=== PATIENT | male | born 1950 | race Caucasian/White ===

== ENCOUNTER 2016-07-20 19:09 | Emergency (ER) | payer MEDICARE, MEDICAID ==
[2016-07-20 19:10] VITALS: BMI 33.5
[2016-07-20 19:32] VITALS: RESP 20
[2016-07-20] MEDS ORDERED: Sodium Chloride 0.9% 1,000 ML IV ONE (19:50)
--- NOTE | 2016-07-20 19:51 | C.PDOC ---
History Of Present Illness Patient presents to the ER with a complaint of sharp, diffuse, worsening abdominal pain since this morning. Patient reports a decrease in PO intake. Denies fever, chill, nausea or vomiting. Time Seen by Provider: 07/20/16 19:49 Chief Complaint (Nursing): Abdominal Pain History Per: Patient History/Exam Limitations: no limitations Onset/Duration Of Symptoms: Hrs (Since AM) Current Symptoms Are (Timing): Still Present Severity: Moderate Pain Scale Rating Of: 6 Location Of Pain/Discomfort: Diffuse Radiation Of Pain To:: None Quality Of Discomfort: Sharp Associated Symptoms: Loss Of Appetite. denies: Fever, Chills, Nausea, Vomiting Exacerbating Factors: None Alleviating Factors: None Recent travel outside of the [place]: No Past Medical History Reviewed: Historical Data, Nursing Documentation, Vital Signs Vital Signs: Last Vital Signs Temp 97.5 F L 07/20/16 19:29 Pulse 51 L 07/20/16 19:29 Resp 20 07/20/16 19:29 BP 143/77 07/20/16 19:29 Pulse Ox 96 07/20/16 20:29 - Medical History PMH: Anxiety, Arthritis (KNEE PAIN), Back Problems, COPD, Diabetes, Gastritis, HTN, Hypercholesterolemia, Pneumonia () Surgical History: Coronary Stent (2 YEARS AGO), Hernia Repair - [facility] Procedures CENTRAL VENOUS CATHETER PLACEMENT WITH GUIDANCE (07/24/12) CONTINUOUS INVASIVE MECHANICAL VENTILATION <96 CONSEC HRS (07/24/12) DRAINAGE OF PERITONEAL CAVITY, OPEN APPROACH (05/13/15) EXCISION OF RIGHT SPERMATIC CORD, OPEN APPROACH (05/01/15) EXTRACTION OF PELVIC SUBCU/FASCIA, OPEN APPROACH (05/13/15) INSERT ENDOTRACHEAL TUBE (07/24/12) OTH LYSIS-PERITONEAL ADHES (03/16/13) OTHER OPEN UMBILICAL HERNIORRHAPHY (03/16/13) SUPPLEMENT R INGUINAL REGION WITH SYNTH SUB, OPEN APPROACH (05/01/15) Family History: States: No Known Family Hx - Social History Hx Tobacco Use: Yes Hx Alcohol Use: No Hx Substance Use: No - Immunization History Hx Tetanus Toxoid Vaccination: No Hx Influenza Vaccination: Yes Hx Pneumococcal Vaccination: No Review Of Systems Constitutional: Negative for: Fever, Chills Gastrointestinal: Positive for: Abdominal Pain (Sharpm, diffuse). Negative for : Nausea, Vomiting Physical Exam - Physical Exam Appears: Non-toxic Skin: Warm, Dry Oral Mucosa: Moist Chest: Symmetrical, No Tenderness Cardiovascular: Rhythm Regular, No Murmur Respiratory: No Rales, No Rhonchi, No Wheezing Gastrointestinal/Abdominal: Soft, No Tenderness, Distention, Hernia (Right periumbilical nonreducible), Other (Inguinal canal intact) Neurological/Psych: Oriented x3 ED Course And Treatment - Laboratory Results Result Diagrams: 07/20/16 20:07 07/20/16 20:07 O2 Sat by Pulse Oximetry: 96 (room air) Pulse Ox Interpretation: Normal Progress Note: CT abd/pel w/ PO & IV contrast, blood work and urinalysis ordered. Pepcid, toradol, morphine, zofran, piperacillin and IV fluids administered. Spoke with pt at length about having to stay in ehospital, but pt states he has"things to do" and will come back in 2 weeks.Understands the risks as I've explained to him, including worsening condition, permanent disability and . Pt is aaox3 and competent and states he wants to go home Against Medical Advice - AMA Patient Left Against Medical Advice: The patient declines admission to the hospital and wishes to leave the Emergency Department. This action is against my medical advice. This decision was made with informed refusal. The patient was told that admission to the hospital is necessary. Explanation of the reasons why were discussed. The risks of leaving were explained to the patient and include, but are not limited to, worsening of known or currently unknown conditions, permanent disability and from undiagnosed or untreated conditions. The patient has the capacity to make this informed decision and understands my explanation of the current medical problem and risks of leaving. The patient voluntarily accepts these risks and signed an AMA form documenting our conversation. The patient was given the opportunity to ask questions and reconsider. The patient was encouraged to return to the Emergency Department at any time for further care. Disposition Counseled Patient/Family Regarding: Studies Performed, Diagnosis, Need For Followup - Disposition Disposition: AGAINST MEDICAL ADVICE Disposition Time: 19:50 Condition: FAIR Instructions: Umbilical Hernia (ED), Abdominal Pain (ED) - Clinical Impression Clinical Impression: Abdominal pain, Umbilical hernia with obstruction - Scribe Statement The provider has reviewed the documentation as recorded by the Scribosiris Rivera All medical record entries made by the Scribe were at my direction and personally dictated by me. I have reviewed the chart and agree that the record accurately reflects my personal performance of the history, physical exam, medical decision making, and the department course for this patient. I have also personally directed, reviewed, and agree with the discharge instructions and disposition.
[2016-07-20] MEDS ORDERED: Piperacillin/Tazobact 3.375 gm 100 ML IVPB STA (19:55)
[2016-07-20] MEDS ORDERED: Iohexol 240 (50 ml) PO ONE (19:57)
[2016-07-20] MEDS ORDERED: Sodium Chloride 0.9% 1,000 ML ONE (20:05)
[2016-07-20] MEDS ORDERED: Iohexol 240 (50 ml) ONE (20:08)
[2016-07-20] MEDS ORDERED: Morphine 4 MG/ML VIAL ONE (20:08)
[2016-07-20] MEDS ORDERED: Piperacillin/Tazobact 3.375 gm 100 ML IVPB ONE (20:09)
[2016-07-20 20:11] LABS: BASO # 0.1 K/uL (0.0-0.2); BASO % 0.6 % (0.0-2.0); EOS # 0.2 K/uL (0.0-0.7); EOS % 2.5 % (0.0-4.0); HEMATOCRIT 48.2 % (35.0-51.0); LYMPH # 3.4 K/uL (1.0-4.3); LYMPH % 35.5 % (20.0-40.0); MEAN CELL VOLUME 88.4 fL (80.0-94.0); MEAN CORPUSCULAR HGB CONC 33.9 g/dL (33.0-37.0); MEAN PLATELET VOLUME 9.8 fL (7.2-11.7); MONO # 0.8 K/uL (0.0-0.8); NRBC % 0.1 % (0.0-2.0); RED CELL DISTRIBUTION WIDTH 14.3 % (11.5-14.5); WHITE BLOOD COUNT 9.6 K/uL (4.8-10.8)
[2016-07-20 20:25] LABS: CHLORIDE 102 mmol/L (98-107); POTASSIUM 4.2 mmol/L (3.6-5.2); SODIUM 137 mmol/L (132-148)
[2016-07-20 20:27] LABS: GFR AFRICAN-AMERICAN > 60
[2016-07-20 20:28] LABS: ALB/GLOB RATIO 1.4 (1.0-2.1); ALKALINE PHOSPHATASE 56 U/L (38-126); ALT/SGPT 22 U/L (21-72); AST/SGOT 19 U/L (17-59); BILIRUBIN,TOTAL 0.6 mg/dL (0.2-1.3); BLOOD UREA NITROGEN 23 mg/dL (9-20); CALCIUM 9.2 mg/dl (8.6-10.4); CARBON DIOXIDE 28 mmol/L (22-30); GLUCOSE,RANDOM 107 mg/dL (75-110); TOTAL PROTEIN 6.7 g/dL (6.3-8.3)
[2016-07-20] MEDS ORDERED: Iohexol 350mg/ml 100 ML ONE (20:54)
[2016-07-20 20:56] LABS: VENOUS BLOOD GAS BASE EXCESS 0.1 mmol/L (0.0-2.0); VENOUS BLOOD GAS PCO2 56 mmHg (40-60)
--- NOTE | 2016-07-20 22:13 | CT ---
EXAM: CT Abdomen and Pelvis With Intravenous Contrast CLINICAL HISTORY: 66 years old, male; Condition or disease; Hernia; Complications not specified; Hernia not specified; Additional info: Incarcerated hernia TECHNIQUE: Axial computed tomography images of the abdomen and pelvis with intravenous contrast. This CT exam was performed using one or more of the following dose reduction techniques: automated exposure control, adjustment of the mA and/or kV according to patient size, and/or use of iterative reconstruction technique. Coronal and sagittal reformatted images were created and reviewed. CONTRAST: 100 mL of omnipaque 350 administered intravenously. COMPARISON: No relevant prior studies available. FINDINGS: Lower thorax: No acute findings. ABDOMEN: Liver: Unremarkable. No mass. Gallbladder and bile ducts: No calcified stones. No ductal dilation. Pancreas: No ductal dilation. No mass. Spleen: No splenomegaly. Adrenals: No mass. Kidneys and ureters: Few renal cysts. Few too small to characterize lesions within kidneys. No hydronephrosis. Stomach and bowel: Small to moderate RIGHT paraumbilical hernia containing fat, fluid, loops of small bowel. Mildly dilated loops of mid small bowel proximal to hernia. Stool formation within few mildly dilated bowel loops. Mild stranding/fluid within associated small bowel mesentery. Nondistended loops of distal small bowel distal to hernia. No definite mural thickening. Appendix: Normal caliber. No inflammation. PELVIS: Bladder: LEFT bladder diverticulum. Reproductive: Mildly enlarged prostate with indentation of inferior bladder wall. ABDOMEN and PELVIS: Intraperitoneal space: Small free fluid within abdomen. Bones/joints: No acute fracture. Soft tissues: Small LEFT paraumbilical horn containing fat. Linear scarring within the RIGHT inguinal region. 2.6 x 1.8 x 2.2 cm fluid collection at level of RIGHT inguinal canal without peripheral enhancement, likely seroma. Vasculature: Mild atherosclerotic disease. Focal infrarenal abdominal aortic aneurysm, up to 3.0 cm. Lymph nodes: No pathologically enlarged lymph nodes. IMPRESSION: 1. RIGHT paraumbilical hernia containing small bowel with resultant obstruction. 2. Incidental/non-acute findings are described above.
[2016-07-20 23:35] VITALS: BP 130/75; PULSE 64; TEMP 98.1; O2SAT 97
[2016-07-21 00:31] LABS: RBC URINE < 1 /hpf (0-3); URINE BILIRUBIN NEGATIVE (NEGATIVE); URINE BLOOD NEGATIVE (NEGATIVE); URINE COLOR Yellow (YELLOW); URINE GLUCOSE (UA) NORMAL (Normal); URINE KETONE NEGATIVE (NEGATIVE); URINE LEUKOCYTE ESTERASE NEG Leu/uL (Negative); URINE PROTEIN NEGATIVE (NEGATIVE); URINE UROBILINOGEN NORMAL mg/dL (0.2-1.0); WBC URINE 1 /hpf (0-5)
== END 2016-07-20 23:25 | disposition left against medical advice (07) ==
LOC: C.ER 19:09
DX: K42.0 Umbilical hernia with obstruction, without gangrene (principal)
CPT/HCPCS: 74177; 80053; 82803; 83690; 85025; 85610; 85730; 96365; 96375; 99285; J1885; J2270; J2405; J2543; J7040; Q9966; Q9967

== ENCOUNTER 2016-07-21 12:43 | Inpatient (IN) | payer MEDICARE, MEDICAID ==
[2016-07-21 12:43] VITALS: BMI 33.5
--- NOTE | 2016-07-21 13:20 | C.PDOC ---
History Of Present Illness 66M c/o abdominal pain and nausea for 2 days. no exac or reliev fx. he says he was here yesterday but left AMA because he says "I felt better." he says pain returned today. Time Seen by Provider: 07/21/16 13:16 Chief Complaint (Nursing): Abdominal Pain Past Medical History Vital Signs: Last Vital Signs Temp 97.6 F 07/21/16 13:03 Pulse 52 L 07/21/16 14:05 Resp 18 07/21/16 14:05 BP 106/70 07/21/16 14:05 Pulse Ox 95 07/21/16 14:05 - Medical History PMH: Anxiety, Arthritis (KNEE PAIN), Back Problems, COPD, Diabetes, Gastritis, HTN, Hypercholesterolemia, Pneumonia () Surgical History: Coronary Stent (2 YEARS AGO), Hernia Repair - [facility] Procedures CENTRAL VENOUS CATHETER PLACEMENT WITH GUIDANCE (07/24/12) CONTINUOUS INVASIVE MECHANICAL VENTILATION <96 CONSEC HRS (07/24/12) DRAINAGE OF PERITONEAL CAVITY, OPEN APPROACH (05/13/15) EXCISION OF RIGHT SPERMATIC CORD, OPEN APPROACH (05/01/15) EXTRACTION OF PELVIC SUBCU/FASCIA, OPEN APPROACH (05/13/15) INSERT ENDOTRACHEAL TUBE (07/24/12) OTH LYSIS-PERITONEAL ADHES (03/16/13) OTHER OPEN UMBILICAL HERNIORRHAPHY (03/16/13) SUPPLEMENT R INGUINAL REGION WITH SYNTH SUB, OPEN APPROACH (05/01/15) Family History: States: Other Other Family History: nc - Social History Hx Tobacco Use: Yes Hx Alcohol Use: No Hx Substance Use: No - Immunization History Hx Tetanus Toxoid Vaccination: No Hx Influenza Vaccination: Yes Hx Pneumococcal Vaccination: No Review Of Systems Except As Marked, All Systems Reviewed And Found Negative. Constitutional: Negative for: Fever, Chills, Weakness, Malaise Cardiovascular: Negative for: Chest Pain Respiratory: Negative for: Cough, Shortness of Breath Gastrointestinal: Positive for: Nausea, Abdominal Pain. Negative for: Vomiting , Diarrhea Neurological: Negative for: Weakness, Numbness Physical Exam - Physical Exam Appears: Non-toxic Skin: Warm, Dry Eye(s): bilateral: PERRL Nose: No Epistaxis Oral Mucosa: Moist Tongue: No Swelling Lips: No Swelling Neck: Normal ROM Cardiovascular: Rhythm Regular Respiratory: No Decreased Breath Sounds, No Accessory Muscle Use, No Rales, No Rhonchi, No Wheezing Gastrointestinal/Abdominal: Bowel Sounds (decreased), Tenderness, Distention, Other (paraumbilical hernia) Extremity: No Swelling Neurological/Psych: Oriented x3, Other (no focal deficits) ED Course And Treatment - Laboratory Results Result Diagrams: 07/21/16 13:38 07/21/16 13:38 O2 Sat by Pulse Oximetry: 95 Medical Decision Making Medical Decision Makinpm disc w Dr Gibbs who will admit. req Dr Pa 215pm Dr Ember arevalo the pt in the ED> will plan on surgery today Disposition - Disposition Disposition: HOSPITALIZED Disposition Time: 13:45 Condition: GUARDED - Clinical Impression Clinical Impression: Incarcerated hernia
[2016-07-21] MEDS ORDERED: Piperacill/Tazo 3.375gm in Dex 3.375 GM/50 ML BAG IVPB STA (13:21)
[2016-07-21 13:47] LABS: BASO % 0.5 % (0.0-2.0); EOS # 0.2 K/uL (0.0-0.7); EOS % 2.4 % (0.0-4.0); HEMATOCRIT 52.3 % (35.0-51.0); LYMPH # 1.4 K/uL (1.0-4.3); MEAN CELL VOLUME 89.4 fL (80.0-94.0); MEAN CORPUSCULAR HEMOGLOBIN 29.8 pg (27.0-31.0); MEAN CORPUSCULAR HGB CONC 33.3 g/dL (33.0-37.0); MEAN PLATELET VOLUME 9.2 fL (7.2-11.7); MONO # 0.5 K/uL (0.0-0.8); MONO % 6.3 % (0.0-10.0); RED CELL DISTRIBUTION WIDTH 14.1 % (11.5-14.5); WHITE BLOOD COUNT 7.3 K/uL (4.8-10.8)
[2016-07-21 13:53] LABS: VENOUS BLOOD GAS BASE EXCESS -3.7 mmol/L (0.0-2.0); VENOUS BLOOD GAS PCO2 45 mmHg (40-60); VENOUS BLOOD PH 7.31 (7.32-7.43)
[2016-07-21 13:55] LABS: POTASSIUM 4.6 mmol/L (3.6-5.2)
[2016-07-21 13:57] LABS: BILIRUBIN,TOTAL 0.7 mg/dL (0.2-1.3)
[2016-07-21 13:58] LABS: ALB/GLOB RATIO 1.2 (1.0-2.1); CALCIUM 8.9 mg/dl (8.6-10.4); MAGNESIUM 1.9 mg/dL (1.6-2.3); PHOSPHOROUS 5.2 mg/dL (2.5-4.5); TOTAL PROTEIN 6.2 g/dL (6.3-8.3)
[2016-07-21] MEDS ORDERED: Vancomycin 1 gm/NS 200 ml 1 GM/200 ML BAG IVPB ONE (14:00)
[2016-07-21] MEDS ORDERED: Piperacillin/Tazobact 3.375 gm 100 ML IVPB ONE (14:01)
[2016-07-21] MEDS: Sodium Chloride 0.9% 1,000 ML IV SCH ×2 (14:04→23:02)
[2016-07-21] MEDS ORDERED: Morphine 4 MG/ML VIAL ONE (14:51)
--- NOTE | 2016-07-21 14:54 | RAD ---
HISTORY: Sepsis Patient COMPARISON: Chest x-ray performed 04/26/15 TECHNIQUE: Chest, one view. FINDINGS: Examination limited by habitus. LUNGS: Mild basilar atelectasis. Please note that chest x-ray has limited sensitivity for the detection of pulmonary masses. PLEURA: No significant pleural effusion identified. No definite pneumothorax . CARDIOVASCULAR: Cardiomegaly. OSSEOUS STRUCTURES: Degenerative changes. VISUALIZED UPPER ABDOMEN: Unremarkable. OTHER FINDINGS: None. IMPRESSION: Cardiomegaly. Mild basilar atelectasis.
[2016-07-21] MEDS ORDERED: Morphine 4 MG/ML VIAL IVP PRN ×3 (14:58→19:12)
--- NOTE | 2016-07-21 15:04 | CP.PCM.CON ---
History of Present Illness - History of Present Illness History of Present Illness: Surgery: Dr. Pa Reason for consult: abdominal pain CC: abdominal pain HPI: Patient is a 66 y/o male w/ pmhx of right inguinal hernia repair 2015 as well as prior umbilical hernia repair in 2013 presents complaining of abdominal pain for the past couple of days. He reports coming to ER yesterday however the abdominal pain improved so patient signed himself out of the hospital; however, he states the pain returned which prompted him to come back to hospital. Patient underwent CT scan yesterday which showed a large paraumbilical hernia, incarcerated, causing obstruction. Patient denies n/v/f/c. He denies CP or SOB. He does report associated nausea. PMH: COPD, HTN, CAD s/p cardiac stent placement in 2011?, most recent stress test showed EF 65% w/ no evidence of ischemia, DM, back pain, gastritis, HLD PSH: right inguinal hernia repair w/ mesh, right inguinal hernia hematoma drainage, umbilical hernia repair, cardiac cath NKDA Review of Systems - Review of Systems All systems: reviewed and no additional remarkable complaints except Review of Systems: unless stated in HPI Past Patient History - Infectious Disease Hx of Infectious Diseases: None - Past Medical History & Family History Past Medical History?: Yes - Past Social History Smoking Status: Light Smoker < 10 Cigarettes Daily - CARDIAC Hx Hypercholesterolemia: Yes Hx Hypertension: Yes - PULMONARY Hx Chronic Obstructive Pulmonary Disease (COPD): Yes Hx Pneumonia: Yes () - NEUROLOGICAL Hx Neurological Disorder: No - HEENT Hx HEENT Problems: Yes (POOR VISION) - RENAL Hx Chronic Kidney Disease: No - ENDOCRINE/METABOLIC Hx Endocrine Disorders: Yes Hx Diabetes Mellitus Type 2: Yes - HEMATOLOGICAL/ONCOLOGICAL Hx Blood Disorders: No - INTEGUMENTARY Hx Dermatological Problems: No - MUSCULOSKELETAL/RHEUMATOLOGICAL Hx Arthritis: Yes (KNEE PAIN) - GASTROINTESTINAL Hx Gastritis: Yes - GENITOURINARY/GYNECOLOGICAL Hx Genitourinary Disorders: Yes Hx Prostate Problems: Yes - PSYCHIATRIC Hx Anxiety: Yes Hx Substance Use: No - SURGICAL HISTORY Hx Coronary Stent: Yes (2 YEARS AGO) - ANESTHESIA Hx Anesthesia: Yes Hx Anesthesia Reactions: No Hx Malignant Hyperthermia: No Meds Allergies/Adverse Reactions: Allergies Allergy/AdvReac Type Severity Reaction Status Date / Time No Known Allergies Allergy Verified 07/21/16 13:06 - Medications Medications: Current Medications Vancomycin/Sodium Chloride (Vancocin) 1 gm in 200 mls @ 133 mls/hr IVPB ONCE ONE Stop: 07/21/16 15:30 Last Admin: 07/21/16 14:42 Dose: 133 mls/hr Sodium Chloride (Sodium Chloride 0.9%) 1,000 mls @ 100 mls/hr IV .Q10H ERIK Last Admin: 07/21/16 14:04 Dose: 100 mls/hr Physical Exam - Constitutional Appears: Non-toxic, No Acute Distress - Head Exam Head Exam: ATRAUMATIC, NORMOCEPHALIC - Eye Exam Eye Exam: EOMI, Normal appearance - ENT Exam ENT Exam: Mucous Membranes Moist - Respiratory Exam Respiratory Exam: NORMAL BREATHING PATTERN. absent: Respiratory Distress - Cardiovascular Exam Cardiovascular Exam: REGULAR RHYTHM. absent: Tachycardia - GI/Abdominal Exam GI & Abdominal Exam: Distended, Hernia (mohamud-umbilical nonreducible hernia ), Soft, Tenderness (mohamud-umbilical ). absent: Guarding - Neurological Exam Neurological exam: Alert - Psychiatric Exam Psychiatric exam: Normal Affect, Normal Mood - Skin Skin Exam: Dry, Intact, Warm Results - Vital Signs Recent Vital Signs: Last Vital Signs Temp 97.6 F 07/21/16 13:03 Pulse 86 07/21/16 14:48 Resp 20 07/21/16 14:48 BP 118/75 07/21/16 14:48 Pulse Ox 97 07/21/16 14:48 - Labs Result Diagrams: 07/21/16 13:38 07/21/16 13:38 Labs: Laboratory Results - last 24 hr 07/21/16 07/21/16 07/21/16 13:38 13:38 13:38 WBC 7.3 RBC 5.85 Hgb 17.4 Hct 52.3 H MCV 89.4 MCH 29.8 MCHC 33.3 RDW 14.1 Plt Count 145 MPV 9.2 Neut % (Auto) 71.8 Lymph % (Auto) 19.0 L [place] % (Auto) 6.3 Eos % (Auto) 2.4 Baso % (Auto) 0.5 Neut # 5.2 Lymph # 1.4 [place] # 0.5 Eos # 0.2 Baso # 0.0 PT 11.5 INR 1.0 APTT 69 H D pO2 VBG pH VBG pCO2 VBG HCO3 VBG Total CO2 VBG O2 Sat (Calc) VBG Base Excess VBG Potassium Glucose Lactate Sodium 137 Potassium 4.6 Chloride 102 Carbon Dioxide 25 Anion Gap 14 BUN 23 H Creatinine 1.5 Est GFR ( Amer) 57 Est GFR (Non-Af Amer) 47 Random Glucose 155 H Calcium 8.9 Phosphorus 5.2 H Magnesium 1.9 Total Bilirubin 0.7 AST 20 ALT 24 Alkaline Phosphatase 54 Total Protein 6.2 L Albumin 3.4 L Globulin 2.8 Albumin/Globulin Ratio 1.2 Venous Blood Potassium 07/21/16 13:49 WBC RBC Hgb Hct MCV MCH MCHC RDW Plt Count MPV Neut % (Auto) Lymph % (Auto) [place] % (Auto) Eos % (Auto) Baso % (Auto) Neut # Lymph # [place] # Eos # Baso # PT INR APTT pO2 42 VBG pH 7.31 L VBG pCO2 45 VBG HCO3 21.4 VBG Total CO2 24.1 VBG O2 Sat (Calc) 82.2 H VBG Base Excess -3.7 L VBG Potassium 4.1 Glucose 144 H Lactate 1.5 Sodium 139.0 Potassium Chloride 108.0 H Carbon Dioxide Anion Gap BUN Creatinine Est GFR ( Amer) Est GFR (Non-Af Amer) Random Glucose Calcium Phosphorus Magnesium Total Bilirubin AST ALT Alkaline Phosphatase Total Protein Albumin Globulin Albumin/Globulin Ratio Venous Blood Potassium 4.1 Assessment & Plan - Assessment and Plan (Free Text) Assessment: 66 y/o male w/ incarcerated para-umbilical hernia Plan: -urgent OR intervention for repair -hold meds -NPO -IV abx -am labs -pain control -nausea control -medical management per primary -seen and examined w/ Dr. Ember Gonzales PGY1
[2016-07-21] MEDS: Piperacillin/Tazobact 3.375 GM in Sodium Chloride 100 ML IVPB SCH ×2 (15:05→21:01)
[2016-07-21 15:29] LABS: RBC URINE < 1 /hpf (0-3); URINE BILIRUBIN NEGATIVE (NEGATIVE); URINE BLOOD NEGATIVE (NEGATIVE); URINE COLOR Yellow (YELLOW); URINE GLUCOSE (UA) NORMAL (Normal); URINE KETONE NEGATIVE (NEGATIVE); URINE LEUKOCYTE ESTERASE NEG Leu/uL (Negative); URINE PROTEIN NEGATIVE (NEGATIVE); URINE UROBILINOGEN NORMAL mg/dL (0.2-1.0); WBC URINE 1 /hpf (0-5)
[2016-07-21] MEDS ORDERED: (Novolin R) Insulin Human Regular 100 units/ml vial SC SCH (16:30)
[2016-07-21] MEDS ORDERED: Propofol 10 mg/ml Inj (20 ML) ONE (16:42)
[2016-07-21] MEDS ORDERED: Midazolam 2 MG/2 ML VIAL ONE ×2 (16:42→17:43)
[2016-07-21 16:43] LABS: VENOUS BLOOD GAS BASE EXCESS -1.9 mmol/L (0.0-2.0); VENOUS BLOOD GAS PCO2 53 mmHg (40-60); VENOUS BLOOD PH 7.29 (7.32-7.43)
[2016-07-21] MEDS ORDERED: Lactated Ringer's 1,000 ML IV ONE ×2 (17:35→18:50)
[2016-07-21] MEDS ORDERED: Sodium Citrate/Citric Acid 15 ml Sol ONE (17:36)
[2016-07-21] MEDS ORDERED: Ketamine 50 mg/ml Inj (10 ml) ONE (17:38)
[2016-07-21] MEDS ORDERED: Succinylcholine Chloride 20 mg/ml Syr (5 ml) IV ONE (17:47)
[2016-07-21] MEDS ORDERED: Bupivacaine HCl 0.5% PF (10 ml) Inj ONE (18:48)
--- NOTE | 2016-07-21 19:09 | PCM.SURG1 ---
Surgeon's Initial Post Op Note - Surgeon's Notes Surgeon: Dr. Pa Chief Unit Forester: Dr. Taylor Type of Anesthesia: General Endo, Local Pre-Operative Diagnosis: incarcerated recurrent para-umbilical hernia Operative Findings: see operative report Post-Operative Diagnosis: same Operation Performed: incarcerated recurrent para-umbilical hernia open repair w / mesh Specimen/Specimens Removed: hernia sac Estimated Blood Loss: EBL {In ML}: 10 Blood Products Given: N/A Drains Used: No Drains Post-Op Condition: Good Date of Surgery/Procedure: 07/21/16 Time of Surgery/Procedure: 19:09
[2016-07-21] MEDS ORDERED: HYDROmorphone 0.5 mg/0.5 ml ISec IVP PRN (19:10)
--- NOTE | 2016-07-21 19:18 | OP ---
PROCEDURE DATE: 07/21/2016 PREOPERATIVE DIAGNOSIS: Incarcerated recurrent incisional hernia. POSTOPERATIVE DIAGNOSIS: Incarcerated recurrent incisional hernia. PROCEDURE CARRIED OUT: Repair of incarcerated recurrent incisional hernia with mesh. SURGEON: Hola Pa Jr., MD RECORDIST: Dr. Taylor. ANESTHESIOLOGIST: . ANESTHESIA: General anesthesia. INDICATIONS: The patient is a 66-year-old man with severe abdominal pain, came to the Emergency Room yesterday, signed out AMA, came back again today with increasing abdominal pain, felt to be slightly septic on admission, controlled with the use of fluids, etc. and hydration. OPERATIVE FINDINGS: There was no incarcerated bowel or compromised bowel. There was a defect. Most of the previous repair had just pulled through and there was a defect of 7 cm in diameter. This was identified. All the adjacent adhesions freed up and then a mesh which measured 14 x 11 was then mendy deo here, a Ventrio mesh, and sutured to the underlying fascia. The patient was somewhat distended a nd even with the increasing distension, the mesh held in place very nicely. We sutured both sides an d then sutured incorporating the mesh into the fascial closure. Skin was then closed with skin clips after subcutaneous closure and Marcaine was injected. Blood loss of the procedure was less than 50 mL. OPERATION CARRIED OUT: Repair of recurrent incarcerated incisional hernia with mesh. Hola Pa Jr., MD cc:Edmar Cabral MD 56 TT: 07/21/2016 19:17:34 curtis
--- NOTE | 2016-07-21 19:53 | CP.PCM.CON ---
History of Present Illness - History of Present Illness History of Present Illness: 66yo M. PMHx right inguinal repair with mesh (2015) c/b by right inguinal hernia hematoma drainage, umbilical hernia repair (2013), COPD, hypertension, CAD with stents (2011), diabetes mellitus type 2, back pain, gastritis, hyperlipidemia. Presented with abdominal pain, taken to the OR (07/21/16) and underwent repair with mesh of incarcerated recurrent paraumbilical hernia. Admit to ICU for postop monitoring. Review of Systems - Review of Systems All systems: reviewed and no additional remarkable complaints except - Gastrointestinal Gastrointestinal: Abdominal Pain (post=op pain) Past Patient History - Infectious Disease Hx of Infectious Diseases: None - Past Medical History & Family History Past Medical History?: Yes - Past Social History Smoking Status: Light Smoker < 10 Cigarettes Daily - CARDIAC Hx Hypercholesterolemia: Yes Hx Hypertension: Yes - PULMONARY Hx Chronic Obstructive Pulmonary Disease (COPD): Yes Hx Pneumonia: Yes () - NEUROLOGICAL Hx Neurological Disorder: No - HEENT Hx HEENT Problems: Yes (POOR VISION) - RENAL Hx Chronic Kidney Disease: No - ENDOCRINE/METABOLIC Hx Endocrine Disorders: Yes Hx Diabetes Mellitus Type 2: Yes - HEMATOLOGICAL/ONCOLOGICAL Hx Blood Disorders: No - INTEGUMENTARY Hx Dermatological Problems: No - MUSCULOSKELETAL/RHEUMATOLOGICAL Hx Arthritis: Yes (KNEE PAIN) - GASTROINTESTINAL Hx Gastritis: Yes - GENITOURINARY/GYNECOLOGICAL Hx Genitourinary Disorders: Yes Hx Prostate Problems: Yes - PSYCHIATRIC Hx Anxiety: Yes Hx Substance Use: No - SURGICAL HISTORY Hx Coronary Stent: Yes (2 YEARS AGO) - ANESTHESIA Hx Anesthesia: Yes Hx Anesthesia Reactions: No Hx Malignant Hyperthermia: No Meds Allergies/Adverse Reactions: Allergies Allergy/AdvReac Type Severity Reaction Status Date / Time No Known Allergies Allergy Verified 07/21/16 13:06 - Medications Medications: Current Medications Allopurinol (Zyloprim) 100 mg PO DAILY ERIK Amlodipine Besylate (Norvasc) 5 mg PO DAILY ERIK Aspirin (Ecotrin) 81 mg PO DAILY ERIK Clopidogrel Bisulfate (Plavix) 75 mg PO DAILY ERIK Colchicine (Colocrys) 0.6 mg PO DAILY ERIK Enalapril Maleate (Vasotec) 5 mg PO DAILY ERIK Ergocalciferol (Drisdol 50,000 Intl Units Cap) 1 cap PO QWK ERIK Famotidine (Pepcid) 20 mg IVP Q12 ERIK Furosemide (Lasix) 20 mg PO DAILY [facility] Hydromorphone HCl (Dilaudid) 0.5 mg IVP Q10M PRN PRN Reason: Pain, moderate (4-7) Sodium Chloride (Sodium Chloride 0.9%) 1,000 mls @ 100 mls/hr IV .Q10H [facility] Last Admin: 07/21/16 14:04 Dose: 100 mls/hr Piperacillin Sod/Tazobactam (Sod 3.375 gm/ Sodium Chloride) 100 mls @ 200 mls/ hr IVPB Q6H [facility] Last Admin: 07/21/16 15:05 Dose: Not Given Insulin Human Regular (Novolin R) 0 unit SC ACHS ERIK PRN Reason: Protocol Metformin HCl (Glucophage) 500 mg PO BIDCC [facility] Morphine Sulfate (Morphine) 4 mg IVP Q4H PRN PRN Reason: Pain, moderate (4-7) Morphine Sulfate (Morphine) 6 mg IVP Q4H PRN PRN Reason: Pain, severe (8-10) Ondansetron HCl (Zofran Inj) 4 mg IVP Q6 PRN PRN Reason: Nausea/Vomiting Potassium Chloride (Klor-Con 10) 10 meq PO DAILY [facility] Pyridoxine HCl (Vitamin B6 50 Mg Tab) 50 mg PO DAILY ERIK Rosuvastatin Calcium (Crestor) 20 mg PO HS ERIK Tamsulosin HCl (Flomax) 0.4 mg PO HS ERIK Zolpidem Tartrate (Ambien) 5 mg PO HS [facility] Physical Exam - Constitutional Appears: Well - Head Exam Head Exam: ATRAUMATIC, NORMAL INSPECTION, NORMOCEPHALIC - Eye Exam Pupil Exam: NORMAL ACCOMODATION, PERRL - ENT Exam ENT Exam: Mucous Membranes Moist, Normal Exam - Respiratory Exam Respiratory Exam: Clear to Auscultation Bilateral, NORMAL BREATHING PATTERN - Cardiovascular Exam Cardiovascular Exam: REGULAR RHYTHM - GI/Abdominal Exam GI & Abdominal Exam: Tenderness Additional comments: abdominal binder - Neurological Exam Neurological exam: Alert, CN II-XII Intact, Normal Gait, Oriented x3, Reflexes Normal - Psychiatric Exam Psychiatric exam: Normal Affect, Normal Mood Results - Vital Signs Recent Vital Signs: Last Vital Signs Temp 97.6 F 07/21/16 13:03 Pulse 46 L 07/21/16 16:23 Resp 18 07/21/16 16:23 BP 120/78 07/21/16 16:23 Pulse Ox 97 07/21/16 16:23 - Labs Result Diagrams: 07/21/16 13:38 07/21/16 13:38 Labs: Laboratory Results - last 24 hr 07/21/16 07/21/16 07/21/16 13:38 13:38 13:38 WBC 7.3 RBC 5.85 Hgb 17.4 Hct 52.3 H MCV 89.4 MCH 29.8 MCHC 33.3 RDW 14.1 Plt Count 145 MPV 9.2 Neut % (Auto) 71.8 Lymph % (Auto) 19.0 L [place] % (Auto) 6.3 Eos % (Auto) 2.4 Baso % (Auto) 0.5 Neut # 5.2 Lymph # 1.4 [place] # 0.5 Eos # 0.2 Baso # 0.0 PT 11.5 INR 1.0 APTT 69 H D pO2 VBG pH VBG pCO2 VBG HCO3 VBG Total CO2 VBG O2 Sat (Calc) VBG Base Excess VBG Potassium Glucose Lactate Sodium 137 Potassium 4.6 Chloride 102 Carbon Dioxide 25 Anion Gap 14 BUN 23 H Creatinine 1.5 Est GFR ( Amer) 57 Est GFR (Non-Af Amer) 47 Random Glucose 155 H Calcium 8.9 Phosphorus 5.2 H Magnesium 1.9 Total Bilirubin 0.7 AST 20 ALT 24 Alkaline Phosphatase 54 Total Protein 6.2 L Albumin 3.4 L Globulin 2.8 Albumin/Globulin Ratio 1.2 Venous Blood Potassium Urine Color Urine Clarity Urine pH Ur Specific [place] Urine Protein Urine Glucose (UA) Urine Ketones Urine Blood Urine Nitrate Urine Bilirubin Urine Urobilinogen Ur Leukocyte Esterase Urine WBC (Auto) Urine RBC (Auto) Ur Squamous Epith Cells 07/21/16 07/21/16 07/21/16 13:49 15:09 16:39 WBC RBC Hgb Hct MCV MCH MCHC RDW Plt Count MPV Neut % (Auto) Lymph % (Auto) [place] % (Auto) Eos % (Auto) Baso % (Auto) Neut # Lymph # [place] # Eos # Baso # PT INR APTT pO2 42 39 VBG pH 7.31 L 7.29 L VBG pCO2 45 53 VBG HCO3 21.4 22.6 VBG Total CO2 24.1 27.1 VBG O2 Sat (Calc) 82.2 H 76.0 H VBG Base Excess -3.7 L -1.9 L VBG Potassium 4.1 4.7 Glucose 144 H 127 H Lactate 1.5 1.1 Sodium 139.0 138.0 Potassium Chloride 108.0 H 111.0 H Carbon Dioxide Anion Gap BUN Creatinine Est GFR ( Amer) Est GFR (Non-Af Amer) Random Glucose Calcium Phosphorus Magnesium Total Bilirubin AST ALT Alkaline Phosphatase Total Protein Albumin Globulin Albumin/Globulin Ratio Venous Blood Potassium 4.1 4.7 Urine Color Yellow Urine Clarity Clear Urine pH 5.0 Ur Specific [place] 1.043 H Urine Protein Negative Urine Glucose (UA) Normal Urine Ketones Negative Urine Blood Negative Urine Nitrate Negative Urine Bilirubin Negative Urine Urobilinogen Normal Ur Leukocyte Esterase Neg Urine WBC (Auto) 1 Urine RBC (Auto) < 1 Ur Squamous Epith Cells < 1 Assessment & Plan (1) Incarcerated hernia Assessment and Plan: 66yo M. PMHx right inguinal repair with mesh (2015) c/b by right inguinal hernia hematoma drainage, umbilical hernia repair (2013), COPD, hypertension, CAD with stents (2011), diabetes mellitus type 2, back pain, gastritis, hyperlipidemia. (07/21/16) s/p repair with mesh of incarcerated recurrent paraumbilical hernia. Neuro: Alert and oriented, following commands. Morphine IV prn for moderate to severe pain. Pulm: No acute issues, breathing spontaneously on nasal cannula oxygen CV: Hemodynamically stable, holding hypertensive meds immediately postop, will restart tomorrow both amlodipine and enalapril. Hem: No acute issues, we'll restart aspirin and Plavix 24 hours postop. Renal: No acute issues, urine output within normal limits, will monitor. Restarting daily oral Lasix dosing tomorrow. Questionable need for Lasix given that echocardiogram shows no evidence of any type of heart failure. Endo: DM type II, short acting insulin sliding scale for coverage, holding oral meds for now, will restart once patient's clinical status is stable and is progressing on oral intake. GI: Nothing by mouth immediately postop. Will advance with input from surgical team. ID: Empiric coverage with Zosyn, will taper back based on patient's clinical progress. DVT proph - Lovenox, to be started 24 hours postop GI proph - Pepcid IV every 12 jeffrey for strict I/O's during acute illness Code status - full code Crtical Care Time spent 35 minutes The documented time is cumulative and includes review of patient data/exams/labs /chart review and examination of the patient on rounds and throughout the day; time is exclusive of any procedures or teaching time. Status: Acute
[2016-07-21] MEDS ORDERED: Sodium Chloride 0.9% 1,000 ML IV ONE (20:10)
[2016-07-21] MEDS ORDERED: (Novolog) Insulin Aspart, Recombinant 100 u/ml 10 ml vial SC SCH (20:15)
[2016-07-22] MEDS: Piperacillin/Tazobact 3.375 GM in Sodium Chloride 100 ML IVPB SCH ×4 (02:47→21:46)
[2016-07-22] MEDS: (Novolog) Insulin Aspart, Recombinant 100 u/ml 10 ml vial SC SCH ×4 (02:49→17:07)
[2016-07-22] MEDS: Sodium Chloride 0.9% 1,000 ML IV SCH ×4 (06:31→21:45)
[2016-07-22 06:52] LABS: BASO % 0.3 % (0.0-2.0); HEMATOCRIT 47.5 % (35.0-51.0); LYMPH # 1.1 K/uL (1.0-4.3); LYMPH % 8.6 % (20.0-40.0); MEAN CORPUSCULAR HGB CONC 33.3 g/dL (33.0-37.0); MEAN PLATELET VOLUME 9.4 fL (7.2-11.7); MONO # 0.2 K/uL (0.0-0.8); MONO % 1.8 % (0.0-10.0); PLATELET COUNT 133 K/uL (130-400); RED CELL DISTRIBUTION WIDTH 14.2 % (11.5-14.5); WHITE BLOOD COUNT 12.8 K/uL (4.8-10.8)
[2016-07-22 06:57] LABS: CHLORIDE 108 mmol/L (98-107); SODIUM 137 mmol/L (132-148)
[2016-07-22 06:58] LABS: POTASSIUM 4.6 mmol/L (3.6-5.2)
[2016-07-22 06:59] LABS: GFR AFRICAN-AMERICAN > 60
[2016-07-22 07:00] LABS: ALB/GLOB RATIO 1.1 (1.0-2.1); ALKALINE PHOSPHATASE 43 U/L (38-126); ALT/SGPT 21 U/L (21-72); AST/SGOT 16 U/L (17-59); BILIRUBIN,TOTAL 0.6 mg/dL (0.2-1.3); BLOOD UREA NITROGEN 17 mg/dL (9-20); CALCIUM 7.8 mg/dl (8.6-10.4); CARBON DIOXIDE 21 mmol/L (22-30); GLUCOSE,RANDOM 155 mg/dL (75-110); MAGNESIUM 1.9 mg/dL (1.6-2.3); PHOSPHOROUS 3.7 mg/dL (2.5-4.5); TOTAL PROTEIN 5.5 g/dL (6.3-8.3)
[2016-07-22] MEDS ORDERED: Oxycodone/Acetaminophen 5/325 mg Tab PO PRN (08:03)
[2016-07-22 08:50] LABS: NEUTROPHIL 84 % (50-75); TOTAL CELLS COUNTED 100
--- NOTE | 2016-07-22 09:34 | RAD ---
Abdomen single frontal view History: NG tube placement. Comparison: None available. Findings: NG tube extending toward the stomach. Distal tip not well visualized. Moderate to severe venous congestion. Right hilar prominence. Cardiomegaly. Patchy left basilar airspace opacity. Suggestion of a small left pleural effusion. Biapical pleural thickening with upper lobe granulomatous changes. Degenerative changes in the spine. Impression: NG tube extending toward the stomach. Distal tip not well visualized.
[2016-07-22] MEDS: Potassium Chloride 10 mEq ER Tab PO SCH (09:40)
[2016-07-22] MEDS ORDERED: Home Med 1 UNIT (Omeprazole [Omeprazole] 20 MG) PO SCH (10:00)
--- NOTE | 2016-07-22 13:52 | CP.CCUPN ---
<Lamonte Tucker - Last Filed: 07/22/16 13:50> CCU Subjective - Physician Review Subjective (Free Text): 07/22/16 13:50 PGY-1 ICU progress note Pt seen and examined at bedside. Awake and has complaint of abdominal pain but is tolerable. He is also hungry. Denies fevers, chills, chest pain, sob, nausea or vomiting. Critical Care Time Spent (in minutes): 35 CCU Objective - Vital Signs / Intake & Output Vital Signs (Last 4 hours): Vital Signs Temp 07/22/16 12:00 98 F Intake and Output (Last 8hrs): Intake & Output 07/21/16 07/22/16 07/22/16 22:59 06:59 14:59 Intake Total 053 100 5309 Output Total 475 800 350 Balance -275 100 710 Weight 240 lb 264 lb 1.82 oz Intake: Intake, IV Amount 200 900 700 Right Hand 200 900 700 Oral 360 Output: Gastric Drainage 25 Urine 450 800 350 Urethral (Diaz) 150 800 350 Other: Voiding Method Indwelling Catheter - Physical Exam Head: Positive for: Atraumatic, Normocephalic Pupils: Positive for: PERRL Mouth: Positive for: Moist Mucous Membranes Respiratory/Chest: Positive for: Clear to Auscultation, Good Air Exchange. Negative for: Respiratory Distress Cardiovascular: Positive for: Regular Rate and Rhythm, Normal S1, S2 Abdomen: Positive for: Tenderness (appropriate), Normal Bowel Sounds. Negative for: Distention Upper Extremity: Positive for: NORMAL PULSES, Neurovascularly Intact Lower Extremity: Positive for: NORMAL PULSES, Neurovascularly Intact Neurological: Positive for: Speech Normal, Motor Func Grossly Intact Skin: Positive for: Warm, Dry Psychiatric: Positive for: Alert, Oriented x 3 - Medications Active Medications: Active Medications Generic Name Dose Route Start Last Admin Trade Name Freq PRN Reason Stop Dose Admin Allopurinol 100 mg 07/22/16 10:00 07/22/16 09:40 Zyloprim PO 100 mg DAILY ERIK Administration Amlodipine Besylate 5 mg 07/22/16 10:00 07/22/16 09:42 Norvasc PO 5 mg DAILY ERIK Administration Aspirin 81 mg 07/22/16 10:00 07/22/16 09:40 Ecotrin PO 81 mg DAILY ERIK Administration Clopidogrel Bisulfate 75 mg 07/22/16 10:00 07/22/16 09:40 Plavix PO 75 mg DAILY [facility] Administration Colchicine 0.6 mg 07/22/16 10:00 07/22/16 09:42 Colocrys PO 0.6 mg DAILY ERIK Administration Enalapril Maleate 5 mg 07/22/16 10:00 07/22/16 09:40 Vasotec PO 5 mg DAILY ERIK Administration Enoxaparin Sodium 40 mg 07/23/16 10:00 Lovenox SC DAILY [facility] Ergocalciferol 1 cap 07/28/16 10:00 Drisdol 50,000 Intl Units Cap PO QWK [facility] Famotidine 20 mg 07/22/16 10:00 07/22/16 09:42 Pepcid IVP 20 mg Q12 ERIK Administration Furosemide 20 mg 07/22/16 10:00 07/22/16 09:40 Lasix PO 20 mg DAILY [facility] Administration Hydromorphone HCl 0.5 mg 07/21/16 19:10 Dilaudid IVP Q10M PRN Pain, moderate (4-7) Sodium Chloride 1,000 mls @ 100 mls/hr 07/21/16 13:45 07/22/16 12:54 Sodium Chloride 0.9% IV Not Given .Q10H ERIK Piperacillin Sod/Tazobactam 100 mls @ 200 mls/hr 07/21/16 15:00 07/22/16 13: 19 Sod 3.375 gm/ Sodium Chloride IVPB 200 mls/hr Q6H ERIK Administration Insulin Aspart 0 unit 07/22/16 00:00 07/22/16 13:19 Novolog SC 1 unit Q6H ERIK Administration Protocol Morphine Sulfate 4 mg 07/22/16 08:05 Morphine IVP Q4H PRN Pain, severe (8-10) Ondansetron HCl 4 mg 07/21/16 14:58 Zofran Inj IVP Q6 PRN Nausea/Vomiting Oxycodone/Acetaminophen 1 tab 07/22/16 08:03 07/22/16 09:41 Percocet 5/325 Mg Tab PO 07/25/16 08:04 1 tab Q4H PRN Administration Pain, moderate (4-7) Oxycodone/Acetaminophen 2 tab 07/22/16 08:03 Percocet 5/325 Mg Tab PO 07/25/16 08:04 Q4H PRN Pain, severe (8-10) Potassium Chloride 10 meq 07/22/16 10:00 07/22/16 09:40 Klor-Con 10 PO 10 meq DAILY ERIK Administration Pyridoxine HCl 50 mg 07/22/16 10:00 07/22/16 09:42 Vitamin B6 50 Mg Tab PO 50 mg DAILY ERIK Administration Rosuvastatin Calcium 20 mg 07/21/16 22:00 07/21/16 21:14 Crestor PO Not Given HS ERIK Tamsulosin HCl 0.4 mg 07/21/16 22:00 07/21/16 21:14 Flomax PO Not Given HS ERIK Zolpidem Tartrate 5 mg 07/21/16 22:00 07/21/16 21:14 Ambien PO Not Given HS ERIK - Patient Studies Lab Studies: Lab Studies 07/22/16 07/22/16 07/22/16 Range/Units 11:25 06:33 06:33 WBC 12.8 H D (4.8-10.8) K/uL RBC 5.28 (4.40-5.90) Mil/uL Hgb 15.8 (12.0-18.0) g/dL Hct 47.5 (35.0-51.0) % MCV 90.0 (80.0-94.0) fL MCH 30.0 (27.0-31.0) pg MCHC 33.3 (33.0-37.0) g/dL RDW 14.2 (11.5-14.5) % Plt Count 133 (130-400) K/uL MPV 9.4 (7.2-11.7) fL Neut % (Auto) 89.3 H (50.0-75.0) % Lymph % (Auto) 8.6 L (20.0-40.0) % [place] % (Auto) 1.8 (0.0-10.0) % Eos % (Auto) 0.0 (0.0-4.0) % Baso % (Auto) 0.3 (0.0-2.0) % Neut # 11.4 H (1.8-7.0) K/uL Lymph # 1.1 (1.0-4.3) K/uL [place] # 0.2 (0.0-0.8) K/uL Eos # 0.0 (0.0-0.7) K/uL Baso # 0.0 (0.0-0.2) K/uL Neutrophils % (Manual) 84 H (50-75) % Band Neutrophils % 2 (0-2) % Lymphocytes % (Manual) 13 L (20-40) % Monocytes % (Manual) 1 (0-10) % Platelet Estimate Normal (NORMAL) RBC Morphology Normal PT (9.7-12.2) SECONDS INR APTT (21-34) SECONDS pO2 (30-55) mm/Hg VBG pH (7.32-7.43) VBG pCO2 (40-60) mmHg VBG HCO3 mmol/L VBG Total CO2 (22-28) mmol/L VBG O2 Sat (Calc) (40-65) % VBG Base Excess (0.0-2.0) mmol/L VBG Potassium (3.6-5.2) mmol/L Glucose (75-110) mg/dl Lactate (0.7-2.1) mmol/L Sodium 137 (132-148) mmol/L Potassium 4.6 (3.6-5.2) mmol/L Chloride 108 H (98-107) mmol/L Carbon Dioxide 21 L (22-30) mmol/L Anion Gap 13 (10-20) BUN 17 (9-20) mg/dL Creatinine 1.3 (0.8-1.5) MG/DL Est GFR ( Amer) > 60 Est GFR (Non-Af Amer) 55 POC Glucose (mg/dL) 169 H (65-110) mg/dL Random Glucose 155 H (75-110) mg/dL Calcium 7.8 L (8.6-10.4) mg/dl Phosphorus 3.7 (2.5-4.5) mg/dL Magnesium 1.9 (1.6-2.3) mg/dL Total Bilirubin 0.6 (0.2-1.3) mg/dL AST 16 L (17-59) U/L ALT 21 (21-72) U/L Alkaline Phosphatase 43 (38-126) U/L Total Protein 5.5 L (6.3-8.3) g/dL Albumin 2.9 L (3.5-5.0) g/dL Globulin 2.6 (2.2-3.9) gm/dL Albumin/Globulin Ratio 1.1 (1.0-2.1) Venous Blood Potassium (3.6-5.2) mmol/L Urine Color (YELLOW) Urine Clarity (Clear) Urine pH (5.0-8.0) Ur Specific [place] (1.003-1.030) Urine Protein (NEGATIVE) mg/dL Urine Glucose (UA) (Normal) mg/dL Urine Ketones (NEGATIVE) mg/dL Urine Blood (NEGATIVE) Urine Nitrate (NEGATIVE) Urine Bilirubin (NEGATIVE) Urine Urobilinogen (0.2-1.0) mg/dL Ur Leukocyte Esterase (Negative) Jostin/uL Urine WBC (Auto) (0-5) /hpf Urine RBC (Auto) (0-3) /hpf Ur Squamous Epith Cells (0-5) /hpf 07/22/16 07/22/16 07/21/16 Range/Units 06:13 01:51 16:39 WBC (4.8-10.8) K/uL RBC (4.40-5.90) Mil/uL Hgb (12.0-18.0) g/dL Hct (35.0-51.0) % MCV (80.0-94.0) fL MCH (27.0-31.0) pg MCHC (33.0-37.0) g/dL RDW (11.5-14.5) % Plt Count (130-400) K/uL MPV (7.2-11.7) fL Neut % (Auto) (50.0-75.0) % Lymph % (Auto) (20.0-40.0) % [place] % (Auto) (0.0-10.0) % Eos % (Auto) (0.0-4.0) % Baso % (Auto) (0.0-2.0) % Neut # (1.8-7.0) K/uL Lymph # (1.0-4.3) K/uL [place] # (0.0-0.8) K/uL Eos # (0.0-0.7) K/uL Baso # (0.0-0.2) K/uL Neutrophils % (Manual) (50-75) % Band Neutrophils % (0-2) % Lymphocytes % (Manual) (20-40) % Monocytes % (Manual) (0-10) % Platelet Estimate (NORMAL) RBC Morphology PT (9.7-12.2) SECONDS INR APTT (21-34) SECONDS pO2 39 (30-55) mm/Hg VBG pH 7.29 L (7.32-7.43) VBG pCO2 53 (40-60) mmHg VBG HCO3 22.6 mmol/L VBG Total CO2 27.1 (22-28) mmol/L VBG O2 Sat (Calc) 76.0 H (40-65) % VBG Base Excess -1.9 L (0.0-2.0) mmol/L VBG Potassium 4.7 (3.6-5.2) mmol/L Glucose 127 H (75-110) mg/dl Lactate 1.1 (0.7-2.1) mmol/L Sodium 138.0 (132-148) mmol/L Potassium (3.6-5.2) mmol/L Chloride 111.0 H (98-107) mmol/L Carbon Dioxide (22-30) mmol/L Anion Gap (10-20) BUN (9-20) mg/dL Creatinine (0.8-1.5) MG/DL Est GFR ( Amer) Est GFR (Non-Af Amer) POC Glucose (mg/dL) 169 H 173 H (65-110) mg/dL Random Glucose (75-110) mg/dL Calcium (8.6-10.4) mg/dl Phosphorus (2.5-4.5) mg/dL Magnesium (1.6-2.3) mg/dL Total Bilirubin (0.2-1.3) mg/dL AST (17-59) U/L ALT (21-72) U/L Alkaline Phosphatase (38-126) U/L Total Protein (6.3-8.3) g/dL Albumin (3.5-5.0) g/dL Globulin (2.2-3.9) gm/dL Albumin/Globulin Ratio (1.0-2.1) Venous Blood Potassium 4.7 (3.6-5.2) mmol/L Urine Color (YELLOW) Urine Clarity (Clear) Urine pH (5.0-8.0) Ur Specific [place] (1.003-1.030) Urine Protein (NEGATIVE) mg/dL Urine Glucose (UA) (Normal) mg/dL Urine Ketones (NEGATIVE) mg/dL Urine Blood (NEGATIVE) Urine Nitrate (NEGATIVE) Urine Bilirubin (NEGATIVE) Urine Urobilinogen (0.2-1.0) mg/dL Ur Leukocyte Esterase (Negative) Jostin/uL Urine WBC (Auto) (0-5) /hpf Urine RBC (Auto) (0-3) /hpf Ur Squamous Epith Cells (0-5) /hpf 07/21/16 07/21/16 07/21/16 Range/Units 15:09 13:49 13:38 WBC (4.8-10.8) K/uL RBC (4.40-5.90) Mil/uL Hgb (12.0-18.0) g/dL Hct (35.0-51.0) % MCV (80.0-94.0) fL MCH (27.0-31.0) pg MCHC (33.0-37.0) g/dL RDW (11.5-14.5) % Plt Count (130-400) K/uL MPV (7.2-11.7) fL Neut % (Auto) (50.0-75.0) % Lymph % (Auto) (20.0-40.0) % [place] % (Auto) (0.0-10.0) % Eos % (Auto) (0.0-4.0) % Baso % (Auto) (0.0-2.0) % Neut # (1.8-7.0) K/uL Lymph # (1.0-4.3) K/uL [place] # (0.0-0.8) K/uL Eos # (0.0-0.7) K/uL Baso # (0.0-0.2) K/uL Neutrophils % (Manual) (50-75) % Band Neutrophils % (0-2) % Lymphocytes % (Manual) (20-40) % Monocytes % (Manual) (0-10) % Platelet Estimate (NORMAL) RBC Morphology PT (9.7-12.2) SECONDS INR APTT (21-34) SECONDS pO2 42 (30-55) mm/Hg VBG pH 7.31 L (7.32-7.43) VBG pCO2 45 (40-60) mmHg VBG HCO3 21.4 mmol/L VBG Total CO2 24.1 (22-28) mmol/L VBG O2 Sat (Calc) 82.2 H (40-65) % VBG Base Excess -3.7 L (0.0-2.0) mmol/L VBG Potassium 4.1 (3.6-5.2) mmol/L Glucose 144 H (75-110) mg/dl Lactate 1.5 (0.7-2.1) mmol/L Sodium 139.0 137 (132-148) mmol/L Potassium 4.6 (3.6-5.2) mmol/L Chloride 108.0 H 102 (98-107) mmol/L Carbon Dioxide 25 (22-30) mmol/L Anion Gap 14 (10-20) BUN 23 H (9-20) mg/dL Creatinine 1.5 (0.8-1.5) MG/DL Est GFR ( Amer) 57 Est GFR (Non-Af Amer) 47 POC Glucose (mg/dL) (65-110) mg/dL Random Glucose 155 H (75-110) mg/dL Calcium 8.9 (8.6-10.4) mg/dl Phosphorus 5.2 H (2.5-4.5) mg/dL Magnesium 1.9 (1.6-2.3) mg/dL Total Bilirubin 0.7 (0.2-1.3) mg/dL AST 20 (17-59) U/L ALT 24 (21-72) U/L Alkaline Phosphatase 54 (38-126) U/L Total Protein 6.2 L (6.3-8.3) g/dL Albumin 3.4 L (3.5-5.0) g/dL Globulin 2.8 (2.2-3.9) gm/dL Albumin/Globulin Ratio 1.2 (1.0-2.1) Venous Blood Potassium 4.1 (3.6-5.2) mmol/L Urine Color Yellow (YELLOW) Urine Clarity Clear (Clear) Urine pH 5.0 (5.0-8.0) Ur Specific [place] 1.043 H (1.003-1.030) Urine Protein Negative (NEGATIVE) mg/dL Urine Glucose (UA) Normal (Normal) mg/dL Urine Ketones Negative (NEGATIVE) mg/dL Urine Blood Negative (NEGATIVE) Urine Nitrate Negative (NEGATIVE) Urine Bilirubin Negative (NEGATIVE) Urine Urobilinogen Normal (0.2-1.0) mg/dL Ur Leukocyte Esterase Neg (Negative) Jostin/uL Urine WBC (Auto) 1 (0-5) /hpf Urine RBC (Auto) < 1 (0-3) /hpf Ur Squamous Epith Cells < 1 (0-5) /hpf 07/21/16 07/21/16 Range/Units 13:38 13:38 WBC 7.3 (4.8-10.8) K/uL RBC 5.85 (4.40-5.90) Mil/uL Hgb 17.4 (12.0-18.0) g/dL Hct 52.3 H (35.0-51.0) % MCV 89.4 (80.0-94.0) fL MCH 29.8 (27.0-31.0) pg MCHC 33.3 (33.0-37.0) g/dL RDW 14.1 (11.5-14.5) % Plt Count 145 (130-400) K/uL MPV 9.2 (7.2-11.7) fL Neut % (Auto) 71.8 (50.0-75.0) % Lymph % (Auto) 19.0 L (20.0-40.0) % [place] % (Auto) 6.3 (0.0-10.0) % Eos % (Auto) 2.4 (0.0-4.0) % Baso % (Auto) 0.5 (0.0-2.0) % Neut # 5.2 (1.8-7.0) K/uL Lymph # 1.4 (1.0-4.3) K/uL [place] # 0.5 (0.0-0.8) K/uL Eos # 0.2 (0.0-0.7) K/uL Baso # 0.0 (0.0-0.2) K/uL Neutrophils % (Manual) (50-75) % Band Neutrophils % (0-2) % Lymphocytes % (Manual) (20-40) % Monocytes % (Manual) (0-10) % Platelet Estimate (NORMAL) RBC Morphology PT 11.5 (9.7-12.2) SECONDS INR 1.0 APTT 69 H D (21-34) SECONDS pO2 (30-55) mm/Hg VBG pH (7.32-7.43) VBG pCO2 (40-60) mmHg VBG HCO3 mmol/L VBG Total CO2 (22-28) mmol/L VBG O2 Sat (Calc) (40-65) % VBG Base Excess (0.0-2.0) mmol/L VBG Potassium (3.6-5.2) mmol/L Glucose (75-110) mg/dl Lactate (0.7-2.1) mmol/L Sodium (132-148) mmol/L Potassium (3.6-5.2) mmol/L Chloride (98-107) mmol/L Carbon Dioxide (22-30) mmol/L Anion Gap (10-20) BUN (9-20) mg/dL Creatinine (0.8-1.5) MG/DL Est GFR ( Amer) Est GFR (Non-Af Amer) POC Glucose (mg/dL) (65-110) mg/dL Random Glucose (75-110) mg/dL Calcium (8.6-10.4) mg/dl Phosphorus (2.5-4.5) mg/dL Magnesium (1.6-2.3) mg/dL Total Bilirubin (0.2-1.3) mg/dL AST (17-59) U/L ALT (21-72) U/L Alkaline Phosphatase (38-126) U/L Total Protein (6.3-8.3) g/dL Albumin (3.5-5.0) g/dL Globulin (2.2-3.9) gm/dL Albumin/Globulin Ratio (1.0-2.1) Venous Blood Potassium (3.6-5.2) mmol/L Urine Color (YELLOW) Urine Clarity (Clear) Urine pH (5.0-8.0) Ur Specific [place] (1.003-1.030) Urine Protein (NEGATIVE) mg/dL Urine Glucose (UA) (Normal) mg/dL Urine Ketones (NEGATIVE) mg/dL Urine Blood (NEGATIVE) Urine Nitrate (NEGATIVE) Urine Bilirubin (NEGATIVE) Urine Urobilinogen (0.2-1.0) mg/dL Ur Leukocyte Esterase (Negative) Jostin/uL Urine WBC (Auto) (0-5) /hpf Urine RBC (Auto) (0-3) /hpf Ur Squamous Epith Cells (0-5) /hpf Laboratory Results - last 24 hr 07/21/16 07/21/16 07/21/16 13:38 13:38 13:38 WBC 7.3 RBC 5.85 Hgb 17.4 Hct 52.3 H MCV 89.4 MCH 29.8 MCHC 33.3 RDW 14.1 Plt Count 145 MPV 9.2 Neut % (Auto) 71.8 Lymph % (Auto) 19.0 L [place] % (Auto) 6.3 Eos % (Auto) 2.4 Baso % (Auto) 0.5 Neut # 5.2 Lymph # 1.4 [place] # 0.5 Eos # 0.2 Baso # 0.0 Neutrophils % (Manual) Band Neutrophils % Lymphocytes % (Manual) Monocytes % (Manual) Platelet Estimate RBC Morphology PT 11.5 INR 1.0 APTT 69 H D pO2 VBG pH VBG pCO2 VBG HCO3 VBG Total CO2 VBG O2 Sat (Calc) VBG Base Excess VBG Potassium Glucose Lactate Sodium 137 Potassium 4.6 Chloride 102 Carbon Dioxide 25 Anion Gap 14 BUN 23 H Creatinine 1.5 Est GFR ( Amer) 57 Est GFR (Non-Af Amer) 47 POC Glucose (mg/dL) Random Glucose 155 H Calcium 8.9 Phosphorus 5.2 H Magnesium 1.9 Total Bilirubin 0.7 AST 20 ALT 24 Alkaline Phosphatase 54 Total Protein 6.2 L Albumin 3.4 L Globulin 2.8 Albumin/Globulin Ratio 1.2 Venous Blood Potassium Urine Color Urine Clarity Urine pH Ur Specific [place] Urine Protein Urine Glucose (UA) Urine Ketones Urine Blood Urine Nitrate Urine Bilirubin Urine Urobilinogen Ur Leukocyte Esterase Urine WBC (Auto) Urine RBC (Auto) Ur Squamous Epith Cells 07/21/16 07/21/16 07/21/16 13:49 15:09 16:39 WBC RBC Hgb Hct MCV MCH MCHC RDW Plt Count MPV Neut % (Auto) Lymph % (Auto) [place] % (Auto) Eos % (Auto) Baso % (Auto) Neut # Lymph # [place] # Eos # Baso # Neutrophils % (Manual) Band Neutrophils % Lymphocytes % (Manual) Monocytes % (Manual) Platelet Estimate RBC Morphology PT INR APTT pO2 42 39 VBG pH 7.31 L 7.29 L VBG pCO2 45 53 VBG HCO3 21.4 22.6 VBG Total CO2 24.1 27.1 VBG O2 Sat (Calc) 82.2 H 76.0 H VBG Base Excess -3.7 L -1.9 L VBG Potassium 4.1 4.7 Glucose 144 H 127 H Lactate 1.5 1.1 Sodium 139.0 138.0 Potassium Chloride 108.0 H 111.0 H Carbon Dioxide Anion Gap BUN Creatinine Est GFR ( Amer) Est GFR (Non-Af Amer) POC Glucose (mg/dL) Random Glucose Calcium Phosphorus Magnesium Total Bilirubin AST ALT Alkaline Phosphatase Total Protein Albumin Globulin Albumin/Globulin Ratio Venous Blood Potassium 4.1 4.7 Urine Color Yellow Urine Clarity Clear Urine pH 5.0 Ur Specific [place] 1.043 H Urine Protein Negative Urine Glucose (UA) Normal Urine Ketones Negative Urine Blood Negative Urine Nitrate Negative Urine Bilirubin Negative Urine Urobilinogen Normal Ur Leukocyte Esterase Neg Urine WBC (Auto) 1 Urine RBC (Auto) < 1 Ur Squamous Epith Cells < 1 07/22/16 07/22/16 07/22/16 01:51 06:13 06:33 WBC 12.8 H D RBC 5.28 Hgb 15.8 Hct 47.5 MCV 90.0 MCH 30.0 MCHC 33.3 RDW 14.2 Plt Count 133 MPV 9.4 Neut % (Auto) 89.3 H Lymph % (Auto) 8.6 L [place] % (Auto) 1.8 Eos % (Auto) 0.0 Baso % (Auto) 0.3 Neut # 11.4 H Lymph # 1.1 [place] # 0.2 Eos # 0.0 Baso # 0.0 Neutrophils % (Manual) 84 H Band Neutrophils % 2 Lymphocytes % (Manual) 13 L Monocytes % (Manual) 1 Platelet Estimate Normal RBC Morphology Normal PT INR APTT pO2 VBG pH VBG pCO2 VBG HCO3 VBG Total CO2 VBG O2 Sat (Calc) VBG Base Excess VBG Potassium Glucose Lactate Sodium Potassium Chloride Carbon Dioxide Anion Gap BUN Creatinine Est GFR ( Amer) Est GFR (Non-Af Amer) POC Glucose (mg/dL) 173 H 169 H Random Glucose Calcium Phosphorus Magnesium Total Bilirubin AST ALT Alkaline Phosphatase Total Protein Albumin Globulin Albumin/Globulin Ratio Venous Blood Potassium Urine Color Urine Clarity Urine pH Ur Specific [place] Urine Protein Urine Glucose (UA) Urine Ketones Urine Blood Urine Nitrate Urine Bilirubin Urine Urobilinogen Ur Leukocyte Esterase Urine WBC (Auto) Urine RBC (Auto) Ur Squamous Epith Cells 07/22/16 07/22/16 06:33 11:25 WBC RBC Hgb Hct MCV MCH MCHC RDW Plt Count MPV Neut % (Auto) Lymph % (Auto) [place] % (Auto) Eos % (Auto) Baso % (Auto) Neut # Lymph # [place] # Eos # Baso # Neutrophils % (Manual) Band Neutrophils % Lymphocytes % (Manual) Monocytes % (Manual) Platelet Estimate RBC Morphology PT INR APTT pO2 VBG pH VBG pCO2 VBG HCO3 VBG Total CO2 VBG O2 Sat (Calc) VBG Base Excess VBG Potassium Glucose Lactate Sodium 137 Potassium 4.6 Chloride 108 H Carbon Dioxide 21 L Anion Gap 13 BUN 17 Creatinine 1.3 Est GFR ( Amer) > 60 Est GFR (Non-Af Amer) 55 POC Glucose (mg/dL) 169 H Random Glucose 155 H Calcium 7.8 L Phosphorus 3.7 Magnesium 1.9 Total Bilirubin 0.6 AST 16 L ALT 21 Alkaline Phosphatase 43 Total Protein 5.5 L Albumin 2.9 L Globulin 2.6 Albumin/Globulin Ratio 1.1 Venous Blood Potassium Urine Color Urine Clarity Urine pH Ur Specific [place] Urine Protein Urine Glucose (UA) Urine Ketones Urine Blood Urine Nitrate Urine Bilirubin Urine Urobilinogen Ur Leukocyte Esterase Urine WBC (Auto) Urine RBC (Auto) Ur Squamous Epith Cells EKG/Cardiology Studies: Cardiology / EKG Studies 07/21/16 22:32 EKG [ELECTROCARDIOGRAM] Stat Comment: Mode Of Transportation: PORTABLE Reason For Exam: bradycardia, arrythmia post-op PERFORMING PHYSICIAN/PROVIDER:: Jaime Hadley Review of Systems - Review of Systems All systems: reviewed and no additional remarkable complaints except (where noted in HPI) Critical Care Progress Note - Nutrition Nutrition: Nutrition Category Date Time Status Liquid Diet [DIET] Diets 07/22/16 Breakfast Active Assessment/Plan - Assessment and Plan (Free Text) Assessment: 66 yo M s/p repair of incarcerated, recurrent periumbilical abdominal hernia POD #1. Plan: Neuro: AAOx3, monitor No issues Cardiovascular: Hemodynamically stable Cont current med regimen No acute issues Pulmonary: Saturating well No respiratory distress Gastrointestinal: Liquid diet started No BM yet Advance as tolerated Hematology: Hgb stable No issues Endocrine: No issues Sliding scale coverage Renal: Labs/electrolytes wnl Good urine output Infectious Disease: No leukocytosis, afebrile Zosyn GI Prophylaxis: Pepcid DVT Prophylaxis: Lovenox Dispo - To be transferred to med/surg <Huy Hannon S - Last Filed: 07/22/16 17:36> CCU Subjective - Physician Review Critical Care Time Spent (in minutes): 0 CCU Objective - Vital Signs / Intake & Output Vital Signs (Last 4 hours): Vital Signs Temp Pulse Resp Pulse Ox 07/22/16 16:00 97.7 F 07/22/16 14:37 76 14 94 L Intake and Output (Last 8hrs): Intake & Output 07/22/16 07/22/16 07/22/16 06:59 14:59 22:59 Intake Total 900 1160 200 Output Total 800 350 300 Balance 100 810 -100 Weight 264 lb 1.82 oz Intake: Intake, IV Amount 900 800 200 Right Hand 900 800 200 Oral 360 Output: Urine 800 350 300 Urethral (Diaz) 800 350 300 - Medications Active Medications: Active Medications Generic Name Dose Route Start Last Admin Trade Name Freq PRN Reason Stop Dose Admin Allopurinol 100 mg 07/22/16 10:00 07/22/16 09:40 Zyloprim PO 100 mg DAILY ERIK Administration Amlodipine Besylate 5 mg 07/22/16 10:00 07/22/16 09:42 Norvasc PO 5 mg DAILY ERIK Administration Aspirin 81 mg 07/22/16 10:00 07/22/16 09:40 Ecotrin PO 81 mg DAILY ERIK Administration Clopidogrel Bisulfate 75 mg 07/22/16 10:00 07/22/16 09:40 Plavix PO 75 mg DAILY ERIK Administration Colchicine 0.6 mg 07/22/16 10:00 07/22/16 09:42 Colocrys PO 0.6 mg DAILY ERIK Administration Enalapril Maleate 5 mg 07/22/16 10:00 07/22/16 09:40 Vasotec PO 5 mg DAILY ERIK Administration Enoxaparin Sodium 40 mg 07/23/16 10:00 Lovenox SC DAILY ERIK Ergocalciferol 1 cap 07/28/16 10:00 Drisdol 50,000 Intl Units Cap PO QWK ERIK Famotidine 20 mg 07/22/16 10:00 07/22/16 09:42 Pepcid IVP 20 mg Q12 ERIK Administration Furosemide 20 mg 07/22/16 10:00 07/22/16 09:40 Lasix PO 20 mg DAILY ERIK Administration Hydromorphone HCl 0.5 mg 07/21/16 19:10 Dilaudid IVP Q10M PRN Pain, moderate (4-7) Sodium Chloride 1,000 mls @ 100 mls/hr 07/21/16 13:45 07/22/16 12:54 Sodium Chloride 0.9% IV Not Given .Q10H ERIK Piperacillin Sod/Tazobactam 100 mls @ 200 mls/hr 07/21/16 15:00 07/22/16 15: 02 Sod 3.375 gm/ Sodium Chloride IVPB 200 mls/hr Q6H ERIK Administration Insulin Aspart 0 unit 07/22/16 00:00 07/22/16 17:07 Novolog SC Not Given Q6H [facility] Protocol Morphine Sulfate 4 mg 07/22/16 08:05 Morphine IVP Q4H PRN Pain, severe (8-10) Ondansetron HCl 4 mg 07/21/16 14:58 Zofran Inj IVP Q6 PRN Nausea/Vomiting Oxycodone/Acetaminophen 1 tab 07/22/16 08:03 07/22/16 09:41 Percocet 5/325 Mg Tab PO 07/25/16 08:04 1 tab Q4H PRN Administration Pain, moderate (4-7) Oxycodone/Acetaminophen 2 tab 07/22/16 08:03 07/22/16 14:48 Percocet 5/325 Mg Tab PO 07/25/16 08:04 2 tab Q4H PRN Administration Pain, severe (8-10) Potassium Chloride 10 meq 07/22/16 10:00 07/22/16 09:40 Klor-Con 10 PO 10 meq DAILY ERIK Administration Pyridoxine HCl 50 mg 07/22/16 10:00 07/22/16 09:42 Vitamin B6 50 Mg Tab PO 50 mg DAILY ERIK Administration Rosuvastatin Calcium 20 mg 07/21/16 22:00 07/21/16 21:14 Crestor PO Not Given HS ERIK Tamsulosin HCl 0.4 mg 07/21/16 22:00 07/21/16 21:14 Flomax PO Not Given HS ERIK Zolpidem Tartrate 5 mg 07/21/16 22:00 07/21/16 21:14 Ambien PO Not Given HS ERIK - Patient Studies Lab Studies: Lab Studies 07/22/16 07/22/16 07/22/16 Range/Units 17:06 11:25 06:33 WBC (4.8-10.8) K/uL RBC (4.40-5.90) Mil/uL Hgb (12.0-18.0) g/dL Hct (35.0-51.0) % MCV (80.0-94.0) fL MCH (27.0-31.0) pg MCHC (33.0-37.0) g/dL RDW (11.5-14.5) % Plt Count (130-400) K/uL MPV (7.2-11.7) fL Neut % (Auto) (50.0-75.0) % Lymph % (Auto) (20.0-40.0) % [place] % (Auto) (0.0-10.0) % Eos % (Auto) (0.0-4.0) % Baso % (Auto) (0.0-2.0) % Neut # (1.8-7.0) K/uL Lymph # (1.0-4.3) K/uL [place] # (0.0-0.8) K/uL Eos # (0.0-0.7) K/uL Baso # (0.0-0.2) K/uL Neutrophils % (Manual) (50-75) % Band Neutrophils % (0-2) % Lymphocytes % (Manual) (20-40) % Monocytes % (Manual) (0-10) % Platelet Estimate (NORMAL) RBC Morphology Sodium 137 (132-148) mmol/L Potassium 4.6 (3.6-5.2) mmol/L Chloride 108 H (98-107) mmol/L Carbon Dioxide 21 L (22-30) mmol/L Anion Gap 13 (10-20) BUN 17 (9-20) mg/dL Creatinine 1.3 (0.8-1.5) MG/DL Est GFR ( Amer) > 60 Est GFR (Non-Af Amer) 55 POC Glucose (mg/dL) 137 H 169 H (65-110) mg/dL Random Glucose 155 H (75-110) mg/dL Calcium 7.8 L (8.6-10.4) mg/dl Phosphorus 3.7 (2.5-4.5) mg/dL Magnesium 1.9 (1.6-2.3) mg/dL Total Bilirubin 0.6 (0.2-1.3) mg/dL AST 16 L (17-59) U/L ALT 21 (21-72) U/L Alkaline Phosphatase 43 (38-126) U/L Total Protein 5.5 L (6.3-8.3) g/dL Albumin 2.9 L (3.5-5.0) g/dL Globulin 2.6 (2.2-3.9) gm/dL Albumin/Globulin Ratio 1.1 (1.0-2.1) 07/22/16 07/22/16 07/22/16 Range/Units 06:33 06:13 01:51 WBC 12.8 H D (4.8-10.8) K/uL RBC 5.28 (4.40-5.90) Mil/uL Hgb 15.8 (12.0-18.0) g/dL Hct 47.5 (35.0-51.0) % MCV 90.0 (80.0-94.0) fL MCH 30.0 (27.0-31.0) pg MCHC 33.3 (33.0-37.0) g/dL RDW 14.2 (11.5-14.5) % Plt Count 133 (130-400) K/uL MPV 9.4 (7.2-11.7) fL Neut % (Auto) 89.3 H (50.0-75.0) % Lymph % (Auto) 8.6 L (20.0-40.0) % [place] % (Auto) 1.8 (0.0-10.0) % Eos % (Auto) 0.0 (0.0-4.0) % Baso % (Auto) 0.3 (0.0-2.0) % Neut # 11.4 H (1.8-7.0) K/uL Lymph # 1.1 (1.0-4.3) K/uL [place] # 0.2 (0.0-0.8) K/uL Eos # 0.0 (0.0-0.7) K/uL Baso # 0.0 (0.0-0.2) K/uL Neutrophils % (Manual) 84 H (50-75) % Band Neutrophils % 2 (0-2) % Lymphocytes % (Manual) 13 L (20-40) % Monocytes % (Manual) 1 (0-10) % Platelet Estimate Normal (NORMAL) RBC Morphology Normal Sodium (132-148) mmol/L Potassium (3.6-5.2) mmol/L Chloride (98-107) mmol/L Carbon Dioxide (22-30) mmol/L Anion Gap (10-20) BUN (9-20) mg/dL Creatinine (0.8-1.5) MG/DL Est GFR ( Amer) Est GFR (Non-Af Amer) POC Glucose (mg/dL) 169 H 173 H (65-110) mg/dL Random Glucose (75-110) mg/dL Calcium (8.6-10.4) mg/dl Phosphorus (2.5-4.5) mg/dL Magnesium (1.6-2.3) mg/dL Total Bilirubin (0.2-1.3) mg/dL AST (17-59) U/L ALT (21-72) U/L Alkaline Phosphatase (38-126) U/L Total Protein (6.3-8.3) g/dL Albumin (3.5-5.0) g/dL Globulin (2.2-3.9) gm/dL Albumin/Globulin Ratio (1.0-2.1) Laboratory Results - last 24 hr 07/22/16 07/22/16 07/22/16 01:51 06:13 06:33 WBC 12.8 H D RBC 5.28 Hgb 15.8 Hct 47.5 MCV 90.0 MCH 30.0 MCHC 33.3 RDW 14.2 Plt Count 133 MPV 9.4 Neut % (Auto) 89.3 H Lymph % (Auto) 8.6 L [place] % (Auto) 1.8 Eos % (Auto) 0.0 Baso % (Auto) 0.3 Neut # 11.4 H Lymph # 1.1 [place] # 0.2 Eos # 0.0 Baso # 0.0 Neutrophils % (Manual) 84 H Band Neutrophils % 2 Lymphocytes % (Manual) 13 L Monocytes % (Manual) 1 Platelet Estimate Normal RBC Morphology Normal Sodium Potassium Chloride Carbon Dioxide Anion Gap BUN Creatinine Est GFR ( Amer) Est GFR (Non-Af Amer) POC Glucose (mg/dL) 173 H 169 H Random Glucose Calcium Phosphorus Magnesium Total Bilirubin AST ALT Alkaline Phosphatase Total Protein Albumin Globulin Albumin/Globulin Ratio 07/22/16 07/22/16 07/22/16 06:33 11:25 17:06 WBC RBC Hgb Hct MCV MCH MCHC RDW Plt Count MPV Neut % (Auto) Lymph % (Auto) [place] % (Auto) Eos % (Auto) Baso % (Auto) Neut # Lymph # [place] # Eos # Baso # Neutrophils % (Manual) Band Neutrophils % Lymphocytes % (Manual) Monocytes % (Manual) Platelet Estimate RBC Morphology Sodium 137 Potassium 4.6 Chloride 108 H Carbon Dioxide 21 L Anion Gap 13 BUN 17 Creatinine 1.3 Est GFR ( Amer) > 60 Est GFR (Non-Af Amer) 55 POC Glucose (mg/dL) 169 H 137 H Random Glucose 155 H Calcium 7.8 L Phosphorus 3.7 Magnesium 1.9 Total Bilirubin 0.6 AST 16 L ALT 21 Alkaline Phosphatase 43 Total Protein 5.5 L Albumin 2.9 L Globulin 2.6 Albumin/Globulin Ratio 1.1 EKG/Cardiology Studies: Cardiology / EKG Studies 07/21/16 22:32 EKG [ELECTROCARDIOGRAM] Stat Comment: Mode Of Transportation: PORTABLE Reason For Exam: bradycardia, arrythmia post-op PERFORMING PHYSICIAN/PROVIDER:: Jaime [facility] Progress Note - Nutrition Nutrition: Nutrition Category Date Time Status Liquid Diet [DIET] Diets 07/22/16 Breakfast Active Attending/Attestation - Attestation I have personally seen and examined this patient.: Yes I have fully participated in the care of the patient.: Yes I have reviewed all pertinent clinical information: Yes Notes (Text): 07/22/16 17:36 Patient seen and examined in the intensive care unit. Case discussed with house staff in the morning rounds. Stable for transfer to floor
--- NOTE | 2016-07-22 14:32 | CP.PCM.PN ---
Subjective - Date & Time of Evaluation Date of Evaluation: 07/22/16 Time of Evaluation: 14:29 - Subjective Subjective: Surgery: Dr. Pa Patient doing well this morning. Requesting to eat. Pain controlled. Per nursing no acute events overnight. Patient voided 1100cc/24hrs and NGT put out 0cc. Objective - Vital Signs/Intake and Output Vital Signs (last 24 hours): Temp Pulse Resp BP Pulse Ox 98 F 54 L 26 H 123/79 97 07/22/16 12:00 07/22/16 06:39 07/22/16 06:39 07/22/16 09:40 07/22/16 06:39 Intake and Output: 07/22/16 07/22/16 06:59 18:59 Intake Total 1100 1060 Output Total 1075 350 Balance 25 710 - Medications Medications: Current Medications Allopurinol (Zyloprim) 100 mg PO DAILY [facility] Last Admin: 07/22/16 09:40 Dose: 100 mg Amlodipine Besylate (Norvasc) 5 mg PO DAILY [facility] Last Admin: 07/22/16 09:42 Dose: 5 mg Aspirin (Ecotrin) 81 mg PO DAILY [facility] Last Admin: 07/22/16 09:40 Dose: 81 mg Clopidogrel Bisulfate (Plavix) 75 mg PO DAILY [facility] Last Admin: 07/22/16 09:40 Dose: 75 mg Colchicine (Colocrys) 0.6 mg PO DAILY [facility] Last Admin: 07/22/16 09:42 Dose: 0.6 mg Enalapril Maleate (Vasotec) 5 mg PO DAILY [facility] Last Admin: 07/22/16 09:40 Dose: 5 mg Enoxaparin Sodium (Lovenox) 40 mg SC DAILY [facility] Ergocalciferol (Drisdol 50,000 Intl Units Cap) 1 cap PO QWK [facility] Famotidine (Pepcid) 20 mg IVP Q12 [facility] Last Admin: 07/22/16 09:42 Dose: 20 mg Furosemide (Lasix) 20 mg PO DAILY [facility] Last Admin: 07/22/16 09:40 Dose: 20 mg Hydromorphone HCl (Dilaudid) 0.5 mg IVP Q10M PRN PRN Reason: Pain, moderate (4-7) Sodium Chloride (Sodium Chloride 0.9%) 1,000 mls @ 100 mls/hr IV .Q10H [facility] Last Admin: 07/22/16 12:54 Dose: Not Given Piperacillin Sod/Tazobactam (Sod 3.375 gm/ Sodium Chloride) 100 mls @ 200 mls/ hr IVPB Q6H [facility] Last Admin: 07/22/16 13:19 Dose: 200 mls/hr Insulin Aspart (Novolog) 0 unit SC Q6H ERIK PRN Reason: Protocol Last Admin: 07/22/16 13:19 Dose: 1 unit Morphine Sulfate (Morphine) 4 mg IVP Q4H PRN PRN Reason: Pain, severe (8-10) Ondansetron HCl (Zofran Inj) 4 mg IVP Q6 PRN PRN Reason: Nausea/Vomiting Oxycodone/Acetaminophen (Percocet 5/325 Mg Tab) 1 tab PO Q4H PRN PRN Reason: Pain, moderate (4-7) Stop: 07/25/16 08:04 Last Admin: 07/22/16 09:41 Dose: 1 tab Oxycodone/Acetaminophen (Percocet 5/325 Mg Tab) 2 tab PO Q4H PRN PRN Reason: Pain, severe (8-10) Stop: 07/25/16 08:04 Potassium Chloride (Klor-Con 10) 10 meq PO DAILY [facility] Last Admin: 07/22/16 09:40 Dose: 10 meq Pyridoxine HCl (Vitamin B6 50 Mg Tab) 50 mg PO DAILY [facility] Last Admin: 07/22/16 09:42 Dose: 50 mg Rosuvastatin Calcium (Crestor) [address] [facility] Last Admin: 07/21/16 21:14 Dose: Not Given Tamsulosin HCl (Flomax) 0.[address] [facility] Last Admin: 07/21/16 21:14 Dose: Not Given Zolpidem Tartrate (Ambien) [address] [facility] Last Admin: 07/21/16 21:14 Dose: Not Given - Labs Labs: 07/22/16 06:33 07/22/16 06:33 PT 11.5 SECONDS (9.7-12.2) 07/21/16 13:38 INR 1.0 07/21/16 13:38 APTT 69 SECONDS (21-34) H D 07/21/16 13:38 - Constitutional Appears: Non-toxic, No Acute Distress - Head Exam Head Exam: ATRAUMATIC, NORMOCEPHALIC - Eye Exam Eye Exam: EOMI, Normal appearance - ENT Exam ENT Exam: Mucous Membranes Moist - Respiratory Exam Respiratory Exam: NORMAL BREATHING PATTERN. absent: Respiratory Distress - Cardiovascular Exam Cardiovascular Exam: REGULAR RHYTHM. absent: Tachycardia - GI/Abdominal Exam GI & Abdominal Exam: Soft, Tenderness (mohamud-incisional ). absent: Distended, Guarding, Rebound Additional comments: dressing CDI - Extremities Exam Extremities Exam: absent: Calf Tenderness - Neurological Exam Neurological Exam: Alert, Awake - Skin Skin Exam: Dry, Normal Color, Warm Assessment and Plan - Assessment and Plan (Free Text) Assessment: 66 y/o male s/p incarcerated para-umbilical hernia repair POD1 Plan: -d/c NGT -d/c jeffrey -ok for CLD, may advance to fulls -monitor for bowel function -encourage OOB and ambulation -wear binder if ambulating -encourage IS use -ok for plavix and DVT prophylaxis -further recs per Dr. Ember Gonzales PGY1
[2016-07-22] MEDS: Oxycodone/Acetaminophen 5/325 mg Tab PO PRN (14:48)
[2016-07-22] MEDS: Morphine 4 MG/ML VIAL IVP PRN (20:06)
[2016-07-23] MEDS: (Novolog) Insulin Aspart, Recombinant 100 u/ml 10 ml vial SC SCH ×4 (00:31→18:00)
[2016-07-23] MEDS: Morphine 4 MG/ML VIAL IVP PRN ×2 (02:50→20:09)
[2016-07-23] MEDS: Piperacillin/Tazobact 3.375 GM in Sodium Chloride 100 ML IVPB SCH ×4 (02:54→21:30)
--- NOTE | 2016-07-23 07:34 | HP ---
The patient is a 66-year-old male admitted to the hospital with chief complaint of abdominal pain. T he patient ____ an incarcerated abdominal hernia. The patient advised admission to the hospital. PAST MEDICAL HISTORY: Inguinal hernia repair, arthritis, ____. SOCIAL HISTORY: The patient is a nonsmoker, nondrinker. PHYSICAL EXAMINATION: GENERAL: The patient is awake, alert, obese. VITAL SIGNS: Temperature 98, pulse 90. HEENT: Within normal limits. NECK: Supple. CHEST: Symmetrical. HEART: Regular. ABDOMEN: Distended. EXTREMITIES: No edema. The patient suffers from incarcerated abdominal hernia. The patient will have emergent surgery by Dr Autumn Pa, supportive care. Edmar Cabral MD cc: [phone] TT: 07/22/2016 11:11:19 ok
--- NOTE | 2016-07-23 09:20 | CP.PCM.PN ---
Subjective - Date & Time of Evaluation Date of Evaluation: 07/23/16 Time of Evaluation: 09:20 - Subjective Subjective: Gen Sx: Dr Pa Pt S&E. NAEO. Resting comfortably. Pain well controlled. Passing flatus. Tolerating CLD. No BM yet. Has been OOB and ambulating. Using incentive spirometer. Objective - Vital Signs/Intake and Output Vital Signs (last 24 hours): Temp Pulse Resp BP Pulse Ox 98 F 87 20 151/83 H 97 07/23/16 07:37 07/23/16 07:37 07/23/16 07:37 07/23/16 07:37 07/23/16 07:37 Intake and Output: 07/23/16 07/23/16 06:59 18:59 Intake Total 1200 Output Total 500 Balance 700 - Medications Medications: Current Medications Allopurinol (Zyloprim) 100 mg PO DAILY [facility] Last Admin: 07/22/16 09:40 Dose: 100 mg Amlodipine Besylate (Norvasc) 5 mg PO DAILY [facility] Last Admin: 07/22/16 09:42 Dose: 5 mg Aspirin (Ecotrin) 81 mg PO DAILY [facility] Last Admin: 07/22/16 09:40 Dose: 81 mg Clopidogrel Bisulfate (Plavix) 75 mg PO DAILY [facility] Last Admin: 07/22/16 09:40 Dose: 75 mg Colchicine (Colocrys) 0.6 mg PO DAILY [facility] Last Admin: 07/22/16 09:42 Dose: 0.6 mg Enalapril Maleate (Vasotec) 5 mg PO DAILY [facility] Last Admin: 07/22/16 09:40 Dose: 5 mg Enoxaparin Sodium (Lovenox) 40 mg SC DAILY [facility] Ergocalciferol (Drisdol 50,000 Intl Units Cap) 1 cap PO QWK [facility] Famotidine (Pepcid) 20 mg IVP Q12 [facility] Last Admin: 07/22/16 21:46 Dose: 20 mg Furosemide (Lasix) 20 mg PO DAILY [facility] Last Admin: 07/22/16 09:40 Dose: 20 mg Hydromorphone HCl (Dilaudid) 0.5 mg IVP Q10M PRN PRN Reason: Pain, moderate (4-7) Sodium Chloride (Sodium Chloride 0.9%) 1,000 mls @ 100 mls/hr IV .Q10H [facility] Last Admin: 07/22/16 21:45 Dose: 100 mls/hr Piperacillin Sod/Tazobactam (Sod 3.375 gm/ Sodium Chloride) 100 mls @ 200 mls/ hr IVPB Q6H [facility] Last Admin: 07/23/16 02:54 Dose: 200 mls/hr Insulin Aspart (Novolog) 0 unit SC Q6H ERIK PRN Reason: Protocol Last Admin: 07/23/16 00:31 Dose: Not Given Morphine Sulfate (Morphine) 4 mg IVP Q4H PRN PRN Reason: Pain, severe (8-10) Last Admin: 07/23/16 02:50 Dose: 4 mg Ondansetron HCl (Zofran Inj) 4 mg IVP Q6 PRN PRN Reason: Nausea/Vomiting Last Admin: 07/22/16 20:17 Dose: 4 mg Oxycodone/Acetaminophen (Percocet 5/325 Mg Tab) 1 tab PO Q4H PRN PRN Reason: Pain, moderate (4-7) Stop: 07/25/16 08:04 Last Admin: 07/22/16 09:41 Dose: 1 tab Oxycodone/Acetaminophen (Percocet 5/325 Mg Tab) 2 tab PO Q4H PRN PRN Reason: Pain, severe (8-10) Stop: 07/25/16 08:04 Last Admin: 07/22/16 14:48 Dose: 2 tab Potassium Chloride (Klor-Con 10) 10 meq PO DAILY [facility] Last Admin: 07/22/16 09:40 Dose: 10 meq Pyridoxine HCl (Vitamin B6 50 Mg Tab) 50 mg PO DAILY [facility] Last Admin: 07/22/16 09:42 Dose: 50 mg Rosuvastatin Calcium (Crestor) 20 mg PO HS [facility] Last Admin: 07/22/16 21:45 Dose: 20 mg Tamsulosin HCl (Flomax) 0.4 mg PO HS [facility] Last Admin: 07/22/16 21:45 Dose: 0.4 mg Zolpidem Tartrate (Ambien) 5 mg PO [facility] Last Admin: 07/22/16 22:00 Dose: 5 mg - Labs Labs: 07/22/16 06:33 07/22/16 06:33 PT 11.5 SECONDS (9.7-12.2) 07/21/16 13:38 INR 1.0 07/21/16 13:38 APTT 69 SECONDS (21-34) H D 07/21/16 13:38 - Constitutional Appears: Non-toxic, No Acute Distress - Head Exam Head Exam: NORMOCEPHALIC - Respiratory Exam Respiratory Exam: absent: Accessory Muscle Use, Respiratory Distress - Cardiovascular Exam Cardiovascular Exam: REGULAR RHYTHM - GI/Abdominal Exam GI & Abdominal Exam: Soft, Tenderness (post-op and appropriate). absent: Distended, Rigid Additional comments: dressing c/d/i - Neurological Exam Neurological Exam: Alert, Awake, Oriented x3 - Psychiatric Exam Psychiatric exam: Normal Affect, Normal Mood Assessment and Plan - Assessment and Plan (Free Text) Assessment: 66M POD#2 s/p incarcerated umbilical hernia repair Plan: cont encourage ambulation and IS use adv to FLD adv to regular when has BM d/w Dr Ember Carver, DO, PGY2
[2016-07-23] MEDS: Potassium Chloride 10 mEq ER Tab PO SCH (09:35)
--- NOTE | 2016-07-23 09:48 | CP.PCM.PN ---
Subjective - Date & Time of Evaluation Date of Evaluation: 07/23/16 Time of Evaluation: 09:00 - Subjective Subjective: PGY2 on medicine Dr. Gibbs service: Pt seen and examined at bedside with attending. Pt reports no acute events overnight and complains mild discomfort over his abdomen where the incision is. Tolerating liquid diet. Objective - Vital Signs/Intake and Output Vital Signs (last 24 hours): Temp Pulse Resp BP Pulse Ox 98 F 87 20 140/80 97 07/23/16 07:37 07/23/16 07:37 07/23/16 07:37 07/23/16 09:34 07/23/16 07:37 Intake and Output: 07/23/16 07/23/16 06:59 18:59 Intake Total 1200 Output Total 500 Balance 700 - Medications Medications: Current Medications Allopurinol (Zyloprim) 100 mg PO DAILY [facility] Last Admin: 07/23/16 09:35 Dose: 100 mg Amlodipine Besylate (Norvasc) 5 mg PO DAILY [facility] Last Admin: 07/22/16 09:42 Dose: 5 mg Aspirin (Ecotrin) 81 mg PO DAILY [facility] Last Admin: 07/23/16 09:34 Dose: 81 mg Clopidogrel Bisulfate (Plavix) 75 mg PO DAILY [facility] Last Admin: 07/23/16 09:34 Dose: 75 mg Colchicine (Colocrys) 0.6 mg PO DAILY [facility] Last Admin: 07/23/16 09:35 Dose: 0.6 mg Enalapril Maleate (Vasotec) 5 mg PO DAILY [facility] Last Admin: 07/23/16 09:34 Dose: 5 mg Enoxaparin Sodium (Lovenox) 40 mg SC DAILY [facility] Last Admin: 07/23/16 09:31 Dose: 40 mg Ergocalciferol (Drisdol 50,000 Intl Units Cap) 1 cap PO QWK [facility] Famotidine (Pepcid) 20 mg IVP Q12 [facility] Last Admin: 07/23/16 09:34 Dose: 20 mg Furosemide (Lasix) 20 mg PO DAILY [facility] Last Admin: 07/23/16 09:34 Dose: 20 mg Hydromorphone HCl (Dilaudid) 0.5 mg IVP Q10M PRN PRN Reason: Pain, moderate (4-7) Sodium Chloride (Sodium Chloride 0.9%) 1,000 mls @ 100 mls/hr IV .Q10H [facility] Last Admin: 07/22/16 21:45 Dose: 100 mls/hr Piperacillin Sod/Tazobactam (Sod 3.375 gm/ Sodium Chloride) 100 mls @ 200 mls/ hr IVPB Q6H [facility] Last Admin: 07/23/16 02:54 Dose: 200 mls/hr Insulin Aspart (Novolog) 0 unit SC Q6H ERIK PRN Reason: Protocol Last Admin: 07/23/16 00:31 Dose: Not Given Morphine Sulfate (Morphine) 4 mg IVP Q4H PRN PRN Reason: Pain, severe (8-10) Last Admin: 07/23/16 02:50 Dose: 4 mg Ondansetron HCl (Zofran Inj) 4 mg IVP Q6 PRN PRN Reason: Nausea/Vomiting Last Admin: 07/22/16 20:17 Dose: 4 mg Oxycodone/Acetaminophen (Percocet 5/325 Mg Tab) 1 tab PO Q4H PRN PRN Reason: Pain, moderate (4-7) Stop: 07/25/16 08:04 Last Admin: 07/22/16 09:41 Dose: 1 tab Oxycodone/Acetaminophen (Percocet 5/325 Mg Tab) 2 tab PO Q4H PRN PRN Reason: Pain, severe (8-10) Stop: 07/25/16 08:04 Last Admin: 07/22/16 14:48 Dose: 2 tab Potassium Chloride (Klor-Con 10) 10 meq PO DAILY [facility] Last Admin: 07/23/16 09:35 Dose: 10 meq Pyridoxine HCl (Vitamin B6 50 Mg Tab) 50 mg PO DAILY [facility] Last Admin: 07/23/16 09:35 Dose: 50 mg Rosuvastatin Calcium (Crestor) 20 mg PO HS [facility] Last Admin: 07/22/16 21:45 Dose: 20 mg Tamsulosin HCl (Flomax) 0.4 mg PO [facility] Last Admin: 07/22/16 21:45 Dose: 0.4 mg Zolpidem Tartrate (Ambien) 5 mg PO [facility] Last Admin: 07/22/16 22:00 Dose: 5 mg - Labs Labs: 07/22/16 06:33 07/22/16 06:33 PT 11.5 SECONDS (9.7-12.2) 07/21/16 13:38 INR 1.0 07/21/16 13:38 APTT 69 SECONDS (21-34) H D 07/21/16 13:38 - Constitutional Appears: Non-toxic, No Acute Distress - Head Exam Head Exam: NORMAL INSPECTION, NORMOCEPHALIC - Eye Exam Eye Exam: Normal appearance - ENT Exam ENT Exam: Mucous Membranes Moist - Respiratory Exam Respiratory Exam: Clear to Ausculation Bilateral, NORMAL BREATHING PATTERN. absent: Rhonchi, Wheezes - Cardiovascular Exam Cardiovascular Exam: REGULAR RHYTHM, +S1, +S2. absent: Gallop, Rubs - GI/Abdominal Exam GI & Abdominal Exam: Soft, Normal Bowel Sounds. absent: Hyperactive Bowel Sounds Additional comments: abdominal binding in place, abdominal dressing c/d/i - Neurological Exam Neurological Exam: Alert, Awake, Oriented x3 - Psychiatric Exam Psychiatric exam: Normal Mood - Skin Skin Exam: Intact Assessment and Plan - Assessment and Plan (Free Text) Assessment: Incarcerated periumbilical hernia S/P surgical repair POD#2. Surgery Dr. Pa consulted, help appreciated. S/P repair POD#2. Advance diet and further management as per surgical team. Dilaudid, Percocet and morphine PRN. Zosyn q6. HTN Continue Norvasc and Vasotec. Hx of CAD Continue ASA, Plavix, Lasix, Crestor. Hx of gout Continue home med Allopurinal. DM RISS, Accucheck. Prophylactic measure Pepcid, Lovenox Management per Dr. Gibbs
[2016-07-23] MEDS ORDERED: Enoxaparin 40 mg Syringe SC SCH (10:00)
[2016-07-23] MEDS: Sodium Chloride 0.9% 1,000 ML IV SCH (10:30)
[2016-07-23 11:35] LABS: EOS # 0.4 K/uL (0.0-0.7); MONO # 0.8 K/uL (0.0-0.8)
[2016-07-23 11:40] LABS: BASO % 0.2 % (0.0-2.0); EOS % 4.5 % (0.0-4.0); HEMATOCRIT 46.9 % (35.0-51.0); LYMPH # 1.4 K/uL (1.0-4.3); LYMPH % 16.1 % (20.0-40.0); MEAN CELL VOLUME 90.3 fL (80.0-94.0); MEAN CORPUSCULAR HEMOGLOBIN 29.5 pg (27.0-31.0); MEAN CORPUSCULAR HGB CONC 32.6 g/dL (33.0-37.0); MEAN PLATELET VOLUME 9.6 fL (7.2-11.7); MONO % 9.4 % (0.0-10.0); NRBC % 0.1 % (0.0-2.0); RED CELL DISTRIBUTION WIDTH 14.4 % (11.5-14.5); WHITE BLOOD COUNT 8.5 K/uL (4.8-10.8)
[2016-07-23 11:47] LABS: ALB/GLOB RATIO 1.2 (1.0-2.1); BILIRUBIN,TOTAL 0.5 mg/dL (0.2-1.3)
[2016-07-24] MEDS: Piperacillin/Tazobact 3.375 GM in Sodium Chloride 100 ML IVPB SCH ×4 (03:35→20:36)
[2016-07-24] MEDS: (Novolog) Insulin Aspart, Recombinant 100 u/ml 10 ml vial SC SCH ×4 (06:00→18:35)
--- NOTE | 2016-07-24 07:53 | CP.PCM.PN ---
Subjective - Date & Time of Evaluation Date of Evaluation: 07/24/16 Time of Evaluation: 07:50 - Subjective Subjective: Surgery: Dr. Pa Pt seen and examined. Pt was ambulating w. out difficulty yesterday. This AM pt states that his pain is controlled and is improved compared to yesterday. Pt denies N/V. He did have BM. Pt is complaining of new onset SOB. Objective - Vital Signs/Intake and Output Vital Signs (last 24 hours): Temp Pulse Resp BP Pulse Ox 98.7 F 80 20 113/72 96 07/24/16 00:06 07/24/16 00:06 07/24/16 00:06 07/24/16 00:06 07/24/16 00:06 Intake and Output: 07/24/16 07/24/16 06:59 18:59 Intake Total 400 Balance 400 - Medications Medications: Current Medications Allopurinol (Zyloprim) 100 mg PO DAILY [facility] Last Admin: 07/23/16 09:35 Dose: 100 mg Amlodipine Besylate (Norvasc) 5 mg PO DAILY [facility] Last Admin: 07/23/16 12:44 Dose: 5 mg Aspirin (Ecotrin) 81 mg PO DAILY [facility] Last Admin: 07/23/16 09:34 Dose: 81 mg Clopidogrel Bisulfate (Plavix) 75 mg PO DAILY [facility] Last Admin: 07/23/16 09:34 Dose: 75 mg Colchicine (Colocrys) 0.6 mg PO DAILY [facility] Last Admin: 07/23/16 09:35 Dose: 0.6 mg Enalapril Maleate (Vasotec) 5 mg PO DAILY [facility] Last Admin: 07/23/16 09:34 Dose: 5 mg Ergocalciferol (Drisdol 50,000 Intl Units Cap) 1 cap PO QWK [facility] Famotidine (Pepcid) 20 mg IVP Q12 [facility] Last Admin: 07/23/16 21:58 Dose: 20 mg Furosemide (Lasix) 20 mg PO DAILY [facility] Last Admin: 07/23/16 09:34 Dose: 20 mg Hydromorphone HCl (Dilaudid) 0.5 mg IVP Q10M PRN PRN Reason: Pain, moderate (4-7) Piperacillin Sod/Tazobactam (Sod 3.375 gm/ Sodium Chloride) 100 mls @ 200 mls/ hr IVPB Q6H [facility] Last Admin: 07/24/16 03:35 Dose: 200 mls/hr Insulin Aspart (Novolog) 0 unit SC Q6H ERIK PRN Reason: Protocol Last Admin: 07/23/16 18:00 Dose: 1 unit Levalbuterol HCl (Xopenex) 0.31 mg INH STAT ONE Stop: 07/24/16 07:47 Morphine Sulfate (Morphine) 4 mg IVP Q4H PRN PRN Reason: Pain, severe (8-10) Last Admin: 07/23/16 20:09 Dose: 4 mg Ondansetron HCl (Zofran Inj) 4 mg IVP Q6 PRN PRN Reason: Nausea/Vomiting Last Admin: 07/22/16 20:17 Dose: 4 mg Oxycodone/Acetaminophen (Percocet 5/325 Mg Tab) 1 tab PO Q4H PRN PRN Reason: Pain, moderate (4-7) Stop: 07/25/16 08:04 Last Admin: 07/22/16 09:41 Dose: 1 tab Oxycodone/Acetaminophen (Percocet 5/325 Mg Tab) 2 tab PO Q4H PRN PRN Reason: Pain, severe (8-10) Stop: 07/25/16 08:04 Last Admin: 07/22/16 14:48 Dose: 2 tab Potassium Chloride (Klor-Con 10) 10 meq PO DAILY [facility] Last Admin: 07/23/16 09:35 Dose: 10 meq Pyridoxine HCl (Vitamin B6 50 Mg Tab) 50 mg PO DAILY [facility] Last Admin: 07/23/16 09:35 Dose: 50 mg Rosuvastatin Calcium (Crestor) 20 mg PO [facility] Last Admin: 07/23/16 21:57 Dose: 20 mg Tamsulosin HCl (Flomax) 0.4 mg PO HS [facility] Last Admin: 07/23/16 21:57 Dose: 0.4 mg Zolpidem Tartrate (Ambien) 5 mg PO HS [facility] Last Admin: 07/23/16 21:57 Dose: 5 mg - Labs Labs: 07/23/16 11:28 07/23/16 11:28 PT 11.5 SECONDS (9.7-12.2) 07/21/16 13:38 INR 1.0 07/21/16 13:38 APTT 69 SECONDS (21-34) H D 07/21/16 13:38 - Constitutional Appears: Non-toxic, No Acute Distress - Head Exam Head Exam: ATRAUMATIC, NORMOCEPHALIC - Eye Exam Eye Exam: EOMI - ENT Exam ENT Exam: Mucous Membranes Moist - Neck Exam Neck Exam: Full ROM - Respiratory Exam Respiratory Exam: Wheezes, NORMAL BREATHING PATTERN. absent: Accessory Muscle Use - GI/Abdominal Exam GI & Abdominal Exam: Soft, Tenderness (mild mohamud-incisional ). absent: Firm, Guarding, Rigid Additional comments: abd binder in place, dressing C/D/I - Neurological Exam Neurological Exam: Alert, Awake, Oriented x3 Assessment and Plan - Assessment and Plan (Free Text) Assessment: 66M w. incarcerated paraumbilical hernia, s/p open repair w. mesh, POD#3 -SOB: CXR and xopenex ordered -F/U AM labs -will advance diet to regular -c/w pain meds -encourage ambulation and IS use once SOB resolves -start herparin for DVT prophylaxis -d/w attending [facility]em[facility] PGY2
[2016-07-24 08:13] LABS: BASO % 0.3 % (0.0-2.0); EOS # 0.5 K/uL (0.0-0.7); LYMPH # 2.5 K/uL (1.0-4.3); LYMPH % 32.2 % (20.0-40.0); MEAN CORPUSCULAR HEMOGLOBIN 29.5 pg (27.0-31.0); MEAN CORPUSCULAR HGB CONC 33.2 g/dL (33.0-37.0); MEAN PLATELET VOLUME 9.4 fL (7.2-11.7); MONO # 0.9 K/uL (0.0-0.8); WHITE BLOOD COUNT 7.7 K/uL (4.8-10.8)
[2016-07-24 08:30] LABS: CHLORIDE 104 mmol/L (98-107)
[2016-07-24 08:31] LABS: POTASSIUM 3.8 mmol/L (3.6-5.2); SODIUM 138 mmol/L (132-148)
[2016-07-24 08:33] LABS: ALKALINE PHOSPHATASE 38 U/L (38-126); AST/SGOT 17 U/L (17-59); BILIRUBIN,TOTAL 0.7 mg/dL (0.2-1.3); BLOOD UREA NITROGEN 12 mg/dL (9-20); CARBON DIOXIDE 28 mmol/L (22-30); GFR AFRICAN-AMERICAN > 60; GLUCOSE,RANDOM 99 mg/dL (75-110); TOTAL PROTEIN 5.5 g/dL (6.3-8.3)
[2016-07-24 08:34] LABS: ALT/SGPT 20 U/L (21-72); CALCIUM 8.2 mg/dl (8.6-10.4)
[2016-07-24 08:35] LABS: ALB/GLOB RATIO 1.2 (1.0-2.1)
[2016-07-24] MEDS ORDERED: Albuterol 0.042% Inhal Sol (1.25 mg/3 mL) UD INH STA (09:11)
[2016-07-24] MEDS: Potassium Chloride 10 mEq ER Tab PO SCH (09:56)
[2016-07-24] MEDS: Oxycodone/Acetaminophen 5/325 mg Tab PO PRN ×2 (10:04→18:08)
--- NOTE | 2016-07-24 10:39 | CP.PCM.PN ---
Subjective - Date & Time of Evaluation Date of Evaluation: 07/24/16 Time of Evaluation: 09:00 - Subjective Subjective: PGY2 on medicine Dr. Gibbs service: Pt seen and examined at bedside this morning. Pt said he was having SOB but improved with treatment. Pain controlled with medication. Pt had BM and diet was advanced as per surgery. Objective - Vital Signs/Intake and Output Vital Signs (last 24 hours): Temp Pulse Resp BP Pulse Ox 98.1 F 70 20 119/71 97 07/24/16 09:17 07/24/16 09:17 07/24/16 09:17 07/24/16 09:53 07/24/16 09:17 Intake and Output: 07/24/16 07/24/16 06:59 18:59 Intake Total 400 Balance 400 - Medications Medications: Current Medications Allopurinol (Zyloprim) 100 mg PO DAILY [facility] Last Admin: 07/24/16 09:52 Dose: 100 mg Amlodipine Besylate (Norvasc) 5 mg PO DAILY [facility] Last Admin: 07/24/16 10:06 Dose: 5 mg Aspirin (Ecotrin) 81 mg PO DAILY [facility] Last Admin: 07/24/16 09:52 Dose: 81 mg Clopidogrel Bisulfate (Plavix) 75 mg PO DAILY [facility] Last Admin: 07/24/16 09:52 Dose: 75 mg Colchicine (Colocrys) 0.6 mg PO DAILY [facility] Last Admin: 07/23/16 09:35 Dose: 0.6 mg Enalapril Maleate (Vasotec) 5 mg PO DAILY [facility] Last Admin: 07/24/16 09:53 Dose: 5 mg Ergocalciferol (Drisdol 50,000 Intl Units Cap) 1 cap PO QWK [facility] Famotidine (Pepcid) 20 mg IVP Q12 [facility] Last Admin: 07/24/16 09:52 Dose: 20 mg Furosemide (Lasix) 20 mg PO DAILY [facility] Last Admin: 07/24/16 09:53 Dose: 20 mg Heparin Sodium (Porcine) (Heparin) 5,000 units SC Q8 [facility] Hydromorphone HCl (Dilaudid) 0.5 mg IVP Q10M PRN PRN Reason: Pain, moderate (4-7) Piperacillin Sod/Tazobactam (Sod 3.375 gm/ Sodium Chloride) 100 mls @ 200 mls/ hr IVPB Q6H [facility] Last Admin: 07/24/16 03:35 Dose: 200 mls/hr Insulin Aspart (Novolog) 0 unit SC Q6H [facility] PRN Reason: Protocol Last Admin: 07/24/16 06:00 Dose: Not Given Ondansetron HCl (Zofran Inj) 4 mg IVP Q6 PRN PRN Reason: Nausea/Vomiting Last Admin: 07/22/16 20:17 Dose: 4 mg Oxycodone/Acetaminophen (Percocet 5/325 Mg Tab) 1 tab PO Q4H PRN PRN Reason: Pain, moderate (4-7) Stop: 07/25/16 08:04 Last Admin: 07/22/16 09:41 Dose: 1 tab Oxycodone/Acetaminophen (Percocet 5/325 Mg Tab) 2 tab PO Q4H PRN PRN Reason: Pain, severe (8-10) Stop: 07/25/16 08:04 Last Admin: 07/24/16 10:04 Dose: 2 tab Potassium Chloride (Klor-Con 10) 10 meq PO DAILY [facility] Last Admin: 07/24/16 09:56 Dose: 10 meq Pyridoxine HCl (Vitamin B6 50 Mg Tab) 50 mg PO DAILY [facility] Last Admin: 07/23/16 09:35 Dose: 50 mg Rosuvastatin Calcium (Crestor) 20 mg PO [facility] Last Admin: 07/23/16 21:57 Dose: 20 mg Tamsulosin HCl (Flomax) 0.4 mg PO [facility] Last Admin: 07/23/16 21:57 Dose: 0.4 mg Zolpidem Tartrate (Ambien) 5 mg PO [facility] Last Admin: 07/23/16 21:57 Dose: 5 mg - Labs Labs: 07/24/16 07:58 07/24/16 07:58 PT 11.5 SECONDS (9.7-12.2) 07/21/16 13:38 INR 1.0 07/21/16 13:38 APTT 69 SECONDS (21-34) H D 07/21/16 13:38 - Constitutional Appears: Non-toxic, No Acute Distress - Head Exam Head Exam: NORMOCEPHALIC - Eye Exam Eye Exam: Normal appearance - ENT Exam ENT Exam: Mucous Membranes Moist - Respiratory Exam Respiratory Exam: Clear to Ausculation Bilateral, NORMAL BREATHING PATTERN. absent: Wheezes - Cardiovascular Exam Cardiovascular Exam: REGULAR RHYTHM, +S1, +S2. absent: Gallop - GI/Abdominal Exam GI & Abdominal Exam: Soft, Tenderness (at incision sites), Normal Bowel Sounds Additional comments: abdominal dressing C/D/I - Neurological Exam Neurological Exam: Alert, Awake, Oriented x3 - Psychiatric Exam Psychiatric exam: Normal Mood - Skin Skin Exam: Intact Assessment and Plan - Assessment and Plan (Free Text) Assessment: Incarcerated periumbilical hernia S/P surgical repair POD#3. Surgery Dr. Pa consulted, help appreciated. Diet was advanced as per surgical team. Further management as per surgical team. Dilaudid, Percocet and morphine PRN. Zosyn q6. HTN Continue Norvasc and Vasotec. Hx of CAD Continue ASA, Plavix, Lasix, Crestor. Hx of gout Continue home med Allopurinal. DM RISS, Accucheck. Prophylactic measure Pepcid, Lovenox DC planning Management per Dr. Gibbs
--- NOTE | 2016-07-24 13:28 | RAD ---
HISTORY: spitting out blood COMPARISON: Chest x-ray performed 07/21/16 TECHNIQUE: Chest PA and lateral FINDINGS: LUNGS: Biapical pleural thickening . Right hilar prominence. Right basilar atelectasis or infiltrate. Probable trace bilateral pleural effusions. Left costophrenic angle is incompletely imaged. No definite pneumothorax. Please note that chest x-ray has limited sensitivity for the detection of pulmonary masses. CARDIOVASCULAR: Cardiomegaly. Prominent ectatic aorta. OSSEOUS STRUCTURES: Degenerative changes. VISUALIZED UPPER ABDOMEN: Unremarkable. OTHER FINDINGS: None. IMPRESSION: Biapical pleural thickening . Right hilar prominence. Right basilar atelectasis or infiltrate. Probable trace bilateral pleural effusions. Left costophrenic angle is incompletely imaged. Cardiomegaly. Prominent ectatic aorta. CT of the chest with IV contrast suggested for further evaluation in the proper clinical setting.
--- NOTE | 2016-07-24 13:33 | RAD ---
HISTORY: SOB COMPARISON: No prior. FINDINGS: LUNGS: Mild peripheral interstitial changes. PLEURA: No significant pleural effusion identified, no pneumothorax apparent. CARDIOVASCULAR: Normal. OSSEOUS STRUCTURES: No significant abnormalities. VISUALIZED UPPER ABDOMEN: Normal. OTHER FINDINGS: None. IMPRESSION: Mild peripheral interstitial changes.
[2016-07-25] MEDS: Piperacillin/Tazobact 3.375 GM in Sodium Chloride 100 ML IVPB SCH ×4 (03:30→20:06)
[2016-07-25] MEDS: (Novolog) Insulin Aspart, Recombinant 100 u/ml 10 ml vial SC SCH ×4 (06:00→18:27)
[2016-07-25] MEDS ORDERED: Oxycodone/Acetaminophen 5/325 mg Tab PO PRN (08:20)
[2016-07-25 08:39] LABS: BASO % 0.4 % (0.0-2.0); EOS # 0.4 K/uL (0.0-0.7); EOS % 4.3 % (0.0-4.0); HEMATOCRIT 46.9 % (35.0-51.0); LYMPH # 2.2 K/uL (1.0-4.3); LYMPH % 22.5 % (20.0-40.0); MEAN CELL VOLUME 88.4 fL (80.0-94.0); MEAN CORPUSCULAR HEMOGLOBIN 29.7 pg (27.0-31.0); MEAN CORPUSCULAR HGB CONC 33.6 g/dL (33.0-37.0); MEAN PLATELET VOLUME 9.3 fL (7.2-11.7); MONO # 0.8 K/uL (0.0-0.8); NRBC % 0.1 % (0.0-2.0); RED CELL DISTRIBUTION WIDTH 14.2 % (11.5-14.5); WHITE BLOOD COUNT 9.9 K/uL (4.8-10.8)
[2016-07-25 08:50] LABS: CHLORIDE 100 mmol/L (98-107); SODIUM 138 mmol/L (132-148)
[2016-07-25 08:52] LABS: ALB/GLOB RATIO 1.2 (1.0-2.1); AST/SGOT 20 U/L (17-59); BILIRUBIN,TOTAL 0.8 mg/dL (0.2-1.3); CARBON DIOXIDE 27 mmol/L (22-30); GFR AFRICAN-AMERICAN > 60; TOTAL PROTEIN 6.7 g/dL (6.3-8.3)
[2016-07-25 08:53] LABS: ALKALINE PHOSPHATASE 48 U/L (38-126); ALT/SGPT 24 U/L (21-72); BLOOD UREA NITROGEN 13 mg/dL (9-20); CALCIUM 8.9 mg/dl (8.6-10.4); GLUCOSE,RANDOM 125 mg/dL (75-110)
[2016-07-25] MEDS: Potassium Chloride 10 mEq ER Tab PO SCH (14:22)
[2016-07-26] MEDS: (Novolog) Insulin Aspart, Recombinant 100 u/ml 10 ml vial SC SCH ×4 (00:58→17:56)
[2016-07-26] MEDS: Piperacillin/Tazobact 3.375 GM in Sodium Chloride 100 ML IVPB SCH ×3 (03:26→15:02)
[2016-07-26 08:08] LABS: BASO % 0.5 % (0.0-2.0); EOS # 0.4 K/uL (0.0-0.7); EOS % 4.7 % (0.0-4.0); HEMATOCRIT 45.3 % (35.0-51.0); LYMPH # 2.7 K/uL (1.0-4.3); LYMPH % 28.7 % (20.0-40.0); MEAN CELL VOLUME 87.9 fL (80.0-94.0); MEAN CORPUSCULAR HEMOGLOBIN 29.9 pg (27.0-31.0); MEAN PLATELET VOLUME 9.4 fL (7.2-11.7); MONO # 0.9 K/uL (0.0-0.8); MONO % 9.4 % (0.0-10.0); NRBC % 0.1 % (0.0-2.0); RED CELL DISTRIBUTION WIDTH 13.9 % (11.5-14.5); WHITE BLOOD COUNT 9.5 K/uL (4.8-10.8)
[2016-07-26 08:21] LABS: POTASSIUM 3.7 mmol/L (3.6-5.2)
[2016-07-26 08:23] LABS: BILIRUBIN,TOTAL 0.7 mg/dL (0.2-1.3)
[2016-07-26 08:24] LABS: ALB/GLOB RATIO 1.2 (1.0-2.1); CALCIUM 8.7 mg/dl (8.6-10.4); TOTAL PROTEIN 6.3 g/dL (6.3-8.3)
[2016-07-26] MEDS: Potassium Chloride 10 mEq ER Tab PO SCH (09:26)
[2016-07-26 16:39] VITALS: RESP 20
--- NOTE | 2016-07-26 21:15 | CARD ---
APPROVED REPORT EKG Measurement Heart [id number] <Conclusion> Sinus bradycardia Otherwise normal ECG
--- NOTE | 2016-07-26 21:39 | CARD ---
APPROVED REPORT EKG Measurement Heart [id number] <Conclusion> Sinus bradycardia Low voltage QRS Borderline ECG
[2016-07-27] MEDS: (Novolog) Insulin Aspart, Recombinant 100 u/ml 10 ml vial SC SCH ×3 (00:34→17:14)
[2016-07-27 08:31] VITALS: BP 121/82; PULSE 70; TEMP 98.2; O2SAT 96
--- NOTE | 2016-07-27 08:44 | CP.PCM.PN ---
Subjective - Date & Time of Evaluation Date of Evaluation: 07/27/16 Time of Evaluation: 08:00 - Subjective Subjective: Dr. Gibbs note: Patient seen in room with nurse present, he is complaining of some abdominal pain. But denies fever, chills, nausea, vomiting, or diarrhea. Objective - Vital Signs/Intake and Output Vital Signs (last 24 hours): Temp Pulse Resp BP Pulse Ox 98.2 F 70 20 121/82 96 07/27/16 08:30 07/27/16 08:30 07/27/16 08:30 07/27/16 08:30 07/27/16 08:30 Intake and Output: 07/27/16 07/27/16 06:59 18:59 Intake Total 700 Balance 700 - Medications Medications: Current Medications Allopurinol (Zyloprim) 100 mg PO DAILY [facility] Last Admin: 07/26/16 09:24 Dose: 100 mg Amlodipine Besylate (Norvasc) 5 mg PO DAILY [facility] Last Admin: 07/26/16 09:22 Dose: 5 mg Aspirin (Ecotrin) 81 mg PO DAILY [facility] Last Admin: 07/26/16 09:24 Dose: 81 mg Clopidogrel Bisulfate (Plavix) 75 mg PO DAILY [facility] Last Admin: 07/26/16 09:23 Dose: 75 mg Colchicine (Colocrys) 0.6 mg PO DAILY [facility] Last Admin: 07/23/16 09:35 Dose: 0.6 mg Enalapril Maleate (Vasotec) 5 mg PO DAILY [facility] Last Admin: 07/26/16 09:22 Dose: 5 mg Ergocalciferol (Drisdol 50,000 Intl Units Cap) 1 cap PO QWK [facility] Famotidine (Pepcid) 20 mg IVP Q12 [facility] Last Admin: 07/26/16 21:14 Dose: Not Given Furosemide (Lasix) 20 mg PO DAILY [facility] Last Admin: 07/26/16 09:23 Dose: 20 mg Heparin Sodium (Porcine) (Heparin) 5,000 units SC Q8 [facility] Last Admin: 07/27/16 05:42 Dose: 5,000 units Insulin Aspart (Novolog) 0 unit SC Q6H [facility] PRN Reason: Protocol Last Admin: 07/27/16 06:14 Dose: Not Given Lactulose (Enulose) 20 gm PO DAILY PRN PRN Reason: Constipation Last Admin: 07/24/16 19:56 Dose: 20 gm Ondansetron HCl (Zofran Inj) 4 mg IVP Q6 PRN PRN Reason: Nausea/Vomiting Last Admin: 07/22/16 20:17 Dose: 4 mg Oxycodone/Acetaminophen (Percocet 5/325 Mg Tab) 1 tab PO Q6H PRN PRN Reason: Pain, severe (8-10) Stop: 07/28/16 08:21 Last Admin: 07/25/16 09:13 Dose: 1 tab Potassium Chloride (Klor-Con 10) 10 meq PO DAILY [facility] Last Admin: 07/26/16 09:26 Dose: 10 meq Pyridoxine HCl (Vitamin B6 50 Mg Tab) 50 mg PO DAILY [facility] Last Admin: 07/26/16 09:24 Dose: 50 mg Rosuvastatin Calcium (Crestor) 20 mg PO HS [facility] Last Admin: 07/26/16 21:14 Dose: 20 mg Tamsulosin HCl (Flomax) 0.4 mg PO [facility] Last Admin: 07/26/16 21:14 Dose: 0.4 mg Zolpidem Tartrate (Ambien) 5 mg PO [facility] Last Admin: 07/26/16 21:14 Dose: 5 mg - Labs Labs: 07/26/16 07:56 07/26/16 07:56 PT 11.5 SECONDS (9.7-12.2) 07/21/16 13:38 INR 1.0 07/21/16 13:38 APTT 69 SECONDS (21-34) H D 07/21/16 13:38 - Constitutional Appears: Non-toxic, No Acute Distress - Head Exam Head Exam: NORMAL INSPECTION - Eye Exam Eye Exam: Normal appearance Pupil Exam: NORMAL ACCOMODATION - Respiratory Exam Respiratory Exam: Clear to Ausculation Bilateral. absent: Rhonchi, Wheezes - Cardiovascular Exam Cardiovascular Exam: REGULAR RHYTHM, RRR. absent: Gallop, Rubs - GI/Abdominal Exam Additional comments: there is a dressing over the epigastric area with no drainage or signs of infection. - Extremities Exam Extremities Exam: Normal Inspection - Back Exam Back Exam: NORMAL INSPECTION - Neurological Exam Neurological Exam: Oriented x3 - Skin Skin Exam: Normal Color Assessment and Plan - Assessment and Plan (Free Text) Assessment: Patient discharged home, will follow up with Dr. Martinez as an outpatient.
[2016-07-27 08:56] LABS: BASO # 0.1 K/uL (0.0-0.2); BASO % 0.6 % (0.0-2.0); EOS # 0.5 K/uL (0.0-0.7); EOS % 4.2 % (0.0-4.0); LYMPH % 36.5 % (20.0-40.0); MEAN CELL VOLUME 88.6 fL (80.0-94.0); MEAN CORPUSCULAR HEMOGLOBIN 29.7 pg (27.0-31.0); MEAN CORPUSCULAR HGB CONC 33.5 g/dL (33.0-37.0); MEAN PLATELET VOLUME 9.2 fL (7.2-11.7); MONO % 8.8 % (0.0-10.0); RED CELL DISTRIBUTION WIDTH 14.6 % (11.5-14.5)
[2016-07-27 09:08] LABS: CHLORIDE 101 mmol/L (98-107); SODIUM 139 mmol/L (132-148)
[2016-07-27 09:11] LABS: ALB/GLOB RATIO 1.3 (1.0-2.1); ALKALINE PHOSPHATASE 50 U/L (38-126); ALT/SGPT 45 U/L (21-72); AST/SGOT 35 U/L (17-59); BILIRUBIN,TOTAL 0.7 mg/dL (0.2-1.3); BLOOD UREA NITROGEN 19 mg/dL (9-20); CARBON DIOXIDE 25 mmol/L (22-30); GFR AFRICAN-AMERICAN > 60; GLUCOSE,RANDOM 148 mg/dL (75-110)
[2016-07-27] MEDS: Potassium Chloride 10 mEq ER Tab PO SCH (12:41)
[2016-07-28] MEDS ORDERED: Ergocalciferol 50,000 Intl Units Cap PO SCH (10:00)
--- NOTE | 2016-07-29 08:13 | PN ---
DATE: 07/25/2016 Patient chief complaints weakness, fatigue, abdominal pain ____. Edmar Cabral MD cc: [id number] TT: 07/25/2016 10:04:45 Confirmation # [id number] Dictation # [id number] 07/29/2016 07:12:58
--- NOTE | 2016-07-29 08:28 | DS ---
The patient was admitted to the hospital with chief complaint of ____ abdominal hernia. The patient underwent hernia repair. Postop pain and nausea. The patient showed gradual improvement. Discharge d today. Edmar Cabral MD cc: [id number] TT: 07/27/2016 18:59:14 mn
== END 2016-07-27 12:28 | disposition home or self-care (01) | DRG 355 ==
LOC: C.ER 12:43 → C.9E 13:37 → C.6T 14:33 → C.9I 19:57 → C.3T 07-22 17:42
PROVIDERS: ADMIT Internal Medicine Pulmonary Disease; ATTEND Internal Medicine Pulmonary Disease
PROC: 0WUF0JZ Supplement Abdominal Wall with Synthetic Substitute, Open Approach (ICD-10-PCS; principal; 2016-07-21 14:00)
DX: K43.0 Incisional hernia with obstruction, without gangrene (principal); J44.9 Chronic obstructive pulmonary disease, unspecified; I10 Essential (primary) hypertension; E11.9 Type 2 diabetes mellitus without complications; E78.00 Pure hypercholesterolemia, unspecified; Z95.5 Presence of coronary angioplasty implant and graft; F41.9 Anxiety disorder, unspecified; F17.210 Nicotine dependence, cigarettes, uncomplicated; I25.10 Atherosclerotic heart disease of native coronary artery without angina pectoris; M17.9 Osteoarthritis of knee, unspecified

== ENCOUNTER 2016-10-28 15:46 | Emergency (ER) | payer MEDICARE, OTHER ==
[2016-10-28 15:50] VITALS: BMI 34.8
[2016-10-28 15:51] VITALS: RESP 18
[2016-10-28] MEDS ORDERED: Iohexol 240 (50 ml) PO STA (16:22)
[2016-10-28] MEDS ORDERED: Sodium Chloride 0.9% 500 ML IV ONE (16:22)
[2016-10-28] MEDS ORDERED: Iohexol 240 (50 ml) ONE (16:28)
[2016-10-28] MEDS ORDERED: Sodium Chloride 0.9% 1,000 ML ONE (16:29)
[2016-10-28 16:46] LABS: BASO # 0.1 K/uL (0.0-0.2); BASO % 1.1 % (0.0-2.0); EOS # 0.3 K/uL (0.0-0.7); EOS % 3.6 % (0.0-4.0); HEMATOCRIT 44.6 % (35.0-51.0); LYMPH % 52.1 % (20.0-40.0); MEAN CELL VOLUME 89.8 fL (80.0-94.0); MEAN CORPUSCULAR HEMOGLOBIN 30.3 pg (27.0-31.0); MEAN CORPUSCULAR HGB CONC 33.7 g/dL (33.0-37.0); MEAN PLATELET VOLUME 9.2 fL (7.2-11.7); MONO # 0.6 K/uL (0.0-0.8); MONO % 8.5 % (0.0-10.0); NRBC % 0.1 % (0.0-2.0); RED CELL DISTRIBUTION WIDTH 14.9 % (11.5-14.5); WHITE BLOOD COUNT 7.6 K/uL (4.8-10.8)
[2016-10-28 16:53] LABS: CHLORIDE 108 mmol/L (98-107); SODIUM 141 mmol/L (132-148)
[2016-10-28 16:54] LABS: INR 1.1
--- NOTE | 2016-10-28 16:54 | C.PDOC ---
History Of Present Illness 66 y/o male presents to the ED complaining of abdominal pain and distension, worsening over the past 3 months. Patient is s/p two different hernia repairs, the first on 05/13/[address] French, and the second on 07/21/[address] Olmstead (incarcerated hernia). He denies diarrhea, constipation, fever, dysuria, nausea, and vomiting. PMD: Edmar Gibbs Time Seen by Provider: 10/28/16 16:04 Chief Complaint (Nursing): Abdominal Pain History Per: Patient History/Exam Limitations: no limitations Onset/Duration Of Symptoms: Days (x 3 months) Current Symptoms Are (Timing): Still Present Severity: Mild Radiation Of Pain To:: None Quality Of Discomfort: "Pain" Associated Symptoms: denies: Fever, Chills, Nausea, Vomiting, Diarrhea Past Medical History Reviewed: Historical Data, Nursing Documentation, Vital Signs Vital Signs: Last Vital Signs Temp 97.3 F L 10/28/16 18:53 Pulse 46 L 10/28/16 18:53 Resp 18 10/28/16 18:53 BP 131/81 10/28/16 18:53 Pulse Ox 99 10/28/16 18:53 - Medical History PMH: Anxiety, Arthritis, Back Problems, COPD, Diabetes, Gastritis, HTN, Hypercholesterolemia, Pneumonia () Surgical History: Coronary Stent (2 YEARS AGO), Hernia Repair - [facility] Procedures CENTRAL VENOUS CATHETER PLACEMENT WITH GUIDANCE (07/24/12) CONTINUOUS INVASIVE MECHANICAL VENTILATION <96 CONSEC HRS (07/24/12) DRAINAGE OF PERITONEAL CAVITY, OPEN APPROACH (05/13/15) EXCISION OF RIGHT SPERMATIC CORD, OPEN APPROACH (05/01/15) EXTRACTION OF PELVIC SUBCU/FASCIA, OPEN APPROACH (05/13/15) INSERT ENDOTRACHEAL TUBE (07/24/12) OTH LYSIS-PERITONEAL ADHES (03/16/13) OTHER OPEN UMBILICAL HERNIORRHAPHY (03/16/13) SUPPLEMENT ABDOMINAL WALL WITH SYNTH SUB, OPEN APPROACH (07/21/16) SUPPLEMENT R INGUINAL REGION WITH SYNTH SUB, OPEN APPROACH (05/01/15) Family History: States: No Known Family Hx - Social History Hx Tobacco Use: Yes Hx Alcohol Use: No Hx Substance Use: No - Immunization History Hx Tetanus Toxoid Vaccination: No Hx Influenza Vaccination: Yes Hx Pneumococcal Vaccination: No Review Of Systems Except As Marked, All Systems Reviewed And Found Negative. Constitutional: Negative for: Fever Cardiovascular: Negative for: Chest Pain Respiratory: Negative for: Shortness of Breath Gastrointestinal: Positive for: Abdominal Pain (and distension). Negative for: Nausea, Vomiting, Diarrhea, Constipation Genitourinary: Negative for: Dysuria, Hematuria Physical Exam - Physical Exam Appears: Non-toxic, No Acute Distress Skin: Normal Color, Warm, Dry Head: Atraumatic, Normacephalic Eye(s): bilateral: Normal Inspection Oral Mucosa: Moist Neck: Normal, Supple Chest: Symmetrical Cardiovascular: Rhythm Regular (Bradycardic ) Respiratory: Normal Breath Sounds, No Rales, No Rhonchi, No Wheezing Gastrointestinal/Abdominal: No Normal Exam, Bowel Sounds, Soft, Tenderness ( mild diffuse TTP greatest right above the umbilicus at site of previous surgery scar.), Distention (mild), No Guarding, No Rebound, No Hernia (on palpation), Other (Obese) Back: No CVA Tenderness Extremity: Normal ROM, No Deformity Neurological/Psych: Oriented x3 Gait: Steady ED Course And Treatment - Laboratory Results Result Diagrams: 10/28/16 16:39 10/28/16 16:39 O2 Sat by Pulse Oximetry: 96 (RA) Pulse Ox Interpretation: Normal - CT Scan/US CT Abdomen/Pelvis Other Rad Studies (CT/US): Read By Radiologist (at 18:09) CT/US Interpretation: FINDINGS: LOWER THORAX: No visible consolidation, pleural effusion, or pneumothorax. LIVER: Unremarkable. GALLBLADDER AND BILE DUCTS: Contracted gallbladder appears otherwise unremarkable. PANCREAS: Unremarkable. SPLEEN: Unremarkable. ADRENALS: Unremarkable. KIDNEYS AND URETERS: The kidneys enhance symmetrically. No hydronephrosis or obstructing renal calculus. 4.0 x 3.4 cm low-density with right renal lesion measures approximately 4 HU consistent with a cyst. Additional too small to characterize right and left renal hypodensities; statistically likely reflects cysts. BLADDER: Diverticulum arising from the superior left aspect of the urinary bladder. REPRODUCTIVE: The prostate gland measures approximately 3.7 x 5.3 cm in appears heterogeneous. APPENDIX: The appendix appears within normal limits of caliber. No secondary signs of acute appendicitis. BOWEL: The stomach is nondistended. The bowel loops appear within normal limits of caliber without evidence of intestinal obstruction. Moderate constipation. PERITONEUM: No significant free fluid. No definite free air. LYMPH NODES: No bulky lymphadenopathy identified. VASCULATURE: Focal infrarenal abdominal aortic aneurysm measures approximately 3.3 cm (AP dimension) by 3.0 cm ( transverse dimension) grossly stable to minimally increased in size as compared to prior study. BONES: Multilevel degenerative changes. Mild scoliosis. OTHER FINDINGS: Fat and fluid within the right inguinal hernia. Fat containing left inguinal hernia. IMPRESSION: 4.0 x 3.4 cm low-density with right renal lesion measures approximately 4 HU consistent with a cyst. Additional too small to characterize right and left renal hypodensities; statistically likely reflects cysts. Fat and fluid within the right inguinal hernia. Fat containing left inguinal hernia. Enlarged heterogeneous prostate gland. Recommend correlation with PSA. Focal infrarenal abdominal aortic aneurysm measures approximately 3.3 cm (AP dimension) by 3.0 cm (transverse dimension) grossly stable to minimally increased in size as compared to prior study. Left superior urinary bladder diverticulum. Additional findings as above. Progress Note: Time: 16:22. Plan: Blood work, UA, CT Abdomen/Pelvis with PO & IV contrast ordered and reviewed. Patient given IV toradol, IV NS bolus. Reevaluation Time: 18:50 Reassessment Condition: Improved (On reassessment, patient is resting comfortably, in no current pain/distress. On exam, abdomen is soft and nontender. CT scan shows inguinal hernia without bowel involvement, and unchanged AAA. Patient instructed to follow up with his surgeon Dr. Olmstead within 1 week for evaluation of both, and he understands he should return to ED if symptoms worsen.) Disposition Counseled Patient/Family Regarding: Studies Performed, Diagnosis, Need For Followup - Disposition Referrals: Hola Olmstead Jr., MD [Staff Provider] - Edmar Gibbs MD [Staff Provider] - Disposition: HOME/ ROUTINE Disposition Time: 18:50 Condition: STABLE Additional Instructions: FOLLOW UP WITH DR OLMSTEAD WITHIN 1 WEEK RETURN TO EMERGENCY ROOM IF SYMPTOMS WORSEN Instructions: Abdominal Aortic Aneurysm (DC), Inguinal Hernia (ED) Forms: [employer] (Maltese) Print Language: MONTSERRATIAN - Clinical Impression Clinical Impression: Inguinal hernia, right, AAA (abdominal aortic aneurysm) - Scribe Statement The provider has reviewed the documentation as recorded by the Scribosiris Hawkins All medical record entries made by the Scribe were at my direction and personally dictated by me. I have reviewed the chart and agree that the record accurately reflects my personal performance of the history, physical exam, medical decision making, and the department course for this patient. I have also personally directed, reviewed, and agree with the discharge instructions and disposition.
[2016-10-28 16:55] LABS: ALB/GLOB RATIO 1.5 (1.0-2.1); ALKALINE PHOSPHATASE 38 U/L (38-126); AST/SGOT 15 U/L (17-59); BILIRUBIN,TOTAL 0.5 mg/dL (0.2-1.3); BLOOD UREA NITROGEN 28 mg/dL (9-20); CARBON DIOXIDE 23 mmol/L (22-30); GFR AFRICAN-AMERICAN > 60; TOTAL PROTEIN 6.3 g/dL (6.3-8.3)
[2016-10-28 16:56] LABS: ALT/SGPT 32 U/L (21-72); CALCIUM 8.9 mg/dl (8.6-10.4); GLUCOSE,RANDOM 127 mg/dL (75-110)
[2016-10-28] MEDS ORDERED: Iohexol 300 100 ML IJ ONE (17:15)
--- NOTE | 2016-10-28 18:13 | CT ---
PROCEDURE: CT Abdomen and Pelvis with oral and IV contrast. HISTORY: diffuse abd pain, h/o recurrent incarcerated hernias COMPARISON: CT abdomen and pelvis performed 07/20/16 TECHNIQUE: Contiguous axial images of the abdomen and pelvis. Oral and IV contrast was administered. Coronal and Sagittal reformats generated and reviewed. Contrast dose: 100 cc Omnipaque 300 Radiation dose: Total exam DLP = 1178.12 mGy-cm. This CT exam was performed using one or more of the following dose reduction techniques: Automated exposure control, adjustment of the mA and/or kV according to patient size, and/or use of iterative reconstruction technique. FINDINGS: LOWER THORAX: No visible consolidation, pleural effusion, or pneumothorax. LIVER: Unremarkable. GALLBLADDER AND BILE DUCTS: Contracted gallbladder appears otherwise unremarkable. PANCREAS: Unremarkable. SPLEEN: Unremarkable. ADRENALS: Unremarkable. KIDNEYS AND URETERS: The kidneys enhance symmetrically. No hydronephrosis or obstructing renal calculus. 4.0 x 3.4 cm low-density with right renal lesion measures approximately 4 HU consistent with a cyst. Additional too small to characterize right and left renal hypodensities; statistically likely reflects cysts. BLADDER: Diverticulum arising from the superior left aspect of the urinary bladder. REPRODUCTIVE: The prostate gland measures approximately 3.7 x 5.3 cm in appears heterogeneous. APPENDIX: The appendix appears within normal limits of caliber. No secondary signs of acute appendicitis. BOWEL: The stomach is nondistended. The bowel loops appear within normal limits of caliber without evidence of intestinal obstruction. Moderate constipation. PERITONEUM: No significant free fluid. No definite free air. LYMPH NODES: No bulky lymphadenopathy identified. VASCULATURE: Focal infrarenal abdominal aortic aneurysm measures approximately 3.3 cm (AP dimension) by 3.0 cm (transverse dimension) grossly stable to minimally increased in size as compared to prior study. BONES: Multilevel degenerative changes. Mild scoliosis. OTHER FINDINGS: Fat and fluid within the right inguinal hernia. Fat containing left inguinal hernia. IMPRESSION: 4.0 x 3.4 cm low-density with right renal lesion measures approximately 4 HU consistent with a cyst. Additional too small to characterize right and left renal hypodensities; statistically likely reflects cysts. Fat and fluid within the right inguinal hernia. Fat containing left inguinal hernia. Enlarged heterogeneous prostate gland. Recommend correlation with PSA. Focal infrarenal abdominal aortic aneurysm measures approximately 3.3 cm (AP dimension) by 3.0 cm (transverse dimension) grossly stable to minimally increased in size as compared to prior study. Left superior urinary bladder diverticulum. Additional findings as above.
[2016-10-28 18:54] VITALS: BP 131/81; PULSE 46; TEMP 97.3
[2016-10-28 18:55] LABS: RBC URINE < 1 /hpf (0-3); URINE BILIRUBIN NEGATIVE (NEGATIVE); URINE BLOOD NEGATIVE (NEGATIVE); URINE COLOR Straw (YELLOW); URINE GLUCOSE (UA) NORMAL (Normal); URINE KETONE NEGATIVE (NEGATIVE); URINE LEUKOCYTE ESTERASE NEG Leu/uL (Negative); URINE PROTEIN NEGATIVE (NEGATIVE); URINE UROBILINOGEN NORMAL mg/dL (0.2-1.0); WBC URINE < 1 /hpf (0-5)
[2016-11-02 10:43] VITALS: O2SAT 96
== END 2016-10-28 19:00 | disposition home or self-care (01) ==
LOC: C.ER 15:46
DX: K40.91 Unilateral inguinal hernia, without obstruction or gangrene, recurrent (principal); I71.4 Abdominal aortic aneurysm, without rupture
CPT/HCPCS: 74177; 80053; 81001; 85025; 85610; 85730; 96374; 99285; J1885; J7040; Q9966; Q9967

== ENCOUNTER 2017-01-03 12:48 | Emergency (ER) | payer MEDICARE ==
[2017-01-03 12:49] VITALS: BMI 34.8
[2017-01-03 13:08] VITALS: RESP 20; TEMP 97.7
--- NOTE | 2017-01-03 13:58 | C.PDOC ---
History Of Present Illness 66 y/o male with a hx of COPD, HTN, CAD with cardiac stents placed 2011, Diabetes, chronic back pain, and inguinal henia repair in 2013; Admitted June of this year for recurrent hernia repair by Dr. Martinez. Patient c/o left knee pain for months. Last year patient had a steroid injection to the bilateral knees for arthritis. Patient now reports severe pain for 3 days, 10/10, cannot sleep or walk due to pain yesterday. Patient took no meds for pain except for his usual meds. Pain is at the popliteal fossa and radiates to the entire knee. Patient was pushing a planter with his knee in his yard yesterday, which made the pain worse. Patient denies headache, fever, chills, nausea, vomiting, or abdominal pain (Difficult moving due to obesity). Chronically SOB, uses home O2 for COPD. No weakness or numbness. Time Seen by Provider: 01/03/17 13:16 Chief Complaint (Nursing): Lower Extremity Problem/Injury History Per: Patient History/Exam Limitations: no limitations Onset/Duration Of Symptoms: Days (Months), Persistent Current Symptoms Are (Timing): Still Present Severity: Severe Pain Scale Rating Of: 10 Recent travel outside of the [place]: No Additional History Per: Patient Past Medical History Reviewed: Historical Data, Nursing Documentation, Vital Signs Vital Signs: Last Vital Signs Temp 97.7 F 01/03/17 13:07 Pulse 54 L 01/03/17 13:07 Resp 20 01/03/17 13:07 BP 114/73 01/03/17 13:07 Pulse Ox 98 01/03/17 14:09 - Medical History PMH: Anxiety, Arthritis, Back Problems, COPD, Diabetes, Gastritis, HTN, Hypercholesterolemia, Pneumonia () Denies: Chronic Kidney Disease Surgical History: Coronary Stent (2 YEARS AGO), Hernia Repair - [facility] Procedures CENTRAL VENOUS CATHETER PLACEMENT WITH GUIDANCE (07/24/12) CONTINUOUS INVASIVE MECHANICAL VENTILATION <96 CONSEC HRS (07/24/12) DRAINAGE OF PERITONEAL CAVITY, OPEN APPROACH (05/13/15) EXCISION OF RIGHT SPERMATIC CORD, OPEN APPROACH (05/01/15) EXTRACTION OF PELVIC SUBCU/FASCIA, OPEN APPROACH (05/13/15) INSERT ENDOTRACHEAL TUBE (07/24/12) OTH LYSIS-PERITONEAL ADHES (03/16/13) OTHER OPEN UMBILICAL HERNIORRHAPHY (03/16/13) SUPPLEMENT ABDOMINAL WALL WITH SYNTH SUB, OPEN APPROACH (07/21/16) SUPPLEMENT R INGUINAL REGION WITH SYNTH SUB, OPEN APPROACH (05/01/15) Family History: States: Unknown Family Hx - Social History Hx Tobacco Use: Yes Hx Alcohol Use: No Hx Substance Use: No - Immunization History Hx Tetanus Toxoid Vaccination: No Hx Influenza Vaccination: Yes (2016) Hx Pneumococcal Vaccination: No Review Of Systems Except As Marked, All Systems Reviewed And Found Negative. Constitutional: Negative for: Fever, Chills Respiratory: Positive for: Shortness of Breath (Chronically. Uses home O2 for COPD) Gastrointestinal: Negative for: Nausea, Vomiting, Abdominal Pain (Difficult moving due to obesity) Musculoskeletal: Positive for: Leg Pain (Bilateral knee pain) Neurological: Negative for: Weakness, Numbness, Headache Physical Exam - Physical Exam Appears: Non-toxic, No Acute Distress, Chronically Ill Skin: Warm, Dry Head: Atraumatic, Normacephalic Cardiovascular: Rhythm Regular, No Murmur Respiratory: Rhonchi (scattered throughout), No Wheezing Gastrointestinal/Abdominal: Soft, No Tenderness, Other (Obese abdomen) Extremity: Tenderness (Posterior fossa on the left knee. No erythema. ), Pedal Edema (Bilateral +2 edema to both extremities), No Deformity, No Swelling, Other (Ary stasis changes to the left foot. Distal pedal pulses heard with Doppler) Neurological/Psych: Oriented x3, Normal Motor, Normal Sensation ED Course And Treatment O2 Sat by Pulse Oximetry: 98 (RA) Pulse Ox Interpretation: Normal Medical Decision Making Medical Decision Making: Plans: * XRAY bilateral knees * Tylenol * Motrin DDx: DVT vs arthirits vs Bakers cyst Disposition Discussed With : Edmar Gibbs Doctor Will See Patient In The: Office Counseled Patient/Family Regarding: Diagnosis, Need For Followup, Rx Given - Disposition Referrals: Edmar Gibbs MD [Staff Provider] - Disposition: HOME/ ROUTINE Disposition Time: 15:12 Condition: STABLE Prescriptions: Ibuprofen [Motrin] 600 mg PO TID #15 tab traMADol/Acetaminophen [Ultracet 37.5/325 mg] 1 tab PO TID PRN #12 tab PRN Reason: pain Instructions: RICE Therapy (ED) Forms: [employer] (Somali) - POA Present On Arrival: None - Clinical Impression Clinical Impression: Joint pain, Arthritis - Scribe Statement The provider has reviewed the documentation as recorded by the Scribe Jamshid villafuerte All medical record entries made by the Scribe were at my direction and personally dictated by me. I have reviewed the chart and agree that the record accurately reflects my personal performance of the history, physical exam, medical decision making, and the department course for this patient. I have also personally directed, reviewed, and agree with the discharge instructions and disposition. Addendum Addendum: 01/03/17 15:[address] Gibbs, wants to see the patient in his office tomorrow.
--- NOTE | 2017-01-03 14:05 | RAD ---
PROCEDURE: Bilateral Knee Radiographs. HISTORY: pain more to left side COMPARISON: None. FINDINGS: BONES: Bone alignment and mineralization are normal. There is no acute displaced fracture or bone destruction. There is a subarticular lucency with surrounding sclerosis in the medial condyle of the right knee. JOINTS: There is mild tricompartmental degenerative osteoarthrosis with mild reduced joint spaces, marginal spurring and tibial spiking. SOFT TISSUES: Right Knee: Normal. Left Knee: Normal. JOINT EFFUSION: There are small suprapatellar joint effusions OTHER FINDINGS: None. IMPRESSION: Mild tricompartmental degenerative osteoarthrosis, worse in the medial compartments. Small suprapatellar joint effusions. Suspect osteochondral lesion in the medial condyle of the right knee.
[2017-01-03 15:23] VITALS: BP 144/90; PULSE 65; O2SAT 96
== END 2017-01-03 15:24 | disposition home or self-care (01) ==
LOC: C.ER 12:48
DX: M25.562 Pain in left knee (principal); M13.862 Other specified arthritis, left knee; M13.861 Other specified arthritis, right knee

== ENCOUNTER 2017-03-02 15:09 | Emergency (ER) | payer OTHER, MEDICAID ==
[2017-03-02 15:09] VITALS: BMI 34.8
[2017-03-02 16:30] VITALS: TEMP 98.4
--- NOTE | 2017-03-02 17:44 | C.PDOC ---
History Of Present Illness 67 year old male, with PMHx of COPD, HTN, CAD with cardiac stents placed 2011, Diabetes, chronic back pain, and inguinal henia repair in 2013, is referred to ED to rule out DVT. Pt complaints of left leg swelling for the past 3 months. Denies trauma, chest pain, shortness of breath, or dizziness. REFERRED FOR RO DVT. L LEG SWELLING X 3 MONTHS. NO TRAUMA, CP, SOB, DIZZY. 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 ADVISED TO RETURN @ 0800 FOR DOPPLER. WILL DOSE [employer], DC Time Seen by Provider: 03/02/17 17:40 Chief Complaint (Nursing): Lower Extremity Problem/Injury History Per: Patient History/Exam Limitations: no limitations Onset/Duration Of Symptoms: Days Current Symptoms Are (Timing): Still Present Recent travel outside of the [place]: No Additional History Per: Patient Past Medical History Reviewed: Historical Data, Nursing Documentation, Vital Signs Vital Signs: Last Vital Signs Temp 98.4 F 03/02/17 16:24 Pulse 56 L 03/02/17 16:24 Resp 17 03/02/17 16:24 BP 131/83 03/02/17 16:24 Pulse Ox 97 03/02/17 18:30 - Medical History PMH: Anxiety, Arthritis, Back Problems, COPD, Diabetes, Gastritis, HTN, Hypercholesterolemia, Pneumonia () Denies: Chronic Kidney Disease Surgical History: Coronary Stent (2 YEARS AGO), Hernia Repair - [facility] Procedures CENTRAL VENOUS CATHETER PLACEMENT WITH GUIDANCE (07/24/12) CONTINUOUS INVASIVE MECHANICAL VENTILATION <96 CONSEC HRS (07/24/12) DRAINAGE OF PERITONEAL CAVITY, OPEN APPROACH (05/13/15) EXCISION OF RIGHT SPERMATIC CORD, OPEN APPROACH (05/01/15) EXTRACTION OF PELVIC SUBCU/FASCIA, OPEN APPROACH (05/13/15) INSERT ENDOTRACHEAL TUBE (07/24/12) OTH LYSIS-PERITONEAL ADHES (03/16/13) OTHER OPEN UMBILICAL HERNIORRHAPHY (03/16/13) SUPPLEMENT ABDOMINAL WALL WITH SYNTH SUB, OPEN APPROACH (07/21/16) SUPPLEMENT R INGUINAL REGION WITH SYNTH SUB, OPEN APPROACH (05/01/15) Family History: States: Unknown Family Hx - Social History Hx Tobacco Use: Yes Hx Alcohol Use: No Hx Substance Use: No - Immunization History Hx Tetanus Toxoid Vaccination: No Hx Influenza Vaccination: Yes (2017) Hx Pneumococcal Vaccination: No Review Of Systems Except As Marked, All Systems Reviewed And Found Negative. Constitutional: Negative for: Fever, Chills Cardiovascular: Positive for: Edema (left leg swelling). Negative for: Chest Pain, Palpitations Respiratory: Negative for: Cough, Shortness of Breath Gastrointestinal: Negative for: Nausea, Vomiting, Abdominal Pain Skin: Negative for: Rash, Bruising Neurological: Negative for: Weakness, Numbness, Headache, Dizziness Physical Exam - Physical Exam Appears: Non-toxic, No Acute Distress Skin: Normal Color, Warm, Dry Head: Atraumatic, Normacephalic Eye(s): bilateral: Normal Inspection Oral Mucosa: Moist Neck: Supple Cardiovascular: Rhythm Regular, No Murmur Respiratory: Normal Breath Sounds, No Accessory Muscle Use, No Rales, No Rhonchi , No Wheezing Gastrointestinal/Abdominal: Soft, No Tenderness Extremity: Normal ROM (FROM of left leg), No Tenderness, No Calf Tenderness (no palpable cord), Capillary Refill (less than 2 seconds), No Deformity, Swelling ( left calf) Extremity: Bilateral: Atraumatic, Normal Color And Temperature, Normal ROM Pulses: Left Dorsalis Pedis: Normal, Right Dorsalis Pedis: Normal Neurological/Psych: Oriented x3, Normal Speech ED Course And Treatment O2 Sat by Pulse Oximetry: 97 (RA) Pulse Ox Interpretation: Normal Medical Decision Making Medical Decision Making: No administrative tech available at this hospital. Pt was advised to return at 0800 for doppler. Will dose Lovenox and discharge. Disposition Counseled Patient/Family Regarding: Diagnosis, Need For Followup - Disposition Referrals: [facility] [Provider Group] Disposition: HOME/ ROUTINE Disposition Time: 17:57 Condition: IMPROVED Additional Instructions: RETURN TOMORROW @ 0800 FOR DOPPLER TEST OF YOUR LEG FOR POSSIBLE DVT Instructions: Leg Edema (ED) Forms: [facility] (Chinese) - Clinical Impression Clinical Impression: Leg swelling - Scribe Statement The provider has reviewed the documentation as recorded by the Scribe Gil Alexis All medical record entries made by the Scribe were at my direction and personally dictated by me. I have reviewed the chart and agree that the record accurately reflects my personal performance of the history, physical exam, medical decision making, and the department course for this patient. I have also personally directed, reviewed, and agree with the discharge instructions and disposition.
[2017-03-02] MEDS ORDERED: Enoxaparin 40 mg Syringe SC STA (17:58)
[2017-03-02] MEDS ORDERED: Enoxaparin 100 mg Syringe ONE (18:37)
[2017-03-02 18:38] VITALS: BP 131/88; PULSE 60; RESP 19; O2SAT 99
== END 2017-03-02 18:37 | disposition home or self-care (01) ==
LOC: C.ER 15:09
DX: M79.89 Other specified soft tissue disorders (principal)
CPT/HCPCS: 96372; 99283; J1650

== ENCOUNTER 2017-03-05 10:41 | Emergency (ER) | payer OTHER, MEDICAID ==
[2017-03-05 10:42] VITALS: BMI 34.8
--- NOTE | 2017-03-05 11:05 | C.PDOC ---
History Of Present Illness 67 y/o male with a hx of COPD, HTN, CAD with cardiac stents 2011, Diabetes, c/o left leg pain and swelling for 3 months. Pt has a h/o b/l knee arthritis and varicose veins which he wears compression stockings for. Denies trauma. Pain with ambulation. Pt was evaluated at [facility] on 03/02/17 and was instructed to return the following day for doppler, pt notes he was unable to return till today secondary to "emergency". Denies trauma, chest pain, shortness of breath, or dizziness. Time Seen by Provider: 03/05/17 11:04 Chief Complaint (Nursing): Lower Extremity Problem/Injury History Per: Patient History/Exam Limitations: no limitations Current Symptoms Are (Timing): Still Present Past Medical History Vital Signs: Last Vital Signs Temp 98.4 F 03/05/17 12:53 Pulse 62 03/05/17 12:53 Resp 18 03/05/17 12:53 BP 116/77 03/05/17 12:53 Pulse Ox 98 03/05/17 12:53 - Medical History PMH: Anxiety, Arthritis, Back Problems, COPD, Diabetes, Gastritis, HTN, Hypercholesterolemia, Pneumonia () Denies: Chronic Kidney Disease Surgical History: Coronary Stent (2 YEARS AGO), Hernia Repair - [facility] Procedures CENTRAL VENOUS CATHETER PLACEMENT WITH GUIDANCE (07/24/12) CONTINUOUS INVASIVE MECHANICAL VENTILATION <96 CONSEC HRS (07/24/12) DRAINAGE OF PERITONEAL CAVITY, OPEN APPROACH (05/13/15) EXCISION OF RIGHT SPERMATIC CORD, OPEN APPROACH (05/01/15) EXTRACTION OF PELVIC SUBCU/FASCIA, OPEN APPROACH (05/13/15) INSERT ENDOTRACHEAL TUBE (07/24/12) OTH LYSIS-PERITONEAL ADHES (03/16/13) OTHER OPEN UMBILICAL HERNIORRHAPHY (03/16/13) SUPPLEMENT ABDOMINAL WALL WITH SYNTH SUB, OPEN APPROACH (07/21/16) SUPPLEMENT R INGUINAL REGION WITH SYNTH SUB, OPEN APPROACH (05/01/15) Family History: States: Unknown Family Hx - Social History Hx Tobacco Use: Yes Hx Alcohol Use: No Hx Substance Use: No - Immunization History Hx Tetanus Toxoid Vaccination: No Hx Influenza Vaccination: Yes (2017) Hx Pneumococcal Vaccination: No Review Of Systems Except As Marked, All Systems Reviewed And Found Negative. Physical Exam - Physical Exam Appears: Well, Non-toxic, No Acute Distress Skin: Normal Color, Warm, Dry Head: Atraumatic, Normacephalic Eye(s): bilateral: Normal Inspection, EOMI Nose: Normal Oral Mucosa: Moist Neck: Normal, Normal ROM, Supple Chest: Symmetrical Cardiovascular: Rhythm Regular Respiratory: Normal Breath Sounds Gastrointestinal/Abdominal: Normal Exam Back: Normal Inspection Extremity: Normal ROM, Swelling (Left leg swelling, non pitting) ED Course And Treatment O2 Sat by Pulse Oximetry: 96 Progress Note: B/l vascular doppler negative. Dr Shah was called, no call back. Pt was instructed to follow up with PMD in 1-2 days or return to ER if symtpoms persist or worsen. Disposition - Disposition Disposition: HOME/ ROUTINE Disposition Time: 12:30 Condition: STABLE Additional Instructions: Follow up with your PMD in 1-2 days. Return to eR if symptoms persist or worsen. Instructions: Leg Edema (ED) Forms: [facility] (Malay) - Clinical Impression Clinical Impression: Left leg swelling
[2017-03-05 12:54] VITALS: BP 116/77; PULSE 62; RESP 18; TEMP 98.4
[2017-03-05 14:31] VITALS: O2SAT 96
--- NOTE | 2017-03-08 09:41 | VASCLAB ---
PROCEDURE: Lower Extremity Venous Duplex Exam. HISTORY: Pain, swelling , r/o dvt PRIORS: None. TECHNIQUE: Bilateral common femoral, femoral, popliteal and posterior tibial, peroneal and great saphenous veins were evaluated. Flow was assessed with color Doppler, compressibility, assessment of phasic flow and augmentation response. Report prepared by Ej Mosher, STEFFEN, RVT FINDINGS: RIGHT: 1. Common Femoral Vein: 1.1. Compressibility - Fully compressible: Thrombus - None : Flow - Phasic: Augmentation -Normal: Reflux - None. 2. Femoral Vein: 2.1. Compressibility - Fully compressible: Thrombus - None : Flow - Phasic: Augmentation -Normal: Reflux - None. 3. Popliteal Vein: 3.1. Compressibility - Fully compressible: Thrombus - None : Flow - Phasic: Augmentation -Normal: Reflux - Severe. 4. Posterior Tibial Vein: 4.1. Compressibility - Fully compressible: Thrombus - None: Flow - Phasic: Augmentation -Normal: Reflux - None. 5. Peroneal Vein: 5.1. Compressibility - Fully compressible: Thrombus - None: Flow - Phasic: Augmentation -Normal: Reflux - None. 6. Great Saphenous Vein: 6.1. Compressibility - Fully compressible: Thrombus - None: Flow - Phasic: Augmentation - Normal: Reflux - None. LEFT: 1. Common Femoral Vein: 1.1. Compressibility - Fully compressible: Thrombus - None: Flow - Phasic: Augmentation -Normal: Reflux - None. 2. Femoral Vein: 2.1. Compressibility - Fully compressible: Thrombus - None: Flow - Phasic: Augmentation -Normal: Reflux - None. 3. Popliteal Vein: 3.1. Compressibility - Fully compressible: Thrombus - None : Flow - Phasic: Augmentation -Normal: Reflux - Severe. 4. Posterior Tibial Vein: 4.1. Compressibility - Fully compressible: Thrombus - None: Flow - Phasic: Augmentation -Normal: Reflux - Severe. 5. Peroneal Vein: 5.1. Compressibility - Fully compressible: Thrombus - None: Flow - Phasic: Augmentation -Normal: Reflux - Severe. 6. Great Saphenous Vein: 6.1. Compressibility - Fully compressible: Thrombus - None: Flow - Phasic: Augmentation - Normal: Reflux - None. OTHER FINDINGS: Right: None significant. Left: None significant. IMPRESSION: Right: No evidence of deep or superficial vein thrombosis of the right lower extremity. Severe valvular incompetence of the right popliteal vein. Left: No evidence of deep or superficial vein thrombosis of the left lower extremity. Severe valvular incompetence of the left popliteal, posterior tibial and peroneal veins.
== END 2017-03-05 13:20 | disposition home or self-care (01) ==
LOC: C.ER 10:41
DX: M79.89 Other specified soft tissue disorders (principal); E11.9 Type 2 diabetes mellitus without complications; E78.00 Pure hypercholesterolemia, unspecified; I10 Essential (primary) hypertension; I25.10 Atherosclerotic heart disease of native coronary artery without angina pectoris; J44.9 Chronic obstructive pulmonary disease, unspecified; Z87.891 Personal history of nicotine dependence

== ENCOUNTER 2017-09-15 11:29 | Day surgery (SDC) | payer MEDICARE, MEDICAID ==
[2017-09-15] MEDS ORDERED: Midazolam 2 MG/2 ML VIAL ONE (13:44)
[2017-09-15] MEDS ORDERED: Propofol 10 mg/ml Inj (20 ML) ONE ×2 (13:44→14:16)
[2017-09-15] MEDS ORDERED: Lidocaine 2% Jelly (Uro-Jet) ONE (13:49)
[2017-09-15] MEDS ORDERED: Ciprofloxacin 400mg/200ml D5W 400 MG/200 ML BAG IVPB ONE (13:49)
[2017-09-15] MEDS ORDERED: Iohexol 240 200 ML ONE (13:57)
[2017-09-15] MEDS ORDERED: HYDROmorphone 0.5 mg/0.5 ml ISec IVP PRN (14:40)
[2017-09-15] MEDS ORDERED: Lactated Ringer's 1,000 ML IV SCH (14:45)
[2017-09-15 16:05] VITALS: BP 139/86; PULSE 79; RESP 18; TEMP 98; O2SAT 100
--- NOTE | 2017-09-16 09:10 | OP ---
PROCEDURE DATE: 09/15/2017 PREOPERATIVE DIAGNOSES: Dysuria, microscopic hematuria, history of bladder stone - prostatic hypertrophy. POSTOPERATIVE DIAGNOSES: Dysuria, microscopic hematuria, history of bladder stone - prostatic hypertrophy. SURGEON: Pamela Meza MD DESCRIPTION OF PROCEDURE: While the patient in lithotomy position, genitalia were prepped and draped in sterile fashion. General anesthesia was given because of the patient has several respiratory problem. Using 22-cystoscope inserted under direct vision which revealed the urethra normal. The prostate is moderately large causing partial obstruction of the prostatic urethra. Bladder trabeculated. There is abnormal area in the posterior wall close to large diverticula. This area is suspicious for abnormal mucosa. The rest of the mucosa except for trabeculation was normal. Biopsy is taken from the bladder posterior wall, and fulguration of the multiple areas was done. After that, the scope was inserted into the large diverticula where a lot of stones and necrotic material was irrigated out. Stone is soft and was removed by fragmenting into pieces. This was taken and sent to Pathology. The patient has no bleeding. Inspecting again, the bladder revealed no residual tissue except for the large prostate and medium lobe which protruding into the bladder itself. No other abnormality. The bladder emptied. The scope was removed. The patient tolerated the procedure well. The patient will continue to be on antibiotic and Flomax. The patient was given Pyridium and Cipro and would follow him as an outpatient. The patient was transferred to the recovery room in stable condition. Pamela Meza MD
== END 2017-09-15 16:07 | disposition home or self-care (01) ==
LOC: C.SDS 11:29
PROVIDERS: ATTEND Specialist
DX: N21.0 Calculus in bladder (principal); N40.1 Benign prostatic hyperplasia with lower urinary tract symptoms; R30.0 Dysuria; R31.29 Other microscopic hematuria
CPT/HCPCS: 52204; 82365; 82948; 88300; 88305; J0744

== ENCOUNTER 2017-09-22 19:22 | Inpatient (IN) | payer MEDICARE, MEDICAID ==
[2017-09-22 19:22] VITALS: BMI 34.8
[2017-09-22] MEDS ORDERED: Albuterol-Ipratrop 3 mg / 0.5 (3 ml) UD ONE ×2 (19:45→20:24)
[2017-09-22] MEDS ORDERED: Alum-Mag Hydrox-Simethicone Susp (30 mL) PO STA (20:11)
[2017-09-22] MEDS: Albuterol-Ipratrop 3 mg / 0.5 (3 ml) UD IH SCH ×3 (20:15→20:37)
[2017-09-22 20:29] LABS: BASO # 0.1 K/uL (0.0-0.2); BASO % 0.7 % (0.0-2.0); EOS # 0.2 K/uL (0.0-0.7); EOS % 2.1 % (0.0-4.0); HEMOGLOBIN 14.2 g/dL (12.0-18.0); LYMPH # 2.7 K/uL (1.0-4.3); LYMPH % 30.4 % (20.0-40.0); MEAN CELL VOLUME 91.1 fL (80.0-94.0); MEAN CORPUSCULAR HEMOGLOBIN 30.4 pg (27.0-31.0); MEAN CORPUSCULAR HGB CONC 33.4 g/dL (33.0-37.0); MEAN PLATELET VOLUME 8.5 fL (7.2-11.7); MONO # 0.7 K/uL (0.0-0.8); NEUT # 5.3 K/uL (1.8-7.0); NEUT % 58.8 % (50.0-75.0); RBC 4.67 Mil/uL (4.40-5.90); RED CELL DISTRIBUTION WIDTH 14.7 % (11.5-14.5)
[2017-09-22] MEDS ORDERED: Alum-Mag Hydrox-Simethicone Susp (30 mL) ONE (20:29)
[2017-09-22 20:58] LABS: TROPONIN I 0.015 ng/mL (0.00-0.120)
[2017-09-22 20:59] LABS: ALB/GLOB RATIO 1.5 (1.0-2.1); ALBUMIN 3.4 g/dL (3.5-5.0); CALCIUM 9.1 mg/dl (8.6-10.4)
[2017-09-22 21:32] LABS: SQUAMOUS EPITHIAL < 1 /hpf (0-5); URINE BILIRUBIN NEGATIVE (NEGATIVE); URINE BLOOD NEGATIVE (NEGATIVE); URINE CLARITY Clear (Clear); URINE COLOR Amber (YELLOW); URINE GLUCOSE (UA) NORMAL (Normal); URINE LEUKOCYTE ESTERASE NEG Leu/uL (Negative); URINE PROTEIN NEGATIVE (NEGATIVE); URINE UROBILINOGEN NORMAL mg/dL (0.2-1.0)
--- NOTE | 2017-09-22 22:21 | C.PDOC ---
Time Seen by Provider: 09/22/17 19:41 Chief Complaint (Nursing): Shortness Of Breath History Per: Patient Onset/Duration Of Symptoms: Days (few) Current Symptoms Are (Timing): Worse Quality: Burning, Tightness Current Respiratory Medications: See Home Med List Severity: Moderate Additional History Per: Prior Records Past Medical History Reviewed: Historical Data, Nursing Documentation, Vital Signs Vital Signs: Last Vital Signs Temp 98.2 F 09/22/17 19:39 Pulse 76 09/22/17 20:41 Resp 16 09/22/17 20:41 BP 121/75 09/22/17 20:41 Pulse Ox 98 09/22/17 20:41 - Medical History PMH: Anxiety, Arthritis, Back Problems, COPD, Diabetes, Gastritis, HTN, Hypercholesterolemia, Pneumonia (), Chronic Kidney Disease Surgical History: Coronary Stent, Hernia Repair - [facility] Procedures CENTRAL VENOUS CATHETER PLACEMENT WITH GUIDANCE (07/24/12) CONTINUOUS INVASIVE MECHANICAL VENTILATION <96 CONSEC HRS (07/24/12) DRAINAGE OF PERITONEAL CAVITY, OPEN APPROACH (05/13/15) EXCISION OF RIGHT SPERMATIC CORD, OPEN APPROACH (05/01/15) EXTRACTION OF PELVIC SUBCU/FASCIA, OPEN APPROACH (05/13/15) INSERT ENDOTRACHEAL TUBE (07/24/12) OTH LYSIS-PERITONEAL ADHES (03/16/13) OTHER OPEN UMBILICAL HERNIORRHAPHY (03/16/13) SUPPLEMENT ABDOMINAL WALL WITH SYNTH SUB, OPEN APPROACH (07/21/16) SUPPLEMENT R INGUINAL REGION WITH SYNTH SUB, OPEN APPROACH (05/01/15) Family History: States: Unknown Family Hx - Social History Hx Tobacco Use: Yes Hx Alcohol Use: No Hx Substance Use: No - Immunization History Hx Tetanus Toxoid Vaccination: No Hx Influenza Vaccination: Yes (2016) Hx Pneumococcal Vaccination: No Review Of Systems Except As Marked, All Systems Reviewed And Found Negative. Constitutional: Negative for: Fever, Weakness ENT: Positive for: Nose Congestion. Negative for: Throat Pain Respiratory: Positive for: Cough (mild), Shortness of Breath, Wheezing. Negative for: Hemoptysis Gastrointestinal: Positive for: Nausea. Negative for: Vomiting Genitourinary: Positive for: Dysuria (?) Musculoskeletal: Negative for: Neck Pain, Back Pain Skin: Negative for: Rash Neurological: Negative for: Weakness, Numbness Physical Exam - Physical Exam Appears: Non-toxic, No Acute Distress Skin: Normal Color, Warm, Dry Head: Atraumatic, Normacephalic Eye(s): bilateral: PERRL, EOMI Neck: Normal ROM, Supple Cardiovascular: Rhythm Regular Respiratory: No Accessory Muscle Use, Wheezing Gastrointestinal/Abdominal: Soft, No Tenderness Back: No CVA Tenderness Extremity: Normal ROM, No Pedal Edema, No Calf Tenderness Neurological/Psych: Oriented x3, Normal Motor, Normal Sensation ED Course And Treatment - Laboratory Results Result Diagrams: 09/22/17 20:22 09/22/17 20:22 ECG: Interpreted By Me, Viewed By Me ECG Rhythm: Sinus Rhythm, Nonspecific Changes ECG Interpretation: No Acute Changes Rate From EC O2 Sat by Pulse Oximetry: 95 Pulse Ox Interpretation: Normal - Radiology CXR: Interpreted by Me, Viewed By Me CXR Interpretation: Yes: No Acute Disease - Physician Consult Information Physician Contacted: Edmar Gibbs Outcome Of Conversation: He wants pt to be admitted on hospitalist service as he is going on vacation. Progress - Interventions Interventions:: Observation, Oxygen - Medications Administered Inhaled nebulized: Anticholinergic, Beta-2 agonist Intravenous: Corticosteroid - Data Reviewed Data Reviewed: Lab, Diagnostic imaging, EKG, Old records - Patient Status Patient status: Partially improved - Continuity of Care Discussed patient case with:: Patient, ED Nurse, PMD, Covering for PMD Disposition Discussed With : David Vizcarra Comment: He accepted pt on hospitalist service. Doctor Will See Patient In The: Hospital Counseled Patient/Family Regarding: Studies Performed, Diagnosis, Smoking Cessation - Disposition Disposition: HOSPITALIZED Disposition Time: 22:22 Condition: FAIR - Clinical Impression Clinical Impression: COPD exacerbation
--- NOTE | 2017-09-22 23:42 | CP.PCM.HP ---
<Dianne Moulton E - Last Filed: 09/23/17 00:21> History of Present Illness - History of Present Illness History of Present Illness: For Dr. Gibbs's service ( Hospitalist's service is covering) [employer] Customer Specialist: Sosa ([id number]) HPI: (Patient is a poor historian) Patient is a 67 year old male with past medical history of COPD, DM, HTN, CAD s/ p cardiac stents, gastritis, and lipid disorder, who presents to the ED with complaint of increasing shortness of breath at rest and with exertion for the past 5-6 days. Patient states that he has been using his Ventolin and nebulizer treatment as prescribed, however, it has not provided much relief in the past 2- 3 days. Patient states that his shortness of breath is worse on ambulation. Patient admits to productive cough with white-clear phlegm, acid reflux, nausea , abdominal discomfort but denies fever, chills, chest pain, palpitations, recent sickness or travel. Patient states with his increasing shortness of breath, he did not stop his tobacco use. PMD: Dr. Gibbs PMHx: COPD, DM, HTN, CAD s/p cardiac stents, gastritis, and lipid disorder PSHx: Right direct inguinal hernia repair with excision of large cord lipoma and repair of spermatic cord vessel (05/01/15), hematoma of the right groin (S/p right hernia inguinal repair, 05/13/15) incarcerated recurrent para-umbilical hernia open repair w/ mesh (07/21/16), and recent cystoscopy FHx: Unknown Medications Allergies: NKDA Social Hx: Lives with brother. > 30 years of tobacco use ( 1.5PPD), Denies Alcohol and illicit drug use Present on Admission - Present on Admission Any Indicators Present on Admission: No Review of Systems - Constitutional Constitutional: absent: Chills, Fever, Headache, Weakness - EENT Eyes: absent: Blurred Vision, Change in Vision Ears: absent: Dizziness Nose/Mouth/Throat: absent: Nasal Congestion, Nasal Discharge - Cardiovascular Cardiovascular: Dyspnea, Dyspnea on Exertion. absent: Chest Pain, Chest Pain at Rest, Chest Pain with Activity, Diaphoresis, Lightheadedness, Orthopnea, Palpitations, Pedal Edema - Respiratory Respiratory: Cough, Dyspnea, Dyspnea on Exertion, Excessive Mucous Production. absent: Hemoptysis, Wheezing, Snoring, Stridor, Pain on Inspiration, Pain with Coughing - Gastrointestinal Gastrointestinal: Heartburn, Nausea. absent: Belching, Bloating, Cramping, Vomiting - Musculoskeletal Musculoskeletal: absent: Numbness, Tingling - Neurological Neurological: absent: Dizziness, Tingling, Weakness - Endocrine Endocrine: absent: Fatigue, Palpitations Past Patient History - Infectious Disease Hx of Infectious Diseases: None - Past Medical History & Family History Past Medical History?: Yes - Past Social History Smoking Status: Heavy Smoker > 10 Cigarettes Daily - CARDIAC Hx Hypercholesterolemia: Yes Hx Hypertension: Yes - PULMONARY Hx Chronic Obstructive Pulmonary Disease (COPD): Yes Hx Pneumonia: Yes () - NEUROLOGICAL Hx Neurological Disorder: No - HEENT Hx HEENT Problems: Yes (POOR VISION) - RENAL Hx Chronic Kidney Disease: Yes - ENDOCRINE/METABOLIC Hx Endocrine Disorders: Yes Hx Diabetes Mellitus Type 2: Yes - HEMATOLOGICAL/ONCOLOGICAL Hx Blood Disorders: No - INTEGUMENTARY Hx Dermatological Problems: No - MUSCULOSKELETAL/RHEUMATOLOGICAL Hx Arthritis: Yes - GASTROINTESTINAL Hx Gastritis: Yes - GENITOURINARY/GYNECOLOGICAL Hx Genitourinary Disorders: Yes Hx Prostate Problems: Yes Other/Comment: HX: DYSURIA - PSYCHIATRIC Hx Anxiety: Yes Hx Substance Use: No - SURGICAL HISTORY Hx Coronary Stent: Yes - ANESTHESIA Hx Anesthesia: Yes Hx Anesthesia Reactions: No Hx Malignant Hyperthermia: No Meds Allergies/Adverse Reactions: Allergies Allergy/AdvReac Type Severity Reaction Status Date / Time No Known Allergies Allergy Verified 03/05/17 10:56 Physical Exam - Constitutional Appears: No Acute Distress - Head Exam Head Exam: ATRAUMATIC, NORMAL INSPECTION - Eye Exam Eye Exam: EOMI - ENT Exam ENT Exam: Mucous Membranes Dry - Respiratory Exam Respiratory Exam: Clear to Auscultation Bilateral, NORMAL BREATHING PATTERN. absent: Chest Wall Tenderness, Decreased Breath Sounds, Prolonged Expiratory Phase, Rhonchi, Wheezes, Respiratory Distress Additional comments: On 2l NC - Cardiovascular Exam Cardiovascular Exam: REGULAR RHYTHM, +S1, +S2. absent: Tachycardia, Systolic Murmur - GI/Abdominal Exam GI & Abdominal Exam: Normal Bowel Sounds, Soft. absent: Distended, Firm, Guarding, Tenderness - Extremities Exam Extremities exam: Positive for: normal inspection. Negative for: calf tenderness, pedal edema, tenderness - Back Exam Back exam: NORMAL INSPECTION. absent: CVA tenderness (L), CVA tenderness (R) - Neurological Exam Neurological exam: Alert, Oriented x3 - Psychiatric Exam Psychiatric exam: Normal Affect - Skin Skin Exam: Normal Color Results - Vital Signs Recent Vital Signs: Last Vital Signs Temp 97.9 F 09/22/17 23:00 Pulse 75 09/22/17 23:00 Resp 16 09/22/17 23:00 BP 124/81 09/22/17 23:00 Pulse Ox 96 09/22/17 23:00 - Labs Result Diagrams: 09/22/17 20:22 09/22/17 20:22 Labs: Laboratory Results - last 24 hr 09/22/17 09/22/17 09/22/17 20:22 20:22 20:54 WBC 9.0 RBC 4.67 Hgb 14.2 Hct 42.5 MCV 91.1 MCH 30.4 MCHC 33.4 RDW 14.7 H Plt Count 129 L D MPV 8.5 Neut % (Auto) 58.8 Lymph % (Auto) 30.4 [place] % (Auto) 8.0 Eos % (Auto) 2.1 Baso % (Auto) 0.7 Neut # (Auto) 5.3 Lymph # (Auto) 2.7 [place] # (Auto) 0.7 Eos # (Auto) 0.2 Baso # (Auto) 0.1 Differential Comment Sodium 141 Potassium 4.0 Chloride 106 Carbon Dioxide 26 Anion Gap 13 BUN 27 H Creatinine 1.6 H Est GFR ( Amer) 53 Est GFR (Non-Af Amer) 43 Random Glucose 188 H Calcium 9.1 Total Bilirubin 0.5 AST 19 ALT 30 Alkaline Phosphatase 39 Troponin I 0.0150 NT-Pro-B Natriuret Pep 280 Total Protein 5.8 L Albumin 3.4 L Globulin 2.3 Albumin/Globulin Ratio 1.5 Lipase 70 Urine Color Roya Urine Clarity Clear Urine pH 6.0 Ur Specific [place] 1.006 Urine Protein Negative Urine Glucose (UA) Normal Urine Ketones Negative Urine Blood Negative Urine Nitrate Negative Urine Bilirubin Negative Urine Urobilinogen Normal Ur Leukocyte Esterase Neg Urine WBC (Auto) 1 Urine RBC (Auto) < 1 Ur Squamous Epith Cells < 1 Assessment & Plan (1) COPD exacerbation Assessment and Plan: 96% on 2L NC Imaging: Chest x-RAY: No active disease, Mild pulmonary congestion. F/u official report Lab: F/u ABG Medication: * Duonesb 3ml INH RQ6H PRN * Spiriva 18mcg INH RQ24 * Pulmicort 0.5mg INH RQ12H * 2L NC as needed Status: Acute (2) Acid reflux disease Assessment and Plan: Pepcid 20mg PO BID Status: Acute (3) SERGEI (acute kidney injury) Assessment and Plan: On admission: * BUN/Cr: 27/1.6 * Home medication: Vasotec and lasix held; BP currently stable * Monitor with am labs Status: Acute (4) Hypertension Assessment and Plan: BP currently stable Home medications: * Norvasc 5mg PO QD * Vasotec 5mg PO QD ( Held due to SERGEI) * Lasix 40mg PO QD (Held due to SERGEI) Status: Chronic (5) Diabetes mellitus Assessment and Plan: Accuchecks F/u HbgA1C ISS- Medium dose Home medication: Metformin 500mg PO BID ( Held due to SERGEI) Status: Chronic (6) HLD (hyperlipidemia) Assessment and Plan: F/u lipid panel Crestor 20mg PO HS Status: Acute (7) CAD (coronary artery disease) Assessment and Plan: Hx of cardiac stent * ASA 81mg PO QD * Crestor 20mg PO HS * Plavix 75mg PO QD Status: Acute (8) Prophylactic measure Assessment and Plan: GI: Pepcid 20mg PO BID DVT: SCDs, Heparin 5,000 units SC Q12H Heart healthy diet All plans and management discussed with Dr. Vizcarra Status: Acute <David Vizcarra - Last Filed: 09/23/17 06:01> Results - Vital Signs Recent Vital Signs: Last Vital Signs Temp 97.4 F L 09/23/17 00:00 Pulse 70 09/23/17 00:00 Resp 20 09/23/17 00:00 BP 131/93 H 09/23/17 00:00 Pulse Ox 96 09/23/17 00:00 - Labs Result Diagrams: 09/22/17 20:22 09/22/17 20:22 Labs: Laboratory Results - last 24 hr 09/22/17 09/22/17 09/22/17 20:22 20:22 20:54 WBC 9.0 RBC 4.67 Hgb 14.2 Hct 42.5 MCV 91.1 MCH 30.4 MCHC 33.4 RDW 14.7 H Plt Count 129 L D MPV 8.5 Neut % (Auto) 58.8 Lymph % (Auto) 30.4 [place] % (Auto) 8.0 Eos % (Auto) 2.1 Baso % (Auto) 0.7 Neut # (Auto) 5.3 Lymph # (Auto) 2.7 [place] # (Auto) 0.7 Eos # (Auto) 0.2 Baso # (Auto) 0.1 Differential Comment APTT Puncture Site pCO2 pO2 HCO3 ABG pH ABG Total CO2 ABG O2 Saturation ABG Base Excess ABG Hemoglobin ABG Carboxyhemoglobin POC ABG HHb (Measured) ABG Methemoglobin Tavo Test Hgb O2 Saturation Liter Flow Sodium 141 Potassium 4.0 Chloride 106 Carbon Dioxide 26 Anion Gap 13 BUN 27 H Creatinine 1.6 H Est GFR ( Amer) 53 Est GFR (Non-Af Amer) 43 Random Glucose 188 H Calcium 9.1 Total Bilirubin 0.5 AST 19 ALT 30 Alkaline Phosphatase 39 Total Creatine Kinase CK-MB (Mass) Troponin I 0.0150 NT-Pro-B Natriuret Pep 280 Total Protein 5.8 L Albumin 3.4 L Globulin 2.3 Albumin/Globulin Ratio 1.5 Lipase 70 Urine Color Roya Urine Clarity Clear Urine pH 6.0 Ur Specific [place] 1.006 Urine Protein Negative Urine Glucose (UA) Normal Urine Ketones Negative Urine Blood Negative Urine Nitrate Negative Urine Bilirubin Negative Urine Urobilinogen Normal Ur Leukocyte Esterase Neg Urine WBC (Auto) 1 Urine RBC (Auto) < 1 Ur Squamous Epith Cells < 1 09/23/17 09/23/17 09/23/17 00:31 02:00 02:23 WBC RBC Hgb Hct MCV MCH MCHC RDW Plt Count MPV Neut % (Auto) Lymph % (Auto) [place] % (Auto) Eos % (Auto) Baso % (Auto) Neut # (Auto) Lymph # (Auto) [place] # (Auto) Eos # (Auto) Baso # (Auto) Differential Comment APTT 33 Puncture Site R bra pCO2 35 pO2 94 HCO3 22.0 ABG pH 7.38 ABG Total CO2 21.8 L ABG O2 Saturation 96.7 ABG Base Excess -3.7 L ABG Hemoglobin 14.6 ABG Carboxyhemoglobin 0.5 POC ABG HHb (Measured) 3.3 ABG Methemoglobin 0.9 Tavo Test Na Hgb O2 Saturation 95.3 Liter Flow 5.0 Sodium Potassium Chloride Carbon Dioxide Anion Gap BUN Creatinine Est GFR ( Amer) Est GFR (Non-Af Amer) Random Glucose Calcium Total Bilirubin AST ALT Alkaline Phosphatase Total Creatine Kinase 39 L CK-MB (Mass) 1.33 Troponin I 0.0130 NT-Pro-B Natriuret Pep Total Protein Albumin Globulin Albumin/Globulin Ratio Lipase Urine Color Urine Clarity Urine pH Ur Specific [place] Urine Protein Urine Glucose (UA) Urine Ketones Urine Blood Urine Nitrate Urine Bilirubin Urine Urobilinogen Ur Leukocyte Esterase Urine WBC (Auto) Urine RBC (Auto) Ur Squamous Epith Cells Assessment & Plan - Date & Time Date: 09/23/17 (I have seen and examined the patient. I agree with the findings and plan of care as documented by Dr. Moulton. Patient with COPD exacerbation. Continue home meds. Nebs and oxygen as needed. Lung clear currently. Also with acute kidney injury. Encourage fluid intake. May need additional IVF if no improvement. Monitor for acute changes.) Time: 06:00 Attending/Attestation - Attestation I have personally seen and examined this patient.: Yes I have fully participated in the care of the patient.: Yes I have reviewed all pertinent clinical information: Yes
[2017-09-22] MEDS ORDERED: Dextrose 50% SYRINGE Inj (50 ml) IV PRN (23:44)
[2017-09-22] MEDS ORDERED: Glucagon Recombinant 1 mg Inj IM PRN (23:44)
[2017-09-23 00:56] LABS: ARTERIAL BLOOD GAS HEMOGLOBIN 14.6 g/dL (11.7-17.4); ARTERIAL BLOOD GAS O2 SAT 96.7 % (95-98); ARTERIAL BLOOD GAS PCO2 35 mm/Hg (35-45); ARTERIAL BLOOD GAS PH 7.38 (7.35-7.45); ARTERIAL BLOOD GAS PO2 94 mm/Hg (80-100); ARTERIAL BLOOD GAS TCO2 21.8 mmol/L (22-28)
[2017-09-23] MEDS: Albuterol-Ipratrop 3 mg / 0.5 (3 ml) UD INH PRN ×2 (01:30→07:20)
[2017-09-23] MEDS ORDERED: Albuterol-Ipratrop 3 mg / 0.5 (3 ml) UD INH SCH (02:00)
[2017-09-23 03:39] LABS: CK-MB 1.33 ng/mL (0.0-3.38); TROPONIN I 0.013 ng/mL (0.00-0.120)
[2017-09-23 06:46] LABS: BASO % 0.4 % (0.0-2.0); EOS % 0.1 % (0.0-4.0); HEMOGLOBIN 14.7 g/dL (12.0-18.0); LYMPH # 0.6 K/uL (1.0-4.3); LYMPH % 6.7 % (20.0-40.0); MEAN CELL VOLUME 91.1 fL (80.0-94.0); MEAN CORPUSCULAR HEMOGLOBIN 30.7 pg (27.0-31.0); MEAN CORPUSCULAR HGB CONC 33.7 g/dL (33.0-37.0); MEAN PLATELET VOLUME 8.8 fL (7.2-11.7); MONO # 0.2 K/uL (0.0-0.8); MONO % 1.9 % (0.0-10.0); NEUT # 7.6 K/uL (1.8-7.0); NEUT % 90.9 % (50.0-75.0); PLATELET COUNT 130 K/uL (130-400); RED CELL DISTRIBUTION WIDTH 14.6 % (11.5-14.5); WHITE BLOOD COUNT 8.4 K/uL (4.8-10.8)
[2017-09-23 06:56] LABS: ALB/GLOB RATIO 1.5 (1.0-2.1); ALBUMIN 3.8 g/dL (3.5-5.0); CALCIUM 9.4 mg/dl (8.6-10.4)
[2017-09-23] MEDS: Budesonide 0.5 mg/2 ml Inhal Susp UD INH SCH ×2 (07:20→19:36)
[2017-09-23] MEDS ORDERED: (Novolog) Insulin Aspart, Recombinant 100 u/ml 10 ml vial SC SCH (07:30)
[2017-09-23] MEDS: Tiotropium 18 mcg Cap For Inhalation INH SCH (07:37)
[2017-09-23] MEDS: (Novolog) Insulin Aspart, Recombinant 100 u/ml 10 ml vial SC SCH ×4 (08:21→21:42)
--- NOTE | 2017-09-23 08:37 | RAD ---
Date of service: 09/22/2017 PROCEDURE: CHEST RADIOGRAPH, 1 VIEW HISTORY: Shortness of breath COMPARISON: 09/09/2017. FINDINGS: LUNGS: The lungs are well inflated and clear. PLEURA: No pneumothorax or pleural fluid seen. CARDIOVASCULAR: Normal. OSSEOUS STRUCTURES: No significant abnormalities. VISUALIZED UPPER ABDOMEN: Normal. OTHER FINDINGS: None. IMPRESSION: No active pulmonary disease.
[2017-09-23 09:00] LABS: EOSINOPHIL 1 % (0-4); LYMPHOCYTE 10 % (20-40); MYELOCYTE 1 % (0-0); NEUTROPHIL 88 % (50-75); TOTAL CELLS COUNTED 100
[2017-09-23 09:01] LABS: PLATELET ESTIMATE NORMAL (NORMAL)
[2017-09-23 10:28] LABS: CK-MB 1.56 ng/mL (0.0-3.38); TROPONIN I 0.014 ng/mL (0.00-0.120)
[2017-09-23] MEDS ORDERED: Albuterol-Ipratrop 3 mg / 0.5 (3 ml) UD INH STA (11:11)
[2017-09-23] MEDS: Albuterol-Ipratrop 3 mg / 0.5 (3 ml) UD INH SCH ×4 (11:50→19:36)
[2017-09-23] MEDS ORDERED: Albuterol-Ipratrop 3 mg / 0.5 (3 ml) UD INH PRN (12:00)
--- NOTE | 2017-09-23 13:47 | CP.PCM.PN ---
Subjective - Date & Time of Evaluation Date of Evaluation: 09/23/17 Time of Evaluation: 08:00 - Subjective Subjective: PGY2- Progress Note for Dr. Koch Patient seen and examined at bedside. Biologics Specialist [place] # [phone] used for [place]. Patient says he still feels very short of breath and like he cannot catch his breath. Patient denies any chest pain, abdominal pain, vomiting, constipation, or diarrhea. Objective - Vital Signs/Intake and Output Vital Signs (last 24 hours): Temp Pulse Resp BP Pulse Ox 98.0 F 91 H 19 127/85 95 09/23/17 08:05 09/23/17 08:05 09/23/17 08:05 09/23/17 08:05 09/23/17 08:05 - Medications Medications: Current Medications Albuterol/Ipratropium (Duoneb 3 Mg/0.5 Mg (3 Ml) Ud) 3 ml INH RQ4 [facility] Last Admin: 09/23/17 11:50 Dose: Not Given Allopurinol (Zyloprim) 100 mg PO DAILY [facility] Last Admin: 09/23/17 10:02 Dose: 100 mg Amlodipine Besylate (Norvasc) 5 mg PO DAILY [facility] Last Admin: 09/23/17 10:01 Dose: 5 mg Aspirin (Ecotrin) 81 mg PO DAILY [facility] Last Admin: 09/23/17 10:01 Dose: 81 mg Budesonide (Pulmicort Respules) 0.5 mg INH RQ12 [facility] Last Admin: 09/23/17 07:20 Dose: 0.5 mg Clopidogrel Bisulfate (Plavix) 75 mg PO DAILY [facility] Last Admin: 09/23/17 10:02 Dose: Not Given Dextrose (Dextrose 50% Inj) 0 ml IV STAT PRN; Protocol PRN Reason: Hypoglycemia Protocol Dextrose (Glutose 15) 0 gm PO ONCE PRN; Protocol PRN Reason: Hypoglycemia Protocol Enalapril Maleate (Vasotec) 5 mg PO DAILY [facility] Famotidine (Pepcid) 20 mg PO BID [facility] Last Admin: 09/23/17 10:01 Dose: 20 mg Glucagon (Glucagen Diagnostic Kit) 0 mg IM STAT PRN; Protocol PRN Reason: Hypoglycemia Protocol Heparin Sodium (Porcine) (Heparin) 5,000 units SC Q12H [facility] Last Admin: 09/23/17 12:47 Dose: 5,000 units Dextrose (Dextrose 5% In Water 1000 Ml) 1,000 mls @ 0 mls/hr IV .Q0M PRN; Protocol; Per Protocol PRN Reason: Hypoglycemia Protocol Insulin Aspart (Novolog) 0 unit SC ACHS [facility] PRN Reason: Protocol Last Admin: 09/23/17 12:20 Dose: Not Given Methylprednisolone (Solu-Medrol) 40 mg IVP DAILY [facility] Rosuvastatin Calcium (Crestor) 20 mg PO HS [facility] Tiotropium [place] (Spiriva) 18 mcg INH RQ24 [facility] Last Admin: 09/23/17 07:37 Dose: 18 mcg Zolpidem Tartrate (Ambien) 5 mg PO HS [facility] Last Admin: 09/23/17 00:06 Dose: 5 mg - Labs Labs: 09/23/17 06:34 09/23/17 06:34 APTT 33 SECONDS (21-34) 09/23/17 02:00 - Constitutional Appears: Non-toxic, No Acute Distress - Head Exam Head Exam: ATRAUMATIC, NORMAL INSPECTION, NORMOCEPHALIC - Eye Exam Eye Exam: EOMI, Normal appearance - ENT Exam ENT Exam: Mucous Membranes Moist - Respiratory Exam Respiratory Exam: Wheezes. absent: NORMAL BREATHING PATTERN - Cardiovascular Exam Cardiovascular Exam: REGULAR RHYTHM, RRR, +S1, +S2 - GI/Abdominal Exam GI & Abdominal Exam: Soft, Normal Bowel Sounds. absent: Tenderness - Extremities Exam Extremities Exam: Full ROM, Normal Inspection. absent: Pedal Edema, Tenderness - Back Exam Back Exam: NORMAL INSPECTION - Neurological Exam Neurological Exam: Alert, Awake, Oriented x3 - Psychiatric Exam Psychiatric exam: Normal Affect, Normal Mood - Skin Skin Exam: Intact, Normal Color, Warm Assessment and Plan - Assessment and Plan (Free Text) Assessment: (1) COPD exacerbation Assessment and Plan: 96% on 2L NC Imaging: Chest x-RAY: No active disease Troponin I neg x 3 Medication: * Duonesb 3ml INH q4h scheduled * Spiriva 18mcg INH RQ24 * Pulmicort 0.5mg INH RQ12H * Solumedrol 40mg ivp daily * 2L NC as needed Status: Acute (2) Acid reflux disease Assessment and Plan: Pepcid 20mg PO BID Status: Acute (3) SERGEI (acute kidney injury) Assessment and Plan: On admission: * BUN/Cr: 27/1.6, decreased to 24/1.5 on 09/23/17 * Home medication: Vasotec and lasix held; BP currently stable * Monitor with am labs Status: Acute (4) Hypertension Assessment and Plan: BP currently stable Home medications: * Norvasc 5mg PO QD * Vasotec 5mg PO QD ( Held due to SERGEI) * Lasix 40mg PO QD (Held due to SERGEI) Status: Chronic (5) Diabetes mellitus Assessment and Plan: Accuchecks HbgA1C: 6.2 ISS- Medium dose Home medication: Metformin 500mg PO BID ( Held due to SERGEI) Status: Chronic (6) HLD (hyperlipidemia) Assessment and Plan: lipid panel: Triglycerides 77, Cholesterol 119, LDL 61 HDL 42 Crestor 20mg PO HS Status: Acute (7) CAD (coronary artery disease) Assessment and Plan: Hx of cardiac stent * ASA 81mg PO QD * Crestor 20mg PO HS * Plavix 75mg PO QD Status: Acute (8) Prophylactic measure Assessment and Plan: GI: Pepcid 20mg PO BID DVT: SCDs, Heparin 5,000 units SC Q12H Heart healthy diet Discussed with Dr. Koch
[2017-09-23] MEDS: MethylPREDNISolone 40 mg Vial IVP SCH (14:29)
[2017-09-23] MEDS ORDERED: guaiFENesin DM 200 mg-20 mg/10 ml UD PO PRN (23:39)
[2017-09-24] MEDS: Albuterol-Ipratrop 3 mg / 0.5 (3 ml) UD INH SCH ×6 (00:28→19:34)
[2017-09-24] MEDS: Tiotropium 18 mcg Cap For Inhalation INH SCH (07:22)
[2017-09-24] MEDS: Budesonide 0.5 mg/2 ml Inhal Susp UD INH SCH ×2 (07:22→19:34)
[2017-09-24] MEDS: (Novolog) Insulin Aspart, Recombinant 100 u/ml 10 ml vial SC SCH ×4 (07:29→21:14)
[2017-09-24 07:56] LABS: BASO % 0.3 % (0.0-2.0); EOS % 0.1 % (0.0-4.0); HEMOGLOBIN 14.5 g/dL (12.0-18.0); LYMPH # 2.1 K/uL (1.0-4.3); LYMPH % 14.6 % (20.0-40.0); MEAN CELL VOLUME 91.2 fL (80.0-94.0); MEAN CORPUSCULAR HEMOGLOBIN 30.7 pg (27.0-31.0); MEAN CORPUSCULAR HGB CONC 33.7 g/dL (33.0-37.0); MEAN PLATELET VOLUME 9.1 fL (7.2-11.7); MONO # 1.1 K/uL (0.0-0.8); MONO % 7.5 % (0.0-10.0); NEUT # 11.3 K/uL (1.8-7.0); NEUT % 77.5 % (50.0-75.0); NRBC % 0.1 % (0.0-2.0); RBC 4.71 Mil/uL (4.40-5.90); RED CELL DISTRIBUTION WIDTH 14.8 % (11.5-14.5); WHITE BLOOD COUNT 14.6 K/uL (4.8-10.8)
[2017-09-24 08:07] LABS: ALB/GLOB RATIO 1.5 (1.0-2.1); ALBUMIN 3.5 g/dL (3.5-5.0); CALCIUM 9.3 mg/dl (8.6-10.4)
[2017-09-24] MEDS: MethylPREDNISolone 40 mg Vial IVP SCH ×3 (09:05→23:50)
--- NOTE | 2017-09-24 11:09 | CP.PCM.PN ---
Subjective - Date & Time of Evaluation Date of Evaluation: 09/24/17 Time of Evaluation: 07:00 - Subjective Subjective: PGY2- Progress Note for Dr. Koch Patient seen and examined walking from bathroom to bed. Patient was very short of breath and it took over 5 min for patient to catch his breath. Patient says he feels slightly better than yesterday. Patient says in the past he has had to take a break after walking 1 block, but his shortness of breath would be less than it is now. Patient says he had some nausea and a headache last night which has since resolved. Patient denies any chest pain, abdominal pain, nausea, vomiting, constipation, or diarrhea. Objective - Vital Signs/Intake and Output Vital Signs (last 24 hours): Temp Pulse Resp BP Pulse Ox 97.5 F L 66 21 134/83 98 09/24/17 07:38 09/24/17 07:38 09/24/17 07:38 09/24/17 07:38 09/24/17 07:38 Intake and Output: 09/24/17 09/24/17 06:59 18:59 Intake Total 340 Balance 340 - Medications Medications: Current Medications Albuterol/Ipratropium (Duoneb 3 Mg/0.5 Mg (3 Ml) Ud) 3 ml INH RQ4 [facility] Last Admin: 09/24/17 07:21 Dose: 3 ml Allopurinol (Zyloprim) 100 mg PO DAILY [facility] Last Admin: 09/24/17 09:05 Dose: 100 mg Amlodipine Besylate (Norvasc) 5 mg PO DAILY [facility] Last Admin: 09/24/17 09:05 Dose: 5 mg Aspirin (Ecotrin) 81 mg PO DAILY [facility] Last Admin: 09/24/17 09:07 Dose: 81 mg Budesonide (Pulmicort Respules) 0.5 mg INH RQ12 [facility] Last Admin: 09/24/17 07:22 Dose: 0.5 mg Clopidogrel Bisulfate (Plavix) 75 mg PO DAILY [facility] Last Admin: 09/24/17 09:05 Dose: 75 mg Dextrose (Dextrose 50% Inj) 0 ml IV STAT PRN; Protocol PRN Reason: Hypoglycemia Protocol Dextrose (Glutose 15) 0 gm PO ONCE PRN; Protocol PRN Reason: Hypoglycemia Protocol Enalapril Maleate (Vasotec) 5 mg PO DAILY [facility] Famotidine (Pepcid) 20 mg PO BID [facility] Last Admin: 09/24/17 09:05 Dose: 20 mg Glucagon (Glucagen Diagnostic Kit) 0 mg IM STAT PRN; Protocol PRN Reason: Hypoglycemia Protocol Guaifenesin/Dextromethorphan (Robitussin Dm) 10 ml PO Q4H PRN PRN Reason: Cough and congestion Last Admin: 09/23/17 23:52 Dose: 10 ml Heparin Sodium (Porcine) (Heparin) 5,000 units SC Q12H [facility]PLACED [facility] Last Admin: 09/23/17 23:52 Dose: 5,000 units Dextrose (Dextrose 5% In Water 1000 Ml) 1,000 mls @ 0 mls/hr IV .Q0M PRN; Protocol; Per Protocol PRN Reason: Hypoglycemia Protocol Insulin Aspart (Novolog) 0 unit SC ACHS [facility]PL[facility] PRN Reason: Protocol Last Admin: 09/24/17 07:29 Dose: Not Given Methylprednisolone (Solu-Medrol) 40 mg IVP Q12 [facility]PLAC[facility] BY [facility] Rosuvastatin Calcium (Crestor) 20 mg PO HS [facility]PL[facility] BY [facility] Last Admin: 09/23/17 21:41 Dose: 20 mg Tiotropium [place] (Spiriva) 18 mcg INH RQ24 [facility]PL[facility] Last Admin: 09/24/17 07:22 Dose: 18 mcg Zolpidem Tartrate (Ambien) 5 mg PO HS [facility]PL[facility] Last Admin: 09/23/17 21:39 Dose: 5 mg - Labs Labs: 09/24/17 07:43 09/24/17 07:43 APTT 33 SECONDS (21-34) 09/23/17 02:00 - Constitutional Appears: Non-toxic, No Acute Distress - Head Exam Head Exam: ATRAUMATIC, NORMAL INSPECTION, NORMOCEPHALIC - Eye Exam Eye Exam: EOMI, Normal appearance - ENT Exam ENT Exam: Mucous Membranes Moist - Respiratory Exam Respiratory Exam: Accessory Muscle Use. absent: Rales, Rhonchi, Wheezes, NORMAL BREATHING PATTERN - Cardiovascular Exam Cardiovascular Exam: REGULAR RHYTHM, RRR, +S1, +S2 - GI/Abdominal Exam GI & Abdominal Exam: Soft, Normal Bowel Sounds. absent: Tenderness - Extremities Exam Extremities Exam: Full ROM, Normal Inspection. absent: Pedal Edema, Tenderness - Back Exam Back Exam: NORMAL INSPECTION - Neurological Exam Neurological Exam: Alert, Awake, Oriented x3 - Psychiatric Exam Psychiatric exam: Normal Affect, Normal Mood - Skin Skin Exam: Intact, Normal Color, Warm Assessment and Plan - Assessment and Plan (Free Text) Assessment: COPD exacerbation Assessment and Plan: 96% on 2L NC Imaging: Chest x-RAY: No active disease Troponin I neg x 3 patient uses CPAP at night at home, ordered Medication: * Duonesb 3ml INH q4h scheduled * Spiriva 18mcg INH RQ24 * Pulmicort 0.5mg INH RQ12H * Solumedrol 40mg ivp BID (changed from daily on 09/23/17) * 2L NC as needed Status: Acute Elevated D-Dimer Assessment and Plan: D dimer: 1992 f/u CTA Status: Acute SERGEI (acute kidney injury) Assessment and Plan: * start NS @40cc hr * BUN/Cr: 28/1.5 * Home medication: Vasotec and lasix held; BP currently stable * Monitor with am labs Status: Acute Hypertension Assessment and Plan: BP currently stable Home medications: * Norvasc 5mg PO QD * Vasotec 5mg PO QD ( Held due to SERGEI) * Lasix 40mg PO QD (Held due to SERGEI) Status: Chronic Diabetes mellitus Assessment and Plan: Accuchecks HbgA1C: 6.2 ISS- Medium dose Home medication: Metformin 500mg PO BID ( Held due to SERGEI) Status: Chronic HLD (hyperlipidemia) Assessment and Plan: lipid panel: Triglycerides 77, Cholesterol 119, LDL 61 HDL 42 Crestor 20mg PO HS Status: Acute CAD (coronary artery disease) Assessment and Plan: ECHO 05/17/17: LVEF 60-65%, transmitral doppler flow pattern is grade II pseudonormal filling dynamics. mild aortic regurg. mitral regurg is mild. Hx of cardiac stent * ASA 81mg PO QD * Crestor 20mg PO HS * Plavix 75mg PO QD Status: Acute GERD Assessment and Plan: Pepcid 20mg PO BID Status: Acute Prophylactic measure Assessment and Plan: GI: Pepcid 20mg PO BID DVT: SCDs, Heparin 5,000 units SC Q12H Heart healthy diet Discussed with Dr. Koch
--- NOTE | 2017-09-24 12:22 | CP.PCM.CON ---
History of Present Illness - History of Present Illness History of Present Illness: reason for consultation: shortness of breath and cough 67-year-old male with COPD, coronary artery disease status post stent placement , hypertension, diabetes who presented to emergency room with increasing shortness of shantanu and cough productive of clear phlegm. Also complaining of pain in the left lower part of the chest wall which is mostly on coughing. PMHx: COPD, DM, HTN, CAD s/p cardiac stents, gastritis, and lipid disorder PSHx: Right direct inguinal hernia repair with excision of large cord lipoma and repair of spermatic cord vessel (05/01/15), hematoma of the right groin (S/p right hernia inguinal repair, 05/13/15) incarcerated recurrent para-umbilical hernia open repair w/ mesh (07/21/16), and recent cystoscopy FHx: Unknown Allergies: NKDA Review of Systems - Review of Systems All systems: reviewed and no additional remarkable complaints except (shortness of breath and cough) Past Patient History - Infectious Disease Hx of Infectious Diseases: None - Past Medical History & Family History Past Medical History?: Yes - Past Social History Smoking Status: Heavy Smoker > 10 Cigarettes Daily - CARDIAC Hx Hypercholesterolemia: Yes Hx Hypertension: Yes - PULMONARY Hx Chronic Obstructive Pulmonary Disease (COPD): Yes Hx Pneumonia: Yes () - NEUROLOGICAL Hx Neurological Disorder: No - HEENT Hx HEENT Problems: Yes (POOR VISION) - RENAL Hx Chronic Kidney Disease: Yes - ENDOCRINE/METABOLIC Hx Endocrine Disorders: Yes Hx Diabetes Mellitus Type 2: Yes - HEMATOLOGICAL/ONCOLOGICAL Hx Blood Disorders: No - INTEGUMENTARY Hx Dermatological Problems: No - MUSCULOSKELETAL/RHEUMATOLOGICAL Hx Arthritis: Yes - GASTROINTESTINAL Hx Gastritis: Yes - GENITOURINARY/GYNECOLOGICAL Hx Genitourinary Disorders: Yes Hx Prostate Problems: Yes Other/Comment: HX: DYSURIA - PSYCHIATRIC Hx Anxiety: Yes Hx Substance Use: No - SURGICAL HISTORY Hx Coronary Stent: Yes - ANESTHESIA Hx Anesthesia: Yes Hx Anesthesia Reactions: No Hx Malignant Hyperthermia: No Meds Allergies/Adverse Reactions: Allergies Allergy/AdvReac Type Severity Reaction Status Date / Time No Known Allergies Allergy Verified 03/05/17 10:56 - Medications Medications: Current Medications Albuterol/Ipratropium (Duoneb 3 Mg/0.5 Mg (3 Ml) Ud) 3 ml INH RQ4 [facility] Last Admin: 09/24/17 11:17 Dose: 3 ml Allopurinol (Zyloprim) 100 mg PO DAILY [facility] Last Admin: 09/24/17 09:05 Dose: 100 mg Amlodipine Besylate (Norvasc) 5 mg PO DAILY [facility] Last Admin: 09/24/17 09:05 Dose: 5 mg Aspirin (Ecotrin) 81 mg PO DAILY [facility] Last Admin: 09/24/17 09:07 Dose: 81 mg Budesonide (Pulmicort Respules) 0.5 mg INH RQ12 [facility] Last Admin: 09/24/17 07:22 Dose: 0.5 mg Clopidogrel Bisulfate (Plavix) 75 mg PO DAILY [facility] Last Admin: 09/24/17 09:05 Dose: 75 mg Dextrose (Dextrose 50% Inj) 0 ml IV STAT PRN; Protocol PRN Reason: Hypoglycemia Protocol Dextrose (Glutose 15) 0 gm PO ONCE PRN; Protocol PRN Reason: Hypoglycemia Protocol Enalapril Maleate (Vasotec) 5 mg PO DAILY [facility] Famotidine (Pepcid) 20 mg PO BID [facility] Last Admin: 09/24/17 09:05 Dose: 20 mg Glucagon (Glucagen Diagnostic Kit) 0 mg IM STAT PRN; Protocol PRN Reason: Hypoglycemia Protocol Guaifenesin/Dextromethorphan (Robitussin Dm) 10 ml PO Q4H PRN PRN Reason: Cough and congestion Last Admin: 09/23/17 23:52 Dose: 10 ml Heparin Sodium (Porcine) (Heparin) 5,000 units SC Q12H [facility] Last Admin: 09/23/17 23:52 Dose: 5,000 units Dextrose (Dextrose 5% In Water 1000 Ml) 1,000 mls @ 0 mls/hr IV .Q0M PRN; Protocol; Per Protocol PRN Reason: Hypoglycemia Protocol Azithromycin 500 mg/ Sodium (Chloride) 250 mls @ 250 mls/hr IVPB DAILY [facility] PRN Reason: Protocol Insulin Aspart (Novolog) 0 unit SC ACHS [facility] PRN Reason: Protocol Last Admin: 09/24/17 07:29 Dose: Not Given Methylprednisolone (Solu-Medrol) 40 mg IVP Q6 [facility] Rosuvastatin Calcium (Crestor) 20 mg PO HS [facility] Last Admin: 09/23/17 21:41 Dose: 20 mg Tiotropium [place] (Spiriva) 18 mcg INH RQ24 [facility] Last Admin: 09/24/17 07:22 Dose: 18 mcg Zolpidem Tartrate (Ambien) 5 mg PO HS [facility] Last Admin: 09/23/17 21:39 Dose: 5 mg Physical Exam - Head Exam Head Exam: ATRAUMATIC, NORMOCEPHALIC - ENT Exam ENT Exam: Mucous Membranes Moist - Neck Exam Neck exam: Positive for: Normal Inspection - Respiratory Exam Respiratory Exam: Rhonchi - Cardiovascular Exam Cardiovascular Exam: REGULAR RHYTHM - GI/Abdominal Exam GI & Abdominal Exam: Normal Bowel Sounds, Soft Results - Vital Signs Recent Vital Signs: Last Vital Signs Temp 97.5 F L 09/24/17 07:38 Pulse 66 09/24/17 07:38 Resp 21 09/24/17 07:38 BP 134/83 09/24/17 07:38 Pulse Ox 98 09/24/17 07:38 - Labs Result Diagrams: 09/25/17 12:56 09/24/17 07:43 Labs: Laboratory Results - last 24 hr 09/23/17 09/23/17 09/23/17 12:35 16:37 21:30 WBC RBC Hgb Hct MCV MCH MCHC RDW Plt Count MPV Neut % (Auto) Lymph % (Auto) [place] % (Auto) Eos % (Auto) Baso % (Auto) Neut # (Auto) Lymph # (Auto) [place] # (Auto) Eos # (Auto) Baso # (Auto) Sodium Potassium Chloride Carbon Dioxide Anion Gap BUN Creatinine Est GFR ( Amer) Est GFR (Non-Af Amer) POC Glucose (mg/dL) 107 169 H 202 H Random Glucose Calcium Phosphorus Magnesium Total Bilirubin AST ALT Alkaline Phosphatase Total Protein Albumin Globulin Albumin/Globulin Ratio 09/24/17 09/24/17 09/24/17 06:15 07:43 07:43 WBC 14.6 H D RBC 4.71 Hgb 14.5 Hct 42.9 MCV 91.2 MCH 30.7 MCHC 33.7 RDW 14.8 H Plt Count 147 MPV 9.1 Neut % (Auto) 77.5 H Lymph % (Auto) 14.6 L [place] % (Auto) 7.5 Eos % (Auto) 0.1 Baso % (Auto) 0.3 Neut # (Auto) 11.3 H Lymph # (Auto) 2.1 [place] # (Auto) 1.1 H Eos # (Auto) 0.0 Baso # (Auto) 0.0 Sodium 141 Potassium 4.8 Chloride 109 H Carbon Dioxide 24 Anion Gap 13 BUN 28 H Creatinine 1.5 Est GFR ( Amer) 57 Est GFR (Non-Af Amer) 47 POC Glucose (mg/dL) 126 H Random Glucose 123 H Calcium 9.3 Phosphorus 3.5 Magnesium 2.2 Total Bilirubin 0.3 AST 15 L ALT 27 Alkaline Phosphatase 38 Total Protein 5.8 L Albumin 3.5 Globulin 2.3 Albumin/Globulin Ratio 1.5 09/24/17 11:14 WBC RBC Hgb Hct MCV MCH MCHC RDW Plt Count MPV Neut % (Auto) Lymph % (Auto) [place] % (Auto) Eos % (Auto) Baso % (Auto) Neut # (Auto) Lymph # (Auto) [place] # (Auto) Eos # (Auto) Baso # (Auto) Sodium Potassium Chloride Carbon Dioxide Anion Gap BUN Creatinine Est GFR ( Amer) Est GFR (Non-Af Amer) POC Glucose (mg/dL) 169 H Random Glucose Calcium Phosphorus Magnesium Total Bilirubin AST ALT Alkaline Phosphatase Total Protein Albumin Globulin Albumin/Globulin Ratio Assessment & Plan (1) COPD exacerbation Status: Acute Comment: Solu-Medrol, nebulizer treatment. Azithromycin. Antitussive. Followup chest x-ray. Patient advised to quit smoking. elevated d-dimer/ CT angio to rule out pulmonary embolism (2) Acid reflux disease Status: Acute
[2017-09-24] MEDS ORDERED: Iodixanol 320 MG/ML 100 ML BOTTLE IV ONE (14:19)
--- NOTE | 2017-09-24 15:16 | CT ---
Date of service: 09/24/2017 PROCEDURE: CT Chest with contrast (Pulmonary Angiogram) HISTORY: elevated d dimer, shortness of breath COMPARISON: None available. TECHNIQUE: Axial computed tomography images were obtained of the chest in the pulmonary arterial phase of enhancement. Coronal and sagittal reformatted images were created and reviewed. Intravenous contrast dose: 100 mL Visipaque Radiation dose: Total exam DLP = 565.39 mGy-cm. This CT exam was performed using one or more of the following dose reduction techniques: Automated exposure control, adjustment of the mA and/or kV according to patient size, and/or use of iterative reconstruction technique. FINDINGS: PULMONARY ARTERIES: There are central filling defects in the distal right pulmonary artery and upper, middle and lower lobe segmental arteries. There are also central filling defects in the distal left main pulmonary artery and upper lobe segmental arteries. No evidence of right ventricular strain. AORTA: There is aneurysm of the ascending aorta measuring 4.3 x 4.3 cm. LUNGS: The lungs are well inflated. There are peripheral triangular ground-glass opacities in the right upper lobe. No nodule, mass or pulmonary consolidation. PLEURAL SPACES: No effusion or pneumothorax. HEART: Atherosclerotic calcifications in the left anterior descending coronary artery. Mild cardiomegaly. No significant pericardial effusion. LYMPH NODES: No lymphadenopathy. BONES, CHEST WALL: There is diffuse bone demineralization and multilevel degenerative changes in the spine. No fracture or destructive lesion OTHER FINDINGS: Asymmetric enlargement of the right thyroid lobe with low-attenuation nodules. Mild bilateral gynecomastia. IMPRESSION: 1. Bilateral pulmonary embolism, worse on the right. No evidence for right ventricular strain. 2. Aneurysm of the ascending aorta. 3. Patchy ground-glass attenuation in the right upper lobe could be related to developing pulmonary infarctions or nonspecific infection/inflammation. 4. Asymmetric enlargement of the right thyroid lobe with indeterminate nodules. A dedicated thyroid ultrasound is recommended for further evaluation. Critical findings were discussed with nurse Miley Michael on the floor on 09/24/2017 at 3:05 p.m.
[2017-09-24] MEDS ORDERED: Heparin25000 units/250ml 1/2NS 25,000 UNITS/250 ML BAG IV PRN (16:00)
[2017-09-24] MEDS ORDERED: Azithromycin 500 MG in Sodium Chloride 0.9% 250 ML IVPB SCH (17:00)
--- NOTE | 2017-09-24 17:23 | CP.PCM.CON ---
History of Present Illness - History of Present Illness History of Present Illness: 67 y/o M presents to the ED for COPD exacerbation. Following continued difficulty breathing pt was found to have an elevated D Dimer which prompted CT imaging to be conducted. Bilateral PEs were found in addition to a thoracic aortic aneurism measuring 4.3 by 4.3cm, at which point surgery was consulted. Pt commented that he was not in any acute distress and made note that he was aware of the previous aneurysm and that he believed it was approximately 3.5cm in diameter. Pt denies chest pain, sputum production, and diarrhea. Pt mentions that he is experiencing fever, weakness, dizziness, dyspnea, tachycardia (prior to going to the ED), dyspnea, wheezing, nausea, vomiting, and dark stools. PMH: Gout, Thoracic aortic aneurysm, COPD, HTN, CAD s/p cardiac stents, gastritis, and lipid disorder PSH: Right direct inguinal hernia repair with excision of large cord lipoma and repair of spermatic cord vessel, hematoma of right groin, incarcerated recurrent paraumbilical hernia open repair w/ mesh, and recent cystoscopy. Allergies NKDA Review of Systems - Hematologic/Lymphatic Additional comments: 12 point ROS was conducted and results were nominal with the exception of those mentioned in the HPI. Past Patient History - Infectious Disease Hx of Infectious Diseases: None - Past Medical History & Family History Past Medical History?: Yes - Past Social History Smoking Status: Heavy Smoker > 10 Cigarettes Daily - CARDIAC Hx Cardiac Disorders: Yes (CAD S/P CARDIAC STENTS) Hx Hypercholesterolemia: Yes Hx Hypertension: Yes - PULMONARY Hx Chronic Obstructive Pulmonary Disease (COPD): Yes - NEUROLOGICAL Hx Neurological Disorder: No - HEENT Hx HEENT Problems: Yes (POOR VISION) - RENAL Hx Chronic Kidney Disease: Yes - ENDOCRINE/METABOLIC Hx Diabetes Mellitus Type 2: Yes - HEMATOLOGICAL/ONCOLOGICAL Hx Blood Disorders: No - INTEGUMENTARY Hx Dermatological Problems: No - MUSCULOSKELETAL/RHEUMATOLOGICAL Hx Arthritis: Yes - GASTROINTESTINAL Hx Gastritis: Yes - GENITOURINARY/GYNECOLOGICAL Hx Genitourinary Disorders: Yes Hx Prostate Problems: Yes Other/Comment: HX: DYSURIA - PSYCHIATRIC Hx Anxiety: Yes Hx Substance Use: No - SURGICAL HISTORY Hx Coronary Stent: Yes - ANESTHESIA Hx Anesthesia: Yes Hx Anesthesia Reactions: No Hx Malignant Hyperthermia: No Meds Allergies/Adverse Reactions: Allergies Allergy/AdvReac Type Severity Reaction Status Date / Time No Known Allergies Allergy Verified 03/05/17 10:56 - Medications Medications: Current Medications Albuterol/Ipratropium (Duoneb 3 Mg/0.5 Mg (3 Ml) Ud) 3 ml INH RQ4 [facility] Last Admin: 09/24/17 16:15 Dose: 3 ml Allopurinol (Zyloprim) 100 mg PO DAILY [facility] Last Admin: 09/24/17 09:05 Dose: 100 mg Amlodipine Besylate (Norvasc) 5 mg PO DAILY [facility] Last Admin: 09/24/17 09:05 Dose: 5 mg Aspirin (Ecotrin) 81 mg PO DAILY [facility] Last Admin: 09/24/17 09:07 Dose: 81 mg Budesonide (Pulmicort Respules) 0.5 mg INH RQ12 [facility] Last Admin: 09/24/17 07:22 Dose: 0.5 mg Clopidogrel Bisulfate (Plavix) 75 mg PO DAILY [facility] Last Admin: 09/24/17 09:05 Dose: 75 mg Dextrose (Dextrose 50% Inj) 0 ml IV STAT PRN; Protocol PRN Reason: Hypoglycemia Protocol Dextrose (Glutose 15) 0 gm PO ONCE PRN; Protocol PRN Reason: Hypoglycemia Protocol Enalapril Maleate (Vasotec) 5 mg PO DAILY [facility] Famotidine (Pepcid) 20 mg PO BID [facility] Last Admin: 09/24/17 09:05 Dose: 20 mg Glucagon (Glucagen Diagnostic Kit) 0 mg IM STAT PRN; Protocol PRN Reason: Hypoglycemia Protocol Guaifenesin/Dextromethorphan (Robitussin Dm) 10 ml PO Q4H PRN PRN Reason: Cough and congestion Last Admin: 09/23/17 23:52 Dose: 10 ml Dextrose (Dextrose 5% In Water 1000 Ml) 1,000 mls @ 0 mls/hr IV .Q0M PRN; Protocol; Per Protocol PRN Reason: Hypoglycemia Protocol Azithromycin 500 mg/ Sodium (Chloride) 250 mls @ 250 mls/hr IVPB Q24H [facility] PRN Reason: Protocol Heparin Sodium/Sodium Chloride (Heparin 04805 Units/250ml 1/2 Normal Saline) 25 ,000 units in 250 mls @ 19.432 mls/hr IV .[id number] PRN; Protocol; 18 UNITS/KG/HR PRN Reason: PROTOCOL Last Admin: 09/24/17 16:49 Dose: 18 units/kg/hr, 19.432 mls/hr Insulin Aspart (Novolog) 0 unit SC ACHS [facility] PRN Reason: Protocol Last Admin: 09/24/17 12:30 Dose: 2 units Methylprednisolone (Solu-Medrol) 40 mg IVP Q6 [facility] Rosuvastatin Calcium (Crestor) 20 mg PO [facility] Last Admin: 09/23/17 21:41 Dose: 20 mg Tiotropium [place] (Spiriva) 18 mcg INH RQ24 [facility] Last Admin: 09/24/17 07:22 Dose: 18 mcg Zolpidem Tartrate (Ambien) 5 mg PO [facility] Last Admin: 09/23/17 21:39 Dose: 5 mg Physical Exam - Constitutional Appears: No Acute Distress, Chronically Ill - Head Exam Head Exam: ATRAUMATIC, NORMOCEPHALIC - Eye Exam Eye Exam: Normal appearance - ENT Exam ENT Exam: Mucous Membranes Moist - Respiratory Exam Respiratory Exam: Decreased Breath Sounds, Wheezes - Cardiovascular Exam Cardiovascular Exam: +S1, +S2 - GI/Abdominal Exam GI & Abdominal Exam: Normal Bowel Sounds - Extremities Exam Extremities exam: Positive for: tenderness Additional comments: Popliteal pulses felt bl - Neurological Exam Neurological exam: Alert, Oriented x3 - Psychiatric Exam Psychiatric exam: Normal Mood Results - Vital Signs Recent Vital Signs: Last Vital Signs Temp 98.1 F 09/24/17 16:00 Pulse 70 09/24/17 16:00 Resp 20 09/24/17 16:00 BP 138/82 09/24/17 16:00 Pulse Ox 95 09/24/17 16:00 - Labs Result Diagrams: 09/24/17 07:43 09/24/17 07:43 Labs: Laboratory Results - last 24 hr 09/23/17 09/24/17 09/24/17 21:30 06:15 07:43 WBC 14.6 H D RBC 4.71 Hgb 14.5 Hct 42.9 MCV 91.2 MCH 30.7 MCHC 33.7 RDW 14.8 H Plt Count 147 MPV 9.1 Neut % (Auto) 77.5 H Lymph % (Auto) 14.6 L [place] % (Auto) 7.5 Eos % (Auto) 0.1 Baso % (Auto) 0.3 Neut # (Auto) 11.3 H Lymph # (Auto) 2.1 [place] # (Auto) 1.1 H Eos # (Auto) 0.0 Baso # (Auto) 0.0 D-Dimer, Quantitative Sodium Potassium Chloride Carbon Dioxide Anion Gap BUN Creatinine Est GFR ( Amer) Est GFR (Non-Af Amer) POC Glucose (mg/dL) 202 H 126 H Random Glucose Calcium Phosphorus Magnesium Total Bilirubin AST ALT Alkaline Phosphatase Total Protein Albumin Globulin Albumin/Globulin Ratio 09/24/17 09/24/17 09/24/17 07:43 11:14 12:04 WBC RBC Hgb Hct MCV MCH MCHC RDW Plt Count MPV Neut % (Auto) Lymph % (Auto) [place] % (Auto) Eos % (Auto) Baso % (Auto) Neut # (Auto) Lymph # (Auto) [place] # (Auto) Eos # (Auto) Baso # (Auto) D-Dimer, Quantitative 1993 H Sodium 141 Potassium 4.8 Chloride 109 H Carbon Dioxide 24 Anion Gap 13 BUN 28 H Creatinine 1.5 Est GFR ( Amer) 57 Est GFR (Non-Af Amer) 47 POC Glucose (mg/dL) 169 H Random Glucose 123 H Calcium 9.3 Phosphorus 3.5 Magnesium 2.2 Total Bilirubin 0.3 AST 15 L ALT 27 Alkaline Phosphatase 38 Total Protein 5.8 L Albumin 3.5 Globulin 2.3 Albumin/Globulin Ratio 1.5 09/24/17 16:18 WBC RBC Hgb Hct MCV MCH MCHC RDW Plt Count MPV Neut % (Auto) Lymph % (Auto) [place] % (Auto) Eos % (Auto) Baso % (Auto) Neut # (Auto) Lymph # (Auto) [place] # (Auto) Eos # (Auto) Baso # (Auto) D-Dimer, Quantitative Sodium Potassium Chloride Carbon Dioxide Anion Gap BUN Creatinine Est GFR ( Amer) Est GFR (Non-Af Amer) POC Glucose (mg/dL) 212 H Random Glucose Calcium Phosphorus Magnesium Total Bilirubin AST ALT Alkaline Phosphatase Total Protein Albumin Globulin Albumin/Globulin Ratio Assessment & Plan - Assessment and Plan (Free Text) Assessment: 67 y/o M with an ascending aortic aneurism. Plan: Appropriate hypertension management Initiate anticoagulation therapy F/U venous duplex F/U Echo Monitor vital signs Follow up AM labs D/w Dr. Ember Banerjee PGY3
[2017-09-24] MEDS ORDERED: MethylPREDNISolone 40 mg Vial IVP SCH (18:00)
--- NOTE | 2017-09-24 18:33 | CP.PCM.CON ---
History of Present Illness - History of Present Illness History of Present Illness: I was asked to evaluate patient by medical team. Patient is a 67 year old male with PMH HTN, hypercholesterolemia who presets with dyspnea. Symptoms began one week ago and have been progressive. the patient states he developed symptoms after walking one block. CT scan was notable for bilateral PE. There was an incidental finding of aortic aneurysm ( 4.3 cm). Patient is currently on a heparin drip. Review of Systems - Constitutional Constitutional: absent: As Per HPI, Anorexia, Chills, Daytime Sleepiness, Excessive Sweating, Fatigue, Fever, Frequent Falls, Headache, Increased Appetite , Lethargy, Malaise, Night Sweats, Snoring, Sleep Apnea, Weight Gain, Weight Loss, Weakness, Other - EENT Eyes: absent: As Per HPI, Blind Spots, Blurred Vision, Change in Vision, Decreased Night Vision, Diplopia, Discharge, Dry Eye, Exophthalmos, Floaters, Irritation, Itchy Eyes, Loss of Peripheral Vision, Pain, Photophobia, Requires Corrective Lenses, Sees Flashes, Spots in Vision, Tunnel Vision, Other Visual Disturbances, Loss of Vision, Other Ears: absent: As Per HPI, Decreased Hearing, Ear Discharge, Ear Pain, Tinnitus, Abnormal Hearing, Disequilibrium, Dizziness, Other Nose/Mouth/Throat: absent: As Per HPI, Epistaxis, Nasal Congestion, Nasal Discharge, Nasal Obstruction, Nasal Trauma, Nose Pain, Post Nasal Drip, Sinus Pain, Sinus Pressure, Bleeding Gums, Change in Voice, Dental Pain, Dry Mouth, Dysphagia, Halitosis, Hoarsness, Lip Swelling, Mouth Lesions, Mouth Pain, Odynophagia, Sore Throat, Throat Swelling, Tongue Swelling, Facial Pain, Neck Pain, Neck Mass, Other - Cardiovascular Cardiovascular: Dyspnea - Respiratory Respiratory: Dyspnea - Gastrointestinal Gastrointestinal: absent: As Per HPI, Abdominal Pain, Belching, Bloating, Change in Bowel Habits, Change in Stool Character, Coffee Ground Emesis, Constipation, Cramping, Diarrhea, Dyspepsia, Dysphagia, Early Satiety, Excessive Flatus, Fecal Incontinence, Heartburn, Hematemesis, Hematochezia, Loose Stools, Melena, Nausea, Odynophagia, Temesmus, Vomiting, Other - Genitourinary Genitourinary: absent: As Per HPI, Change in Urinary Stream, Difficulty Urinating, Dysuria, Flank Pain, Hematuria, Pyuria, Nocturia, Urinary Incontinence, Urinary Frequency, Urinary Hesitance, Urinary Urgency, Voiding Freq/Small Amts, Freq UTI, Hx Renal/Bladder Calculi, Hx /Renal Surgery, Bladder Distension, Other - Musculoskeletal Musculoskeletal: absent: As Per HPI, Abnormal Gait, Arthralgias, Atrophy, Back Pain, Deformity, Joint Swelling, Limited Range of Motion, Loss of Height, Muscle Cramps, Muscle Weakness, Myalgias, Neck Pain, Numbness, Radiating Pain into Limb, Stiffness, Tingling, Other - Integumentary Integumentary: absent: As Per HPI, Acne, Alopecia, Bleeding Lesions, Change in Hair, Change in Nails, Change in Pigmentation, Changing Lesions, Dry Skin, Erythema, Furuncle, Hirsutism, Lesions, New Lesions, Non-Healing Lesions, Photosensitivity, Pruritus, Rash, Skin Pain, Skin Ulcer, Sores, Striae, Swelling , Unusual Bruising, Wounds, Jaundice, Other - Neurological Neurological: absent: As Per HPI, Abnormal Gait, Abnormal Hearing, Abnormal Movements, Abnormal Speech, Behavioral Changes, Burning Sensations, Confusion, Convulsions, Disequilibrium, Dizziness, Numbness, Focal Weakness, Frequent Falls , Headaches, Lack of Coordination, Loss of Vision, Memory Loss, Paresthesias, Radicular Pain, Restless Legs, Sensory Deficit, Syncope, Tingling, Tremor, Vertigo, Weakness, Other Visual Disturbances, Other - Psychiatric Psychiatric: absent: As Per HPI, Abnormal Sleep Pattern, Anhedonia, Anxiety, Auditory Hallucinations, Behavioral Changes, Change in Appetite, Change in Libido, Confusion, Depression, Difficulty Concentrating, Hallucinations, Homicidal Ideation, Hopelessness, Irritability, Memory Loss, Mood Swings, Panic Attacks, Paranoia, Suicidal Ideation, Visual Hallucinations, Tactile Hallucinations, Other - Endocrine Endocrine: absent: As Per HPI, Change in Body Appearance, Change in Libido, Cold Intolorance, Deepening of Voice, Excessive Sweating, Fatigue, Flushing, Heat Intolorance, Increase in Ring/Shoe/Hat Size, Palpitations, Polydipsia, Polyphagia, Polyuria, Other - Hematologic/Lymphatic Hematologic: absent: As Per HPI, Easy Bleeding, Easy Bruising, Lymphadenopathy, Other Past Patient History - Infectious Disease Hx of Infectious Diseases: None - Past Medical History & Family History Past Medical History?: Yes - Past Social History Smoking Status: Heavy Smoker > 10 Cigarettes Daily - CARDIAC Hx Cardiac Disorders: Yes (CAD S/P CARDIAC STENTS) Hx Hypercholesterolemia: Yes Hx Hypertension: Yes - PULMONARY Hx Chronic Obstructive Pulmonary Disease (COPD): Yes - NEUROLOGICAL Hx Neurological Disorder: No - HEENT Hx HEENT Problems: Yes (POOR VISION) - RENAL Hx Chronic Kidney Disease: Yes - ENDOCRINE/METABOLIC Hx Diabetes Mellitus Type 2: Yes - HEMATOLOGICAL/ONCOLOGICAL Hx Blood Disorders: No - INTEGUMENTARY Hx Dermatological Problems: No - MUSCULOSKELETAL/RHEUMATOLOGICAL Hx Arthritis: Yes - GASTROINTESTINAL Hx Gastritis: Yes - GENITOURINARY/GYNECOLOGICAL Hx Genitourinary Disorders: Yes Hx Prostate Problems: Yes Other/Comment: HX: DYSURIA - PSYCHIATRIC Hx Anxiety: Yes Hx Substance Use: No - SURGICAL HISTORY Hx Coronary Stent: Yes - ANESTHESIA Hx Anesthesia: Yes Hx Anesthesia Reactions: No Hx Malignant Hyperthermia: No Meds Allergies/Adverse Reactions: Allergies Allergy/AdvReac Type Severity Reaction Status Date / Time No Known Allergies Allergy Verified 03/05/17 10:56 - Medications Medications: Current Medications Albuterol/Ipratropium (Duoneb 3 Mg/0.5 Mg (3 Ml) Ud) 3 ml INH RQ4 [facility] Last Admin: 09/24/17 16:15 Dose: 3 ml Allopurinol (Zyloprim) 100 mg PO DAILY [facility] Last Admin: 09/24/17 09:05 Dose: 100 mg Amlodipine Besylate (Norvasc) 5 mg PO DAILY [facility] Last Admin: 09/24/17 09:05 Dose: 5 mg Aspirin (Ecotrin) 81 mg PO DAILY [facility] Last Admin: 09/24/17 09:07 Dose: 81 mg Budesonide (Pulmicort Respules) 0.5 mg INH RQ12 [facility] Last Admin: 09/24/17 07:22 Dose: 0.5 mg Clopidogrel Bisulfate (Plavix) 75 mg PO DAILY [facility] Last Admin: 09/24/17 09:05 Dose: 75 mg Dextrose (Dextrose 50% Inj) 0 ml IV STAT PRN; Protocol PRN Reason: Hypoglycemia Protocol Dextrose (Glutose 15) 0 gm PO ONCE PRN; Protocol PRN Reason: Hypoglycemia Protocol Enalapril Maleate (Vasotec) 5 mg PO DAILY [facility] Famotidine (Pepcid) 20 mg PO BID [facility] Last Admin: 09/24/17 17:48 Dose: 20 mg Glucagon (Glucagen Diagnostic Kit) 0 mg IM STAT PRN; Protocol PRN Reason: Hypoglycemia Protocol Guaifenesin/Dextromethorphan (Robitussin Dm) 10 ml PO Q4H PRN PRN Reason: Cough and congestion Last Admin: 09/23/17 23:52 Dose: 10 ml Dextrose (Dextrose 5% In Water 1000 Ml) 1,000 mls @ 0 mls/hr IV .Q0M PRN; Protocol; Per Protocol PRN Reason: Hypoglycemia Protocol Azithromycin 500 mg/ Sodium (Chloride) 250 mls @ 250 mls/hr IVPB Q24H ERIK PRN Reason: Protocol Last Admin: 09/24/17 17:46 Dose: 250 mls/hr Heparin Sodium/Sodium Chloride (Heparin 99926 Units/250ml 1/2 Normal Saline) 25 ,000 units in 250 mls @ 19.432 mls/hr IV .[id number] PRN; Protocol; 18 UNITS/KG/HR PRN Reason: PROTOCOL Last Admin: 09/24/17 16:49 Dose: 18 units/kg/hr, 19.432 mls/hr Insulin Aspart (Novolog) 0 unit SC ACHS [facility] PRN Reason: Protocol Last Admin: 09/24/17 17:25 Dose: 3 units Methylprednisolone (Solu-Medrol) 40 mg IVP Q6 [facility] Last Admin: 09/24/17 17:49 Dose: 40 mg Rosuvastatin Calcium (Crestor) 20 mg PO [facility] Last Admin: 09/23/17 21:41 Dose: 20 mg Tiotropium [place] (Spiriva) 18 mcg INH RQ24 [facility] Last Admin: 09/24/17 07:22 Dose: 18 mcg Zolpidem Tartrate (Ambien) 5 mg PO [facility] Last Admin: 09/23/17 21:39 Dose: 5 mg Physical Exam - Constitutional Appears: Non-toxic - Head Exam Head Exam: NORMAL INSPECTION - Eye Exam Eye Exam: Normal appearance - ENT Exam ENT Exam: Mucous Membranes Moist - Neck Exam Neck exam: Positive for: Full Rom - Respiratory Exam Respiratory Exam: NORMAL BREATHING PATTERN - Cardiovascular Exam Cardiovascular Exam: REGULAR RHYTHM - GI/Abdominal Exam GI & Abdominal Exam: Normal Bowel Sounds - Rectal Exam Rectal Exam: Deferred - Extremities Exam Extremities exam: Negative for: pedal edema - Back Exam Back exam: NORMAL INSPECTION - Neurological Exam Neurological exam: Alert, Oriented x3 - Psychiatric Exam Psychiatric exam: Normal Affect - Skin Skin Exam: Normal Color Results - Vital Signs Recent Vital Signs: Last Vital Signs Temp 98.1 F 09/24/17 16:00 Pulse 70 09/24/17 16:00 Resp 20 09/24/17 16:00 BP 138/82 09/24/17 16:00 Pulse Ox 95 09/24/17 16:00 - Labs Result Diagrams: 09/24/17 07:43 09/24/17 07:43 Labs: Laboratory Results - last 24 hr 09/23/17 09/24/17 09/24/17 21:30 06:15 07:43 WBC 14.6 H D RBC 4.71 Hgb 14.5 Hct 42.9 MCV 91.2 MCH 30.7 MCHC 33.7 RDW 14.8 H Plt Count 147 MPV 9.1 Neut % (Auto) 77.5 H Lymph % (Auto) 14.6 L Will % (Auto) 7.5 Eos % (Auto) 0.1 Baso % (Auto) 0.3 Neut # (Auto) 11.3 H Lymph # (Auto) 2.1 Will # (Auto) 1.1 H Eos # (Auto) 0.0 Baso # (Auto) 0.0 D-Dimer, Quantitative Sodium Potassium Chloride Carbon Dioxide Anion Gap BUN Creatinine Est GFR ( Amer) Est GFR (Non-Af Amer) POC Glucose (mg/dL) 202 H 126 H Random Glucose Calcium Phosphorus Magnesium Total Bilirubin AST ALT Alkaline Phosphatase Total Protein Albumin Globulin Albumin/Globulin Ratio 09/24/17 09/24/17 09/24/17 07:43 11:14 12:04 WBC RBC Hgb Hct MCV MCH MCHC RDW Plt Count MPV Neut % (Auto) Lymph % (Auto) Will % (Auto) Eos % (Auto) Baso % (Auto) Neut # (Auto) Lymph # (Auto) Will # (Auto) Eos # (Auto) Baso # (Auto) D-Dimer, Quantitative 1993 H Sodium 141 Potassium 4.8 Chloride 109 H Carbon Dioxide 24 Anion Gap 13 BUN 28 H Creatinine 1.5 Est GFR ( Amer) 57 Est GFR (Non-Af Amer) 47 POC Glucose (mg/dL) 169 H Random Glucose 123 H Calcium 9.3 Phosphorus 3.5 Magnesium 2.2 Total Bilirubin 0.3 AST 15 L ALT 27 Alkaline Phosphatase 38 Total Protein 5.8 L Albumin 3.5 Globulin 2.3 Albumin/Globulin Ratio 1.5 09/24/17 16:18 WBC RBC Hgb Hct MCV MCH MCHC RDW Plt Count MPV Neut % (Auto) Lymph % (Auto) Will % (Auto) Eos % (Auto) Baso % (Auto) Neut # (Auto) Lymph # (Auto) Will # (Auto) Eos # (Auto) Baso # (Auto) D-Dimer, Quantitative Sodium Potassium Chloride Carbon Dioxide Anion Gap BUN Creatinine Est GFR ( Amer) Est GFR (Non-Af Amer) POC Glucose (mg/dL) 212 H Random Glucose Calcium Phosphorus Magnesium Total Bilirubin AST ALT Alkaline Phosphatase Total Protein Albumin Globulin Albumin/Globulin Ratio - EKG Data EKG Interpreted by: Myself EKG shows normal: Sinus rhythm Assessment & Plan (1) Aortic aneurysm Assessment and Plan: no immediate surgical indication. blood pressure control Status: Acute (2) Pulmonary embolism Assessment and Plan: on heparin therapy. hypercoagulable work up Status: Acute (3) Hypertension Assessment and Plan: blood pressure control Status: Chronic
--- NOTE | 2017-09-24 21:00 | CARD ---
APPROVED REPORT Date of service: 09/23/2017 EKG Measurement Heart [id number] <Conclusion> Sinus rhythm with occasional premature ventricular complexes Otherwise normal ECG
[2017-09-25] MEDS: Heparin25000 units/250ml 1/2NS 25,000 UNITS/250 ML BAG IV PRN ×2 (00:38→07:41)
[2017-09-25] MEDS: Albuterol-Ipratrop 3 mg / 0.5 (3 ml) UD INH SCH ×6 (01:38→20:32)
[2017-09-25] MEDS: MethylPREDNISolone 40 mg Vial IVP SCH ×2 (05:07→13:30)
[2017-09-25] MEDS: (Novolog) Insulin Aspart, Recombinant 100 u/ml 10 ml vial SC SCH ×4 (08:46→22:49)
--- NOTE | 2017-09-25 08:50 | CP.PCM.PN ---
Subjective - Date & Time of Evaluation Date of Evaluation: 09/25/17 Time of Evaluation: 07:50 - Subjective Subjective: Vascular Surgery consult for Dr. Pa Patient seen and examined this morning at bedside. No acute events overnight per nursing. His BP has been well controlled and he denies chest pain and SOB at rest. he additionally denies f/c/n/v. he is tolerating his diet well. Patient was ambulating in the room well today. Objective - Vital Signs/Intake and Output Vital Signs (last 24 hours): Temp Pulse Resp BP Pulse Ox 98.0 F 69 20 150/82 95 09/25/17 07:00 09/25/17 07:00 09/25/17 07:00 09/25/17 07:00 09/25/17 07:00 Intake and Output: 09/25/17 09/25/17 06:59 18:59 Intake Total 250 Balance 250 - Medications Medications: Current Medications Albuterol/Ipratropium (Duoneb 3 Mg/0.5 Mg (3 Ml) Ud) 3 ml INH RQ4 [facility] Last Admin: 09/25/17 05:00 Dose: Not Given Allopurinol (Zyloprim) 100 mg PO DAILY [facility] [place] Last Admin: 09/24/17 09:05 Dose: 100 mg Amlodipine Besylate (Norvasc) 5 mg PO DAILY [facility] [place] Last Admin: 09/24/17 09:05 Dose: 5 mg Aspirin (Ecotrin) 81 mg PO DAILY [facility] [place] Last Admin: 09/24/17 09:07 Dose: 81 mg Budesonide (Pulmicort Respules) 0.5 mg INH RQ12 [facility] [place] Last Admin: 09/24/17 19:34 Dose: 0.5 mg Clopidogrel Bisulfate (Plavix) 75 mg PO DAILY [facility] [place] Last Admin: 09/24/17 09:05 Dose: 75 mg Dextrose (Dextrose 50% Inj) 0 ml IV STAT PRN; Protocol PRN Reason: Hypoglycemia Protocol Dextrose (Glutose 15) 0 gm PO ONCE PRN; Protocol PRN Reason: Hypoglycemia Protocol Enalapril Maleate (Vasotec) 5 mg PO DAILY [facility] Famotidine (Pepcid) 20 mg PO BID [facility] Last Admin: 09/24/17 17:48 Dose: 20 mg Glucagon (Glucagen Diagnostic Kit) 0 mg IM STAT PRN; Protocol PRN Reason: Hypoglycemia Protocol Guaifenesin/Dextromethorphan (Robitussin Dm) 10 ml PO Q4H PRN PRN Reason: Cough and congestion Last Admin: 09/23/17 23:52 Dose: 10 ml Dextrose (Dextrose 5% In Water 1000 Ml) 1,000 mls @ 0 mls/hr IV .Q0M PRN; Protocol; Per Protocol PRN Reason: Hypoglycemia Protocol Azithromycin 500 mg/ Sodium (Chloride) 250 mls @ 250 mls/hr IVPB Q24H ERIK PRN Reason: Protocol Last Admin: 09/24/17 17:46 Dose: 250 mls/hr Heparin Sodium/Sodium Chloride (Heparin 44636 Units/250ml 1/2 Normal Saline) 25 ,000 units in 250 mls @ 16.193 mls/hr IV .[id number] PRN; Protocol; 15 UNITS/KG/HR PRN Reason: PROTOCOL Last Admin: 09/25/17 07:41 Dose: 15 units/kg/hr, 16.193 mls/hr Insulin Aspart (Novolog) 0 unit SC ACHS [facility] PRN Reason: Protocol Last Admin: 09/25/17 08:46 Dose: 3 units Methylprednisolone (Solu-Medrol) 40 mg IVP Q6 [facility] Last Admin: 09/25/17 05:07 Dose: 40 mg Rosuvastatin Calcium (Crestor) 20 mg PO [facility] Last Admin: 09/24/17 22:26 Dose: 20 mg Tiotropium [place] (Spiriva) 18 mcg INH RQ24 [facility] [place] Last Admin: 09/24/17 07:22 Dose: 18 mcg Zolpidem Tartrate (Ambien) 5 mg PO HS [facility] Last Admin: 09/24/17 22:26 Dose: 5 mg - Labs Labs: 09/24/17 07:43 09/24/17 07:43 APTT 88 SECONDS (21-34) H D 09/25/17 05:07 - Constitutional Appears: Well, Non-toxic, No Acute Distress, Chronically Ill - Head Exam Head Exam: ATRAUMATIC, NORMOCEPHALIC - ENT Exam ENT Exam: Mucous Membranes Moist - Respiratory Exam Respiratory Exam: NORMAL BREATHING PATTERN - Cardiovascular Exam Cardiovascular Exam: +S1, +S2 - GI/Abdominal Exam GI & Abdominal Exam: Soft. absent: Tenderness - Neurological Exam Neurological Exam: Alert, Awake, Oriented x3 - Psychiatric Exam Psychiatric exam: Normal Affect, Normal Mood - Skin Skin Exam: Dry, Intact, Normal Color, Warm Assessment and Plan - Assessment and Plan (Free Text) Assessment: 67 yr old male presenting with COPD exacerbation/ PE and ascending aortic aneurysm Plan: continue appropriate hypertension management continue anticoagulation therapy F/U venous duplex Monitor vital signs WBC count increase likely due to inflammatory response, pt is afebrile VSS with no increase in theleft shift from yesterday Will discuss with Dr. Pa all further recs per him Mayra Coreas PGY!
[2017-09-25] MEDS: Budesonide 0.5 mg/2 ml Inhal Susp UD INH SCH ×2 (08:55→20:32)
[2017-09-25] MEDS: Tiotropium 18 mcg Cap For Inhalation INH SCH (09:02)
[2017-09-25 13:09] LABS: BASO % 0.1 % (0.0-2.0); HEMOGLOBIN 14.8 g/dL (12.0-18.0); LYMPH # 0.8 K/uL (1.0-4.3); LYMPH % 5.2 % (20.0-40.0); MEAN CELL VOLUME 91.5 fL (80.0-94.0); MEAN CORPUSCULAR HEMOGLOBIN 30.6 pg (27.0-31.0); MEAN CORPUSCULAR HGB CONC 33.5 g/dL (33.0-37.0); MEAN PLATELET VOLUME 9.1 fL (7.2-11.7); MONO # 0.5 K/uL (0.0-0.8); MONO % 3.3 % (0.0-10.0); NEUT # 13.6 K/uL (1.8-7.0); NEUT % 91.4 % (50.0-75.0); PLATELET COUNT 170 K/uL (130-400); RBC 4.82 Mil/uL (4.40-5.90); WHITE BLOOD COUNT 14.9 K/uL (4.8-10.8)
--- NOTE | 2017-09-25 13:10 | CP.PCM.PN ---
<Chloe Mazariegos - Last Filed: 09/25/17 19:58> Subjective - Date & Time of Evaluation Date of Evaluation: 09/25/17 Time of Evaluation: 07:00 - Subjective Subjective: PGY2- Progress Note for Dr. Aelxis Patient seen and examined sitting up in chair at bedside breathing comfortably on room air. Patient says he is feeling slightly better. Patient denies any chest pain, abdominal pain, nausea, vomiting, constipation, or diarrhea today. Patient has no leg pain. Objective - Vital Signs/Intake and Output Vital Signs (last 24 hours): Temp Pulse Resp BP Pulse Ox 98.0 F 69 20 150/82 95 09/25/17 07:00 09/25/17 07:00 09/25/17 07:00 09/25/17 07:00 09/25/17 10:45 Intake and Output: 09/25/17 09/25/17 06:59 18:59 Intake Total 250 Balance 250 - Medications Medications: Current Medications Albuterol/Ipratropium (Duoneb 3 Mg/0.5 Mg (3 Ml) Ud) 3 ml INH RQ4 [facility] Last Admin: 09/25/17 08:55 Dose: 3 ml Allopurinol (Zyloprim) 100 mg PO DAILY [facility] Last Admin: 09/25/17 09:45 Dose: 100 mg Amlodipine Besylate (Norvasc) 5 mg PO DAILY [facility] Last Admin: 09/25/17 09:45 Dose: 5 mg Aspirin (Ecotrin) 81 mg PO DAILY [facility] Last Admin: 09/25/17 09:45 Dose: 81 mg Budesonide (Pulmicort Respules) 0.5 mg INH RQ12 [facility] Last Admin: 09/25/17 08:55 Dose: 0.5 mg Clopidogrel Bisulfate (Plavix) 75 mg PO DAILY [facility] Last Admin: 09/25/17 09:45 Dose: 75 mg Dextrose (Dextrose 50% Inj) 0 ml IV STAT PRN; Protocol PRN Reason: Hypoglycemia Protocol Dextrose (Glutose 15) 0 gm PO ONCE PRN; Protocol PRN Reason: Hypoglycemia Protocol Enalapril Maleate (Vasotec) 5 mg PO DAILY [facility] Famotidine (Pepcid) 20 mg PO BID [facility] Last Admin: 09/25/17 09:45 Dose: 20 mg Glucagon (Glucagen Diagnostic Kit) 0 mg IM STAT PRN; Protocol PRN Reason: Hypoglycemia Protocol Guaifenesin/Dextromethorphan (Robitussin Dm) 10 ml PO Q4H PRN PRN Reason: Cough and congestion Last Admin: 09/23/17 23:52 Dose: 10 ml Dextrose (Dextrose 5% In Water 1000 Ml) 1,000 mls @ 0 mls/hr IV .Q0M PRN; Protocol; Per Protocol PRN Reason: Hypoglycemia Protocol Azithromycin 500 mg/ Sodium (Chloride) 250 mls @ 250 mls/hr IVPB Q24H [facility] PRN Reason: Protocol Last Admin: 09/24/17 17:46 Dose: 250 mls/hr Heparin Sodium/Sodium Chloride (Heparin 71419 Units/250ml 1/2 Normal Saline) 25 ,000 units in 250 mls @ 16.193 mls/hr IV .[id number] PRN; Protocol; 15 UNITS/KG/HR PRN Reason: PROTOCOL Last Admin: 09/25/17 07:41 Dose: 15 units/kg/hr, 16.193 mls/hr Insulin Aspart (Novolog) 0 unit SC ACHS [facility] PRN Reason: Protocol Last Admin: 09/25/17 08:46 Dose: 3 units Methylprednisolone (Solu-Medrol) 40 mg IVP Q6 [facility] Last Admin: 09/25/17 05:07 Dose: 40 mg Rosuvastatin Calcium (Crestor) 20 mg PO [facility] Last Admin: 09/24/17 22:26 Dose: 20 mg Tiotropium [place] (Spiriva) 18 mcg INH RQ24 [facility] Last Admin: 09/25/17 09:02 Dose: 18 mcg Zolpidem Tartrate (Ambien) 5 mg PO [facility] Last Admin: 09/24/17 22:26 Dose: 5 mg - Labs Labs: 09/24/17 07:43 09/24/17 07:43 APTT 88 SECONDS (21-34) H D 09/25/17 05:07 - Additional Findings Additional findings: - Constitutional Appears: Non-toxic, No Acute Distress - Head Exam Head Exam: ATRAUMATIC, NORMAL INSPECTION, NORMOCEPHALIC - Eye Exam Eye Exam: EOMI, Normal appearance - ENT Exam ENT Exam: Mucous Membranes Moist - Respiratory Exam Respiratory Exam: Accessory Muscle Use. absent: Rales, Rhonchi, Wheezes, NORMAL BREATHING PATTERN - Cardiovascular Exam Cardiovascular Exam: REGULAR RHYTHM, RRR, +S1, +S2 - GI/Abdominal Exam GI & Abdominal Exam: Soft, Normal Bowel Sounds. absent: Tenderness - Extremities Exam Extremities Exam: Full ROM, Normal Inspection. absent: Pedal Edema, Tenderness - Back Exam Back Exam: NORMAL INSPECTION - Neurological Exam Neurological Exam: Alert, Awake, Oriented x3 - Psychiatric Exam Psychiatric exam: Normal Affect, Normal Mood - Skin Skin Exam: Intact, Normal Color, Warm Assessment and Plan - Assessment and Plan (Free Text) Assessment: Bilateral PEs Assessment and Plan: D Dimer 1993 CTA: b/l PEs, worse on right. no evidence for right ventricular strain aneurysm of the ascending aorta patchy ground-glass attenuation in the right upper lobe could be related to developing pulmonary infarctions or nonspecific infection/ inflammation asymmetric enlargement of the right thyroid lobe with indeterminate nodules. A dedicated thyroid u/s recommended coag studies ordered: antiphospholipid, antithrombin III, Factor V Leiden, Lupus anticoagulant, Protein C, Protein S, prothrombin Heparin drip started, as per Dr. Hannon, heparin to be stopped on 09/26 and eliquis started 10mg po BID for 7 days Echo ordered to r/o right heart strain Venous dopplers: positive for DVT, awaiting official read Aortic Aneurysm Assessment and Plan: 4.3 x 4.3 cm Cardio, Dr. Burrows consulted, help appreciated Vascular, Dr. Pa consulted, help appreciated no immediate surgical intervention blood pressure control Dark Stool Assessment and Plan: negative occult blood COPD Assessment and Plan: 96% on 2L NC Imaging: Chest x-RAY: No active disease Troponin I neg x 3 patient uses CPAP at night at home, ordered Medication: * Duonesb 3ml INH q4h scheduled * Spiriva 18mcg INH RQ24 * Pulmicort 0.5mg INH RQ12H * Prednisone taper * 2L NC as needed Status: Acute SERGEI (acute kidney injury) Assessment and Plan: * BUN/Cr: 28/1.5 * Home medication: Vasotec and lasix held; BP currently stable * Monitor with am labs Status: Acute Hypertension Assessment and Plan: BP currently stable Home medications: * Norvasc 5mg PO QD * Vasotec 5mg PO QD ( Held due to SERGEI) * Lasix 40mg PO QD (Held due to SERGEI) Status: Chronic Diabetes mellitus Assessment and Plan: Accuchecks HbgA1C: 6.2 ISS- Medium dose Home medication: Metformin 500mg PO BID ( Held due to SERGEI) Status: Chronic HLD (hyperlipidemia) Assessment and Plan: lipid panel: Triglycerides 77, Cholesterol 119, LDL 61 HDL 42 Crestor 20mg PO HS Status: Acute CAD (coronary artery disease) Assessment and Plan: ECHO 05/17/17: LVEF 60-65%, transmitral doppler flow pattern is grade II pseudonormal filling dynamics. mild aortic regurg. mitral regurg is mild. Hx of cardiac stent * ASA 81mg PO QD * Crestor 20mg PO HS * Plavix 75mg PO QD Status: Acute GERD Assessment and Plan: Pepcid 20mg PO BID Status: Acute Prophylactic measure Assessment and Plan: GI: Pepcid 20mg PO BID DVT: SCDs, Heparin 5,000 units SC Q12H Heart healthy diet Discussed with Dr. Alexis <Niall Alexis - Last Filed: 09/25/17 22:30> Objective - Vital Signs/Intake and Output Vital Signs (last 24 hours): Temp Pulse Resp BP Pulse Ox 98.0 F 70 20 143/88 99 09/25/17 15:00 09/25/17 15:00 09/25/17 15:00 09/25/17 15:00 09/25/17 15:00 Intake and Output: 09/25/17 09/26/17 18:59 06:59 Intake Total 250 Output Total 0 Balance 250 0 - Medications Medications: Current Medications Albuterol/Ipratropium (Duoneb 3 Mg/0.5 Mg (3 Ml) Ud) 3 ml INH RQ4 [facility] Last Admin: 09/25/17 20:32 Dose: 3 ml Allopurinol (Zyloprim) 100 mg PO DAILY [facility] Last Admin: 09/25/17 09:45 Dose: 100 mg Amlodipine Besylate (Norvasc) 5 mg PO DAILY [facility] Last Admin: 09/25/17 09:45 Dose: 5 mg Apixaban (Eliquis) 10 mg PO BID [facility] Stop: 10/02/17 18:00 Aspirin (Ecotrin) 81 mg PO DAILY [facility] Last Admin: 09/25/17 09:45 Dose: 81 mg Budesonide (Pulmicort Respules) 0.5 mg INH RQ12 [facility] Last Admin: 09/25/17 20:32 Dose: 0.5 mg Dextrose (Dextrose 50% Inj) 0 ml IV STAT PRN; Protocol PRN Reason: Hypoglycemia Protocol Dextrose (Glutose 15) 0 gm PO ONCE PRN; Protocol PRN Reason: Hypoglycemia Protocol Enalapril Maleate (Vasotec) 5 mg PO DAILY [facility] Famotidine (Pepcid) 20 mg PO BID [facility] Last Admin: 09/25/17 18:10 Dose: 20 mg Glucagon (Glucagen Diagnostic Kit) 0 mg IM STAT PRN; Protocol PRN Reason: Hypoglycemia Protocol Guaifenesin/Dextromethorphan (Robitussin Dm) 10 ml PO Q4H PRN PRN Reason: Cough and congestion Last Admin: 09/23/17 23:52 Dose: 10 ml Dextrose (Dextrose 5% In Water 1000 Ml) 1,000 mls @ 0 mls/hr IV .Q0M PRN; Protocol; Per Protocol PRN Reason: Hypoglycemia Protocol Heparin Sodium/Sodium Chloride (Heparin 96707 Units/250ml 1/2 Normal Saline) 25 ,000 units in 250 mls @ 16.193 mls/hr IV .[id number] PRN; Protocol; 15 UNITS/KG/HR PRN Reason: PROTOCOL Stop: 09/26/17 10:00 Last Admin: 09/25/17 07:41 Dose: 15 units/kg/hr, 16.193 mls/hr Insulin Aspart (Novolog) 0 unit SC ACHS [facility] PRN Reason: Protocol Last Admin: 09/25/17 18:10 Dose: 2 units Prednisone (Prednisone Tab) 50 mg PO ONCE ONE Stop: 09/26/17 10:01 Prednisone (Prednisone Tab) 40 mg PO ONCE ONE Stop: 09/27/17 10:01 Prednisone (Prednisone Tab) 30 mg PO ONCE ONE Stop: 09/28/17 10:01 Prednisone (Prednisone Tab) 20 mg PO ONCE ONE Stop: 09/29/17 10:01 Prednisone (Prednisone Tab) 10 mg PO ONCE ONE Stop: 09/30/17 10:01 Rosuvastatin Calcium (Crestor) 20 mg PO HS [facility] Last Admin: 09/25/17 21:43 Dose: 20 mg Tiotropium [place] (Spiriva) 18 mcg INH RQ24 [facility] Last Admin: 09/25/17 09:02 Dose: 18 mcg Zolpidem Tartrate (Ambien) 5 mg PO HS [facility] Last Admin: 09/25/17 21:43 Dose: 5 mg - Labs Labs: 09/25/17 12:56 09/25/17 12:56 APTT 72 SECONDS (21-34) H D 09/25/17 12:56 Attending/Attestation - Attestation I have personally seen and examined this patient.: Yes I have fully participated in the care of the patient.: Yes I have reviewed all pertinent clinical information, including history, physical exam and plan: Yes Notes (Text): 09/25/17 22:05 Patient was seen and examined at 2:45 PM 09/25/17 556 B. Also on ROS: SOB is much better Moving his bowels normally NO chest pain/palpitations NO cough/wheezing Also on Exam: Respiratory: CTA B/L, NO R/R/W GI: Central Obesity and therefore liver and spleen could not be adequately palpated Ext: bilateral chronic venous insufficiency light brown discoloration of ankles Plan: I do not believe his presenting symptoms were secondary to COPD Exacerbation and were likely secondary to the Bilateral Pulmonary Emboli. Therefore IV Solumedrol was discontinued and orders written for Prednisone Taper [id number] to start 09/26/17. He will need to continue the Pulmicort and Spriva. Azithromycin was discontinued as it is not needed. Bilateral Pulmonary Emboli and Left Popliteal/Posterior Tibial DVT: Heparin Drip to be discontinued morning 09/26/17 and Eliquis 10 mg PO 2x/day (10 AM and 6 PM) to start for 7 days and then starting on 8th day 10/03/17 Eliquis should be 5 mg PO 2x/day Hypercoagulable workup has been ordered and will need to be follow up: Protein C , Protein S, Factor V Leiden, Prothrombin Gene Mutation, Lupus Anticoagulant, Anticardiolipin Ab, Antithrombin III. F/U further recommendations concerning hypercoagulable workup from Supervisor Chlorine Liquefaction Dr. Greco F/U 2D Echocardiogram which will not be done till 09/27/17 to see if there is any heart strain from the Bilateral Pulmonary Emboli Hx of CAD: Patient stated that he had cardiac catheterization with stent in 2011. He therefore does not need to be on Plavix and this was discontinued as it will increase risk of bleeding considering he will need to be on Eliquis. Continue the Aspirin and Crestor. Noted that patient is NOT on a Beta Anshul and he has been started on low dose Coreg at 3.125 mg PO 2x/day with holding parameters. Restart the Enalapril once the the renal function remains stable. Right Thyroid Nodules: As seen on CT Chest Angio He will need to have outpaitent Thyroid U/S F/U TSH and T4 morning 09/26/17 Hx Aortic Aneurysm: Also on seen on CT Chest Angio F/U further recommendations by Vascular Dr. Pa: repeat CT Angio Chest in 6 to 12 months to ensure stability? Leukocytosis Likely secondary to the steroid NO fever and blood pressure is stable F/U CBC Monitor the BUN/Cr due to SERGEI Blood Glucose relatively under control: Metformin is being held secondary to the SERGEI. Currently on Aspart RISS Blood Pressure are relatively under control: Currently on Norvasc. Coreg has been added as explained above because of the Hx CAD. Enalapril should be added back on once the renal function remains stable. Hx Gout: he is on Allopurinol Hx GERD: he is on Pepcid Niall Alexis D.O.
[2017-09-25 13:39] LABS: ALB/GLOB RATIO 1.6 (1.0-2.1); ALT/SGPT 23 U/L (21-72); AST/SGOT 16 U/L (17-59); BLOOD UREA NITROGEN 32 mg/dL (9-20); CALCIUM 9.6 mg/dl (8.6-10.4); GFR AFRICAN-AMERICAN > 60; GFR NON-AFRICAN AMERICAN 55
[2017-09-25 13:52] LABS: ANISOCYTOSIS SLIGHT; BANDS 2 % (0-2); LYMPHOCYTE 3 % (20-40); MONOCYTE 2 % (0-10); NEUTROPHIL 93 % (50-75); PLATELET ESTIMATE NORMAL (NORMAL); TOTAL CELLS COUNTED 100
[2017-09-25 13:53] LABS: BURR CELLS SLIGHT; POIKILOCYTOSIS SLIGHT
--- NOTE | 2017-09-25 14:51 | CP.PCM.PN ---
Subjective - Date & Time of Evaluation Date of Evaluation: 09/25/17 Time of Evaluation: 14:00 - Subjective Subjective: the patient seen and examined Started on heparin drip for pulmonary embolism Breathing better DVT left leg Afebrile Last chest pain Objective - Vital Signs/Intake and Output Vital Signs (last 24 hours): Temp Pulse Resp BP Pulse Ox 98.0 F 69 20 150/82 95 09/25/17 07:00 09/25/17 07:00 09/25/17 07:00 09/25/17 07:00 09/25/17 10:45 Intake and Output: 09/25/17 09/25/17 06:59 18:59 Intake Total 250 Balance 250 - Medications Medications: Current Medications Albuterol/Ipratropium (Duoneb 3 Mg/0.5 Mg (3 Ml) Ud) 3 ml INH RQ4 [facility] Last Admin: 09/25/17 12:59 Dose: 3 ml Allopurinol (Zyloprim) 100 mg PO DAILY [facility] Last Admin: 09/25/17 09:45 Dose: 100 mg Amlodipine Besylate (Norvasc) 5 mg PO DAILY [facility] Last Admin: 09/25/17 09:45 Dose: 5 mg Aspirin (Ecotrin) 81 mg PO DAILY [facility] Last Admin: 09/25/17 09:45 Dose: 81 mg Budesonide (Pulmicort Respules) 0.5 mg INH RQ12 [facility] Last Admin: 09/25/17 08:55 Dose: 0.5 mg Clopidogrel Bisulfate (Plavix) 75 mg PO DAILY [facility] Last Admin: 09/25/17 09:45 Dose: 75 mg Dextrose (Dextrose 50% Inj) 0 ml IV STAT PRN; Protocol PRN Reason: Hypoglycemia Protocol Dextrose (Glutose 15) 0 gm PO ONCE PRN; Protocol PRN Reason: Hypoglycemia Protocol Enalapril Maleate (Vasotec) 5 mg PO DAILY [facility] Famotidine (Pepcid) 20 mg PO BID [facility] Last Admin: 09/25/17 09:45 Dose: 20 mg Glucagon (Glucagen Diagnostic Kit) 0 mg IM STAT PRN; Protocol PRN Reason: Hypoglycemia Protocol Guaifenesin/Dextromethorphan (Robitussin Dm) 10 ml PO Q4H PRN PRN Reason: Cough and congestion Last Admin: 09/23/17 23:52 Dose: 10 ml Dextrose (Dextrose 5% In Water 1000 Ml) 1,000 mls @ 0 mls/hr IV .Q0M PRN; Protocol; Per Protocol PRN Reason: Hypoglycemia Protocol Heparin Sodium/Sodium Chloride (Heparin 43930 Units/250ml 1/2 Normal Saline) 25 ,000 units in 250 mls @ 16.193 mls/hr IV .[id number] PRN; Protocol; 15 UNITS/KG/HR PRN Reason: PROTOCOL Last Admin: 09/25/17 07:41 Dose: 15 units/kg/hr, 16.193 mls/hr Insulin Aspart (Novolog) 0 unit SC ACHS [facility] PRN Reason: Protocol Last Admin: 09/25/17 13:31 Dose: 3 units Prednisone (Prednisone Tab) 50 mg PO ONCE ONE Stop: 09/26/17 10:01 Prednisone (Prednisone Tab) 40 mg PO ONCE ONE Stop: 09/27/17 10:01 Prednisone (Prednisone Tab) 30 mg PO ONCE ONE Stop: 09/28/17 10:01 Prednisone (Prednisone Tab) 20 mg PO ONCE ONE Stop: 09/29/17 10:01 Prednisone (Prednisone Tab) 10 mg PO ONCE ONE Stop: 09/30/17 10:01 Rosuvastatin Calcium (Crestor) 20 mg PO HS [facility] Last Admin: 09/24/17 22:26 Dose: 20 mg Tiotropium [place] (Spiriva) 18 mcg INH RQ24 [facility] Last Admin: 09/25/17 09:02 Dose: 18 mcg Zolpidem Tartrate (Ambien) 5 mg PO HS [facility] Last Admin: 09/24/17 22:26 Dose: 5 mg - Labs Labs: 09/25/17 12:56 09/25/17 12:56 APTT 72 SECONDS (21-34) H D 09/25/17 12:56 - Head Exam Head Exam: ATRAUMATIC, NORMOCEPHALIC - ENT Exam ENT Exam: Mucous Membranes Moist - Neck Exam Neck Exam: Full ROM, Normal Inspection - Respiratory Exam Respiratory Exam: Decreased Breath Sounds - Cardiovascular Exam Cardiovascular Exam: REGULAR RHYTHM - GI/Abdominal Exam GI & Abdominal Exam: Soft, Normal Bowel Sounds Assessment and Plan (1) Pulmonary embolism Assessment & Plan: Bilateral pulmonary embolism Continue heparin drip and switch to eliquis DVT left leg Tapering dose of prednisone Nebulizer treatment Echocardiogram/ patient hemodynamically stable Status: Acute (2) COPD exacerbation Status: Acute (3) Acid reflux disease Status: Acute
[2017-09-26] MEDS: Albuterol-Ipratrop 3 mg / 0.5 (3 ml) UD INH SCH ×6 (00:21→19:55)
--- NOTE | 2017-09-26 01:33 | CP.PCM.PN ---
<Kathrine Farley - Last Filed: 09/26/17 07:04> Subjective - Date & Time of Evaluation Date of Evaluation: 09/26/17 Time of Evaluation: 01:08 - Subjective Subjective: Pt seen and examined at bedside. Nurse had reported pt was unable to sleep and requested additional medication. Pt reports he is slowly feeling better. He reports some difficulty sleeping, some SOB, and has continued left sided chest/ back pain with deep inspiration. Denies palpitations, abd pain, nausea, vomiting, diarrhea, constipation Objective - Vital Signs/Intake and Output Vital Signs (last 24 hours): Temp Pulse Resp BP Pulse Ox 97.9 F 76 20 123/73 95 09/25/17 23:36 09/25/17 23:36 09/25/17 23:36 09/25/17 23:36 09/25/17 23:36 Intake and Output: 09/25/17 09/26/17 18:59 06:59 Intake Total 250 Balance 250 - Medications Medications: Current Medications Albuterol/Ipratropium (Duoneb 3 Mg/0.5 Mg (3 Ml) Ud) 3 ml INH RQ4 [facility] Last Admin: 09/26/17 00:21 Dose: 3 ml Allopurinol (Zyloprim) 100 mg PO DAILY [facility] Last Admin: 09/25/17 09:45 Dose: 100 mg Amlodipine Besylate (Norvasc) 5 mg PO DAILY [facility] Last Admin: 09/25/17 09:45 Dose: 5 mg Apixaban (Eliquis) 10 mg PO BID [facility] Stop: 10/02/17 18:00 Aspirin (Ecotrin) 81 mg PO DAILY [facility] Last Admin: 09/25/17 09:45 Dose: 81 mg Budesonide (Pulmicort Respules) 0.5 mg INH RQ12 [facility] Last Admin: 09/25/17 20:32 Dose: 0.5 mg Carvedilol (Coreg) 3.125 mg PO BID REPLACED BY [facility] Dextrose (Dextrose 50% Inj) 0 ml IV STAT PRN; Protocol PRN Reason: Hypoglycemia Protocol Dextrose (Glutose 15) 0 gm PO ONCE PRN; Protocol PRN Reason: Hypoglycemia Protocol Enalapril Maleate (Vasotec) 5 mg PO DAILY REPLACED BY [facility] Famotidine (Pepcid) 20 mg PO BID REPLACED BY [facility] Last Admin: 09/25/17 18:10 Dose: 20 mg Glucagon (Glucagen Diagnostic Kit) 0 mg IM STAT PRN; Protocol PRN Reason: Hypoglycemia Protocol Guaifenesin/Dextromethorphan (Robitussin Dm) 10 ml PO Q4H PRN PRN Reason: Cough and congestion Last Admin: 09/23/17 23:52 Dose: 10 ml Dextrose (Dextrose 5% In Water 1000 Ml) 1,000 mls @ 0 mls/hr IV .Q0M PRN; Protocol; Per Protocol PRN Reason: Hypoglycemia Protocol Heparin Sodium/Sodium Chloride (Heparin 46577 Units/250ml 1/2 Normal Saline) 25 ,000 units in 250 mls @ 16.193 mls/hr IV .[id number] PRN; Protocol; 15 UNITS/KG/HR PRN Reason: PROTOCOL Stop: 09/26/17 10:00 Last Admin: 09/25/17 07:41 Dose: 15 units/kg/hr, 16.193 mls/hr Insulin Aspart (Novolog) 0 unit SC ACHS [facility] PRN Reason: Protocol Last Admin: 09/25/17 22:49 Dose: Not Given Prednisone (Prednisone Tab) 50 mg PO ONCE ONE Stop: 09/26/17 10:01 Prednisone (Prednisone Tab) 40 mg PO ONCE ONE Stop: 09/27/17 10:01 Prednisone (Prednisone Tab) 30 mg PO ONCE ONE Stop: 09/28/17 10:01 Prednisone (Prednisone Tab) 20 mg PO ONCE ONE Stop: 09/29/17 10:01 Prednisone (Prednisone Tab) 10 mg PO ONCE ONE Stop: 09/30/17 10:01 Rosuvastatin Calcium (Crestor) 20 mg PO HS REPLACED BY [facility] Last Admin: 09/25/17 21:43 Dose: 20 mg Tiotropium [place] (Spiriva) 18 mcg INH RQ24 [facility] Last Admin: 09/25/17 09:02 Dose: 18 mcg Zolpidem Tartrate (Ambien) 5 mg PO HS [facility] Last Admin: 09/25/17 21:43 Dose: 5 mg Zolpidem Tartrate (Ambien) 5 mg PO HS PRN PRN Reason: Insomnia - Labs Labs: 09/25/17 12:56 09/25/17 12:56 APTT 72 SECONDS (21-34) H D 09/25/17 12:56 - Constitutional Appears: Well, Non-toxic - Head Exam Head Exam: ATRAUMATIC, NORMAL INSPECTION, NORMOCEPHALIC - Eye Exam Eye Exam: EOMI, Normal appearance - ENT Exam ENT Exam: Mucous Membranes Moist, Normal Exam - Respiratory Exam Respiratory Exam: Accessory Muscle Use, Clear to Ausculation Bilateral. absent : Chest Wall Tenderness, Rhonchi, Wheezes - Cardiovascular Exam Cardiovascular Exam: REGULAR RHYTHM, +S1, +S2. absent: Tachycardia - GI/Abdominal Exam GI & Abdominal Exam: Soft, Normal Bowel Sounds. absent: Distended, Tenderness - Extremities Exam Extremities Exam: Normal Capillary Refill, Normal Inspection, Pedal Edema ( ankles through feel B/L, L>R). absent: Calf Tenderness - Neurological Exam Neurological Exam: Alert, Awake, Oriented x3 - Psychiatric Exam Psychiatric exam: Anxious - Skin Skin Exam: absent: Normal Color (susy appearance to face, dry dark discolored distal LE) Assessment and Plan - Assessment and Plan (Free Text) Assessment: 67 yo M w/ PMHx of COPD, CAD, HTN, DM2 admitted w/ SOB 2/2 to B/L Pulmonary Emboli, found to have LLE DVT. 1. B/L PE/LLE DVT -pt currently on heparin drip -heparin drip to be d/c today to transition pt to oral AC -oral AC includes Eliquis 10mg BID for 7 days, then Eliquis 5mg 2x/wk -f/u hypercoaguable workup -f/u echo to r/o heart strain -heme/onc consult Dr. Greco 2. COPD -duonebs q4 -spiriva 18mcg -pulmicort .5mg q12 -prednisone taper(09/26) -pulmonology consult Dr. Hannon 3. Aortic Aneurysm -4.3x4.3 -cardio consult Dr. Burrows 4. CAD, s/p stent(2011) -ASA 81mg -crestor 20mg -coreg 3.125 BID -HH diet 5. HTN -Norvasc 5mg -vasotec 5mg/lasix 40mg held / SERGEI 6. DM2-chronic -a1c 6.2 -Medium dose ISS Ppx -pepcid 20mg BID -heparin drip Dispo: Pt to be transitioned to oral AC today. <Gomez Mora - Last Filed: 09/26/17 10:46> Objective - Vital Signs/Intake and Output Vital Signs (last 24 hours): Temp Pulse Resp BP Pulse Ox 98.0 F 67 20 131/90 98 09/26/17 08:14 09/26/17 08:14 09/26/17 08:14 09/26/17 08:14 09/26/17 08:14 - Medications Medications: Current Medications Albuterol/Ipratropium (Duoneb 3 Mg/0.5 Mg (3 Ml) Ud) 3 ml INH RQ4 REPLACED BY [facility] Last Admin: 09/26/17 07:25 Dose: 3 ml Allopurinol (Zyloprim) 100 mg PO DAILY REPLACED BY [facility] Last Admin: 09/26/17 09:10 Dose: 100 mg Amlodipine Besylate (Norvasc) 5 mg PO DAILY REPLACED BY [facility] Last Admin: 09/26/17 09:10 Dose: 5 mg Apixaban (Eliquis) 10 mg PO BID REPLACED BY [facility] Stop: 10/02/17 18:00 Last Admin: 09/26/17 09:10 Dose: 10 mg Aspirin (Ecotrin) 81 mg PO DAILY REPLACED BY [facility] Last Admin: 09/26/17 09:10 Dose: 81 mg Budesonide (Pulmicort Respules) 0.5 mg INH RQ12 REPLACED BY [facility] Last Admin: 09/26/17 07:25 Dose: 0.5 mg Carvedilol (Coreg) 3.125 mg PO BID REPLACED BY [facility] Last Admin: 09/26/17 09:10 Dose: 3.125 mg Dextrose (Dextrose 50% Inj) 0 ml IV STAT PRN; Protocol PRN Reason: Hypoglycemia Protocol Dextrose (Glutose 15) 0 gm PO ONCE PRN; Protocol PRN Reason: Hypoglycemia Protocol Enalapril Maleate (Vasotec) 5 mg PO DAILY REPLACED BY [facility] Famotidine (Pepcid) 20 mg PO BID REPLACED BY [facility] Last Admin: 09/26/17 09:10 Dose: 20 mg Glucagon (Glucagen Diagnostic Kit) 0 mg IM STAT PRN; Protocol PRN Reason: Hypoglycemia Protocol Guaifenesin/Dextromethorphan (Robitussin Dm) 10 ml PO Q4H PRN PRN Reason: Cough and congestion Last Admin: 09/23/17 23:52 Dose: 10 ml Dextrose (Dextrose 5% In Water 1000 Ml) 1,000 mls @ 0 mls/hr IV .Q0M PRN; Protocol; Per Protocol PRN Reason: Hypoglycemia Protocol Insulin Aspart (Novolog) 0 unit SC ACHS REPLACED BY [facility] PRN Reason: Protocol Last Admin: 09/26/17 08:08 Dose: Not Given Prednisone (Prednisone Tab) 40 mg PO ONCE ONE Stop: 09/27/17 10:01 Prednisone (Prednisone Tab) 30 mg PO ONCE ONE Stop: 09/28/17 10:01 Prednisone (Prednisone Tab) 20 mg PO ONCE ONE Stop: 09/29/17 10:01 Prednisone (Prednisone Tab) 10 mg PO ONCE ONE Stop: 09/30/17 10:01 Rosuvastatin Calcium (Crestor) 20 mg PO HS [facility] Last Admin: 09/25/17 21:43 Dose: 20 mg Tiotropium [place] (Spiriva) 18 mcg INH RQ24 [facility] Last Admin: 09/26/17 07:25 Dose: 18 mcg Zolpidem Tartrate (Ambien) 5 mg PO HS [facility] Last Admin: 09/25/17 21:43 Dose: 5 mg Zolpidem Tartrate (Ambien) 5 mg PO HS PRN PRN Reason: Insomnia Last Admin: 09/26/17 01:17 Dose: 5 mg - Labs Labs: 09/26/17 08:07 09/26/17 08:07 APTT 26 SECONDS (21-34) D 09/26/17 08:07 Attending/Attestation - Attestation I have personally seen and examined this patient.: Yes I have fully participated in the care of the patient.: Yes I have reviewed all pertinent clinical information, including history, physical exam and plan: Yes Notes (Text): 09/26/17 10:40 Medical attending, covering for Dr Gibbs until he returns on September 23: Patient was seen and examined by me. Agree with the above note by the resident There was a translation service used to help us explain to the patient that he had a pulmonary embolism. To help the patient understand what was happening I ginger out on a paper a heart and lungs to help explain to him is very simple language what a PE was and why he need to be on anticoagulation. I think the drawing helped him understand a lot more as he appears to have been confused as to what has been happening. Also today we discontinued the heparin ggt and changed over to a PO Eliquis. Per review of telemetry he is NSR in the 70s. He denied chest pain and was not short of breath at rest. He was also able to stand and walk around in the room without assistance thank you Gomez Mora
[2017-09-26] MEDS: Tiotropium 18 mcg Cap For Inhalation INH SCH (07:25)
[2017-09-26] MEDS: Budesonide 0.5 mg/2 ml Inhal Susp UD INH SCH ×2 (07:25→19:55)
[2017-09-26] MEDS: (Novolog) Insulin Aspart, Recombinant 100 u/ml 10 ml vial SC SCH ×4 (08:08→23:01)
[2017-09-26 08:28] LABS: BASO % 0.2 % (0.0-2.0); EOS % 0.1 % (0.0-4.0); HEMOGLOBIN 14.7 g/dL (12.0-18.0); LYMPH # 2.4 K/uL (1.0-4.3); LYMPH % 14.4 % (20.0-40.0); MEAN CELL VOLUME 91.2 fL (80.0-94.0); MEAN CORPUSCULAR HEMOGLOBIN 30.6 pg (27.0-31.0); MEAN CORPUSCULAR HGB CONC 33.6 g/dL (33.0-37.0); MEAN PLATELET VOLUME 9.2 fL (7.2-11.7); MONO # 1.1 K/uL (0.0-0.8); MONO % 6.6 % (0.0-10.0); NEUT % 78.7 % (50.0-75.0); RBC 4.8 Mil/uL (4.40-5.90); WHITE BLOOD COUNT 16.6 K/uL (4.8-10.8)
[2017-09-26 08:41] LABS: ALB/GLOB RATIO 1.5 (1.0-2.1); ALBUMIN 3.4 g/dL (3.5-5.0); ALT/SGPT 22 U/L (21-72); AST/SGOT 26 U/L (17-59); BLOOD UREA NITROGEN 37 mg/dL (9-20); CALCIUM 9.4 mg/dl (8.6-10.4); GFR AFRICAN-AMERICAN > 60; GFR NON-AFRICAN AMERICAN 51
--- NOTE | 2017-09-26 14:17 | CP.PCM.PN ---
Subjective - Date & Time of Evaluation Date of Evaluation: 09/26/17 Time of Evaluation: 12:40 - Subjective Subjective: patient seen and examined Complaining of vertigo Denies dizziness No chest pain Being treated for pulmonary embolism Normotensive on eliquis and off heparin drip Prednisone tapering dose Nebulizer treatment Objective - Vital Signs/Intake and Output Vital Signs (last 24 hours): Temp Pulse Resp BP Pulse Ox 98.0 F 67 20 131/90 98 09/26/17 08:14 09/26/17 08:14 09/26/17 08:14 09/26/17 08:14 09/26/17 08:14 - Medications Medications: Current Medications Albuterol/Ipratropium (Duoneb 3 Mg/0.5 Mg (3 Ml) Ud) 3 ml INH RQ4 [facility] Last Admin: 09/26/17 11:25 Dose: 3 ml Allopurinol (Zyloprim) 100 mg PO DAILY [facility] Last Admin: 09/26/17 09:10 Dose: 100 mg Amlodipine Besylate (Norvasc) 5 mg PO DAILY [facility] Last Admin: 09/26/17 09:10 Dose: 5 mg Apixaban (Eliquis) 10 mg PO BID [facility] Stop: 10/02/17 18:00 Last Admin: 09/26/17 09:10 Dose: 10 mg Aspirin (Ecotrin) 81 mg PO DAILY [facility] Last Admin: 09/26/17 09:10 Dose: 81 mg Budesonide (Pulmicort Respules) 0.5 mg INH RQ12 [facility] Last Admin: 09/26/17 07:25 Dose: 0.5 mg Carvedilol (Coreg) 3.125 mg PO BID [facility] Last Admin: 09/26/17 09:10 Dose: 3.125 mg Dextrose (Dextrose 50% Inj) 0 ml IV STAT PRN; Protocol PRN Reason: Hypoglycemia Protocol Dextrose (Glutose 15) 0 gm PO ONCE PRN; Protocol PRN Reason: Hypoglycemia Protocol Enalapril Maleate (Vasotec) 5 mg PO DAILY [facility] Famotidine (Pepcid) 20 mg PO BID [facility] Last Admin: 09/26/17 09:10 Dose: 20 mg Glucagon (Glucagen Diagnostic Kit) 0 mg IM STAT PRN; Protocol PRN Reason: Hypoglycemia Protocol Guaifenesin/Dextromethorphan (Robitussin Dm) 10 ml PO Q4H PRN PRN Reason: Cough and congestion Last Admin: 09/23/17 23:52 Dose: 10 ml Dextrose (Dextrose 5% In Water 1000 Ml) 1,000 mls @ 0 mls/hr IV .Q0M PRN; Protocol; Per Protocol PRN Reason: Hypoglycemia Protocol Insulin Aspart (Novolog) 0 unit SC ACHS [facility] PRN Reason: Protocol Last Admin: 09/26/17 13:30 Dose: 2 units Prednisone (Prednisone Tab) 40 mg PO ONCE ONE Stop: 09/27/17 10:01 Prednisone (Prednisone Tab) 30 mg PO ONCE ONE Stop: 09/28/17 10:01 Prednisone (Prednisone Tab) 20 mg PO ONCE ONE Stop: 09/29/17 10:01 Prednisone (Prednisone Tab) 10 mg PO ONCE ONE Stop: 09/30/17 10:01 Rosuvastatin Calcium (Crestor) 20 mg PO HS [facility] Last Admin: 09/25/17 21:43 Dose: 20 mg Tiotropium [place] (Spiriva) 18 mcg INH RQ24 [facility] Last Admin: 09/26/17 07:25 Dose: 18 mcg Zolpidem Tartrate (Ambien) 5 mg PO HS [facility] Last Admin: 09/25/17 21:43 Dose: 5 mg Zolpidem Tartrate (Ambien) 5 mg PO HS PRN PRN Reason: Insomnia Last Admin: 09/26/17 01:17 Dose: 5 mg - Labs Labs: 09/26/17 08:07 09/26/17 08:07 APTT 26 SECONDS (21-34) D 09/26/17 08:07 Assessment and Plan (1) Pulmonary embolism Status: Acute (2) COPD exacerbation Status: Acute (3) Acid reflux disease Status: Acute
[2017-09-27] MEDS: Albuterol-Ipratrop 3 mg / 0.5 (3 ml) UD INH SCH ×4 (00:45→11:05)
[2017-09-27] MEDS: (Novolog) Insulin Aspart, Recombinant 100 u/ml 10 ml vial SC SCH ×4 (07:01→22:22)
[2017-09-27 07:15] LABS: BASO % 0.2 % (0.0-2.0); EOS # 0.1 K/uL (0.0-0.7); EOS % 0.3 % (0.0-4.0); HEMOGLOBIN 14.9 g/dL (12.0-18.0); LYMPH # 3.2 K/uL (1.0-4.3); LYMPH % 19.9 % (20.0-40.0); MEAN CELL VOLUME 92.3 fL (80.0-94.0); MEAN CORPUSCULAR HEMOGLOBIN 30.5 pg (27.0-31.0); MEAN PLATELET VOLUME 8.9 fL (7.2-11.7); MONO # 1.1 K/uL (0.0-0.8); MONO % 6.9 % (0.0-10.0); NEUT # 11.7 K/uL (1.8-7.0); NEUT % 72.7 % (50.0-75.0); NRBC % 0.1 % (0.0-2.0); RBC 4.9 Mil/uL (4.40-5.90); RED CELL DISTRIBUTION WIDTH 15.1 % (11.5-14.5); WHITE BLOOD COUNT 16.1 K/uL (4.8-10.8)
--- NOTE | 2017-09-27 07:30 | PN ---
Copied To: Jonathan Alexandre MD Attending MD: Jonathan Alexandre MD DATE: 09/26/2017 This is a 67-year-old man with pulmonary emboli. The patient is admitted for shortness of breath and was found to have the pulmonary emboli. He has multiple other medical problems including COPD, diabetes, hypertension, cardiac stents, and in the past has had abdominal surgery including a hernia repair with mesh. In any event, the patient was found to have pulmonary emboli. At this point, he has been treated with Coumadin. Several issues here. 1. He does have an underlying coagulopathy. I added lupus anticoagulant to the tests that have already been ordered, protein C, protein S, Leiden factor V, prothrombin 89801 mutations, antiphospholipid antibodies, and so we will wait for those. 2. He is on Coumadin now. The question is whether it should be switched to Coumadin or should be switched to Xarelto or Eliquis. 3. The issue is how long he should be put on the anticoagulation. He will certainly be on it for at least the next 6 to 9 months, for most patients pulmonary emboli if we find underlying disease, underlying coagulopathy, then we may consider longer period of time. So, at this point, he can the Coumadin for the next 6 to 9 months or switch to one of the other medications, Xarelto or Eliquis, but the time one should be, a minimum of 6 to 9 months depending on the outcome of this workup. Jonathan Alexandre MD
[2017-09-27 07:46] LABS: ALB/GLOB RATIO 1.4 (1.0-2.1); ALBUMIN 3.4 g/dL (3.5-5.0); CALCIUM 9.3 mg/dl (8.6-10.4)
[2017-09-27] MEDS: Budesonide 0.5 mg/2 ml Inhal Susp UD INH SCH (07:55)
[2017-09-27] MEDS: Tiotropium 18 mcg Cap For Inhalation INH SCH (07:55)
--- NOTE | 2017-09-27 12:52 | CP.PCM.PN ---
Subjective - Date & Time of Evaluation Date of Evaluation: 09/27/17 Time of Evaluation: 10:00 - Subjective Subjective: patient seen and examined Still complaining off vertigo Less shortness of breath No chest pain Afebrile on eliquis Awaiting for echocardiogram CT of the head Objective - Vital Signs/Intake and Output Vital Signs (last 24 hours): Temp Pulse Resp BP Pulse Ox 97.7 F 45 L 18 136/81 98 09/27/17 07:00 09/27/17 07:00 09/27/17 07:00 09/27/17 07:00 09/27/17 07:00 Intake and Output: 09/27/17 09/27/17 06:59 18:59 Intake Total 200 Output Total 1200 Balance -1000 - Medications Medications: Current Medications Albuterol/Ipratropium (Duoneb 3 Mg/0.5 Mg (3 Ml) Ud) 3 ml INH RQ4 [facility] Last Admin: 09/27/17 11:05 Dose: 3 ml Allopurinol (Zyloprim) 100 mg PO DAILY [facility] Last Admin: 09/27/17 11:11 Dose: 100 mg Amlodipine Besylate (Norvasc) 5 mg PO DAILY [facility] Last Admin: 09/27/17 11:11 Dose: 5 mg Apixaban (Eliquis) 10 mg PO BID [facility] Stop: 10/02/17 18:00 Last Admin: 09/27/17 11:12 Dose: 10 mg Aspirin (Ecotrin) 81 mg PO DAILY [facility] Last Admin: 09/27/17 11:12 Dose: 81 mg Budesonide (Pulmicort Respules) 0.5 mg INH RQ12 [facility] Last Admin: 09/27/17 07:55 Dose: 0.5 mg Carvedilol (Coreg) 3.125 mg PO BID [facility] Last Admin: 09/27/17 11:12 Dose: 3.125 mg Dextrose (Dextrose 50% Inj) 0 ml IV STAT PRN; Protocol PRN Reason: Hypoglycemia Protocol Dextrose (Glutose 15) 0 gm PO ONCE PRN; Protocol PRN Reason: Hypoglycemia Protocol Enalapril Maleate (Vasotec) 5 mg PO DAILY [facility] Famotidine (Pepcid) 20 mg PO BID [facility] Last Admin: 09/27/17 11:11 Dose: 20 mg Glucagon (Glucagen Diagnostic Kit) 0 mg IM STAT PRN; Protocol PRN Reason: Hypoglycemia Protocol Guaifenesin/Dextromethorphan (Robitussin Dm) 10 ml PO Q4H PRN PRN Reason: Cough and congestion Last Admin: 09/23/17 23:52 Dose: 10 ml Dextrose (Dextrose 5% In Water 1000 Ml) 1,000 mls @ 0 mls/hr IV .Q0M PRN; Protocol; Per Protocol PRN Reason: Hypoglycemia Protocol Insulin Aspart (Novolog) 0 unit SC ACHS [facility] PRN Reason: Protocol Last Admin: 09/27/17 07:01 Dose: Not Given Prednisone (Prednisone Tab) 30 mg PO ONCE ONE Stop: 09/28/17 10:01 Prednisone (Prednisone Tab) 20 mg PO ONCE ONE Stop: 09/29/17 10:01 Prednisone (Prednisone Tab) 10 mg PO ONCE ONE Stop: 09/30/17 10:01 Rosuvastatin Calcium (Crestor) 20 mg PO HS [facility] Last Admin: 09/26/17 21:36 Dose: 20 mg Tiotropium [place] (Spiriva) 18 mcg INH RQ24 [facility] Last Admin: 09/27/17 07:55 Dose: 18 mcg Zolpidem Tartrate (Ambien) 5 mg PO HS [facility] Last Admin: 09/26/17 21:36 Dose: 5 mg Zolpidem Tartrate (Ambien) 5 mg PO HS PRN PRN Reason: Insomnia Last Admin: 09/26/17 01:17 Dose: 5 mg - Labs Labs: 09/27/17 07:08 09/27/17 07:08 APTT 26 SECONDS (21-34) D 09/26/17 08:07 - Head Exam Head Exam: ATRAUMATIC, NORMOCEPHALIC Assessment and Plan (1) Pulmonary embolism Status: Acute (2) COPD exacerbation Status: Acute (3) Acid reflux disease Status: Acute
--- NOTE | 2017-09-27 12:57 | CT ---
Date of service: 09/27/2017 PROCEDURE: CT HEAD WITHOUT CONTRAST. HISTORY: Dizziness and confusion. COMPARISON: None available. TECHNIQUE: Axial computed tomography images were obtained through the head/brain without intravenous contrast. Radiation dose: Total exam DLP = 866.45 mGy-cm. This CT exam was performed using one or more of the following dose reduction techniques: Automated exposure control, adjustment of the mA and/or kV according to patient size, and/or use of iterative reconstruction technique. FINDINGS: HEMORRHAGE: No acute parenchymal, subarachnoid nor extra-axial hemorrhage. BRAIN: There is a small chronic appearing infarct in the left superior caudate head. There may also be some minimal chronic periventricular white matter ischemic changes. No obvious parenchymal nor extra-axial masses or collections. Mild generalized volume loss. VENTRICLES: No obstructive hydrocephalus. CALVARIUM: Calvarium intact. . PARANASAL SINUSES: Minor mucosal thickening seen within the frontal sinus and a few ethmoid air cells. MASTOID AIR CELLS: There is mild asymmetry of the mastoid air complexes left-sided which is more exuberant Yovany aerated than the right. No evidence of acute mastoiditis. OTHER FINDINGS: Left-sided cataract surgery. IMPRESSION: No acute intracranial hemorrhage. Small chronic left caudate infarct. Suspect minimal chronic periventricular white matter changes. Mild generalized volume loss.
--- NOTE | 2017-09-27 13:12 | VASCLAB ---
Date of service: 09/25/2017 PROCEDURE: Lower Extremity Venous Duplex Exam. HISTORY: elevated d dimer, sob, r/o DVT PRIORS: None. TECHNIQUE: Bilateral common femoral, femoral, popliteal and posterior tibial, peroneal and great saphenous veins were evaluated. Flow was assessed with color Doppler, compressibility, assessment of phasic flow and augmentation response. Report prepared by Beth Toledo Ranjith FINDINGS: RIGHT: 1. Common Femoral Vein: 1.1. Compressibility - Fully compressible: Thrombus - None : Flow - Phasic: Augmentation -Normal: Reflux - None. 2. Femoral Vein: 2.1. Compressibility - Fully compressible: Thrombus - None : Flow - Phasic: Augmentation -Normal: Reflux - None. 3. Popliteal Vein: 3.1. Compressibility - Fully compressible: Thrombus - None : Flow - Phasic: Augmentation -Normal: Reflux - None. 4. Posterior Tibial Vein: 4.1. Compressibility - Fully compressible: Thrombus - None: Flow - Phasic: Augmentation -Normal: Reflux - None. 5. Peroneal Vein: 5.1. Compressibility - Fully compressible: Thrombus - None: Flow - Phasic: Augmentation -Normal: Reflux - None. 6. Great Saphenous Vein: 6.1. Compressibility - Fully compressible: Thrombus - None: Flow - Phasic: Augmentation - Normal: Reflux - None. LEFT: 1. Common Femoral Vein: 1.1. Compressibility - Fully compressible: Thrombus - None: Flow - Phasic: Augmentation -Normal: Reflux - None. 2. Femoral Vein: 2.1. Compressibility - Fully compressible: Thrombus - None: Flow - Phasic: Augmentation -Normal: Reflux - None. 3. Popliteal Vein: 3.1. Compressibility - Incompressible: Thrombus - Acute : Flow - Absent : Augmentation -None: Reflux - . 4. Posterior Tibial Vein: 4.1. Compressibility - Incompressible: Thrombus - Acute: Flow - Absent : Augmentation -: Reflux - . 5. Peroneal Vein: 5.1. Compressibility - Fully compressible: Thrombus - None: Flow - Phasic: Augmentation -Normal: Reflux - None. 6. Great Saphenous Vein: 6.1. Compressibility - Fully compressible: Thrombus - None: Flow - Phasic: Augmentation - Normal: Reflux - None. OTHER FINDINGS: Right: None significant. Left: None significant. IMPRESSION: Right: No evidence of deep or superficial vein thrombosis of the right lower extremity. Normal valve function noted of the right side. Left: This study was positive for acute deep venous thrombosis of the left lower extremity.
--- NOTE | 2017-09-27 13:18 | CP.PCM.PN ---
Subjective - Date & Time of Evaluation Date of Evaluation: 09/27/17 Time of Evaluation: 07:00 - Subjective Subjective: PGY2- Progress Note for Dr. Koch Patient seen and examined sitting up in chair. Patient says his shortness of breath is improving very slightly daily. Patient still gets some nausea, but no vomiting. Patient admits to a sensation of heaviness in his left leg. Patient admits to dizziness. Patient denies any chest pain, abdominal pain, constipation or diarrhea. Objective - Vital Signs/Intake and Output Vital Signs (last 24 hours): Temp Pulse Resp BP Pulse Ox 97.7 F 45 L 18 136/81 98 09/27/17 07:00 09/27/17 07:00 09/27/17 07:00 09/27/17 07:00 09/27/17 07:00 Intake and Output: 09/27/17 09/27/17 06:59 18:59 Intake Total 200 Output Total 1200 Balance -1000 - Medications Medications: Current Medications Albuterol/Ipratropium (Duoneb 3 Mg/0.5 Mg (3 Ml) Ud) 3 ml INH RQ4 [facility] Last Admin: 09/27/17 11:05 Dose: 3 ml Allopurinol (Zyloprim) 100 mg PO DAILY [facility] Last Admin: 09/27/17 11:11 Dose: 100 mg Amlodipine Besylate (Norvasc) 5 mg PO DAILY [facility] Last Admin: 09/27/17 11:11 Dose: 5 mg Apixaban (Eliquis) 10 mg PO BID [facility] Stop: 10/02/17 18:00 Last Admin: 09/27/17 11:12 Dose: 10 mg Aspirin (Ecotrin) 81 mg PO DAILY [facility] Last Admin: 09/27/17 11:12 Dose: 81 mg Budesonide (Pulmicort Respules) 0.5 mg INH RQ12 [facility] Last Admin: 09/27/17 07:55 Dose: 0.5 mg Carvedilol (Coreg) 3.125 mg PO BID [facility] Last Admin: 09/27/17 11:12 Dose: 3.125 mg Dextrose (Dextrose 50% Inj) 0 ml IV STAT PRN; Protocol PRN Reason: Hypoglycemia Protocol Dextrose (Glutose 15) 0 gm PO ONCE PRN; Protocol PRN Reason: Hypoglycemia Protocol Enalapril Maleate (Vasotec) 5 mg PO DAILY [facility] Famotidine (Pepcid) 20 mg PO BID [facility] Last Admin: 09/27/17 11:11 Dose: 20 mg Glucagon (Glucagen Diagnostic Kit) 0 mg IM STAT PRN; Protocol PRN Reason: Hypoglycemia Protocol Guaifenesin/Dextromethorphan (Robitussin Dm) 10 ml PO Q4H PRN PRN Reason: Cough and congestion Last Admin: 09/23/17 23:52 Dose: 10 ml Dextrose (Dextrose 5% In Water 1000 Ml) 1,000 mls @ 0 mls/hr IV .Q0M PRN; Protocol; Per Protocol PRN Reason: Hypoglycemia Protocol Insulin Aspart (Novolog) 0 unit SC ACHS [facility] PRN Reason: Protocol Last Admin: 09/27/17 13:00 Dose: Not Given Prednisone (Prednisone Tab) 30 mg PO ONCE ONE Stop: 09/28/17 10:01 Prednisone (Prednisone Tab) 20 mg PO ONCE ONE Stop: 09/29/17 10:01 Prednisone (Prednisone Tab) 10 mg PO ONCE ONE Stop: 09/30/17 10:01 Rosuvastatin Calcium (Crestor) 20 mg PO HS [facility] Last Admin: 09/26/17 21:36 Dose: 20 mg Tiotropium [place] (Spiriva) 18 mcg INH RQ24 [facility] Last Admin: 09/27/17 07:55 Dose: 18 mcg Zolpidem Tartrate (Ambien) 5 mg PO HS [facility] Last Admin: 09/26/17 21:36 Dose: 5 mg Zolpidem Tartrate (Ambien) 5 mg PO HS PRN PRN Reason: Insomnia Last Admin: 09/26/17 01:17 Dose: 5 mg - Labs Labs: 09/27/17 07:08 09/27/17 07:08 APTT 26 SECONDS (21-34) D 09/26/17 08:07 Assessment and Plan - Assessment and Plan (Free Text) Assessment: Bilateral PEs Assessment and Plan: D Dimer 1993 CTA: b/l PEs, worse on right. no evidence for right ventricular strain aneurysm of the ascending aorta patchy ground-glass attenuation in the right upper lobe could be related to developing pulmonary infarctions or nonspecific infection/ inflammation asymmetric enlargement of the right thyroid lobe with indeterminate nodules. A dedicated thyroid u/s recommended coag studies ordered: antiphospholipid, antithrombin III, Factor V Leiden, Lupus anticoagulant, Protein C, Protein S, prothrombin Heparin drip stopped on 09/26/17 eliquis 10mg po BID for 7 days (until 10/02/17) starting 10/03/17 Eliquis should be 5 mg PO BID Echo ordered to r/o right heart strain Venous dopplers: positive for acute DVT in left popliteal and posterior tibial Aortic Aneurysm Assessment and Plan: 4.3 x 4.3 cm Cardio, Dr. Burrows consulted, help appreciated Vascular, Dr. Pa consulted, help appreciated no immediate surgical intervention blood pressure control Status: Acute Dizziness Assessment and Plan: head CT without contrast: no acute intracranial hemorrhage. small chronic left caudate infarct. suspect minimal chronic periventricular white matter changes. mild generalized volume loss. Status: Acute COPD Assessment and Plan: 96% on 2L NC Imaging: Chest x-RAY: No active disease Troponin I neg x 3 patient uses CPAP at night at home, ordered Medication: * Duonesb 3ml INH q4h PRN * Spiriva 18mcg INH RQ24 * Pulmicort 0.5mg INH RQ12H * Prednisone Taper [id number] started on 09/26/17. * 2L NC as needed Status: Chronic SERGEI (acute kidney injury) Assessment and Plan: * BUN/Cr: 44/1.5 * Home medication: Vasotec and lasix held; BP currently stable * Monitor with am labs Status: Acute Hypertension Assessment and Plan: BP currently stable Home medications: * Norvasc 5mg PO QD * Coreg 3.125mg po BID * Vasotec 5mg PO QD ( Held due to SERGEI) * Lasix 40mg PO QD (Held due to SERGEI) Status: Chronic Diabetes mellitus Assessment and Plan: Accuchecks HbgA1C: 6.2 ISS- Medium dose Home medication: Metformin 500mg PO BID ( Held due to SERGEI) Status: Chronic HLD (hyperlipidemia) Assessment and Plan: lipid panel: Triglycerides 77, Cholesterol 119, LDL 61 HDL 42 Crestor 20mg PO HS Status: Chronic CAD (coronary artery disease) Assessment and Plan: ECHO 05/17/17: LVEF 60-65%, transmitral doppler flow pattern is grade II pseudonormal filling dynamics. mild aortic regurg. mitral regurg is mild. Hx of cardiac stent * ASA 81mg PO QD * Crestor 20mg PO HS * Plavix 75mg PO QD stopped - no indication, stents place Status: Chronic GERD Assessment and Plan: Pepcid 20mg PO BID Status: Acute Gout Assessment and Plan: Allopurinol 100mg po daily Status: Chronic Dark Stool, resolved Assessment and Plan: negative occult blood Status: Resolved Prophylactic measure Assessment and Plan: GI: Pepcid 20mg PO BID DVT: SCDs, Heparin 5,000 units SC Q12H Heart healthy diet Discussed with Dr. Koch
--- NOTE | 2017-09-27 17:12 | CP.PCM.CON ---
History of Present Illness - History of Present Illness History of Present Illness: This is a patient is a 67 year old male with past medical history of COPD, DM, HTN, CAD s/p cardiac stents, gastritis, and lipid disorder, who presents to the ED with complaint of increasing shortness of breath at rest and with exertion for the past 5-6 days. Patient states that he has been using his Ventolin and nebulizer treatment as prescribed, however, it has not provided much relief in the past 2-3 days. Patient states that his shortness of breath is worse on ambulation, got progressively worse and came to the ER prompted by his brother. Patient admits to productive cough with white-clear phlegm, acid reflux, nausea , abdominal discomfort but denies fever, chills, chest pain, palpitations, recent sickness or travel. Patient states with his increasing shortness of breath, he did not stop his tobacco use. In thr ER he was found to have a left lower extremity DVT and bilateral pulmonary emboli PMD: Dr. Gibbs PMHx: COPD, DM, HTN, CAD s/p cardiac stents, gastritis, and lipid disorder PSHx: Right direct inguinal hernia repair with excision of large cord lipoma and repair of spermatic cord vessel (05/01/15), hematoma of the right groin (S/p right hernia inguinal repair, 05/13/15) incarcerated recurrent para-umbilical hernia open repair w/ mesh (07/21/16), and recent cystoscopy FHx: Unknown Medications Allergies: NKDA Social Hx: Lives with brother. > 30 years of tobacco use ( 1.5PPD), Denies Alcohol and illicit drug use Past Patient History - Infectious Disease Hx of Infectious Diseases: None - Past Medical History & Family History Past Medical History?: Yes - Past Social History Smoking Status: Heavy Smoker > 10 Cigarettes Daily - CARDIAC Hx Hypercholesterolemia: Yes Hx Hypertension: Yes - PULMONARY Hx Chronic Obstructive Pulmonary Disease (COPD): Yes - NEUROLOGICAL Hx Neurological Disorder: No - HEENT Hx HEENT Problems: Yes (POOR VISION) - RENAL Hx Chronic Kidney Disease: Yes - ENDOCRINE/METABOLIC Hx Endocrine Disorders: Yes Hx Diabetes Mellitus Type 2: Yes - HEMATOLOGICAL/ONCOLOGICAL Hx Blood Disorders: No - INTEGUMENTARY Hx Dermatological Problems: No - MUSCULOSKELETAL/RHEUMATOLOGICAL Hx Arthritis: Yes - GASTROINTESTINAL Hx Gastritis: Yes - GENITOURINARY/GYNECOLOGICAL Hx Genitourinary Disorders: Yes Hx Prostate Problems: Yes Other/Comment: HX: DYSURIA - PSYCHIATRIC Hx Anxiety: Yes Hx Substance Use: No - SURGICAL HISTORY Hx Coronary Stent: Yes - ANESTHESIA Hx Anesthesia: Yes Hx Anesthesia Reactions: No Hx Malignant Hyperthermia: No Meds Allergies/Adverse Reactions: Allergies Allergy/AdvReac Type Severity Reaction Status Date / Time No Known Allergies Allergy Verified 03/05/17 10:56 - Medications Medications: Current Medications Albuterol/Ipratropium (Duoneb 3 Mg/0.5 Mg (3 Ml) Ud) 3 ml INH RQ4 PRN PRN Reason: Shortness of Breath Allopurinol (Zyloprim) 100 mg PO DAILY [facility] Last Admin: 09/27/17 11:11 Dose: 100 mg Amlodipine Besylate (Norvasc) 5 mg PO DAILY [facility] Last Admin: 09/27/17 11:11 Dose: 5 mg Apixaban (Eliquis) 10 mg PO BID [facility] Stop: 10/02/17 18:00 Last Admin: 09/27/17 11:12 Dose: 10 mg Aspirin (Ecotrin) 81 mg PO DAILY [facility] Last Admin: 09/27/17 11:12 Dose: 81 mg Budesonide (Pulmicort Respules) 0.5 mg INH RQ12 [facility] Last Admin: 09/27/17 07:55 Dose: 0.5 mg Carvedilol (Coreg) 3.125 mg PO BID [facility] Last Admin: 09/27/17 11:12 Dose: 3.125 mg Dextrose (Dextrose 50% Inj) 0 ml IV STAT PRN; Protocol PRN Reason: Hypoglycemia Protocol Dextrose (Glutose 15) 0 gm PO ONCE PRN; Protocol PRN Reason: Hypoglycemia Protocol Enalapril Maleate (Vasotec) 5 mg PO DAILY [facility] Famotidine (Pepcid) 20 mg PO BID [facility] Last Admin: 09/27/17 11:11 Dose: 20 mg Glucagon (Glucagen Diagnostic Kit) 0 mg IM STAT PRN; Protocol PRN Reason: Hypoglycemia Protocol Guaifenesin/Dextromethorphan (Robitussin Dm) 10 ml PO Q4H PRN PRN Reason: Cough and congestion Last Admin: 09/23/17 23:52 Dose: 10 ml Dextrose (Dextrose 5% In Water 1000 Ml) 1,000 mls @ 0 mls/hr IV .Q0M PRN; Protocol; Per Protocol PRN Reason: Hypoglycemia Protocol Insulin Aspart (Novolog) 0 unit SC ACHS [facility] PRN Reason: Protocol Last Admin: 09/27/17 13:00 Dose: Not Given Prednisone (Prednisone Tab) 30 mg PO ONCE ONE Stop: 09/28/17 10:01 Prednisone (Prednisone Tab) 20 mg PO ONCE ONE Stop: 09/29/17 10:01 Prednisone (Prednisone Tab) 10 mg PO ONCE ONE Stop: 09/30/17 10:01 Rosuvastatin Calcium (Crestor) 20 mg PO HS [facility] Last Admin: 09/26/17 21:36 Dose: 20 mg Tiotropium [place] (Spiriva) 18 mcg INH RQ24 [facility] Last Admin: 09/27/17 07:55 Dose: 18 mcg Zolpidem Tartrate (Ambien) 5 mg PO HS [facility] Last Admin: 09/26/17 21:36 Dose: 5 mg Zolpidem Tartrate (Ambien) 5 mg PO HS PRN PRN Reason: Insomnia Last Admin: 09/26/17 01:17 Dose: 5 mg Results - Vital Signs Recent Vital Signs: Last Vital Signs Temp 98 F 09/27/17 16:00 Pulse 62 09/27/17 16:00 Resp 20 09/27/17 16:00 BP 137/81 09/27/17 16:00 Pulse Ox 95 09/27/17 16:00 - Labs Result Diagrams: 09/27/17 07:08 09/27/17 07:08 Labs: Laboratory Results - last 24 hr 09/25/17 09/26/17 09/26/17 20:49 06:12 12:08 WBC RBC Hgb Hct MCV MCH MCHC RDW Plt Count MPV Neut % (Auto) Lymph % (Auto) Mcpherson % (Auto) Eos % (Auto) Baso % (Auto) Neut # (Auto) Lymph # (Auto) Mcpherson # (Auto) Eos # (Auto) Baso # (Auto) Sodium Potassium Chloride Carbon Dioxide Anion Gap BUN Creatinine Est GFR ( Amer) Est GFR (Non-Af Amer) POC Glucose (mg/dL) 211 H 138 H 172 H Random Glucose Calcium Phosphorus Magnesium Total Bilirubin AST ALT Alkaline Phosphatase Total Protein Albumin Globulin Albumin/Globulin Ratio 09/26/17 09/26/17 09/27/17 16:02 21:03 06:29 WBC RBC Hgb Hct MCV MCH MCHC RDW Plt Count MPV Neut % (Auto) Lymph % (Auto) Mcpherson % (Auto) Eos % (Auto) Baso % (Auto) Neut # (Auto) Lymph # (Auto) Mcpherson # (Auto) Eos # (Auto) Baso # (Auto) Sodium Potassium Chloride Carbon Dioxide Anion Gap BUN Creatinine Est GFR ( Amer) Est GFR (Non-Af Amer) POC Glucose (mg/dL) 236 H 176 H 115 H Random Glucose Calcium Phosphorus Magnesium Total Bilirubin AST ALT Alkaline Phosphatase Total Protein Albumin Globulin Albumin/Globulin Ratio 09/27/17 09/27/17 09/27/17 07:08 07:08 11:21 WBC 16.1 H RBC 4.90 Hgb 14.9 Hct 45.2 MCV 92.3 MCH 30.5 MCHC 33.0 RDW 15.1 H Plt Count 187 MPV 8.9 Neut % (Auto) 72.7 Lymph % (Auto) 19.9 L Mcpherson % (Auto) 6.9 Eos % (Auto) 0.3 Baso % (Auto) 0.2 Neut # (Auto) 11.7 H Lymph # (Auto) 3.2 Mcpherson # (Auto) 1.1 H Eos # (Auto) 0.1 Baso # (Auto) 0.0 Sodium 138 Potassium 4.9 Chloride 104 Carbon Dioxide 26 Anion Gap 14 BUN 44 H Creatinine 1.5 Est GFR ( Amer) 57 Est GFR (Non-Af Amer) 47 POC Glucose (mg/dL) 145 H Random Glucose 122 H Calcium 9.3 Phosphorus 3.5 Magnesium 2.0 Total Bilirubin 0.4 AST 21 ALT 27 Alkaline Phosphatase 37 L Total Protein 5.8 L Albumin 3.4 L Globulin 2.4 Albumin/Globulin Ratio 1.4 Assessment & Plan (1) Pulmonary embolism Assessment and Plan: 67 yo man with newly diagnosed pulmonary embolism and left lower extremity DVt, admitted with KIMBROUGH and lower extremity swelling, thrombophilia work up pending, echocardiogram results pending as well. The accquired etiologies include obesity , peripheral vascular disease, history of long time smoking, relative immobility. For now, because the results of the work up are still pending, would recommend treatment with NOACs for at least 6 months, may be longer because of the likely persistence of the risk factors Status: Acute
--- NOTE | 2017-09-27 21:03 | CARD ---
APPROVED REPORT EKG Measurement Heart [id number] <Conclusion> Normal sinus rhythm Minimal voltage criteria for LVH, may be normal variant Borderline ECG
--- NOTE | 2017-09-27 23:30 | CARD ---
APPROVED REPORT Date of service: 09/27/2017 EXAM: Two-dimensional and M-mode echocardiogram with Doppler and color Doppler. Other Information Quality : GoodRhythm : INDICATION Pulmonary Embolism COPD RISK FACTORS Obesity 2D DIMENSIONS IVSd1.4 (0.7-1.1cm)LVDd4.7 (3.9-5.9cm) PWd1.0 (0.7-1.1cm)LVDs3.5 (2.5-4.0cm) FS (%) 25.7 %LVEF (%)50.6 (>50%) M-Mode DIMENSIONS Left Atrium (MM)5.14 (2.5-4.0cm)Aortic Root3.67 (2.2-3.7cm) Aortic Cusp Exc.2.49 (1.5-2.0cm) Aortic Valve AI P 1/2 [id number] Mitral Valve MV E Mhbemrnw66.7cm/sMV A Psajdvvf56.3cm/sE/A ratio0.8 TDI E/Lateral E'0.0E/Medial E'0.0 Tricuspid Valve TR Peak [id number]/sTR Peak [id number] LEFT VENTRICLE The left ventricle is normal size. There is normal left ventricular wall thickness. Left ventricle systolic function is normal. The Ejection Fraction is 50-55%. There is normal LV segmental wall motion. The left ventricular diastolic function is normal. No left ventricle thrombus noted on this study. RIGHT VENTRICLE The right ventricle is normal size. The right ventricular systolic function is normal. ATRIA The left atrium is moderately dilated. The right atrium size is normal. AORTIC VALVE The aortic valve is mildly thickened. The aortic valve is trileaflet. There is trace to mild aortic regurgitation. There is no aortic valvular stenosis. There is no aortic valvular vegetation. MITRAL VALVE Mitral annular calcification is mild. There is no evidence of mitral valve prolapse. There is no mitral valve stenosis. There is no mitral valve regurgitation noted. TRICUSPID VALVE The tricuspid valve is normal in structure. There is mild tricuspid regurgitation. Right ventricular systolic pressure is estimated at 30-40 mmHg. There is no pulmonary hypertension. There is no tricuspid valve prolapse or vegetation. There is no tricuspid valve stenosis. PULMONIC VALVE The pulmonic valve is not well visualized. There is trace to mild pulmonic valvular regurgitation. GREAT VESSELS The aortic root is normal in size. The IVC is normal in size and collapses >50% with inspiration. PERICARDIAL EFFUSION There is no pericardial effusion. There is no pleural effusion. <Conclusion> The left ventricle is normal size. Left ventricle systolic function is normal. The Ejection Fraction is 50-55%. The left ventricular diastolic function is normal. The right ventricle is normal size. The right ventricular systolic function is normal. The left atrium is moderately dilated. The right atrium size is normal. There is trace to mild aortic regurgitation. There is mild tricuspid regurgitation. There is trace to mild pulmonic valvular regurgitation.
[2017-09-28 07:03] LABS: BASO % 0.1 % (0.0-2.0); EOS # 0.1 K/uL (0.0-0.7); EOS % 0.4 % (0.0-4.0); HEMOGLOBIN 14.6 g/dL (12.0-18.0); LYMPH # 3.4 K/uL (1.0-4.3); LYMPH % 19.8 % (20.0-40.0); MEAN CELL VOLUME 91.2 fL (80.0-94.0); MEAN CORPUSCULAR HEMOGLOBIN 30.1 pg (27.0-31.0); MEAN PLATELET VOLUME 8.6 fL (7.2-11.7); MONO # 1.4 K/uL (0.0-0.8); NEUT # 12.3 K/uL (1.8-7.0); NEUT % 71.7 % (50.0-75.0); RBC 4.83 Mil/uL (4.40-5.90); RED CELL DISTRIBUTION WIDTH 15.1 % (11.5-14.5); WHITE BLOOD COUNT 17.1 K/uL (4.8-10.8)
[2017-09-28] MEDS: Budesonide 0.5 mg/2 ml Inhal Susp UD INH SCH ×2 (07:21→19:46)
[2017-09-28] MEDS: Albuterol-Ipratrop 3 mg / 0.5 (3 ml) UD INH PRN (07:21)
[2017-09-28] MEDS: Tiotropium 18 mcg Cap For Inhalation INH SCH (07:21)
[2017-09-28 07:33] LABS: ALB/GLOB RATIO 1.5 (1.0-2.1); ALBUMIN 3.3 g/dL (3.5-5.0); ALT/SGPT 37 U/L (21-72); AST/SGOT 24 U/L (17-59); BLOOD UREA NITROGEN 52 mg/dL (9-20); CALCIUM 9.2 mg/dl (8.6-10.4); GFR AFRICAN-AMERICAN > 60; GFR NON-AFRICAN AMERICAN 51
[2017-09-28] MEDS: (Novolog) Insulin Aspart, Recombinant 100 u/ml 10 ml vial SC SCH ×4 (08:30→21:54)
--- NOTE | 2017-09-28 14:42 | CP.PCM.PN ---
Subjective - Date & Time of Evaluation Date of Evaluation: 09/28/17 Time of Evaluation: 08:00 - Subjective Subjective: PGY3- Progress Note for Dr. Gibbs Patient seen and examined at bedside. Patient says his shortness of breath is improving very slightly daily but is still there. He reports he has difficult sleeping overnight as well. Patient denies any chest pain, abdominal pain, constipation or diarrhea. Objective - Vital Signs/Intake and Output Vital Signs (last 24 hours): Temp Pulse Resp BP Pulse Ox 97.3 F L 65 18 136/74 96 09/28/17 07:00 09/28/17 09:54 09/28/17 07:00 09/28/17 09:54 09/28/17 07:00 - Medications Medications: Current Medications Albuterol/Ipratropium (Duoneb 3 Mg/0.5 Mg (3 Ml) Ud) 3 ml INH RQ4 PRN PRN Reason: Shortness of Breath Last Admin: 09/28/17 07:21 Dose: 3 ml Allopurinol (Zyloprim) 100 mg PO DAILY [facility] Last Admin: 09/28/17 10:00 Dose: 100 mg Amlodipine Besylate (Norvasc) 5 mg PO DAILY [facility] Last Admin: 09/28/17 10:00 Dose: 5 mg Apixaban (Eliquis) 10 mg PO BID [facility] Stop: 10/02/17 18:00 Last Admin: 09/28/17 10:00 Dose: 10 mg Aspirin (Ecotrin) 81 mg PO DAILY [facility] Last Admin: 09/28/17 10:15 Dose: 81 mg Budesonide (Pulmicort Respules) 0.5 mg INH RQ12 [facility] Last Admin: 09/28/17 07:21 Dose: 0.5 mg Carvedilol (Coreg) 3.125 mg PO BID [facility] Last Admin: 09/28/17 10:00 Dose: 3.125 mg Dextrose (Dextrose 50% Inj) 0 ml IV STAT PRN; Protocol PRN Reason: Hypoglycemia Protocol Dextrose (Glutose 15) 0 gm PO ONCE PRN; Protocol PRN Reason: Hypoglycemia Protocol Enalapril Maleate (Vasotec) 5 mg PO DAILY [facility] Famotidine (Pepcid) 20 mg PO BID [facility] Last Admin: 09/28/17 10:00 Dose: 20 mg Glucagon (Glucagen Diagnostic Kit) 0 mg IM STAT PRN; Protocol PRN Reason: Hypoglycemia Protocol Guaifenesin/Dextromethorphan (Robitussin Dm) 10 ml PO Q4H PRN PRN Reason: Cough and congestion Last Admin: 09/23/17 23:52 Dose: 10 ml Insulin Aspart (Novolog) 0 unit SC ACHS ERIK PRN Reason: Protocol Last Admin: 09/28/17 11:14 Dose: Not Given Prednisone (Prednisone Tab) 20 mg PO ONCE ONE Stop: 09/29/17 10:01 Prednisone (Prednisone Tab) 10 mg PO ONCE ONE Stop: 09/30/17 10:01 Rosuvastatin Calcium (Crestor) 20 mg PO HS [facility] Last Admin: 09/27/17 21:45 Dose: 20 mg Tiotropium [place] (Spiriva) 18 mcg INH RQ24 [facility] Last Admin: 09/28/17 07:21 Dose: 18 mcg Zolpidem Tartrate (Ambien) 5 mg PO HS [facility] Last Admin: 09/27/17 21:44 Dose: 5 mg Zolpidem Tartrate (Ambien) 5 mg PO HS PRN PRN Reason: Insomnia Last Admin: 09/26/17 01:17 Dose: 5 mg - Labs Labs: 09/28/17 06:52 09/28/17 06:52 APTT 26 SECONDS (21-34) D 09/26/17 08:07 - Constitutional Appears: Non-toxic, No Acute Distress - Head Exam Head Exam: ATRAUMATIC, NORMAL INSPECTION - Eye Exam Eye Exam: EOMI, PERRL Pupil Exam: NORMAL ACCOMODATION - ENT Exam ENT Exam: Mucous Membranes Moist - Respiratory Exam Respiratory Exam: Clear to Ausculation Bilateral, NORMAL BREATHING PATTERN Additional comments: on NC - Cardiovascular Exam Cardiovascular Exam: REGULAR RHYTHM, +S1, +S2 - GI/Abdominal Exam GI & Abdominal Exam: Soft, Normal Bowel Sounds. absent: Distended, Firm, Guarding, Tenderness Additional comments: obese - Extremities Exam Extremities Exam: Normal Inspection - Back Exam Back Exam: NORMAL INSPECTION - Neurological Exam Neurological Exam: Alert, Awake, Oriented x3 - Psychiatric Exam Psychiatric exam: Normal Affect, Normal Mood Assessment and Plan - Assessment and Plan (Free Text) Assessment: Bilateral PEs Assessment and Plan: D Dimer 1992 CTA: b/l PEs, worse on right. no evidence for right ventricular strain eliquis 10mg po BID for 7 days (until 10/02/17) starting 10/03/17 Eliquis should be 5 mg PO BID aneurysm of the ascending aorta patchy ground-glass attenuation in the right upper lobe could be related to developing pulmonary infarctions or nonspecific infection/ inflammation asymmetric enlargement of the right thyroid lobe with indeterminate nodules. A dedicated thyroid u/s recommended coag studies ordered: antiphospholipid, antithrombin III, Factor V Leiden, Lupus anticoagulant, Protein C, Protein S, prothrombin Heparin drip stopped on 09/26/17 Echo EF 50% - no evidence of right heart strain Venous dopplers: positive for acute DVT in left popliteal and posterior tibial Aortic Aneurysm Assessment and Plan: 4.3 x 4.3 cm Cardio, Dr. Burrows consulted, help appreciated Vascular, Dr. Pa consulted, help appreciated no immediate surgical intervention blood pressure control Status: Acute Dizziness Assessment and Plan: Resolved head CT without contrast: no acute intracranial hemorrhage. small chronic left caudate infarct. suspect minimal chronic periventricular white matter changes. mild generalized volume loss. Status: Acute COPD Assessment and Plan: 96% on 2L NC Imaging: Chest x-RAY: No active disease Troponin I neg x 3 patient uses CPAP at night at home, ordered Medication: * Duonesb 3ml INH q4h PRN * Spiriva 18mcg INH RQ24 * Pulmicort 0.5mg INH RQ12H * Prednisone Taper 75-81-35-20-10 started on 09/26/17. * 2L NC as needed Status: Chronic SERGEI (acute kidney injury) Assessment and Plan: * BUN/Cr: 52/1.4 * Home medication: Vasotec and lasix held; BP currently stable * Monitor with am labs * 1/2NS at 60 cc/hour Status: Acute Hypertension Assessment and Plan: BP currently stable Home medications: * Norvasc 5mg PO QD * Coreg 3.125mg po BID * Vasotec 5mg PO QD ( Held due to SERGEI) * Lasix 40mg PO QD (Held due to SERGEI) Status: Chronic Diabetes mellitus Assessment and Plan: Accuchecks HbgA1C: 6.2 ISS- Medium dose Home medication: Metformin 500mg PO BID ( Held due to SERGEI) Status: Chronic HLD (hyperlipidemia) Assessment and Plan: lipid panel: Triglycerides 77, Cholesterol 119, LDL 61 HDL 42 Crestor 20mg PO HS Status: Chronic CAD (coronary artery disease) Assessment and Plan: ECHO 05/17/17: LVEF 60-65%, transmitral doppler flow pattern is grade II pseudonormal filling dynamics. mild aortic regurg. mitral regurg is mild. Hx of cardiac stent * ASA 81mg PO QD * Crestor 20mg PO HS * Plavix 75mg PO QD stopped - no indication, stents place Status: Chronic GERD Assessment and Plan: Pepcid 20mg PO BID Status: Acute Gout Assessment and Plan: Allopurinol 100mg po daily Status: Chronic Dark Stool, resolved Assessment and Plan: negative occult blood Status: Resolved Sleep Apnea Assessment and Plan: BIPAP at night Status: Resolved Prophylactic measure Assessment and Plan: GI: Pepcid 20mg PO BID DVT: SCDs, Heparin 5,000 units SC Q12H Heart healthy diet All orders and management per Dr. Gibbs Dispo -? likely DC tomorrow Carmen Mccall DO PGY3
[2017-09-28 16:33] VITALS: RESP 20
[2017-09-29 04:59] LABS: B2 GLYCOPROTEIN I AB(IGA) <9 SAU (<=20); B2 GLYCOPROTEIN I AB(IGG) <9 SGU (<=20); B2 GLYCOPROTEIN I AB(IGM) <9 SMU (<=20); CARDIOLIPIN AB (IGA) <11 APL (<=11); CARDIOLIPIN AB (IGG) <14 GPL (<=14); CARDIOLIPIN AB (IGM) <12 MPL (<=12); PHOSPHATIDYLSERINE AB IGA <20 U/mL (<20); PHOSPHATIDYLSERINE AB IGG <10 U/mL (<10); PHOSPHATIDYLSERINE AB IGM <25 U/mL (<25)
[2017-09-29] MEDS: (Novolog) Insulin Aspart, Recombinant 100 u/ml 10 ml vial SC SCH ×4 (07:40→21:09)
--- NOTE | 2017-09-29 07:41 | CP.PCM.PN ---
Subjective - Date & Time of Evaluation Date of Evaluation: 09/29/17 Time of Evaluation: 07:00 Objective - Vital Signs/Intake and Output Vital Signs (last 24 hours): Temp Pulse Resp BP Pulse Ox 98.0 F 97 H 20 116/66 92 L 09/28/17 23:32 09/29/17 04:10 09/28/17 23:32 09/28/17 23:32 09/28/17 23:32 - Medications Medications: Current Medications Albuterol/Ipratropium (Duoneb 3 Mg/0.5 Mg (3 Ml) Ud) 3 ml INH RQ4 PRN PRN Reason: Shortness of Breath Last Admin: 09/28/17 07:21 Dose: 3 ml Allopurinol (Zyloprim) 100 mg PO DAILY [facility] Last Admin: 09/28/17 10:00 Dose: 100 mg Amlodipine Besylate (Norvasc) 5 mg PO DAILY [facility] Last Admin: 09/28/17 10:00 Dose: 5 mg Apixaban (Eliquis) 10 mg PO BID [facility] Stop: 10/02/17 18:00 Last Admin: 09/28/17 17:49 Dose: 10 mg Aspirin (Ecotrin) 81 mg PO DAILY [facility] Last Admin: 09/28/17 10:15 Dose: 81 mg Budesonide (Pulmicort Respules) 0.5 mg INH RQ12 [facility] Last Admin: 09/28/17 19:46 Dose: Not Given Carvedilol (Coreg) 3.125 mg PO BID [facility] Last Admin: 09/28/17 17:48 Dose: Not Given Dextrose (Dextrose 50% Inj) 0 ml IV STAT PRN; Protocol PRN Reason: Hypoglycemia Protocol Dextrose (Glutose 15) 0 gm PO ONCE PRN; Protocol PRN Reason: Hypoglycemia Protocol Enalapril Maleate (Vasotec) 5 mg PO DAILY [facility] Famotidine (Pepcid) 20 mg PO BID [facility] Last Admin: 09/28/17 17:49 Dose: 20 mg Glucagon (Glucagen Diagnostic Kit) 0 mg IM STAT PRN; Protocol PRN Reason: Hypoglycemia Protocol Guaifenesin/Dextromethorphan (Robitussin Dm) 10 ml PO Q4H PRN PRN Reason: Cough and congestion Last Admin: 09/23/17 23:52 Dose: 10 ml Insulin Aspart (Novolog) 0 unit SC [facility] PRN Reason: Protocol Last Admin: 09/28/17 21:54 Dose: Not Given Prednisone (Prednisone Tab) 20 mg PO ONCE ONE Stop: 09/29/17 10:01 Prednisone (Prednisone Tab) 10 mg PO ONCE ONE Stop: 09/30/17 10:01 Rosuvastatin Calcium (Crestor) 20 mg PO HS [facility] Last Admin: 09/28/17 21:56 Dose: 20 mg Tiotropium [place] (Spiriva) 18 mcg INH RQ24 [facility] Last Admin: 09/28/17 07:21 Dose: 18 mcg Zolpidem Tartrate (Ambien) 5 mg PO HS [facility] Last Admin: 09/28/17 21:56 Dose: 5 mg Zolpidem Tartrate (Ambien) 5 mg PO HS PRN PRN Reason: Insomnia Last Admin: 09/26/17 01:17 Dose: 5 mg - Labs Labs: 09/28/17 06:52 09/28/17 06:52 APTT 26 SECONDS (21-34) D 09/26/17 08:07
--- NOTE | 2017-09-29 07:43 | CP.PCM.PN ---
Subjective - Date & Time of Evaluation Date of Evaluation: 09/29/17 Time of Evaluation: 08:00 - Subjective Subjective: PGY3- Progress Note for Dr. Gibbs Patient seen and examined at bedside. Patient says his shortness of breath is improving very slightly daily but is still there. He reports he has difficult sleeping overnight as well. Patient denies any chest pain, abdominal pain, constipation or diarrhea. Objective - Vital Signs/Intake and Output Vital Signs (last 24 hours): Temp Pulse Resp BP Pulse Ox 98.0 F 97 H 20 116/66 92 L 09/28/17 23:32 09/29/17 04:10 09/28/17 23:32 09/28/17 23:32 09/28/17 23:32 - Medications Medications: Current Medications Albuterol/Ipratropium (Duoneb 3 Mg/0.5 Mg (3 Ml) Ud) 3 ml INH RQ4 PRN PRN Reason: Shortness of Breath Last Admin: 09/28/17 07:21 Dose: 3 ml Allopurinol (Zyloprim) 100 mg PO DAILY [facility] Last Admin: 09/28/17 10:00 Dose: 100 mg Amlodipine Besylate (Norvasc) 5 mg PO DAILY [facility] Last Admin: 09/28/17 10:00 Dose: 5 mg Apixaban (Eliquis) 10 mg PO BID [facility] Stop: 10/02/17 18:00 Last Admin: 09/28/17 17:49 Dose: 10 mg Aspirin (Ecotrin) 81 mg PO DAILY [facility] Last Admin: 09/28/17 10:15 Dose: 81 mg Budesonide (Pulmicort Respules) 0.5 mg INH RQ12 [facility] Last Admin: 09/28/17 19:46 Dose: Not Given Carvedilol (Coreg) 3.125 mg PO BID [facility] Last Admin: 09/28/17 17:48 Dose: Not Given Dextrose (Dextrose 50% Inj) 0 ml IV STAT PRN; Protocol PRN Reason: Hypoglycemia Protocol Dextrose (Glutose 15) 0 gm PO ONCE PRN; Protocol PRN Reason: Hypoglycemia Protocol Enalapril Maleate (Vasotec) 5 mg PO DAILY [facility] Famotidine (Pepcid) 20 mg PO BID [facility] Last Admin: 09/28/17 17:49 Dose: 20 mg Glucagon (Glucagen Diagnostic Kit) 0 mg IM STAT PRN; Protocol PRN Reason: Hypoglycemia Protocol Guaifenesin/Dextromethorphan (Robitussin Dm) 10 ml PO Q4H PRN PRN Reason: Cough and congestion Last Admin: 09/23/17 23:52 Dose: 10 ml Insulin Aspart (Novolog) 0 unit SC [facility] PRN Reason: Protocol Last Admin: 09/28/17 21:54 Dose: Not Given Prednisone (Prednisone Tab) 20 mg PO ONCE ONE Stop: 09/29/17 10:01 Prednisone (Prednisone Tab) 10 mg PO ONCE ONE Stop: 09/30/17 10:01 Rosuvastatin Calcium (Crestor) 20 mg PO HS [facility] Last Admin: 09/28/17 21:56 Dose: 20 mg Tiotropium [place] (Spiriva) 18 mcg INH RQ24 [facility] Last Admin: 09/28/17 07:21 Dose: 18 mcg Zolpidem Tartrate (Ambien) 5 mg PO HS [facility] Last Admin: 09/28/17 21:56 Dose: 5 mg Zolpidem Tartrate (Ambien) 5 mg PO HS PRN PRN Reason: Insomnia Last Admin: 09/26/17 01:17 Dose: 5 mg - Labs Labs: 09/28/17 06:52 09/28/17 06:52 APTT 26 SECONDS (21-34) D 09/26/17 08:07 - Constitutional Appears: Non-toxic, No Acute Distress - Head Exam Head Exam: ATRAUMATIC, NORMAL INSPECTION - Eye Exam Eye Exam: EOMI, Normal appearance - ENT Exam ENT Exam: Mucous Membranes Moist - Respiratory Exam Respiratory Exam: Clear to Ausculation Bilateral, NORMAL BREATHING PATTERN. absent: Respiratory Distress Additional comments: on nc - Cardiovascular Exam Cardiovascular Exam: REGULAR RHYTHM, +S1, +S2 - GI/Abdominal Exam GI & Abdominal Exam: Soft, Normal Bowel Sounds. absent: Distended, Firm, Guarding, Tenderness Additional comments: obese - Extremities Exam Extremities Exam: Normal Inspection. absent: Calf Tenderness - Back Exam Back Exam: NORMAL INSPECTION. absent: CVA tenderness (L), CVA tenderness (R), paraspinal tenderness - Neurological Exam Neurological Exam: Alert, Awake, CN II-XII Intact, Oriented x3 Neuro motor strength exam: Left Upper Extremity: 5, Right Upper Extremity: 5, Left Lower Extremity: 5, Right Lower Extremity: 5 - Psychiatric Exam Psychiatric exam: Normal Affect, Normal Mood - Skin Skin Exam: Normal Color Assessment and Plan - Assessment and Plan (Free Text) Assessment: Bilateral PEs Assessment and Plan: D Dimer 1993 CTA: b/l PEs, worse on right. no evidence for right ventricular strain eliquis 10mg po BID for 7 days (until 10/02/17) starting 10/03/17 Eliquis should be 5 mg PO BID aneurysm of the ascending aorta patchy ground-glass attenuation in the right upper lobe could be related to developing pulmonary infarctions or nonspecific infection/ inflammation asymmetric enlargement of the right thyroid lobe with indeterminate nodules. A dedicated thyroid u/s recommended coag studies ordered: antiphospholipid, antithrombin III, Factor V Leiden, Lupus anticoagulant, Protein C, Protein S, prothrombin Heparin drip stopped on 09/26/17 Echo EF 50% - no evidence of right heart strain Venous dopplers: positive for acute DVT in left popliteal and posterior tibial Aortic Aneurysm Assessment and Plan: 4.3 x 4.3 cm Cardio, Dr. Burrows consulted, help appreciated Vascular, Dr. Pa consulted, help appreciated no immediate surgical intervention blood pressure control Status: Acute Dizziness Assessment and Plan: Resolved head CT without contrast: no acute intracranial hemorrhage. small chronic left caudate infarct. suspect minimal chronic periventricular white matter changes. mild generalized volume loss. Status: Acute COPD Assessment and Plan: 96% on 2L NC Imaging: Chest x-RAY: No active disease Troponin I neg x 3 patient uses CPAP at night at home, ordered Medication: * Duonesb 3ml INH q4h PRN * Spiriva 18mcg INH RQ24 * Pulmicort 0.5mg INH RQ12H * Prednisone Taper 98-95-20-20-10 started on 09/26/17. * 2L NC as needed Status: Chronic SERGEI (acute kidney injury) Assessment and Plan: * BUN/Cr: 52/1.4 * Home medication: Vasotec and lasix held; BP currently stable * Monitor with am labs * 1/2NS at 60 cc/hour Status: Acute Hypertension Assessment and Plan: BP currently stable Home medications: * Norvasc 5mg PO QD * Coreg 3.125mg po BID * Vasotec 5mg PO QD ( Held due to SERGEI) * Lasix 40mg PO QD (Held due to SERGEI) Status: Chronic Diabetes mellitus Assessment and Plan: Accuchecks HbgA1C: 6.2 ISS- Medium dose Home medication: Metformin 500mg PO BID ( Held due to SERGEI) Status: Chronic HLD (hyperlipidemia) Assessment and Plan: lipid panel: Triglycerides 77, Cholesterol 119, LDL 61 HDL 42 Crestor 20mg PO HS Status: Chronic CAD (coronary artery disease) Assessment and Plan: ECHO 05/17/17: LVEF 60-65%, transmitral doppler flow pattern is grade II pseudonormal filling dynamics. mild aortic regurg. mitral regurg is mild. Hx of cardiac stent * ASA 81mg PO QD * Crestor 20mg PO HS * Plavix 75mg PO QD stopped - no indication, stents place Status: Chronic GERD Assessment and Plan: Pepcid 20mg PO BID Status: Acute Gout Assessment and Plan: Allopurinol 100mg po daily Status: Chronic Dark Stool, resolved Assessment and Plan: negative occult blood Status: Resolved Sleep Apnea Assessment and Plan: BIPAP at night Status: Resolved Prophylactic measure Assessment and Plan: GI: Pepcid 20mg PO BID DVT: SCDs, Heparin 5,000 units SC Q12H Heart healthy diet All orders and management per Dr. Sai Mccall DO PGY3
[2017-09-29 07:47] LABS: BASO # 0.1 K/uL (0.0-0.2); BASO % 0.3 % (0.0-2.0); EOS # 0.1 K/uL (0.0-0.7); EOS % 0.8 % (0.0-4.0); HEMOGLOBIN 14.8 g/dL (12.0-18.0); LYMPH # 4.1 K/uL (1.0-4.3); LYMPH % 24.2 % (20.0-40.0); MEAN CELL VOLUME 91.3 fL (80.0-94.0); MEAN CORPUSCULAR HEMOGLOBIN 30.4 pg (27.0-31.0); MEAN CORPUSCULAR HGB CONC 33.3 g/dL (33.0-37.0); MEAN PLATELET VOLUME 8.5 fL (7.2-11.7); MONO # 1.3 K/uL (0.0-0.8); MONO % 7.5 % (0.0-10.0); NEUT # 11.3 K/uL (1.8-7.0); NEUT % 67.2 % (50.0-75.0); NRBC % 0.1 % (0.0-2.0); RBC 4.86 Mil/uL (4.40-5.90); RED CELL DISTRIBUTION WIDTH 14.7 % (11.5-14.5); WHITE BLOOD COUNT 16.9 K/uL (4.8-10.8)
[2017-09-29] MEDS: Albuterol-Ipratrop 3 mg / 0.5 (3 ml) UD INH PRN ×2 (07:57→19:34)
[2017-09-29] MEDS: Budesonide 0.5 mg/2 ml Inhal Susp UD INH SCH ×2 (07:57→19:34)
[2017-09-29] MEDS: Tiotropium 18 mcg Cap For Inhalation INH SCH (07:58)
[2017-09-29 08:06] LABS: ALB/GLOB RATIO 1.4 (1.0-2.1); ALBUMIN 3.2 g/dL (3.5-5.0); CALCIUM 9.3 mg/dl (8.6-10.4)
[2017-09-29] MEDS ORDERED: Sodium Chloride 0.45% 1,000 ML IV SCH (09:45)
--- NOTE | 2017-09-29 19:29 | CP.PCM.PN ---
Subjective - Date & Time of Evaluation Date of Evaluation: 09/29/17 Time of Evaluation: 19:26 - Subjective Subjective: The patient is ambulatory, reports improved breathing, no bleeding or bruising reported. Objective - Vital Signs/Intake and Output Vital Signs (last 24 hours): Temp Pulse Resp BP Pulse Ox 98.3 F 78 20 117/73 96 09/29/17 15:43 09/29/17 16:00 09/29/17 15:43 09/29/17 15:43 09/29/17 15:43 - Medications Medications: Current Medications Albuterol/Ipratropium (Duoneb 3 Mg/0.5 Mg (3 Ml) Ud) 3 ml INH RQ4 PRN PRN Reason: Shortness of Breath Last Admin: 09/29/17 07:57 Dose: 3 ml Allopurinol (Zyloprim) 100 mg PO DAILY [facility] Last Admin: 09/29/17 10:12 Dose: 100 mg Amlodipine Besylate (Norvasc) 5 mg PO DAILY [facility] Last Admin: 09/29/17 10:12 Dose: 5 mg Apixaban (Eliquis) 10 mg PO BID [facility] Stop: 10/02/17 18:00 Last Admin: 09/29/17 17:08 Dose: 10 mg Aspirin (Ecotrin) 81 mg PO DAILY [facility] Last Admin: 09/29/17 10:13 Dose: 81 mg Budesonide (Pulmicort Respules) 0.5 mg INH RQ12 [facility] Last Admin: 09/29/17 07:57 Dose: 0.5 mg Carvedilol (Coreg) 3.125 mg PO BID [facility] Last Admin: 09/29/17 17:08 Dose: 3.125 mg Dextrose (Dextrose 50% Inj) 0 ml IV STAT PRN; Protocol PRN Reason: Hypoglycemia Protocol Dextrose (Glutose 15) 0 gm PO ONCE PRN; Protocol PRN Reason: Hypoglycemia Protocol Enalapril Maleate (Vasotec) 5 mg PO DAILY [facility] Famotidine (Pepcid) 20 mg PO BID [facility] Last Admin: 09/29/17 17:08 Dose: 20 mg Glucagon (Glucagen Diagnostic Kit) 0 mg IM STAT PRN; Protocol PRN Reason: Hypoglycemia Protocol Guaifenesin/Dextromethorphan (Robitussin Dm) 10 ml PO Q4H PRN PRN Reason: Cough and congestion Last Admin: 09/23/17 23:52 Dose: 10 ml Sodium Chloride (Sodium Chloride 0.45%) 1,000 mls @ 60 mls/hr IV .[id number] [facility] Insulin Aspart (Novolog) 0 unit SC A[facility] PRN Reason: Protocol Last Admin: 09/29/17 17:08 Dose: 3 units Prednisone (Prednisone Tab) 10 mg PO ONCE ONE Stop: 09/30/17 10:01 Rosuvastatin Calcium (Crestor) 20 mg PO HS [facility] Last Admin: 09/28/17 21:56 Dose: 20 mg Tiotropium [place] (Spiriva) 18 mcg INH RQ24 [facility] Last Admin: 09/29/17 07:58 Dose: 18 mcg Zolpidem Tartrate (Ambien) 5 mg PO HS [facility] Last Admin: 09/28/17 21:56 Dose: 5 mg Zolpidem Tartrate (Ambien) 5 mg PO HS PRN PRN Reason: Insomnia Last Admin: 09/26/17 01:17 Dose: 5 mg - Labs Labs: 09/29/17 07:34 09/29/17 07:34 APTT 26 SECONDS (21-34) D 09/26/17 08:07 Assessment and Plan (1) Pulmonary embolism Assessment & Plan: DVT with bilateral PE, possible discharge home with NOAC. The patient will follow up as an outpatient to discuss results of thrombophilia work up Status: Acute
[2017-09-30] MEDS: (Novolog) Insulin Aspart, Recombinant 100 u/ml 10 ml vial SC SCH ×4 (07:11→21:41)
[2017-09-30] MEDS: Albuterol-Ipratrop 3 mg / 0.5 (3 ml) UD INH PRN ×2 (08:05→20:03)
[2017-09-30] MEDS: Tiotropium 18 mcg Cap For Inhalation INH SCH (08:06)
[2017-09-30] MEDS: Budesonide 0.5 mg/2 ml Inhal Susp UD INH SCH ×2 (08:06→20:03)
--- NOTE | 2017-09-30 11:12 | CP.PCM.PN ---
Subjective - Date & Time of Evaluation Date of Evaluation: 09/30/17 Time of Evaluation: 11:12 - Subjective Subjective: PGY-[address] Gibbs Patient seen and examined at bedside. Patient says his shortness of breath is improving very slightly daily but is still there. He reports he has difficult sleeping overnight as well. Patient denies any chest pain, abdominal pain, constipation or diarrhea. Objective - Vital Signs/Intake and Output Vital Signs (last 24 hours): Temp Pulse Resp BP Pulse Ox 97.2 F L 46 L 20 141/80 100 09/30/17 08:09 09/30/17 08:09 09/30/17 08:09 09/30/17 08:09 09/30/17 08:09 - Medications Medications: Current Medications Albuterol/Ipratropium (Duoneb 3 Mg/0.5 Mg (3 Ml) Ud) 3 ml INH RQ4 PRN PRN Reason: Shortness of Breath Last Admin: 09/30/17 08:05 Dose: 3 ml Allopurinol (Zyloprim) 100 mg PO DAILY [facility] Last Admin: 09/30/17 09:13 Dose: 100 mg Amlodipine Besylate (Norvasc) 5 mg PO DAILY [facility] Last Admin: 09/30/17 09:13 Dose: 5 mg Apixaban (Eliquis) 10 mg PO BID [facility] Stop: 10/02/17 18:00 Last Admin: 09/30/17 09:13 Dose: 10 mg Aspirin (Ecotrin) 81 mg PO DAILY [facility] Last Admin: 09/30/17 09:13 Dose: 81 mg Budesonide (Pulmicort Respules) 0.5 mg INH RQ12 [facility] Last Admin: 09/30/17 08:06 Dose: 0.5 mg Carvedilol (Coreg) 3.125 mg PO BID [facility] Last Admin: 09/30/17 09:13 Dose: 3.125 mg Dextrose (Dextrose 50% Inj) 0 ml IV STAT PRN; Protocol PRN Reason: Hypoglycemia Protocol Dextrose (Glutose 15) 0 gm PO ONCE PRN; Protocol PRN Reason: Hypoglycemia Protocol Enalapril Maleate (Vasotec) 5 mg PO DAILY [facility] Famotidine (Pepcid) 20 mg PO BID [facility] Last Admin: 09/30/17 09:13 Dose: 20 mg Glucagon (Glucagen Diagnostic Kit) 0 mg IM STAT PRN; Protocol PRN Reason: Hypoglycemia Protocol Guaifenesin/Dextromethorphan (Robitussin Dm) 10 ml PO Q4H PRN PRN Reason: Cough and congestion Last Admin: 09/23/17 23:52 Dose: 10 ml Sodium Chloride (Sodium Chloride 0.45%) 1,000 mls @ 60 mls/hr IV .[id number] [facility] Last Admin: 09/30/17 03:19 Dose: 60 mls/hr Insulin Aspart (Novolog) 0 unit SC ACHS [facility] PRN Reason: Protocol Last Admin: 09/30/17 07:11 Dose: Not Given Rosuvastatin Calcium (Crestor) 20 mg PO HS [facility] Last Admin: 09/29/17 21:01 Dose: 20 mg Tiotropium [place] (Spiriva) 18 mcg INH RQ24 [facility] Last Admin: 09/30/17 08:06 Dose: 18 mcg Zolpidem Tartrate (Ambien) 5 mg PO HS [facility] Last Admin: 09/29/17 21:01 Dose: 5 mg Zolpidem Tartrate (Ambien) 5 mg PO HS PRN PRN Reason: Insomnia Last Admin: 09/26/17 01:17 Dose: 5 mg - Labs Labs: 09/29/17 07:34 09/29/17 07:34 APTT 26 SECONDS (21-34) D 09/26/17 08:07 - Head Exam Head Exam: ATRAUMATIC, NORMAL INSPECTION, NORMOCEPHALIC - Eye Exam Eye Exam: EOMI, Normal appearance, PERRL Pupil Exam: NORMAL ACCOMODATION, PERRL - ENT Exam ENT Exam: Mucous Membranes Moist, Normal Oropharynx - Respiratory Exam Respiratory Exam: Clear to Ausculation Bilateral. absent: Decreased Breath Sounds, Prolonged Expiratory Phase, Respiratory Distress - Cardiovascular Exam Cardiovascular Exam: REGULAR RHYTHM, +S1, +S2 - GI/Abdominal Exam GI & Abdominal Exam: Soft, Normal Bowel Sounds - Extremities Exam Extremities Exam: Full ROM. absent: Joint Swelling, Tenderness - Back Exam Back Exam: NORMAL INSPECTION. absent: CVA tenderness (R), paraspinal tenderness - Neurological Exam Neurological Exam: Alert, Awake, CN II-XII Intact - Psychiatric Exam Psychiatric exam: Normal Affect, Normal Mood - Skin Skin Exam: Dry, Intact, Normal Color Assessment and Plan - Assessment and Plan (Free Text) Plan: Assessment: Bilateral PEs Assessment and Plan: D Dimer 1992 CTA: b/l PEs, worse on right. no evidence for right ventricular strain eliquis 10mg po BID for 7 days (until 10/02/17) starting 10/03/17 Eliquis should be 5 mg PO BID aneurysm of the ascending aorta patchy ground-glass attenuation in the right upper lobe could be related to developing pulmonary infarctions or nonspecific infection/ inflammation asymmetric enlargement of the right thyroid lobe with indeterminate nodules. A dedicated thyroid u/s recommended coag studies ordered: antiphospholipid, antithrombin III, Factor V Leiden, Lupus anticoagulant, Protein C, Protein S, prothrombin Heparin drip stopped on 09/26/17 Echo EF 50% - no evidence of right heart strain Venous dopplers: positive for acute DVT in left popliteal and posterior tibial Aortic Aneurysm Assessment and Plan: 4.3 x 4.3 cm Cardio, Dr. Burrows consulted, help appreciated Vascular, Dr. Pa consulted, help appreciated no immediate surgical intervention blood pressure control Status: Acute Dizziness Assessment and Plan: Resolved head CT without contrast: no acute intracranial hemorrhage. small chronic left caudate infarct. suspect minimal chronic periventricular white matter changes. mild generalized volume loss. Status: Acute COPD Assessment and Plan: 96% on 2L NC Imaging: Chest x-RAY: No active disease Troponin I neg x 3 patient uses CPAP at night at home, ordered PT Eval ordered. :No need for further services Medication: * Duonesb 3ml INH q4h PRN * Spiriva 18mcg INH RQ24 * Pulmicort 0.5mg INH RQ12H * Prednisone Taper 79-00-87-20-10 started on 09/26/17. * 2L NC as needed Status: Chronic SERGEI (acute kidney injury) Assessment and Plan: * BUN/Cr: 52/1.4 * Home medication: Vasotec and lasix held; BP currently stable * Monitor with am labs * 1/2NS at 60 cc/hour Status: Acute Hypertension Assessment and Plan: BP currently stable Home medications: * Norvasc 5mg PO QD * Coreg 3.125mg po BID * Vasotec 5mg PO QD ( Held due to SERGEI) * Lasix 40mg PO QD (Held due to SERGEI) Status: Chronic Diabetes mellitus Assessment and Plan: Accuchecks HbgA1C: 6.2 ISS- Medium dose Home medication: Metformin 500mg PO BID ( Held due to SERGEI) Status: Chronic HLD (hyperlipidemia) Assessment and Plan: lipid panel: Triglycerides 77, Cholesterol 119, LDL 61 HDL 42 Crestor 20mg PO HS Status: Chronic CAD (coronary artery disease) Assessment and Plan: ECHO 05/17/17: LVEF 60-65%, transmitral doppler flow pattern is grade II pseudonormal filling dynamics. mild aortic regurg. mitral regurg is mild. Hx of cardiac stent * ASA 81mg PO QD * Crestor 20mg PO HS * Plavix 75mg PO QD stopped - no indication, stents place Status: Chronic GERD Assessment and Plan: Pepcid 20mg PO BID Status: Acute Gout Assessment and Plan: Allopurinol 100mg po daily Status: Chronic Dark Stool, resolved Assessment and Plan: negative occult blood Status: Resolved Sleep Apnea Assessment and Plan: BIPAP at night Status: Resolved Prophylactic measure Assessment and Plan: GI: Pepcid 20mg PO BID DVT: SCDs, Heparin 5,000 units SC Q12H Heart healthy diet Discharge Instructions: 1.F/U with PMD within 5 to 7 days upon discharge. 2. F/u with Cardiology within 5 to 7 days upon discharge. 3. Return to hospital for any new or worsening symptoms. Medications: 1. Eliquis 10mg PO BID, #6, No refills 2. Eliquis 5mg PO BID, #360, No refills. 3. Medrol dose pack All orders and management per Dr. Gibbs
--- NOTE | 2017-10-01 07:03 | CP.PCM.PN ---
Subjective - Date & Time of Evaluation Date of Evaluation: 10/01/17 Time of Evaluation: 07:03 - Subjective Subjective: PGY-[address] Gibbs Patient seen and examined at bedside. Patient says his shortness of breath is improving very slightly daily but is still there. He reports he has difficult sleeping overnight as well. Patient denies any chest pain, abdominal pain, constipation or diarrhea. Objective - Vital Signs/Intake and Output Vital Signs (last 24 hours): Temp Pulse Resp BP Pulse Ox 98 F 57 L 20 128/69 98 09/30/17 23:20 10/01/17 01:33 09/30/17 23:20 09/30/17 23:20 09/30/17 23:20 - Medications Medications: Current Medications Albuterol/Ipratropium (Duoneb 3 Mg/0.5 Mg (3 Ml) Ud) 3 ml INH RQ4 PRN PRN Reason: Shortness of Breath Last Admin: 09/30/17 20:03 Dose: 3 ml Allopurinol (Zyloprim) 100 mg PO DAILY [facility] Last Admin: 09/30/17 09:13 Dose: 100 mg Amlodipine Besylate (Norvasc) 5 mg PO DAILY [facility] Last Admin: 09/30/17 09:13 Dose: 5 mg Apixaban (Eliquis) 10 mg PO BID [facility] Stop: 10/02/17 18:00 Last Admin: 09/30/17 17:48 Dose: 10 mg Aspirin (Ecotrin) 81 mg PO DAILY [facility] Last Admin: 09/30/17 09:13 Dose: 81 mg Budesonide (Pulmicort Respules) 0.5 mg INH RQ12 [facility] Last Admin: 09/30/17 20:03 Dose: 0.5 mg Carvedilol (Coreg) 3.125 mg PO BID [facility] Last Admin: 09/30/17 17:49 Dose: Not Given Dextrose (Dextrose 50% Inj) 0 ml IV STAT PRN; Protocol PRN Reason: Hypoglycemia Protocol Dextrose (Glutose 15) 0 gm PO ONCE PRN; Protocol PRN Reason: Hypoglycemia Protocol Enalapril Maleate (Vasotec) 5 mg PO DAILY [facility] Famotidine (Pepcid) 20 mg PO BID [facility] Last Admin: 09/30/17 17:49 Dose: 20 mg Glucagon (Glucagen Diagnostic Kit) 0 mg IM STAT PRN; Protocol PRN Reason: Hypoglycemia Protocol Guaifenesin/Dextromethorphan (Robitussin Dm) 10 ml PO Q4H PRN PRN Reason: Cough and congestion Last Admin: 09/23/17 23:52 Dose: 10 ml Sodium Chloride (Sodium Chloride 0.45%) 1,000 mls @ 60 mls/hr IV .[id number] [facility] Last Admin: 09/30/17 03:19 Dose: 60 mls/hr Insulin Aspart (Novolog) 0 unit SC ACHS [facility] PRN Reason: Protocol Last Admin: 09/30/17 21:41 Dose: Not Given Rosuvastatin Calcium (Crestor) 20 mg PO HS [facility] Last Admin: 09/30/17 22:01 Dose: 20 mg Tiotropium [place] (Spiriva) 18 mcg INH RQ24 [facility] Last Admin: 09/30/17 08:06 Dose: 18 mcg Zolpidem Tartrate (Ambien) 5 mg PO HS [facility] Last Admin: 09/30/17 22:01 Dose: 5 mg Zolpidem Tartrate (Ambien) 5 mg PO HS PRN PRN Reason: Insomnia Last Admin: 09/26/17 01:17 Dose: 5 mg - Labs Labs: 09/29/17 07:34 09/29/17 07:34 APTT 26 SECONDS (21-34) D 09/26/17 08:07 - Head Exam Head Exam: ATRAUMATIC, NORMAL INSPECTION - Eye Exam Eye Exam: EOMI, Normal appearance, PERRL - ENT Exam ENT Exam: Mucous Membranes Moist, Normal Oropharynx - Respiratory Exam Respiratory Exam: Clear to Ausculation Bilateral, NORMAL BREATHING PATTERN. absent: Prolonged Expiratory Phase, Respiratory Distress - Cardiovascular Exam Cardiovascular Exam: REGULAR RHYTHM, +S1, +S2 - GI/Abdominal Exam GI & Abdominal Exam: Soft, Normal Bowel Sounds. absent: Hyperactive Bowel Sounds - Neurological Exam Neurological Exam: Alert, Awake, Oriented x3 - Psychiatric Exam Psychiatric exam: Normal Affect, Normal Mood - Skin Skin Exam: Dry, Intact, Normal Color Assessment and Plan - Assessment and Plan (Free Text) Plan: Assessment: Bilateral PEs Assessment and Plan: D Dimer 1992 CTA: b/l PEs, worse on right. no evidence for right ventricular strain eliquis 10mg po BID for 7 days (until 10/02/17) starting 10/03/17 Eliquis should be 5 mg PO BID aneurysm of the ascending aorta patchy ground-glass attenuation in the right upper lobe could be related to developing pulmonary infarctions or nonspecific infection/ inflammation asymmetric enlargement of the right thyroid lobe with indeterminate nodules. A dedicated thyroid u/s recommended coag studies ordered: antiphospholipid, antithrombin III, Factor V Leiden, Lupus anticoagulant, Protein C, Protein S, prothrombin Heparin drip stopped on 09/26/17 Echo EF 50% - no evidence of right heart strain Venous dopplers: positive for acute DVT in left popliteal and posterior tibial Aortic Aneurysm Assessment and Plan: 4.3 x 4.3 cm Cardio, Dr. Burrows consulted, help appreciated Vascular, Dr. Pa consulted, help appreciated no immediate surgical intervention blood pressure control Status: Acute Dizziness Assessment and Plan: Resolved head CT without contrast: no acute intracranial hemorrhage. small chronic left caudate infarct. suspect minimal chronic periventricular white matter changes. mild generalized volume loss. Status: Acute COPD Assessment and Plan: 96% on 2L NC Imaging: Chest x-RAY: No active disease Troponin I neg x 3 patient uses CPAP at night at home, ordered PT Eval ordered. :No need for further services Medication: Duonesb 3ml INH q4h PRN Spiriva 18mcg INH RQ24 Pulmicort 0.5mg INH RQ12H Prednisone Taper 26-17-44-20-10 started on 09/26/17. 2L NC as needed Status: Chronic SERGEI (acute kidney injury) Assessment and Plan: BUN/Cr: 52/1.4 Home medication: Vasotec and lasix held; BP currently stable Monitor with am labs 1/2NS at 60 cc/hour Status: Acute Hypertension Assessment and Plan: BP currently stable Home medications: Norvasc 5mg PO QD Coreg 3.125mg po BID Vasotec 5mg PO QD ( Held due to SERGEI) Lasix 40mg PO QD (Held due to SERGEI) Status: Chronic Diabetes mellitus Assessment and Plan: Accuchecks HbgA1C: 6.2 ISS- Medium dose Home medication: Metformin 500mg PO BID ( Held due to SERGEI) Status: Chronic HLD (hyperlipidemia) Assessment and Plan: lipid panel: Triglycerides 77, Cholesterol 119, LDL 61 HDL 42 Crestor 20mg PO HS Status: Chronic CAD (coronary artery disease) Assessment and Plan: ECHO 05/17/17: LVEF 60-65%, transmitral doppler flow pattern is grade II pseudonormal filling dynamics. mild aortic regurg. mitral regurg is mild. Hx of cardiac stent ASA 81mg PO QD Crestor 20mg PO HS Plavix 75mg PO QD stopped - no indication, stents place Status: Chronic GERD Assessment and Plan: Pepcid 20mg PO BID Status: Acute Gout Assessment and Plan: Allopurinol 100mg po daily Status: Chronic Dark Stool, resolved Assessment and Plan: negative occult blood Status: Resolved Sleep Apnea Assessment and Plan: BIPAP at night Status: Resolved Prophylactic measure Assessment and Plan: GI: Pepcid 20mg PO BID DVT: SCDs, Heparin 5,000 units SC Q12H Heart healthy diet Discharge Instructions: 1.F/U with PMD within 5 to 7 days upon discharge. 2. F/u with Cardiology within 5 to 7 days upon discharge. 3. Return to hospital for any new or worsening symptoms. Medications: 1. Eliquis 10mg PO BID, #6, No refills 2. Eliquis 5mg PO BID, #360, No refills. 3. Medrol dose pack Dispo: Patient didn't leave yesterday for personal reasons. Patient stable and discharged home. All orders and management per Dr. Gibbs
[2017-10-01] MEDS: Albuterol-Ipratrop 3 mg / 0.5 (3 ml) UD INH PRN (08:06)
[2017-10-01] MEDS: Tiotropium 18 mcg Cap For Inhalation INH SCH (08:06)
[2017-10-01] MEDS: Budesonide 0.5 mg/2 ml Inhal Susp UD INH SCH (08:06)
[2017-10-01 08:35] LABS: BASO # 0.1 K/uL (0.0-0.2); BASO % 0.4 % (0.0-2.0); EOS # 0.1 K/uL (0.0-0.7); EOS % 0.9 % (0.0-4.0); HEMOGLOBIN 14.6 g/dL (12.0-18.0); LYMPH # 3.9 K/uL (1.0-4.3); LYMPH % 28.2 % (20.0-40.0); MEAN CELL VOLUME 91.3 fL (80.0-94.0); MEAN CORPUSCULAR HEMOGLOBIN 30.7 pg (27.0-31.0); MEAN CORPUSCULAR HGB CONC 33.6 g/dL (33.0-37.0); MEAN PLATELET VOLUME 8.5 fL (7.2-11.7); MONO % 7.2 % (0.0-10.0); NEUT # 8.8 K/uL (1.8-7.0); NEUT % 63.3 % (50.0-75.0); NRBC % 0.1 % (0.0-2.0); RBC 4.75 Mil/uL (4.40-5.90); RED CELL DISTRIBUTION WIDTH 14.7 % (11.5-14.5); WHITE BLOOD COUNT 13.9 K/uL (4.8-10.8)
[2017-10-01 08:50] LABS: ALB/GLOB RATIO 1.5 (1.0-2.1); ALBUMIN 3.3 g/dL (3.5-5.0); ALT/SGPT 43 U/L (21-72); AST/SGOT 17 U/L (17-59); BLOOD UREA NITROGEN 48 mg/dL (9-20); CALCIUM 9.1 mg/dl (8.6-10.4); GFR AFRICAN-AMERICAN > 60; GFR NON-AFRICAN AMERICAN > 60
[2017-10-01 08:54] VITALS: BP 131/80; TEMP 97.9; O2SAT 100
[2017-10-01] MEDS: (Novolog) Insulin Aspart, Recombinant 100 u/ml 10 ml vial SC SCH (10:38)
[2017-10-01 17:25] VITALS: PULSE 66
--- NOTE | 2017-10-05 16:54 | CARD ---
APPROVED REPORT Date of service: 10/01/2017 EKG Measurement Heart [id number] [id number] <Conclusion> Normal sinus rhythm Normal ECG
--- NOTE | 2017-10-07 13:24 | DS ---
Copied To: Edmar Gibbs MD Attending MD: Edmar Gibbs MD The patient came to the hospital with a chief complaint of generalized weakness, fatigue, tiredness, abdominal pain. The patient was placed on bedrest, bronchodilator. CT angio shows embolism anticoagulation. The patient discharged for supportive care. Edmar Gibbs MD
== END 2017-10-01 13:30 | disposition home or self-care (01) | DRG 190 ==
LOC: C.ER 19:22 → C.9E 22:23 → C.5S 22:52 → OBSVTOIN 09-26 15:07
PROVIDERS: ADMIT Internal Medicine Pulmonary Disease; ATTEND Internal Medicine Pulmonary Disease
PROC: 5A09457 Assistance with Respiratory Ventilation, 24-96 Consecutive Hours, Continuous Positive Airway Pressure (ICD-10-PCS; principal; 2017-09-29)
DX: J44.1 Chronic obstructive pulmonary disease with (acute) exacerbation (principal); I26.99 Other pulmonary embolism without acute cor pulmonale; I82.432 Acute embolism and thrombosis of left popliteal vein; N17.9 Acute kidney failure, unspecified; I82.442 Acute embolism and thrombosis of left tibial vein; E11.22 Type 2 diabetes mellitus with diabetic chronic kidney disease; E66.8 Other obesity; Z68.33 Body mass index [BMI] 33.0-33.9, adult; E78.00 Pure hypercholesterolemia, unspecified; G47.30 Sleep apnea, unspecified; I08.0 Rheumatic disorders of both mitral and aortic valves; I12.9 Hypertensive chronic kidney disease with stage 1 through stage 4 chronic kidney disease, or unspecified chronic kidney disease; I25.10 Atherosclerotic heart disease of native coronary artery without angina pectoris; I71.2 Thoracic aortic aneurysm, without rupture; K21.9 Gastro-esophageal reflux disease without esophagitis; M10.9 Gout, unspecified; N18.9 Chronic kidney disease, unspecified; Z95.5 Presence of coronary angioplasty implant and graft; I87.2 Venous insufficiency (chronic) (peripheral); F17.200 Nicotine dependence, unspecified, uncomplicated; E11.51 Type 2 diabetes mellitus with diabetic peripheral angiopathy without gangrene; Z79.4 Long term (current) use of insulin

== ENCOUNTER 2017-10-12 12:37 | Emergency (ER) | payer MEDICARE, MEDICAID ==
[2017-10-12 12:37] VITALS: BMI 34.8
[2017-10-12 12:55] VITALS: PULSE 65
--- NOTE | 2017-10-12 14:29 | C.PDOC ---
History Of Present Illness 67 y/o M c PMHx PE/DVT p/w shortness of breath and L leg heaviness. Has followed up with Sai/Markus and taking Eliquis as prescribed but states symptoms have not resolved. Subjective fever x 2 days. Also reports lightheadedness. Denies chest pain, palpitaitons, abdominal pain, nausea, vomiting. Time Seen by Provider: 10/12/17 14:05 Chief Complaint (Nursing): Shortness Of Breath Past Medical History Vital Signs: Last Vital Signs Temp 98.3 F 10/12/17 12:47 Pulse 65 10/12/17 12:47 Resp 16 10/12/17 13:00 BP 103/74 10/12/17 12:47 Pulse Ox 97 10/12/17 15:02 - Medical History PMH: Anxiety, Arthritis, Back Problems, COPD, Diabetes, Gastritis, HTN, Hypercholesterolemia, Pneumonia (), Chronic Kidney Disease Surgical History: Coronary Stent, Hernia Repair - [facility] Procedures ASSISTANCE WITH RESPIRATORY VENTILATION, 24-96 HRS, CPAP (09/26/17) CENTRAL VENOUS CATHETER PLACEMENT WITH GUIDANCE (07/24/12) CONTINUOUS INVASIVE MECHANICAL VENTILATION <96 CONSEC HRS (07/24/12) DRAINAGE OF PERITONEAL CAVITY, OPEN APPROACH (05/13/15) EXCISION OF RIGHT SPERMATIC CORD, OPEN APPROACH (05/01/15) EXTRACTION OF PELVIC SUBCU/FASCIA, OPEN APPROACH (05/13/15) INSERT ENDOTRACHEAL TUBE (07/24/12) OTH LYSIS-PERITONEAL ADHES (03/16/13) OTHER OPEN UMBILICAL HERNIORRHAPHY (03/16/13) SUPPLEMENT ABDOMINAL WALL WITH SYNTH SUB, OPEN APPROACH (07/21/16) SUPPLEMENT R INGUINAL REGION WITH SYNTH SUB, OPEN APPROACH (05/01/15) Family History: States: Unknown Family Hx - Social History Hx Tobacco Use: Yes Hx Alcohol Use: No Hx Substance Use: No - Immunization History Hx Tetanus Toxoid Vaccination: No Hx Influenza Vaccination: Yes (2017) Hx Pneumococcal Vaccination: No Review Of Systems Except As Marked, All Systems Reviewed And Found Negative. Cardiovascular: Negative for: Chest Pain Gastrointestinal: Negative for: Vomiting Physical Exam - Physical Exam Additional Physical Exam Comments: Gen: Appears short of breath, appears anxious Head: NC Eyes: PERRL ENT: MMM Neck: Supple Chest: No tenderness CV: Regular rate, intermittently tachycardic, distal pulses 2+ bilaterally Lungs: No tachypnea, normal O2 sat on room air Abdomen: NT, soft Extremities: L knee with bandage, L calf tenderness, no discernible edema Skin: No rash Neuro: Alert, no focal deficit ED Course And Treatment - Laboratory Results Result Diagrams: 10/12/17 14:48 10/12/17 14:48 O2 Sat by Pulse Oximetry: 97 Medical Decision Making Medical Decision Making: Impression: 67 y/o M c PMHx DVT/PE p/w persistent shortness of breath. Patient has known PE. Plan: CXR to exclude new pneumonia EKG/labs: rule out new CO EKG Sinus rhythm, 60 bpm, no ST/T wave changes. Dr. Gibbs contacted by phone, agrees with plan. Discharge home, f/u PMD, return to ED for acutely worsening shortness of breath, fever, or pain. Disposition - Disposition Referrals: Edmar Gibbs MD [Staff Provider] - Disposition: HOME/ ROUTINE Disposition Time: 15:48 Condition: STABLE Instructions: Pulmonary Embolism (Blood Clot in the Lungs) Forms: [facility] ([place]ib[place]ian) - Clinical Impression Clinical Impression: Pulmonary embolism
[2017-10-12 14:51] LABS: BASO % 0.6 % (0.0-2.0); EOS # 0.2 K/uL (0.0-0.7); EOS % 2.4 % (0.0-4.0); HEMOGLOBIN 14.6 g/dL (12.0-18.0); LYMPH # 2.3 K/uL (1.0-4.3); LYMPH % 31.5 % (20.0-40.0); MEAN CELL VOLUME 90.6 fL (80.0-94.0); MEAN CORPUSCULAR HEMOGLOBIN 30.4 pg (27.0-31.0); MEAN CORPUSCULAR HGB CONC 33.6 g/dL (33.0-37.0); MEAN PLATELET VOLUME 8.9 fL (7.2-11.7); MONO # 0.7 K/uL (0.0-0.8); MONO % 9.7 % (0.0-10.0); NEUT # 4.1 K/uL (1.8-7.0); NEUT % 55.8 % (50.0-75.0); RBC 4.81 Mil/uL (4.40-5.90); RED CELL DISTRIBUTION WIDTH 15.1 % (11.5-14.5); WHITE BLOOD COUNT 7.3 K/uL (4.8-10.8)
[2017-10-12 15:17] LABS: ALB/GLOB RATIO 1.4 (1.0-2.1); ALBUMIN 3.9 g/dL (3.5-5.0); ALT/SGPT 35 U/L (21-72); AST/SGOT 20 U/L (17-59); BLOOD UREA NITROGEN 38 mg/dL (9-20); CALCIUM 9.9 mg/dl (8.6-10.4); GFR NON-AFRICAN AMERICAN 51
--- NOTE | 2017-10-12 15:37 | RAD ---
Date of service: 10/12/2017 HISTORY: dyspnea COMPARISON: 09/22/2017 and 09/09/2017 TECHNIQUE: Chest PA and lateral FINDINGS: LUNGS: No infiltrate PLEURA: No significant pleural effusion identified. No pneumothorax apparent. CARDIOVASCULAR: Cardiomegaly and tortuous thoracic aorta most similar to the 09/09/2017 appearance OSSEOUS STRUCTURES: Thoracic spondylosis VISUALIZED UPPER ABDOMEN: Normal. OTHER FINDINGS: None. IMPRESSION: No interval pathology noted
[2017-10-12 16:06] VITALS: BP 128/89; RESP 18; TEMP 98.2; O2SAT 98
--- NOTE | 2017-10-13 00:09 | CARD ---
APPROVED REPORT Date of service: 10/12/2017 EKG Measurement Heart [id number] <Conclusion> Sinus bradycardia with marked sinus arrhythmia Otherwise normal ECG
== END 2017-10-12 16:10 | disposition home or self-care (01) ==
LOC: C.ER 12:37
DX: I26.99 Other pulmonary embolism without acute cor pulmonale (principal); I12.9 Hypertensive chronic kidney disease with stage 1 through stage 4 chronic kidney disease, or unspecified chronic kidney disease; E11.22 Type 2 diabetes mellitus with diabetic chronic kidney disease; F17.210 Nicotine dependence, cigarettes, uncomplicated; N18.9 Chronic kidney disease, unspecified; J44.9 Chronic obstructive pulmonary disease, unspecified; Z95.5 Presence of coronary angioplasty implant and graft

== ENCOUNTER 2017-12-21 16:22 | Observation (INO) | payer MEDICARE, MEDICAID ==
[2017-12-21 16:22] VITALS: BMI 34.8
[2017-12-21] MEDS ORDERED: Sodium Chloride 0.9% 500 ML IV ONE ×2 (17:24→18:11)
[2017-12-21 18:01] LABS: BASO % 0.5 % (0.0-2.0); EOS # 0.5 K/uL (0.0-0.7); EOS % 6.6 % (0.0-4.0); HEMOGLOBIN 13.1 g/dL (12.0-18.0); LYMPH % 41.4 % (20.0-40.0); MEAN CELL VOLUME 90.8 fL (80.0-94.0); MEAN CORPUSCULAR HEMOGLOBIN 30.4 pg (27.0-31.0); MEAN CORPUSCULAR HGB CONC 33.5 g/dL (33.0-37.0); MONO # 0.5 K/uL (0.0-0.8); MONO % 6.9 % (0.0-10.0); NEUT # 3.3 K/uL (1.8-7.0); NEUT % 44.6 % (50.0-75.0); RBC 4.32 Mil/uL (4.40-5.90); RED CELL DISTRIBUTION WIDTH 13.9 % (11.5-14.5); WHITE BLOOD COUNT 7.3 K/uL (4.8-10.8)
--- NOTE | 2017-12-21 18:08 | RAD ---
HISTORY: SOB COMPARISON: Chest x-ray performed 10/12/17 TECHNIQUE: Chest PA and lateral FINDINGS: Examination limited by habitus. LUNGS: Hyperinflation may be seen in the setting of COPD. Bibasilar atelectasis. Please note that chest x-ray has limited sensitivity for the detection of pulmonary masses. PLEURA: No significant pleural effusion identified. No definite pneumothorax . CARDIOVASCULAR: Cardiomegaly. Ectatic aorta. Atherosclerotic calcification present. OSSEOUS STRUCTURES: Degenerative changes. Kyphosis. Osseous demineralization. VISUALIZED UPPER ABDOMEN: Unremarkable. OTHER FINDINGS: None. IMPRESSION: Bibasilar atelectasis. Hyperinflation may be seen in the setting of COPD. Cardiomegaly.
[2017-12-21 18:15] LABS: BLOOD UREA NITROGEN 29 mg/dL (9-20); CALCIUM 9.1 mg/dl (8.6-10.4); GFR NON-AFRICAN AMERICAN 51
--- NOTE | 2017-12-21 18:16 | C.PDOC ---
History Of Present Illness 67 year old male with PMHx of COPD, DM2, HTN, HLD, CAD with sent placement and PE 3 months ago (on Eliquis and Plavix) presents to ED for shortness of breath at rest worsening for the last 3 days. Associated with subjective fever. States he had the flu 15 days ago and reports a cough that began 10 days ago. Patient reports chronic bilateral leg swelling. Denies chest pain, diaphoresis, nausea, vomiting, abdominal pain, lightheadedness and dizziness. <Myah Leyva P - Last Filed: 12/21/17 22:43> <Myah Leyva P - Last Filed: 12/21/17 22:43> <Myah Senior J - Last Filed: 12/27/17 15:29> Time Seen by Provider: 12/21/17 17:01 Chief Complaint (Nursing): Shortness Of Breath Past Medical History Vital Signs: Last Vital Signs Temp 97.8 F 12/21/17 16:56 Pulse 55 L 12/21/17 16:56 Resp 22 12/21/17 16:56 BP 103/65 12/21/17 16:56 Pulse Ox 97 12/21/17 17:52 - Medical History PMH: Anxiety, Arthritis, Back Problems, COPD, Diabetes, Gastritis, HTN, Hypercholesterolemia, Pneumonia (), Chronic Kidney Disease Surgical History: Coronary Stent, Hernia Repair - [facility] Procedures ASSISTANCE WITH RESPIRATORY VENTILATION, 24-96 HRS, CPAP (09/26/17) CENTRAL VENOUS CATHETER PLACEMENT WITH GUIDANCE (07/24/12) CONTINUOUS INVASIVE MECHANICAL VENTILATION <96 CONSEC HRS (07/24/12) DRAINAGE OF PERITONEAL CAVITY, OPEN APPROACH (05/13/15) EXCISION OF RIGHT SPERMATIC CORD, OPEN APPROACH (05/01/15) EXTRACTION OF PELVIC SUBCU/FASCIA, OPEN APPROACH (05/13/15) INSERT ENDOTRACHEAL TUBE (07/24/12) OTH LYSIS-PERITONEAL ADHES (03/16/13) OTHER OPEN UMBILICAL HERNIORRHAPHY (03/16/13) SUPPLEMENT ABDOMINAL WALL WITH SYNTH SUB, OPEN APPROACH (07/21/16) SUPPLEMENT R INGUINAL REGION WITH SYNTH SUB, OPEN APPROACH (05/01/15) Family History: States: Unknown Family Hx - Social History Hx Tobacco Use: Yes Hx Alcohol Use: No Hx Substance Use: No - Immunization History Hx Tetanus Toxoid Vaccination: No Hx Influenza Vaccination: Yes (2017) Hx Pneumococcal Vaccination: No <Myah Leyva P - Last Filed: 12/21/17 22:43> Vital Signs: Last Vital Signs Temp 98 F 12/24/17 08:19 Pulse 73 12/24/17 08:19 Resp 20 12/24/17 08:19 BP 139/81 12/24/17 09:47 Pulse Ox 96 12/24/17 08:19 - [facility] Procedures ASSISTANCE WITH RESPIRATORY VENTILATION, 24-96 HRS, CPAP (09/26/17) CENTRAL VENOUS CATHETER PLACEMENT WITH GUIDANCE (07/24/12) CONTINUOUS INVASIVE MECHANICAL VENTILATION <96 CONSEC HRS (07/24/12) DRAINAGE OF PERITONEAL CAVITY, OPEN APPROACH (05/13/15) EXCISION OF RIGHT SPERMATIC CORD, OPEN APPROACH (05/01/15) EXTRACTION OF PELVIC SUBCU/FASCIA, OPEN APPROACH (05/13/15) INSERT ENDOTRACHEAL TUBE (07/24/12) OTH LYSIS-PERITONEAL ADHES (03/16/13) OTHER OPEN UMBILICAL HERNIORRHAPHY (03/16/13) SUPPLEMENT ABDOMINAL WALL WITH SYNTH SUB, OPEN APPROACH (07/21/16) SUPPLEMENT R INGUINAL REGION WITH SYNTH SUB, OPEN APPROACH (05/01/15) <Myah Senior J - Last Filed: 12/27/17 15:29> Review Of Systems Constitutional: Positive for: Fever (subjective). Negative for: Chills, Sweats Cardiovascular: Negative for: Chest Pain, Palpitations Respiratory: Positive for: Cough, Shortness of Breath Gastrointestinal: Negative for: Nausea, Vomiting, Abdominal Pain, Diarrhea Genitourinary: Negative for: Dysuria, Frequency Musculoskeletal: Positive for: Back Pain (chronic). Negative for: Neck Pain, Shoulder Pain Neurological: Negative for: Weakness, Numbness, Dizziness <Myah Leyva P - Last Filed: 12/21/17 22:43> Physical Exam - Physical Exam Appears: Non-toxic, No Acute Distress Skin: Normal Color, Warm, Dry Head: Atraumatic, Normacephalic Eye(s): bilateral: Normal Inspection, PERRL, EOMI Oral Mucosa: Moist Throat: Normal Neck: Normal, Normal ROM Cardiovascular: Rhythm Regular, No Rhythm Irregular, No Friction Rub, No Murmur, No JVD Respiratory: Normal Breath Sounds, No Decreased Breath Sounds, No Accessory Muscle Use, No Rales, No Rhonchi, No Wheezing Gastrointestinal/Abdominal: Bowel Sounds, Soft, No Tenderness, No Guarding, No Rebound Extremity: Normal ROM, No Tenderness, Pedal Edema (trace), No Calf Tenderness, Capillary Refill (normal), Other (trace pitting bilateral lower extremity edema) Neurological/Psych: Oriented x3, Normal Speech, Normal Cognition, Normal Cranial Nerves, Normal Motor <Myah Leyva - Last Filed: 12/21/17 22:43> ED Course And Treatment - Laboratory Results Result Diagrams: 12/21/17 17:50 12/21/17 19:45 O2 Sat by Pulse Oximetry: 97 <Myah Leyva - Last Filed: 12/21/17 22:43> - Laboratory Results Result Diagrams: 12/23/17 11:07 12/23/17 11:07 <Myah Senior - Last Filed: 12/27/17 15:29> Supervising Attending Note - Supervising Attending Note The Documented history was done by the: Physician Costume Cutter, Attending Physician The documented physical exam was done by the: Physician Costume Cutter, Attending Physician - Attestation: I have personally seen and examined this patient.: Yes I have fully participated in the care of the patient.: Yes I have reviewed all pertinent clinical information, including history, physical exam and plan: Yes <Myah Senior - Last Filed: 12/27/17 15:29> Medical Decision Making Medical Decision Making: Plan: CBC: WNL CMP: K 4.1 repeat Troponin: negative BNP: WNL Lactic acid: 1.8 Blood culture EKG: Sinus bradycardia at 52 bpm CXR:Bibasilar atelectasis. Hyperinflation may be seen in the setting of COPD. Cardiomegaly. (see full report) IVF CTA chest: suboptimal study, cannot rule out peripheral PE. No central PE seen. (see full report). Case discussed with Dr. Lawrence Alexis who accepts admission. <Myah Leyva - Last Filed: 12/21/17 22:43> Disposition - Disposition Disposition Time: 22:20 <Myah Leyva - Last Filed: 12/21/17 22:43> <Myah Senior - Last Filed: 12/27/17 15:29> - Disposition Disposition: HOSPITALIZED Condition: STABLE - Clinical Impression Clinical Impression: Dyspnea
[2017-12-21 18:17] LABS: INR 1.4; PROTHROMBIN TIME 14.8 SECONDS (9.7-12.2)
[2017-12-21 18:25] LABS: B-TYPE NATRIURETIC PEPTIDE 254 pg/mL (0-900)
[2017-12-21 18:27] LABS: ALB/GLOB RATIO 1.4 (1.0-2.1); ALBUMIN 3.8 g/dL (3.5-5.0); ALT/SGPT 19 U/L (21-72); AST/SGOT 47 U/L (17-59)
[2017-12-21] MEDS ORDERED: Iodixanol 320 MG/ML 100 ML BOTTLE IV ONE (20:09)
[2017-12-22] MEDS: Albuterol-Ipratrop 3 mg / 0.5 (3 ml) UD INH PRN ×2 (01:51→23:43)
[2017-12-22] MEDS ORDERED: Home Med 1 UNIT (Tramadol/Acetaminophen [Ultracet 37.5/325 Mg] 1 TAB) PO PRN (07:03)
[2017-12-22] MEDS: Multiple Vitamins Tab PO SCH (09:54)
[2017-12-22] MEDS: Azithromycin 500 MG in Sodium Chloride 0.9% 250 ML IVPB SCH (09:55)
[2017-12-22] MEDS ORDERED: Enoxaparin 120 mg Syringe SC SCH (10:00)
[2017-12-22] MEDS ORDERED: Potassium Chloride 10 mEq ER Tab PO SCH (10:00)
[2017-12-22] MEDS ORDERED: Home Med 1 UNIT (Omeprazole [Omeprazole] 20 MG) PO SCH (10:00)
--- NOTE | 2017-12-22 11:17 | CARD ---
APPROVED REPORT Date of service: 12/21/2017 EKG Measurement Heart [id number] <Conclusion> sinus bradycardia Low voltage QRS Abnormal ECG
--- NOTE | 2017-12-22 11:28 | CT ---
Date of service: 12/21/2017 PROCEDURE: CT Chest with contrast (Pulmonary Angiogram) HISTORY: sob and h/o PE COMPARISON: CT angiogram chest 09/24/2017. TECHNIQUE: Axial computed tomography images were obtained of the chest in the pulmonary arterial phase of enhancement. Coronal and sagittal reformatted images were created and reviewed. Intravenous contrast dose: Visipaque 320, 100 cc Radiation dose: Total exam DLP = 542.12 mGy-cm. This CT exam was performed using one or more of the following dose reduction techniques: Automated exposure control, adjustment of the mA and/or kV according to patient size, and/or use of iterative reconstruction technique. FINDINGS: PULMONARY ARTERIES: Suboptimal iodinated contrast capture in the pulmonary arterial system. Majority of iodinated contrast material is in the thoracic aorta at the time of imaging. No gross central pulmonary artery embolus appreciable. Secondary and tertiary branches are poorly evaluated as a result. AORTA: Calcific atherosclerotic changes are seen related to the thoracic aorta. No dissection apparent. 4.4 cm ascending thoracic aorta reiterated representing dilatation. LUNGS: Unremarkable. No nodule, mass or pulmonary consolidation. PLEURAL SPACES: Unremarkable. No effusion or pneumothorax. HEART: Stable cardiomegaly. No pulmonary vascular congestion apparent. No significant pericardial effusion. LYMPH NODES: No lymphadenopathy. BONES, CHEST WALL: Limited gynecomastia identified bilaterally. No fracture or destructive lesion OTHER FINDINGS: Unremarkable. IMPRESSION: 1. No definite central pulmonary embolus appreciated. Contrast bolus enhances the aorta and is less apparent at the pulmonary arteries with evaluation of segmental and more distal pulmonary artery branches being poorly evaluated as result. Clinically correlate as to the need or potential follow-up nuclear V/Q scan. 2. No infiltrate pleural or pericardial effusion. Cardiomegaly appears stable. 3. Cardiomegaly reiterated as well as dilatation of the ascending thoracic aorta up to 4.4 cm. Concordant preliminary report from [facility], 12/21/2017.
--- NOTE | 2017-12-22 15:04 | CP.PCM.PN ---
Subjective - Date & Time of Evaluation Date of Evaluation: 12/22/17 Time of Evaluation: 14:59 - Subjective Subjective: Note for Dr. Gibbs's Service 67 year old male with PMHx of COPD, DM2, HTN, HLD, CAD with sent placement and PE 3 months ago (on Eliquis and Plavix) presents to ED for shortness of breath at rest worsening for the last 3 days. Associated with subjective fever. States he had the flu 15 days ago and reports a cough that began 10 days ago. Patient reports chronic bilateral leg swelling. Denies chest pain, diaphoresis, nausea, vomiting, abdominal pain, lightheadedness and dizziness. Today he reports improvement of his shortness of breath. He does admit to a productive cough with green sputum. He denies any fever, chills, abdominal pain, n/v/ changes in bowel habits, any urinary symptoms. PMD: Dr. Gibbs PMHx: COPD, DM, HTN, CAD s/p cardiac stents, gastritis, and lipid disorder PSHx: Right direct inguinal hernia repair with excision of large cord lipoma and repair of spermatic cord vessel (05/01/15), hematoma of the right groin (S/p right hernia inguinal repair, 05/13/15) incarcerated recurrent para-umbilical hernia open repair w/ mesh (07/21/16), and recent cystoscopy FHx: Unknown Medications Allergies: NKDA Social Hx: Lives with brother. > 30 years of tobacco use ( 1.5PPD), Denies Alcohol and illicit drug use Objective - Vital Signs/Intake and Output Vital Signs (last 24 hours): Temp Pulse Resp BP Pulse Ox 98.2 F 70 20 137/70 18 L 12/22/17 08:25 12/22/17 08:25 12/22/17 08:25 12/22/17 09:57 12/22/17 08:25 - Medications Medications: Current Medications Acetaminophen (Tylenol 325mg Tab) 650 mg PO Q6H PRN PRN Reason: Pain, Mild (1-3) Albuterol/Ipratropium (Duoneb 3 Mg/0.5 Mg (3 Ml) Ud) 3 ml INH RQ6 PRN PRN Reason: wheezing,sob Last Admin: 12/22/17 01:51 Dose: 3 ml Allopurinol (Zyloprim) 100 mg PO DAILY [facility] Last Admin: 12/22/17 09:54 Dose: 100 mg Amlodipine Besylate (Norvasc) 5 mg PO DAILY [facility] Last Admin: 12/22/17 09:57 Dose: 5 mg Apixaban (Eliquis) 5 mg PO BID [facility] Last Admin: 12/22/17 11:52 Dose: 5 mg Aspirin (Ecotrin) 81 mg PO DAILY [facility] Last Admin: 12/22/17 09:57 Dose: 81 mg Clopidogrel Bisulfate (Plavix) 75 mg PO DAILY [facility] Last Admin: 12/22/17 09:54 Dose: 75 mg Colchicine (Colocrys) 0.6 mg PO DAILY [facility] Last Admin: 12/22/17 10:15 Dose: 0.6 mg Enalapril Maleate (Vasotec) 5 mg PO DAILY [facility] Last Admin: 12/22/17 09:57 Dose: 5 mg Famotidine (Pepcid) 20 mg IVP DAILY [facility] Last Admin: 12/22/17 09:58 Dose: 20 mg Furosemide (Lasix) 20 mg PO DAILY [facility] Last Admin: 12/22/17 09:57 Dose: 20 mg Azithromycin 500 mg/ Sodium (Chloride) 250 mls @ 250 mls/hr IVPB DAILY [facility]; Protocol Last Admin: 12/22/17 09:55 Dose: 250 mls/hr Ceftriaxone Sodium 1 gm/ (Sodium Chloride) 100 mls @ 100 mls/hr IVPB DAILY [facility]; Protocol Last Admin: 12/22/17 09:54 Dose: 100 mls/hr Metformin [facility] ([facility]ophage) [facility] Last Admin: 12/22/17 09:54 Dose: 500 mg Multivitamins (Hexavitamin) 1 tab PO DAILY [facility] Last Admin: 12/22/17 09:54 Dose: 1 tab Pneumococcal Polyvalent Vaccine (Pneumovax 23 Vaccine) 0.5 ml IM .ONCE ONE Stop: 12/23/17 10:01 Potassium Chloride (Klor-Con 10) 10 meq PO DAILY [facility] Last Admin: 12/22/17 09:59 Dose: Not Given Pyridoxine HCl (Vitamin B6 50 Mg Tab) 50 mg PO DAILY [facility] Last Admin: 12/22/17 09:57 Dose: 50 mg Rosuvastatin Calcium (Crestor) 20 mg PO [facility] Tamsulosin HCl (Flomax) 0.4 mg PO [facility] Tramadol HCl (Ultram) 50 mg PO TID PRN PRN Reason: Pain, moderate (4-7) Zolpidem Tartrate (Ambien) 5 mg PO HS [facility] - Labs Labs: 12/21/17 17:50 12/21/17 19:45 PT 14.8 SECONDS (9.7-12.2) H 12/21/17 17:50 INR 1.4 12/21/17 17:50 APTT 37 SECONDS (21-34) H 12/21/17 17:50 - Constitutional Appears: Well, Non-toxic - Head Exam Head Exam: ATRAUMATIC, NORMAL INSPECTION, NORMOCEPHALIC - Eye Exam Eye Exam: EOMI, Normal appearance - ENT Exam ENT Exam: Mucous Membranes Moist - Neck Exam Neck Exam: Normal Inspection - Respiratory Exam Respiratory Exam: Decreased Breath Sounds, Wheezes (Mild, Upper Lungs. ). absent: Accessory Muscle Use, Clear to Ausculation Bilateral - Cardiovascular Exam Cardiovascular Exam: RRR, +S1, +S2 - GI/Abdominal Exam GI & Abdominal Exam: Soft, Normal Bowel Sounds. absent: Tenderness - Extremities Exam Extremities Exam: Pedal Edema - Neurological Exam Neurological Exam: Alert, Awake, Oriented x3 - Psychiatric Exam Psychiatric exam: Normal Affect, Normal Mood - Skin Skin Exam: Dry, Intact, Normal Color, Warm Assessment and Plan - Assessment and Plan (Free Text) Assessment: 67 year old male with PMHx of COPD, DM2, HTN, HLD, CAD with sent placement and PE 3 months ago (on Eliquis and Plavix) admitted for evaluation and treatment of SOB 2/2 COPD exacerbation. Plan: Acute on Chronic COPD Exacerbation CXR (Admission): Bibasilar atelectasis. Hyperinflation may be seen in the setting of COPD. Cardiomegaly. Chest CT (Admission): 1. No definite central pulmonary embolus appreciated. Contrast bolus enhances the aorta and is less apparent at the pulmonary arteries with evaluation of segmental and more distal pulmonary artery branches being poorly evaluated as result. Clinically correlate as to the need or potential follow-up nuclear V/Q scan. 2. No infiltrate pleural or pericardial effusion. Cardiomegaly appears stable. 3. Cardiomegaly reiterated as well as dilatation of the ascending thoracic aorta up to 4.4 cm. Blood Cultures (Adm): PENDING Meds: DuoNebs Q6H PRN Azithromycin 500mg Daily Rocephin 1gram IVP Daily Tylenol PRN for fever SoluMedrol 20 Q12H Hypertension Enalapril 5mg PO Daily Norvasc 5mg PO Daily Lasix 20mg PO Daily Diabetes Metformin 500mg PO BID CAD/PE Eliquis 5mg PO BID Plavix 75 Daily Rosuvastatin 20mg PO HS Hyperlipidemia Rosuvastatin 20mg PO HS Hx of Gout Colchicine 0.6mg PO Daily Allopurinol 100mg PO Daily BPH Flomax 0.4mg HS Insomnia Ambien 5mg PO HS Proph Eliquis Multivitamins Vit. B6 Heart Health Diet Pepcid Dispo: Patient originally admitted under Dr. Lawrence Alexis service then switched to Dr. Slick Gibbs's service today. Patient expressed that he wishes to go home. He states he will leave tomorrow morning. Patient also wants to know if he should stop Eliquis. Patient discussed with Dr. Sai Smart, PGY-2
[2017-12-22] MEDS: MethylPREDNISolone 40 mg Vial IVP SCH (21:19)
[2017-12-22] MEDS ORDERED: MethylPREDNISolone 40 mg Vial IVP SCH (22:00)
--- NOTE | 2017-12-23 06:57 | CP.PCM.PN ---
Subjective - Date & Time of Evaluation Date of Evaluation: 12/23/17 Time of Evaluation: 06:57 - Subjective Subjective: PGy2- Progress note for Dr. Gibbs Patient was seen and examined at bedside in no acute distress. Patient has no complaints today and reports feeling better. Patient denies chest pain, palpitations, dyspnea, cough, nausea, vomiting, fevers, abdominal pain, headaches, dysuria. Objective - Vital Signs/Intake and Output Vital Signs (last 24 hours): Temp Pulse Resp BP Pulse Ox 98.4 F 78 20 127/82 98 12/22/17 23:20 12/23/17 03:53 12/22/17 23:20 12/22/17 23:20 12/23/17 03:00 - Medications Medications: Current Medications Acetaminophen (Tylenol 325mg Tab) 650 mg PO Q6H PRN PRN Reason: Pain, Mild (1-3) Last Admin: 12/22/17 21:50 Dose: 650 mg Albuterol/Ipratropium (Duoneb 3 Mg/0.5 Mg (3 Ml) Ud) 3 ml INH RQ6 PRN PRN Reason: wheezing,sob Last Admin: 12/22/17 23:43 Dose: 3 ml Allopurinol (Zyloprim) [address] [facility] Last Admin: 12/22/17 09:54 Dose: 100 mg Amlodipine Besylate (Norvasc) [address] [facility] Last Admin: 12/22/17 09:57 Dose: 5 mg Apixaban (Eliquis) [address] [facility] Last Admin: 12/22/17 21:19 Dose: 5 mg Aspirin (Ecotrin) [address] [facility] Last Admin: 12/22/17 09:57 Dose: 81 mg Clopidogrel Bisulfate (Plavix) [address] [facility] Last Admin: 12/22/17 09:54 Dose: 75 mg Colchicine (Colocrys) 0.[address] [facility] Last Admin: 12/22/17 10:15 Dose: 0.6 mg Enalapril Maleate (Vasotec) [address] [facility] Last Admin: 12/22/17 09:57 Dose: 5 mg Famotidine (Pepcid) [address] [facility] Furosemide (Lasix) [address] [facility] Last Admin: 12/22/17 09:57 Dose: 20 mg Azithromycin 500 mg/ Sodium (Chloride) 250 mls @ 250 mls/hr IVPB DAILY [facility]; Protocol Last Admin: 12/22/17 09:55 Dose: 250 mls/hr Ceftriaxone Sodium 1 gm/ (Sodium Chloride) 100 mls @ 100 mls/hr IVPB DAILY [facility]; Protocol Last Admin: 12/22/17 09:54 Dose: 100 mls/hr Metformin HCl (Glucophage) [address] [facility] Last Admin: 12/22/17 17:25 Dose: 500 mg Methylprednisolone (Solu-Medrol) [address] [facility] Last Admin: 12/22/17 21:19 Dose: 20 mg Multivitamins (Hexavitamin) [address] [facility] Last Admin: 12/22/17 09:54 Dose: 1 tab Pneumococcal Polyvalent Vaccine (Pneumovax 23 Vaccine) 0.5 ml IM .ONCE ONE Stop: 12/23/17 10:01 Pyridoxine HCl (Vitamin B6 50 Mg Tab) [address] [facility] Last Admin: 12/22/17 09:57 Dose: 50 mg Rosuvastatin Calcium (Crestor) [address] [facility] Last Admin: 12/22/17 21:19 Dose: 20 mg Tamsulosin HCl (Flomax) 0.[address] [facility] Last Admin: 12/22/17 21:22 Dose: 0.4 mg Zolpidem Tartrate (Ambien) [address] [facility] Last Admin: 12/22/17 21:19 Dose: 5 mg - Labs Labs: 12/21/17 17:50 12/21/17 19:45 PT 14.8 SECONDS (9.7-12.2) H 12/21/17 17:50 INR 1.4 12/21/17 17:50 APTT 37 SECONDS (21-34) H 12/21/17 17:50 - Constitutional Appears: No Acute Distress - Head Exam Head Exam: NORMAL INSPECTION - Eye Exam Eye Exam: EOMI, Normal appearance - ENT Exam ENT Exam: Mucous Membranes Moist - Respiratory Exam Respiratory Exam: Decreased Breath Sounds, Clear to Ausculation Bilateral, NORMAL BREATHING PATTERN. absent: Rales, Rhonchi, Wheezes, Respiratory Distress - Cardiovascular Exam Cardiovascular Exam: REGULAR RHYTHM, +S1, +S2 - GI/Abdominal Exam GI & Abdominal Exam: Soft, Normal Bowel Sounds. absent: Distended, Firm, Guarding, Tenderness - Extremities Exam Extremities Exam: Normal Inspection - Neurological Exam Neurological Exam: Alert, Awake, Oriented x3 - Psychiatric Exam Psychiatric exam: Normal Affect, Normal Mood - Skin Skin Exam: Dry, Intact, Normal Color, Warm Assessment and Plan - Assessment and Plan (Free Text) Plan: 67 year old male with PMHx of COPD, DM2, HTN, HLD, CAD with sent placement and PE 3 months ago (on Eliquis and Plavix) admitted for evaluation and treatment of SOB 2/2 COPD exacerbation. Plan: Acute on Chronic COPD Exacerbation CXR (Admission): Bibasilar atelectasis. Hyperinflation may be seen in the setting of COPD. Cardiomegaly. Chest CT (Admission): 1. No definite central pulmonary embolus appreciated. Contrast bolus enhances the aorta and is less apparent at the pulmonary arteries with evaluation of segmental and more distal pulmonary artery branches being poorly evaluated as result. Clinically correlate as to the need or potential follow-up nuclear V/Q scan. 2. No infiltrate pleural or pericardial effusion. Cardiomegaly appears stable. 3. Cardiomegaly reiterated as well as dilatation of the ascending thoracic aorta up to 4.4 cm. Blood Cultures (Adm): negative to date Meds: DuoNebs Q6H PRN Azithromycin 500mg Daily Rocephin 1gram IVP Daily Tylenol PRN for fever SoluMedrol 20 Q12H Hypertension Enalapril 5mg PO Daily Norvasc 5mg PO Daily Lasix 20mg PO Daily Continue to monitor Diabetes Metformin 500mg PO BID Continue to monitor CAD/PE Eliquis 5mg PO BID Plavix 75 Daily Rosuvastatin 20mg PO HS Hyperlipidemia Rosuvastatin 20mg PO HS Hx of Gout Colchicine 0.6mg PO Daily Allopurinol 100mg PO Daily BPH Flomax 0.4mg HS Insomnia Ambien 5mg PO HS Proph Eliquis Multivitamins Vit. B6 Heart Health Diet Pepcid Dispo: Patient originally admitted under Dr. Lawrence Alexis service then switched to Dr. Slick Gibbs's service on 12/22/17. Patient must continue Eliquis and Plavix per Dr. Gibbs. Patient will be discharged tomorrow morning.
[2017-12-23] MEDS ORDERED: Pneumococcal 23-Valent Vaccine IM ONE (10:00)
[2017-12-23] MEDS: Multiple Vitamins Tab PO SCH (10:40)
[2017-12-23] MEDS: MethylPREDNISolone 40 mg Vial IVP SCH ×2 (10:42→21:51)
[2017-12-23 11:24] LABS: BASO % 0.3 % (0.0-2.0); EOS % 0.1 % (0.0-4.0); HEMOGLOBIN 14.7 g/dL (12.0-18.0); LYMPH # 1.7 K/uL (1.0-4.3); LYMPH % 16.7 % (20.0-40.0); MEAN CELL VOLUME 89.7 fL (80.0-94.0); MEAN CORPUSCULAR HEMOGLOBIN 30.8 pg (27.0-31.0); MEAN CORPUSCULAR HGB CONC 34.4 g/dL (33.0-37.0); MEAN PLATELET VOLUME 9.3 fL (7.2-11.7); MONO # 0.3 K/uL (0.0-0.8); MONO % 3.3 % (0.0-10.0); NEUT # 8.2 K/uL (1.8-7.0); NEUT % 79.6 % (50.0-75.0); RBC 4.75 Mil/uL (4.40-5.90); WHITE BLOOD COUNT 10.3 K/uL (4.8-10.8)
[2017-12-23 11:59] LABS: ALB/GLOB RATIO 1.4 (1.0-2.1); ALBUMIN 4.1 g/dL (3.5-5.0); CALCIUM 9.7 mg/dl (8.6-10.4)
[2017-12-23] MEDS: Azithromycin 500 MG in Sodium Chloride 0.9% 250 ML IVPB SCH (12:22)
[2017-12-23 15:32] VITALS: RESP 20
[2017-12-23] MEDS: Albuterol-Ipratrop 3 mg / 0.5 (3 ml) UD INH PRN (19:22)
[2017-12-24 06:09] VITALS: O2SAT 96
--- NOTE | 2017-12-24 07:09 | CP.PCM.PN ---
Subjective - Date & Time of Evaluation Date of Evaluation: 12/24/17 Time of Evaluation: 07:06 - Subjective Subjective: PGy2- Progress note for Dr. Gibbs Patient was seen and examined at bedside in no acute distress. Patient has no complaints today and reports feeling better. Patient denies chest pain, palpitations, dyspnea, cough, nausea, vomiting, fevers, abdominal pain, headaches, dysuria. Objective - Vital Signs/Intake and Output Vital Signs (last 24 hours): Temp Pulse Resp BP Pulse Ox 97.6 F 79 20 122/66 96 12/24/17 04:00 12/24/17 04:00 12/24/17 04:00 12/23/17 23:25 12/24/17 04:00 - Medications Medications: Current Medications Acetaminophen (Tylenol 325mg Tab) 650 mg PO Q6H PRN PRN Reason: Pain, Mild (1-3) Last Admin: 12/24/17 01:42 Dose: 650 mg Albuterol/Ipratropium (Duoneb 3 Mg/0.5 Mg (3 Ml) Ud) 3 ml INH RQ6 PRN PRN Reason: wheezing,sob Last Admin: 12/23/17 19:22 Dose: 3 ml Allopurinol (Zyloprim) 100 mg PO DAILY [facility] Last Admin: 12/23/17 10:39 Dose: 100 mg Amlodipine Besylate (Norvasc) 5 mg PO DAILY [facility] Last Admin: 12/23/17 10:39 Dose: 5 mg Apixaban (Eliquis) 5 mg PO BID [facility] Last Admin: 12/23/17 17:03 Dose: 5 mg Aspirin (Ecotrin) 81 mg PO DAILY [facility] Last Admin: 12/23/17 10:40 Dose: 81 mg Clopidogrel Bisulfate (Plavix) 75 mg PO DAILY [facility] Last Admin: 12/23/17 10:50 Dose: 75 mg Colchicine (Colocrys) 0.6 mg PO DAILY [facility] Last Admin: 12/23/17 10:39 Dose: 0.6 mg Enalapril Maleate (Vasotec) 5 mg PO DAILY [facility] Last Admin: 12/23/17 10:48 Dose: 5 mg Famotidine (Pepcid) 20 mg PO DAILY [facility] Last Admin: 12/23/17 10:39 Dose: 20 mg Furosemide (Lasix) 20 mg PO DAILY [facility] Last Admin: 12/23/17 10:48 Dose: 20 mg Azithromycin 500 mg/ Sodium (Chloride) 250 mls @ 250 mls/hr IVPB DAILY [facility]; Protocol Last Admin: 12/23/17 12:22 Dose: 250 mls/hr Ceftriaxone Sodium 1 gm/ (Sodium Chloride) 100 mls @ 100 mls/hr IVPB DAILY [facility]; Protocol Last Admin: 12/23/17 10:38 Dose: 100 mls/hr Metformin HCl (Glucophage) 500 mg PO BIDCC [facility] Last Admin: 12/23/17 17:03 Dose: 500 mg Methylprednisolone (Solu-Medrol) 20 mg IVP Q12 [facility] Last Admin: 12/23/17 21:51 Dose: 20 mg Multivitamins (Hexavitamin) 1 tab PO DAILY [facility] Last Admin: 12/23/17 10:40 Dose: 1 tab Pyridoxine HCl (Vitamin B6 50 Mg Tab) 50 mg PO DAILY [facility] Last Admin: 12/23/17 10:39 Dose: 50 mg Rosuvastatin Calcium (Crestor) 20 mg PO HS [facility] Last Admin: 12/23/17 21:51 Dose: 20 mg Tamsulosin HCl (Flomax) 0.4 mg PO HS [facility] Last Admin: 12/23/17 21:51 Dose: 0.4 mg Zolpidem Tartrate (Ambien) 5 mg PO HS [facility] Last Admin: 12/23/17 21:52 Dose: 5 mg - Labs Labs: 12/23/17 11:07 12/23/17 11:07 PT 14.8 SECONDS (9.7-12.2) H 12/21/17 17:50 INR 1.4 12/21/17 17:50 APTT 37 SECONDS (21-34) H 12/21/17 17:50 - Additional Findings Additional findings: - Constitutional Appears: No Acute Distress - Head Exam Head Exam: NORMAL INSPECTION - Eye Exam Eye Exam: EOMI, Normal appearance - ENT Exam ENT Exam: Mucous Membranes Moist - Respiratory Exam Respiratory Exam: Decreased Breath Sounds, Clear to Ausculation Bilateral, NORMAL BREATHING PATTERN. absent: Rales, Rhonchi, Wheezes, Respiratory Distress - Cardiovascular Exam Cardiovascular Exam: REGULAR RHYTHM, +S1, +S2 - GI/Abdominal Exam GI & Abdominal Exam: Soft, Normal Bowel Sounds. absent: Distended, Firm, Guardi ng, Tenderness - Extremities Exam Extremities Exam: Normal Inspection - Neurological Exam Neurological Exam: Alert, Awake, Oriented x3 - Psychiatric Exam Psychiatric exam: Normal Affect, Normal Mood - Skin Skin Exam: Dry, Intact, Normal Color, Warm Assessment and Plan - Assessment and Plan (Free Text) Plan: 67 year old male with PMHx of COPD, DM2, HTN, HLD, CAD with sent placement and PE 3 months ago (on Eliquis and Plavix) admitted for evaluation and treatment of SOB 2/2 COPD exacerbation. Plan: Acute on Chronic COPD Exacerbation CXR (Admission): Bibasilar atelectasis. Hyperinflation may be seen in the setting of COPD. Cardiomegaly. Chest CT (Admission): 1. No definite central pulmonary embolus appreciated. Contrast bolus enhances the aorta and is less apparent at the pulmonary arteries with evaluation of segmental and more distal pulmonary artery branches being poorly evaluated as result. Clinically correlate as to the need or potential follow-up nuclear V/Q scan. 2. No infiltrate pleural or pericardial effusion. Cardiomegaly appears stable. 3. Cardiomegaly reiterated as well as dilatation of the ascending thoracic aorta up to 4.4 cm. Blood Cultures (Adm): negative to date Meds: DuoNebs Q6H PRN Azithromycin 500mg Daily Rocephin 1gram IVP Daily Tylenol PRN for fever SoluMedrol 20 Q12H Hypertension Enalapril 5mg PO Daily Norvasc 5mg PO Daily Lasix 20mg PO Daily Continue to monitor Diabetes Metformin 500mg PO BID Continue to monitor CAD/PE Eliquis 5mg PO BID Plavix 75 Daily Rosuvastatin 20mg PO HS Hyperlipidemia Rosuvastatin 20mg PO HS Hx of Gout Colchicine 0.6mg PO Daily Allopurinol 100mg PO Daily BPH Flomax 0.4mg HS Insomnia Ambien 5mg PO HS Proph Eliquis Multivitamins Vit. B6 Heart Health Diet Pepcid Patient is stable for discharge to home per Dr. Gibbs. Patient must continue all home medications, to include Eliquis and Plavix, per Dr. Gibbs. Patient must take new medications as prescribed: 1. Medrol dose pack - take as directed 2. Z-roslyn- take as directed *Prescriptions sent electronically to patient's preferred pharmacy. Patient must follow up with PMD, Dr. Gibbs, within 1 week of discharge. If symptoms worsen or reoccur, patient should return to the nearest ED.
[2017-12-24 08:20] VITALS: PULSE 73; TEMP 98
[2017-12-24] MEDS: Multiple Vitamins Tab PO SCH (09:47)
[2017-12-24 09:49] VITALS: BP 139/81
[2017-12-24] MEDS: MethylPREDNISolone 40 mg Vial IVP SCH (09:52)
== END 2017-12-24 10:02 | disposition home or self-care (01) ==
LOC: C.ER 16:22 → C.6T 22:23
PROVIDERS: ADMIT Internal Medicine Pulmonary Disease; ATTEND Internal Medicine Pulmonary Disease
DX: J44.1 Chronic obstructive pulmonary disease with (acute) exacerbation (principal); E11.22 Type 2 diabetes mellitus with diabetic chronic kidney disease; E78.00 Pure hypercholesterolemia, unspecified; I25.10 Atherosclerotic heart disease of native coronary artery without angina pectoris; I12.9 Hypertensive chronic kidney disease with stage 1 through stage 4 chronic kidney disease, or unspecified chronic kidney disease; Z87.891 Personal history of nicotine dependence; N18.9 Chronic kidney disease, unspecified; E78.5 Hyperlipidemia, unspecified; Z95.5 Presence of coronary angioplasty implant and graft
CPT/HCPCS: 36415; 71046; 71275; 80053; 82948; 83605; 83735; 83880; 84100; 84132; 84484; 85025; 85610; 85730; 87040; 93005; 94640; 96360; 99285; G0378; J0456; J0696; J1650; J2920; J7030; J7050; Q9967

== ENCOUNTER 2018-02-16 13:40 | Inpatient (IN) | payer MEDICARE, MEDICAID ==
[2018-02-16 13:40] VITALS: BMI 34.8
[2018-02-16] MEDS ORDERED: Sodium Chloride 0.9% 1,000 ML IV ONE (15:05)
[2018-02-16] MEDS ORDERED: Pantoprazole 80 MG in Sodium Chloride 0.9% 100 ML IV STA (15:05)
[2018-02-16] MEDS ORDERED: Pantoprazole 40 MG in Sodium Chloride 0.9% 100 ML IV STA (15:08)
[2018-02-16] MEDS ORDERED: Sodium Chloride 0.9% 1,000 ML ONE (15:31)
[2018-02-16 15:34] LABS: BASO # 0.1 K/uL (0.0-0.2); EOS # 0.3 K/uL (0.0-0.7); EOS % 5.7 % (0.0-4.0); HEMOGLOBIN 14.1 g/dL (12.0-18.0); LYMPH # 2.7 K/uL (1.0-4.3); LYMPH % 46.7 % (20.0-40.0); MEAN CELL VOLUME 91.4 fL (80.0-94.0); MEAN CORPUSCULAR HEMOGLOBIN 30.4 pg (27.0-31.0); MEAN CORPUSCULAR HGB CONC 33.3 g/dL (33.0-37.0); MEAN PLATELET VOLUME 9.9 fL (7.2-11.7); MONO # 0.5 K/uL (0.0-0.8); MONO % 9.3 % (0.0-10.0); NEUT # 2.1 K/uL (1.8-7.0); NEUT % 37.3 % (50.0-75.0); NRBC % 0.1 % (0.0-2.0); RBC 4.62 Mil/uL (4.40-5.90); RED CELL DISTRIBUTION WIDTH 13.7 % (11.5-14.5); WHITE BLOOD COUNT 5.7 K/uL (4.8-10.8)
[2018-02-16 15:43] LABS: INR 1.5; PROTHROMBIN TIME 15.9 SECONDS (9.7-12.2)
[2018-02-16 15:47] LABS: ALB/GLOB RATIO 1.6 (1.0-2.1); ALBUMIN 3.9 g/dL (3.5-5.0); CALCIUM 9.5 mg/dl (8.6-10.4)
--- NOTE | 2018-02-16 16:16 | C.PDOC ---
History Of Present Illness 67 year old male presents to the emergency department with complaints of bloody stool for the last two days. Patient reports no pain, but states that he is currently on a blood thinner. He denies vomiting, chest pain, and shortness of breath. Time Seen by Provider: 02/16/18 14:54 Chief Complaint (Nursing): GI Problem History Per: Patient History/Exam Limitations: no limitations Onset/Duration Of Symptoms: Days (2) Current Symptoms Are (Timing): Still Present Number Of Bleeding Episodes: Multiple: Quality Of Discomfort: denies: "Pain" Associated Symptoms: denies: Vomiting, Other (chest pain, shortness of breath) Past Medical History Reviewed: Historical Data, Nursing Documentation, Vital Signs Vital Signs: Last Vital Signs Temp 98.3 F 02/16/18 13:42 Pulse 80 02/16/18 13:42 Resp 18 02/16/18 13:42 BP 144/79 02/16/18 13:42 Pulse Ox 97 02/16/18 13:42 - Medical History PMH: Anxiety, Arthritis, Back Problems, COPD, Diabetes, Gastritis, HTN, Hypercholesterolemia, Pneumonia (), Chronic Kidney Disease Surgical History: Coronary Stent, Hernia Repair - [facility] Procedures ASSISTANCE WITH RESPIRATORY VENTILATION, 24-96 HRS, CPAP (09/26/17) CENTRAL VENOUS CATHETER PLACEMENT WITH GUIDANCE (07/24/12) CONTINUOUS INVASIVE MECHANICAL VENTILATION <96 CONSEC HRS (07/24/12) DRAINAGE OF PERITONEAL CAVITY, OPEN APPROACH (05/13/15) EXCISION OF RIGHT SPERMATIC CORD, OPEN APPROACH (05/01/15) EXTRACTION OF PELVIC SUBCU/FASCIA, OPEN APPROACH (05/13/15) INSERT ENDOTRACHEAL TUBE (07/24/12) OTH LYSIS-PERITONEAL ADHES (03/16/13) OTHER OPEN UMBILICAL HERNIORRHAPHY (03/16/13) SUPPLEMENT ABDOMINAL WALL WITH SYNTH SUB, OPEN APPROACH (07/21/16) SUPPLEMENT R INGUINAL REGION WITH SYNTH SUB, OPEN APPROACH (05/01/15) Family History: States: No Known Family Hx - Social History Hx Tobacco Use: Yes Hx Alcohol Use: No Hx Substance Use: No - Immunization History Hx Tetanus Toxoid Vaccination: No Hx Influenza Vaccination: Yes (2017) Hx Pneumococcal Vaccination: No Review Of Systems Except As Marked, All Systems Reviewed And Found Negative. Gastrointestinal: Positive for: Hematochezia, Other Physical Exam - Physical Exam Appears: Non-toxic, No Acute Distress Skin: Normal Color, Warm, Dry Head: Atraumatic, Normacephalic Eye(s): bilateral: Normal Inspection, PERRL, EOMI Nose: Normal Oral Mucosa: Moist Neck: Normal, Supple Chest: Symmetrical, No Tenderness Cardiovascular: Rhythm Regular, No Murmur Respiratory: Normal Breath Sounds, No Rales, No Rhonchi, No Wheezing Gastrointestinal/Abdominal: Soft, No Tenderness, No Guarding, No Rebound Rectal: Other (heme occult: reddish brick/brown stool) Extremity: Bilateral: Atraumatic, Normal Color And Temperature, Normal ROM Neurological/Psych: Oriented x3, Normal Speech ED Course And Treatment - Laboratory Results Result Diagrams: 02/17/18 07:25 02/17/18 07:25 O2 Sat by Pulse Oximetry: 97 (RA) Pulse Ox Interpretation: Normal Medical Decision Making Medical Decision Making: Plan: Blood Bank Type and Screen CMP Bloodwork Protonix 80mg NaCl IV Fluids Assessment: Rectal Bleeding 16:[address] Jarad Alexis, who is covering for Dr. Gibbs. Agreed upon admission. Disposition Discussed With : Niall Alexis Doctor Will See Patient In The: Hospital Counseled Patient/Family Regarding: Studies Performed, Diagnosis - Disposition Disposition: HOSPITALIZED Disposition Time: 16:30 Condition: FAIR - Clinical Impression Clinical Impression: GI bleed - Scribe Statement The provider has reviewed the documentation as recorded by the Scribe (Delmer Huffman) Provider Attestation: All medical record entries made by the Scribe were at my direction and per sonally dictated by me. I have reviewed the chart and agree that the record accurately reflects my personal performance of the history, physical exam, medical decision making, and the department course for this patient. I have also personally directed, reviewed, and agree with the discharge instructions and disposition.
--- NOTE | 2018-02-16 16:39 | CP.PCM.HP ---
<Aleena Cazares - Last Filed: 02/16/18 19:46> History of Present Illness - History of Present Illness History of Present Illness: Medicine Note for Hospitalist Service (Covering for Dr. Gibbs) [employer] #[id number] This is a 67 year old [place]ian male with PMHx of hypertension, Hyperlipidemia, Diabetes Mellitus, CAD with 1 stent (2011), DVT and Bilateral PE (09/2017), Aortic Aneursym 4.3cm, chronic venous stasis, GERD, gout, BPH, COPD, right thyroid nodule and MITUL (uses CPAP) who presents to the ED for dark stools x 2 days. Patient states he has a bowel movement daily and noticed yesterday his stool was dark colored. This morning he had a bowel movement and it appeared dark and some parts were red. Patient reports this has not happened to him in the past. Patient reports he has history of hemorrhoids for which he was seen for 2 months ago. He admits to sometimes straining to move his bowels. Last colonoscopy was 10 years ago, he reports it was normal. Patient is currently on Eliquis since 09/2017 for DVT and bilateral PE, patient continues to be on Plavix for his LETY that was placed in 2011. Denied any current fever, chills, chest pain, shortness of breath, abominal pain, n/v/d, or urinary symptoms. PMHx: As noted above PSHx: Right direct inguinal hernia repair with excision of large cord lipoma and repair of spermatic cord vessel (05/01/15), hematoma of the right groin (S/p right hernia inguinal repair, 05/13/15) incarcerated recurrent para-umbilical hernia open repair w/ mesh (07/21/16), and recent cystoscopy All: NKDA SHx: > 30 years of tobacco use ( 1.5PPD), denied alcohol or any illicit drug use FHx: Unremarkable PMD: Sai Present on Admission - Present on Admission Any Indicators Present on Admission: No Review of Systems - Constitutional Constitutional: absent: Chills, Fever - EENT Eyes: absent: Blurred Vision, Change in Vision Ears: absent: Tinnitus, Dizziness Nose/Mouth/Throat: absent: Epistaxis, Nasal Congestion, Nasal Discharge - Cardiovascular Cardiovascular: absent: Chest Pain, Chest Pain at Rest, Dyspnea - Respiratory Respiratory: absent: Cough, Wheezing - Gastrointestinal Gastrointestinal: Constipation, Hematochezia, Melena. absent: Abdominal Pain, Coffee Ground Emesis, Diarrhea, Nausea - Genitourinary Genitourinary: absent: Dysuria, Hematuria - Musculoskeletal Musculoskeletal: absent: Arthralgias, Back Pain - Integumentary Integumentary: absent: Rash, Wounds - Neurological Neurological: absent: Syncope, Weakness - Psychiatric Psychiatric: absent: Anxiety, Depression - Endocrine Endocrine: absent: Polydipsia, Polyphagia, Polyuria - Hematologic/Lymphatic Hematologic: absent: Easy Bleeding, Easy Bruising, Lymphadenopathy Past Patient History - Infectious Disease Hx of Infectious Diseases: None - Past Medical History & Family History Past Medical History?: Yes - Past Social History Smoking Status: Light Smoker < 10 Cigarettes Daily - CARDIAC Hx Hypercholesterolemia: Yes Hx Hypertension: Yes - PULMONARY Hx Chronic Obstructive Pulmonary Disease (COPD): Yes Hx Pneumonia: Yes () - NEUROLOGICAL Hx Neurological Disorder: No - HEENT Hx HEENT Problems: Yes (POOR VISION) - RENAL Hx Chronic Kidney Disease: Yes - ENDOCRINE/METABOLIC Hx Endocrine Disorders: Yes Hx Diabetes Mellitus Type 2: Yes - HEMATOLOGICAL/ONCOLOGICAL Hx Blood Disorders: No - INTEGUMENTARY Hx Dermatological Problems: No - MUSCULOSKELETAL/RHEUMATOLOGICAL Hx Arthritis: Yes - GASTROINTESTINAL Hx Gastritis: Yes - GENITOURINARY/GYNECOLOGICAL Hx Genitourinary Disorders: Yes Hx Prostate Problems: Yes Other/Comment: HX: DYSURIA - PSYCHIATRIC Hx Anxiety: Yes Hx Substance Use: No - SURGICAL HISTORY Hx Coronary Stent: Yes - ANESTHESIA Hx Anesthesia: Yes Hx Anesthesia Reactions: No Hx Malignant Hyperthermia: No Meds Allergies/Adverse Reactions: Allergies Allergy/AdvReac Type Severity Reaction Status Date / Time No Known Allergies Allergy Verified 12/21/17 16:58 Physical Exam - Constitutional Appears: No Acute Distress - Head Exam Head Exam: ATRAUMATIC, NORMAL INSPECTION, NORMOCEPHALIC - Eye Exam Eye Exam: EOMI, Normal appearance, PERRL Pupil Exam: NORMAL ACCOMODATION - ENT Exam ENT Exam: Mucous Membranes Dry, Normal Oropharynx - Neck Exam Neck exam: Positive for: Normal Inspection. Negative for: Lymphadenopathy, Thyromegaly - Respiratory Exam Respiratory Exam: Clear to Auscultation Bilateral, NORMAL BREATHING PATTERN. absent: Decreased Breath Sounds - Cardiovascular Exam Cardiovascular Exam: +S1, +S2 - GI/Abdominal Exam GI & Abdominal Exam: Normal Bowel Sounds, Soft. absent: Distended, Tenderness - Rectal Exam Rectal Exam: Hemorrhoids Additional comments: internal hemorrhoid noted 9 o'clock, dark tarry stool with bright red blood tinge - Extremities Exam Extremities exam: Positive for: pedal pulses present. Negative for: pedal edema, tenderness Additional comments: chronic venous stasis noted bilateral LE - Back Exam Back exam: NORMAL INSPECTION - Neurological Exam Neurological exam: Alert, Oriented x3 - Psychiatric Exam Psychiatric exam: Normal Affect, Normal Mood - Skin Skin Exam: Dry, Intact, Normal Color, Warm Results - Vital Signs Recent Vital Signs: Last Vital Signs Temp 98.3 F 02/16/18 13:42 Pulse 80 02/16/18 13:42 Resp 18 02/16/18 13:42 BP 144/79 02/16/18 13:42 Pulse Ox 97 02/16/18 16:32 - Labs Result Diagrams: 02/16/18 15:24 02/16/18 15:24 Labs: Laboratory Results - last 24 hr 02/16/18 02/16/18 02/16/18 15:24 15:24 15:24 WBC 5.7 RBC 4.62 Hgb 14.1 Hct 42.3 MCV 91.4 MCH 30.4 MCHC 33.3 RDW 13.7 Plt Count 157 MPV 9.9 Neut % (Auto) 37.3 L Lymph % (Auto) 46.7 H [place] % (Auto) 9.3 Eos % (Auto) 5.7 H Baso % (Auto) 1.0 Neut # (Auto) 2.1 Lymph # (Auto) 2.7 [place] # (Auto) 0.5 Eos # (Auto) 0.3 Baso # (Auto) 0.1 PT 15.9 H INR 1.5 APTT 36 H Sodium 139 Potassium 4.1 Chloride 104 Carbon Dioxide 26 Anion Gap 13 BUN 32 H Creatinine 1.8 H Est GFR ( Amer) 46 Est GFR (Non-Af Amer) 38 Random Glucose 110 D Calcium 9.5 Total Bilirubin 0.4 AST 23 ALT 27 Alkaline Phosphatase 40 Total Protein 6.4 Albumin 3.9 Globulin 2.4 Albumin/Globulin Ratio 1.6 Blood Type Antibody Screen 02/16/18 15:24 WBC RBC Hgb Hct MCV MCH MCHC RDW Plt Count MPV Neut % (Auto) Lymph % (Auto) [place] % (Auto) Eos % (Auto) Baso % (Auto) Neut # (Auto) Lymph # (Auto) [place] # (Auto) Eos # (Auto) Baso # (Auto) PT INR APTT Sodium Potassium Chloride Carbon Dioxide Anion Gap BUN Creatinine Est GFR ( Amer) Est GFR (Non-Af Amer) Random Glucose Calcium Total Bilirubin AST ALT Alkaline Phosphatase Total Protein Albumin Globulin Albumin/Globulin Ratio Blood Type O POSITIVE Antibody Screen Negative Assessment & Plan - Assessment and Plan (Free Text) Plan: Hematochezia/ Melena - GI consulted, Dr. Morales Management: - MIKEY + for internal hemorrhoids noted 9 o'clock with bright red blood mixed with dark, tarry stools - Likely secondary to continued use of antiplatelets in conjugation with DOAC, in addition to internal hemorrhoids with history of constipation - Continue with IVF, protonix 40mg IVP Q12 - Will monitor H/H, if values drop, colonoscopy will be performed inpatient. If H/H is stable, GI will perform colonoscopy outpatient SERGEI - Baseline 1.5 Management: - IVF @ 100cc/hr - Will hold vasotec, lasix, and metformin until SERGEI resolves DVT and Bilateral PE (09/2017) - Eliquis 5mg PO BID - HELD CAD with 1 stent (2011) - Patient was instructed on last admission to discontinue Plavix as the LETY was placed 2011, there is no indication to continue with Plavix Hypertension - Norvasc 5mg PO QD - Coreg 3.125mg PO BID - Vasotec 5mg PO QD (Held due to SERGEI), Lasix 40mg PO QD (Held due to SERGEI) Hyperlipidemia - Crestor 20mg PO HS Diabetes Mellitus - Accuchecks - Metformin 500mg PO BID on hold 2/2 SERGEI - ISS low with hypoglycemic protocol Constipation - Colace 100mg PO BID Aortic Aneursym (4.3cm) - Patient instructed on last admission to follow up with Dr. Pa as outpatient - Will need repeat CTA in 6 - 12 months to monitor COPD - Pulmicort and Spiriva GERD - Current on PPI Q12 Gout - Continue with Allopurinol Chronic Venous Stasis - Continue wearing compression stockings BPH - Continue Flomax Right Thyroid Nodule - Patient instructed on last admission to have a thyroid US performed outpatient MITUL (uses CPAP) Prophylactic Measures - GI PPX: Protonix Q12 - DVT: SCDs, VTE c/i due to suspected GI bleed Case discussed with Dr. Niall Alexis DO, Aleena Cazares DO, PGY2 <Niall Alexis J - Last Filed: 02/17/18 20:04> Results - Vital Signs Recent Vital Signs: Last Vital Signs Temp 97.8 F 02/17/18 07:17 Pulse 51 L 02/17/18 07:17 Resp 20 02/17/18 07:17 BP 131/82 02/17/18 07:17 Pulse Ox 94 L 02/17/18 07:17 - Labs Result Diagrams: 02/17/18 07:25 02/17/18 07:25 Labs: Laboratory Results - last 24 hr 02/16/18 02/17/18 02/17/18 21:11 06:35 07:25 WBC 5.7 RBC 4.40 Hgb 13.4 Hct 40.2 MCV 91.3 MCH 30.5 MCHC 33.4 RDW 13.7 Plt Count 138 MPV 9.5 Neut % (Auto) 27.1 L Lymph % (Auto) 54.8 H [place] % (Auto) 9.7 Eos % (Auto) 7.6 H Baso % (Auto) 0.8 Neut # (Auto) 1.6 L Lymph # (Auto) 3.1 [place] # (Auto) 0.6 Eos # (Auto) 0.4 Baso # (Auto) 0.0 Sodium Potassium Chloride Carbon Dioxide Anion Gap BUN Creatinine Est GFR ( Amer) Est GFR (Non-Af Amer) POC Glucose (mg/dL) 169 H 94 Random Glucose Calcium Phosphorus Magnesium Total Bilirubin AST ALT Alkaline Phosphatase Total Protein Albumin Globulin Albumin/Globulin Ratio 02/17/18 02/17/18 07:25 11:21 WBC RBC Hgb Hct MCV MCH MCHC RDW Plt Count MPV Neut % (Auto) Lymph % (Auto) [place] % (Auto) Eos % (Auto) Baso % (Auto) Neut # (Auto) Lymph # (Auto) [place] # (Auto) Eos # (Auto) Baso # (Auto) Sodium 141 Potassium 4.2 Chloride 111 H Carbon Dioxide 23 Anion Gap 11 BUN 28 H Creatinine 1.7 H Est GFR ( Amer) 49 Est GFR (Non-Af Amer) 41 POC Glucose (mg/dL) 187 H Random Glucose 100 Calcium 8.7 Phosphorus 3.9 Magnesium 1.8 Total Bilirubin 0.4 AST 18 ALT 24 Alkaline Phosphatase 35 L Total Protein 5.6 L Albumin 3.3 L Globulin 2.3 Albumin/Globulin Ratio 1.5 Attending/Attestation - Attestation I have personally seen and examined this patient.: Yes I have fully participated in the care of the patient.: Yes I have reviewed all pertinent clinical information: Yes Notes (Text): 02/17/18 20:03 This is a late entry. Patient was seen and examined with resident Dr. Cazares. History, Physical, Assessment and Plan and orders were discussed with Dr. Cazares. Niall Alxeis D.O.
[2018-02-16 17:59] VITALS: RESP 20
[2018-02-16] MEDS ORDERED: Glucagon Recombinant 1 mg Inj IM PRN (19:45)
[2018-02-16] MEDS ORDERED: Dextrose 50% SYRINGE Inj (50 ml) IV PRN (19:45)
[2018-02-16] MEDS: Sodium Chloride 0.9% 1,000 ML IV SCH (19:52)
[2018-02-16] MEDS ORDERED: Budesonide 0.5 mg/2 ml Inhal Susp UD INH SCH (20:00)
--- NOTE | 2018-02-16 20:20 | CP.PCM.CON ---
History of Present Illness - History of Present Illness History of Present Illness: GI Service Consult cc: rectal bleed HPI: GI consult requested for rectal bleed. Pt saw blood on his sheets earlier today, was constipated, came to ER and found to have Hgb 14. Pt is on Eliquis for bilateral pulmonary emboli, and Plavix for coronary stents. No prior history of GI bleeding. Of note, patient has a known h/o aortic aneurysm. Review of Systems - Constitutional Constitutional: absent: Chills - EENT Eyes: absent: Change in Vision - Cardiovascular Cardiovascular: absent: Chest Pain - Respiratory Respiratory: absent: Cough - Gastrointestinal Gastrointestinal: Constipation, Hematochezia. absent: Abdominal Pain - Genitourinary Genitourinary: absent: Difficulty Urinating - Musculoskeletal Musculoskeletal: Back Pain Past Patient History - Infectious Disease Hx of Infectious Diseases: None - Past Medical History & Family History Past Medical History?: Yes - Past Social History Smoking Status: Light Smoker < 10 Cigarettes Daily - CARDIAC Hx Hypercholesterolemia: Yes Hx Hypertension: Yes - PULMONARY Hx Chronic Obstructive Pulmonary Disease (COPD): Yes Hx Pneumonia: Yes () - NEUROLOGICAL Hx Neurological Disorder: No - HEENT Hx HEENT Problems: Yes (POOR VISION) - RENAL Hx Chronic Kidney Disease: Yes - ENDOCRINE/METABOLIC Hx Endocrine Disorders: Yes Hx Diabetes Mellitus Type 2: Yes - HEMATOLOGICAL/ONCOLOGICAL Hx Blood Disorders: No - INTEGUMENTARY Hx Dermatological Problems: No - MUSCULOSKELETAL/RHEUMATOLOGICAL Hx Arthritis: Yes - GASTROINTESTINAL Hx Gastritis: Yes - GENITOURINARY/GYNECOLOGICAL Hx Genitourinary Disorders: Yes Hx Prostate Problems: Yes Other/Comment: HX: DYSURIA - PSYCHIATRIC Hx Anxiety: Yes Hx Substance Use: No - SURGICAL HISTORY Hx Coronary Stent: Yes - ANESTHESIA Hx Anesthesia: Yes Hx Anesthesia Reactions: No Hx Malignant Hyperthermia: No Meds Allergies/Adverse Reactions: Allergies Allergy/AdvReac Type Severity Reaction Status Date / Time No Known Allergies Allergy Verified 12/21/17 16:58 - Medications Medications: Current Medications Allopurinol (Zyloprim) 100 mg PO DAILY [facility] Amlodipine Besylate (Norvasc) 5 mg PO DAILY [facility] Budesonide (Pulmicort Respules) 0.5 mg INH RQ12 [facility] Carvedilol (Coreg) 3.125 mg PO BID [facility] Dextrose (Dextrose 50% Inj) 0 ml IV STAT PRN; Protocol PRN Reason: Hypoglycemia Protocol Dextrose (Glutose 15) 0 gm PO ONCE PRN; Protocol PRN Reason: Hypoglycemia Protocol Docusate Sodium (Colace) 100 mg PO BID [facility] Last Admin: 02/16/18 19:51 Dose: 100 mg Glucagon (Glucagen Diagnostic Kit) 0 mg IM STAT PRN; Protocol PRN Reason: Hypoglycemia Protocol Sodium Chloride (Sodium Chloride 0.9%) 1,000 mls @ 100 mls/hr IV .Q10H ONE Stop: 02/17/18 01:04 Last Admin: 02/16/18 15:30 Dose: 100 mls/hr Sodium Chloride (Sodium Chloride 0.9%) 1,000 mls @ 100 mls/hr IV .Q10H [facility] Last Admin: 02/16/18 19:52 Dose: 100 mls/hr Dextrose (Dextrose 5% In Water 1000 Ml) 1,000 mls @ 0 mls/hr IV .Q0M PRN; Protocol PRN Reason: Hypoglycemia Protocol Insulin Human Regular (Novolin R) 0 unit SC ACHS [facility]; Protocol Pantoprazole Sodium (Protonix Inj) 40 mg IVP Q12H [facility] Last Admin: 02/16/18 19:56 Dose: 40 mg Rosuvastatin Calcium (Crestor) 20 mg PO HS [facility] Tamsulosin HCl (Flomax) 0.4 mg PO HS [facility] Tiotropium [place] (Spiriva) 18 mcg INH RQ24 [facility] Physical Exam - Constitutional Appears: No Acute Distress - Head Exam Head Exam: NORMOCEPHALIC - Eye Exam Eye Exam: absent: Scleral icterus - ENT Exam ENT Exam: Normal Exam - Respiratory Exam Respiratory Exam: NORMAL BREATHING PATTERN - Cardiovascular Exam Cardiovascular Exam: REGULAR RHYTHM - GI/Abdominal Exam GI & Abdominal Exam: Soft. absent: Mass, Tenderness - Rectal Exam Rectal Exam: Deferred Additional comments: MIKEY by resident noted: dark stool with red blood tinge - Extremities Exam Extremities exam: Positive for: normal inspection - Psychiatric Exam Psychiatric exam: Normal Mood Results - Vital Signs Recent Vital Signs: Last Vital Signs Temp 97.3 F L 02/16/18 18:10 Pulse 50 L 02/16/18 18:10 Resp 20 02/16/18 18:10 BP 139/84 02/16/18 18:10 Pulse Ox 99 02/16/18 18:10 - Labs Result Diagrams: 02/16/18 15:24 02/16/18 15:24 Labs: Laboratory Results - last 24 hr 02/16/18 02/16/18 02/16/18 15:24 15:24 15:24 WBC 5.7 RBC 4.62 Hgb 14.1 Hct 42.3 MCV 91.4 MCH 30.4 MCHC 33.3 RDW 13.7 Plt Count 157 MPV 9.9 Neut % (Auto) 37.3 L Lymph % (Auto) 46.7 H [place] % (Auto) 9.3 Eos % (Auto) 5.7 H Baso % (Auto) 1.0 Neut # (Auto) 2.1 Lymph # (Auto) 2.7 [place] # (Auto) 0.5 Eos # (Auto) 0.3 Baso # (Auto) 0.1 PT 15.9 H INR 1.5 APTT 36 H Sodium 139 Potassium 4.1 Chloride 104 Carbon Dioxide 26 Anion Gap 13 BUN 32 H Creatinine 1.8 H Est GFR ( Amer) 46 Est GFR (Non-Af Amer) 38 Random Glucose 110 D Calcium 9.5 Total Bilirubin 0.4 AST 23 ALT 27 Alkaline Phosphatase 40 Total Protein 6.4 Albumin 3.9 Globulin 2.4 Albumin/Globulin Ratio 1.6 Blood Type Antibody Screen 02/16/18 15:24 WBC RBC Hgb Hct MCV MCH MCHC RDW Plt Count MPV Neut % (Auto) Lymph % (Auto) [place] % (Auto) Eos % (Auto) Baso % (Auto) Neut # (Auto) Lymph # (Auto) [place] # (Auto) Eos # (Auto) Baso # (Auto) PT INR APTT Sodium Potassium Chloride Carbon Dioxide Anion Gap BUN Creatinine Est GFR ( Amer) Est GFR (Non-Af Amer) Random Glucose Calcium Total Bilirubin AST ALT Alkaline Phosphatase Total Protein Albumin Globulin Albumin/Globulin Ratio Blood Type O POSITIVE Antibody Screen Negative Assessment & Plan (1) GI bleed Assessment and Plan: Minor bleed. Needs to be observed overnight for development of further bleeding, in light of aortic aneurym and antiplatelet therapy. D/W resident. Check Hgb in AM. Status: Acute (2) AAA (abdominal aortic aneurysm) Status: Acute (3) CAD (coronary artery disease) Status: Acute (4) COPD (chronic obstructive pulmonary disease) Status: Acute (5) Pulmonary embolism Status: Acute (6) Diabetes mellitus Status: Chronic - Date & Time Date: 02/16/18 Time: 20:24
[2018-02-16] MEDS: (Novolin R) Insulin Human Regular 100 units/ml vial SC SCH (21:37)
[2018-02-17] MEDS: Sodium Chloride 0.9% 1,000 ML IV SCH (05:17)
[2018-02-17 07:39] LABS: BASO % 0.8 % (0.0-2.0); EOS # 0.4 K/uL (0.0-0.7); EOS % 7.6 % (0.0-4.0); HEMOGLOBIN 13.4 g/dL (12.0-18.0); LYMPH # 3.1 K/uL (1.0-4.3); LYMPH % 54.8 % (20.0-40.0); MEAN CELL VOLUME 91.3 fL (80.0-94.0); MEAN CORPUSCULAR HEMOGLOBIN 30.5 pg (27.0-31.0); MEAN CORPUSCULAR HGB CONC 33.4 g/dL (33.0-37.0); MEAN PLATELET VOLUME 9.5 fL (7.2-11.7); MONO # 0.6 K/uL (0.0-0.8); MONO % 9.7 % (0.0-10.0); NEUT # 1.6 K/uL (1.8-7.0); NEUT % 27.1 % (50.0-75.0); NRBC % 0.2 % (0.0-2.0); RBC 4.4 Mil/uL (4.40-5.90); RED CELL DISTRIBUTION WIDTH 13.7 % (11.5-14.5); WHITE BLOOD COUNT 5.7 K/uL (4.8-10.8)
[2018-02-17] MEDS: (Novolin R) Insulin Human Regular 100 units/ml vial SC SCH (07:52)
[2018-02-17 07:56] LABS: ALB/GLOB RATIO 1.5 (1.0-2.1); ALBUMIN 3.3 g/dL (3.5-5.0); CALCIUM 8.7 mg/dl (8.6-10.4)
[2018-02-17] MEDS ORDERED: Tiotropium 18 mcg Cap For Inhalation INH SCH (08:00)
[2018-02-17 08:18] VITALS: BP 131/82; PULSE 51; TEMP 97.8
--- NOTE | 2018-02-17 08:25 | CP.PCM.PN ---
Subjective - Date & Time of Evaluation Date of Evaluation: 02/17/18 Time of Evaluation: 08:23 - Subjective Subjective: f/u GI bleed. Reports SMALL amount blood on stool. Stool is brown. Started yest after constipation and hard stool. Denies abdom pain, fever, chills, CO, SOB, PIPER, cough, hematuria, hemoptysis Objective - Vital Signs/Intake and Output Vital Signs (last 24 hours): Temp Pulse Resp BP Pulse Ox 97.8 F 51 L 20 131/82 94 L 02/17/18 07:17 02/17/18 07:17 02/17/18 07:17 02/17/18 07:17 02/17/18 07:17 Intake and Output: 02/17/18 02/17/18 06:59 18:59 Intake Total 1200 Balance 1200 - Medications Medications: Current Medications Allopurinol (Zyloprim) 100 mg PO DAILY [facility] Amlodipine Besylate (Norvasc) 5 mg PO DAILY [facility] Budesonide (Pulmicort Respules) 0.5 mg INH RQ12 [facility] Carvedilol (Coreg) 3.125 mg PO BID [facility] Dextrose (Dextrose 50% Inj) 0 ml IV STAT PRN; Protocol PRN Reason: Hypoglycemia Protocol Dextrose (Glutose 15) 0 gm PO ONCE PRN; Protocol PRN Reason: Hypoglycemia Protocol Docusate Sodium (Colace) 100 mg PO BID [facility] Last Admin: 02/16/18 19:51 Dose: 100 mg Glucagon (Glucagen Diagnostic Kit) 0 mg IM STAT PRN; Protocol PRN Reason: Hypoglycemia Protocol Sodium Chloride (Sodium Chloride 0.9%) 1,000 mls @ 100 mls/hr IV .Q10H [facility] Last Admin: 02/17/18 05:17 Dose: 100 mls/hr Dextrose (Dextrose 5% In Water 1000 Ml) 1,000 mls @ 0 mls/hr IV .Q0M PRN; Protocol PRN Reason: Hypoglycemia Protocol Insulin Human Regular (Novolin R) 0 unit SC ACHS [facility]; Protocol Last Admin: 02/17/18 07:52 Dose: Not Given Pantoprazole Sodium (Protonix Inj) 40 mg IVP Q12H [facility] Last Admin: 02/16/18 19:56 Dose: 40 mg Rosuvastatin Calcium (Crestor) 20 mg PO HS [facility] Last Admin: 02/16/18 21:59 Dose: 20 mg Tamsulosin HCl (Flomax) 0.4 mg PO HS [facility] Last Admin: 02/16/18 21:59 Dose: 0.4 mg Tiotropium [place] (Spiriva) 18 mcg INH RQ24 [facility] Zolpidem Tartrate (Ambien) 5 mg PO HS PRN PRN Reason: Insomnia Last Admin: 02/16/18 23:21 Dose: 5 mg - Labs Labs: 02/17/18 07:25 02/17/18 07:25 PT 15.9 SECONDS (9.7-12.2) H 02/16/18 15:24 INR 1.5 02/16/18 15:24 APTT 36 SECONDS (21-34) H 02/16/18 15:24 - Constitutional Appears: Non-toxic - Respiratory Exam Respiratory Exam: Clear to Ausculation Bilateral - Cardiovascular Exam Cardiovascular Exam: RRR - GI/Abdominal Exam GI & Abdominal Exam: Soft, Normal Bowel Sounds. absent: Guarding, Tenderness, Mass - Neurological Exam Neurological Exam: Alert, Oriented x3 Assessment and Plan (1) GI bleed Assessment & Plan: Rb- small amount blood TINGE after hard stool. Likely hemorrhoids. Hb 13.4. No upper Gi bleeding. REC- advance diet, outpatient colonoscopy. Status: Acute (2) AAA (abdominal aortic aneurysm) Status: Acute (3) SERGEI (acute kidney injury) Status: Acute (4) CAD (coronary artery disease) Status: Acute (5) COPD (chronic obstructive pulmonary disease) Status: Acute (6) Pulmonary embolism Status: Acute (7) Diabetes mellitus Status: Chronic (8) Hypertension Status: Chronic
--- NOTE | 2018-02-17 09:04 | CP.PCM.DIS ---
<Óscar Simpson - Last Filed: 02/17/18 09:01> Provider - Provider Date of Admission: 02/16/18 16:29 Attending physician: Niall Alexis MD Consults: 02/16/18 16:44 Gastroenterology Consult Routine Comment: Consulting Provider: Mason Morales Consulting Physician: Mason Morales Reason for Consult: GI bleed; on Eliquis for bilateral PE and DVT; plavix for CAD Time Spent in preparation of Discharge (in minutes): 45 Hospital Course - Lab Results Lab Results: Most Recent Lab Values WBC 5.7 K/uL (4.8-10.8) 02/17/18 07:25 RBC 4.40 Mil/uL (4.40-5.90) 02/17/18 07:25 Hgb 13.4 g/dL (12.0-18.0) 02/17/18 07:25 Hct 40.2 % (35.0-51.0) 02/17/18 07:25 MCV 91.3 fL (80.0-94.0) 02/17/18 07:25 MCH 30.5 pg (27.0-31.0) 02/17/18 07:25 MCHC 33.4 g/dL (33.0-37.0) 02/17/18 07:25 RDW 13.7 % (11.5-14.5) 02/17/18 07:25 Plt Count 138 K/uL (130-400) 02/17/18 07:25 MPV 9.5 fL (7.2-11.7) 02/17/18 07:25 Neut % (Auto) 27.1 % (50.0-75.0) L 02/17/18 07:25 Lymph % (Auto) 54.8 % (20.0-40.0) H 02/17/18 07:25 Coffee % (Auto) 9.7 % (0.0-10.0) 02/17/18 07:25 Eos % (Auto) 7.6 % (0.0-4.0) H 02/17/18 07:25 Baso % (Auto) 0.8 % (0.0-2.0) 02/17/18 07:25 Neut # (Auto) 1.6 K/uL (1.8-7.0) L 02/17/18 07:25 Lymph # (Auto) 3.1 K/uL (1.0-4.3) 02/17/18 07:25 Coffee # (Auto) 0.6 K/uL (0.0-0.8) 02/17/18 07:25 Eos # (Auto) 0.4 K/uL (0.0-0.7) 02/17/18 07:25 Baso # (Auto) 0.0 K/uL (0.0-0.2) 02/17/18 07:25 PT 15.9 SECONDS (9.7-12.2) H 02/16/18 15:24 INR 1.5 02/16/18 15:24 APTT 36 SECONDS (21-34) H 02/16/18 15:24 Sodium 141 mmol/L (132-148) 02/17/18 07:25 Potassium 4.2 mmol/L (3.6-5.2) 02/17/18 07:25 Chloride 111 mmol/L (98-107) H 02/17/18 07:25 Carbon Dioxide 23 mmol/L (22-30) 02/17/18 07:25 Anion Gap 11 (10-20) 02/17/18 07:25 BUN 28 mg/dL (9-20) H 02/17/18 07:25 Creatinine 1.7 mg/dL (0.8-1.5) H 02/17/18 07:25 Est GFR ( Amer) 49 02/17/18 07:25 Est GFR (Non-Af Amer) 41 02/17/18 07:25 POC Glucose (mg/dL) 94 mg/dL (65-110) 02/17/18 06:35 Random Glucose 100 mg/dL (75-110) 02/17/18 07:25 Calcium 8.7 mg/dl (8.6-10.4) 02/17/18 07:25 Phosphorus 3.9 mg/dL (2.5-4.5) 02/17/18 07:25 Magnesium 1.8 mg/dL (1.6-2.3) 02/17/18 07:25 Total Bilirubin 0.4 mg/dL (0.2-1.3) 02/17/18 07:25 AST 18 U/L (17-59) 02/17/18 07:25 ALT 24 U/L (21-72) 02/17/18 07:25 Alkaline Phosphatase 35 U/L (38-126) L 02/17/18 07:25 Total Protein 5.6 g/dL (6.3-8.3) L 02/17/18 07:25 Albumin 3.3 g/dL (3.5-5.0) L 02/17/18 07:25 Globulin 2.3 gm/dL (2.2-3.9) 02/17/18 07:25 Albumin/Globulin Ratio 1.5 (1.0-2.1) 02/17/18 07:25 Blood Type O POSITIVE 02/16/18 15:24 Antibody Screen Negative 02/16/18 15:24 - Hospital Course Hospital Course: This is a 67yo M with a remote history of PE, on Eliquis, who came to the hospital for acute GI bleeding. On exam, he was found to have an internal hemorrhoid at the 3'clock position. He had two CBC's done which did not show a drop in his hemoglobin, and his hemodynamic status was stable. The patient was tolerating a normal diet despite being put NPO in the hospital. 1) Internal Hemorrhoids; most likely 2) Patient to schedule outpatient colonoscopy with Dr. Morales 3) Continue Eliquis and all other medications 4) Anusol BID PRN for hemorrhoids, educated on how to not strain, and instructed to buy a squatty potty, increase water/fiber in diet The patient is stable for d/c as per Dr. Patricia Alexis Discharge Exam - Head Exam Head Exam: ATRAUMATIC, NORMAL INSPECTION, NORMOCEPHALIC - Eye Exam Eye Exam: EOMI, Normal appearance, PERRL - ENT Exam ENT Exam: Mucous Membranes Moist - Neck Exam Neck exam: Full Rom - Respiratory Exam Respiratory Exam: Clear to PA & Lateral. absent: Rales, Rhonchi, Wheezes - Cardiovascular Exam Cardiovascular Exam: REGULAR RHYTHM, +S1, +S2 - GI/Abdominal Exam GI & Abdominal Exam: Normal Bowel Sounds, Soft (extremely obese abdomen ) - Extremities Exam Extremities exam: full ROM - Back Exam Back exam: absent: CVA tenderness (L), CVA tenderness (R) - Neurological Exam Neurological exam: Alert, Oriented x3 Discharge Plan - Discharge Medications Prescriptions: Hydrocortisone 2.5% (Rectal) [Anusol-HC] 30 applic AR BID 30 Days #1 tube - Follow Up Plan Condition: STABLE Disposition: HOME/ ROUTINE Patient education suggested?: Yes Instructions: Gastrointestinal Bleeding (DC) Additional Instructions: The patient is stable for d/c as per Dr. Patricia Alexis 1) The patients hemoglobin on discharge is 13.4 which is normal, there was no drop seen overnight. 2) Please make sure to followup with Dr. Morales, the GI doctor, for an outpatient colonoscopy. 3) Please see Dr. Gibbs next week as well for a repeat CBC to check your hemoglobin levels to see if there are any drops 4) Continue to take all of your medications, including the eliquis until your seeing eye dog trainer or roofing apprentice tells you to stop taking them 5) If you become acutely short of breath, have crushing chest pain, or fill an entire toilet bowl with blood, please come back to the ER immediately. 6) Happy New Year! Referrals: Mason Morales MD [Staff Provider] - <Niall Alexis - Last Filed: 02/17/18 20:03> Provider - Provider Date of Admission: 02/16/18 16:29 Attending physician: Niall Alexis MD Consults: 02/16/18 16:44 Gastroenterology Consult Routine Comment: Consulting Provider: Mason Morales Consulting Physician: Mason Morales Reason for Consult: GI bleed; on Eliquis for bilateral PE and DVT; plavix for CAD Hospital Course - Lab Results Lab Results: Most Recent Lab Values WBC 5.7 K/uL (4.8-10.8) 02/17/18 07:25 RBC 4.40 Mil/uL (4.40-5.90) 02/17/18 07:25 Hgb 13.4 g/dL (12.0-18.0) 02/17/18 07:25 Hct 40.2 % (35.0-51.0) 02/17/18 07:25 MCV 91.3 fL (80.0-94.0) 02/17/18 07:25 MCH 30.5 pg (27.0-31.0) 02/17/18 07:25 MCHC 33.4 g/dL (33.0-37.0) 02/17/18 07:25 RDW 13.7 % (11.5-14.5) 02/17/18 07:25 Plt Count 138 K/uL (130-400) 02/17/18 07:25 MPV 9.5 fL (7.2-11.7) 02/17/18 07:25 Neut % (Auto) 27.1 % (50.0-75.0) L 02/17/18 07:25 Lymph % (Auto) 54.8 % (20.0-40.0) H 02/17/18 07:25 Coffee % (Auto) 9.7 % (0.0-10.0) 02/17/18 07:25 Eos % (Auto) 7.6 % (0.0-4.0) H 02/17/18 07:25 Baso % (Auto) 0.8 % (0.0-2.0) 02/17/18 07:25 Neut # (Auto) 1.6 K/uL (1.8-7.0) L 02/17/18 07:25 Lymph # (Auto) 3.1 K/uL (1.0-4.3) 02/17/18 07:25 Coffee # (Auto) 0.6 K/uL (0.0-0.8) 02/17/18 07:25 Eos # (Auto) 0.4 K/uL (0.0-0.7) 02/17/18 07:25 Baso # (Auto) 0.0 K/uL (0.0-0.2) 02/17/18 07:25 PT 15.9 SECONDS (9.7-12.2) H 02/16/18 15:24 INR 1.5 02/16/18 15:24 APTT 36 SECONDS (21-34) H 02/16/18 15:24 Sodium 141 mmol/L (132-148) 02/17/18 07:25 Potassium 4.2 mmol/L (3.6-5.2) 02/17/18 07:25 Chloride 111 mmol/L (98-107) H 02/17/18 07:25 Carbon Dioxide 23 mmol/L (22-30) 02/17/18 07:25 Anion Gap 11 (10-20) 02/17/18 07:25 BUN 28 mg/dL (9-20) H 02/17/18 07:25 Creatinine 1.7 mg/dL (0.8-1.5) H 02/17/18 07:25 Est GFR ( Amer) 49 02/17/18 07:25 Est GFR (Non-Af Amer) 41 02/17/18 07:25 POC Glucose (mg/dL) 187 mg/dL (65-110) H 02/17/18 11:21 Random Glucose 100 mg/dL (75-110) 02/17/18 07:25 Calcium 8.7 mg/dl (8.6-10.4) 02/17/18 07:25 Phosphorus 3.9 mg/dL (2.5-4.5) 02/17/18 07:25 Magnesium 1.8 mg/dL (1.6-2.3) 02/17/18 07:25 Total Bilirubin 0.4 mg/dL (0.2-1.3) 02/17/18 07:25 AST 18 U/L (17-59) 02/17/18 07:25 ALT 24 U/L (21-72) 02/17/18 07:25 Alkaline Phosphatase 35 U/L (38-126) L 02/17/18 07:25 Total Protein 5.6 g/dL (6.3-8.3) L 02/17/18 07:25 Albumin 3.3 g/dL (3.5-5.0) L 02/17/18 07:25 Globulin 2.3 gm/dL (2.2-3.9) 02/17/18 07:25 Albumin/Globulin Ratio 1.5 (1.0-2.1) 02/17/18 07:25 Blood Type O POSITIVE 02/16/18 15:24 Antibody Screen Negative 02/16/18 15:24 Attending/Attestation - Attestation I have personally seen and examined this patient.: Yes I have fully participated in the care of the patient.: Yes I have reviewed all pertinent clinical information, including history, physical exam and plan: Yes Notes (Text): 02/17/18 19:57 Care of this patient was gone over in detail with resident Dr. Allan Simpson. Please note that through [employer] hrms developer [id number], it was explained in U[place]bek to patient the followin). That he would need Colonoscopy to make sure that there were NO other issues within the colon that was responsible for the blood in stool. Explained multiple times that this is what was recommended as patient repeatedly asked if Colonscopy was necessary. He understands the risks of not having Colonoscopy. 2). We believed that hemorrhoids were the issue and that Anusol HC cream prescription was being provided and he was to use this to the rectum 2x/day (once in the morning and once in the evening. 3). Confirmed with patient that he had enough of his home medications and that he was to continue them including the Eliquis and Plavix 4). He understands that he must follow up with his PMD Dr. Gibbs next week for repeat CBC to make sure that there was no drop in HgB Please note that patient seemed to be frustrated that I was not giving him pe rmission to forgo the Colonoscopy. Conversation with him during the admission on 02/16/18 and again today with [employer] developer, stressed the importance of Colonoscopy despite the cause being either the Eliquis or the likely cause of the hemorrhoids. Niall Alexis D.O.
[2018-02-18 21:55] VITALS: O2SAT 97
== END 2018-02-17 13:15 | disposition home or self-care (01) | DRG 393 ==
LOC: C.ER 13:40 → C.9E 16:29 → C.5S 17:29
PROVIDERS: ADMIT Family Medicine; ATTEND Family Medicine
DX: K64.8 Other hemorrhoids (principal); I26.99 Other pulmonary embolism without acute cor pulmonale; E11.22 Type 2 diabetes mellitus with diabetic chronic kidney disease; E78.00 Pure hypercholesterolemia, unspecified; G47.33 Obstructive sleep apnea (adult) (pediatric); I12.9 Hypertensive chronic kidney disease with stage 1 through stage 4 chronic kidney disease, or unspecified chronic kidney disease; I25.10 Atherosclerotic heart disease of native coronary artery without angina pectoris; I71.4 Abdominal aortic aneurysm, without rupture; J44.9 Chronic obstructive pulmonary disease, unspecified; K21.9 Gastro-esophageal reflux disease without esophagitis; N18.9 Chronic kidney disease, unspecified; F17.210 Nicotine dependence, cigarettes, uncomplicated; Z79.01 Long term (current) use of anticoagulants

== ENCOUNTER 2018-04-14 11:50 | Outpatient (CLI) | payer MEDICARE | END 2018-04-14 11:51 | disposition home or self-care (01) | LOC: C.VASC 11:50 ==

== ENCOUNTER 2018-05-04 08:43 | Outpatient (CLI) | payer MEDICARE | END 2018-05-04 08:44 | disposition home or self-care (01) | LOC: C.VASC 08:43 | DX: I71.4 Abdominal aortic aneurysm, without rupture (principal) ==